=== PATIENT | female | born 1970 | race American Indian/Alaskan Native ===

== ENCOUNTER 2024-10-22 23:46 | Inpatient (IN) | payer OTHER, MEDICARE, SELFPAY ==
[2024-10-22 23:47] VITALS: BMI 21.0
[2024-10-22 23:51] VITALS: BP 124/92; PULSE 113; RESP 19; TEMP 37.2; O2SAT 99
[2024-10-23] VITALS (12 sets, daily range): BP systolic 104–120; BP diastolic 68–86; PULSE 104–120; RESP 15–31; TEMP 36–37.1; O2SAT 90–98
--- NOTE | 2024-10-23 00:30 | XR_ITS ---
Examination: CT brain head without contrast. 2-D sagittal coronal reconstructions Date and time of exam:October 23, 2024 0153 hours INDICATIONS: Loss of consciousness episode today followed by confusion CTDI: vol (mGy):42.6 DLP: (mGycm):8 Technique: Multiple CT axial sections of the brain have been obtained, 5 mm slice thickness. Contrast has not been administered. 2-D sagittal, coronal reconstructions have been obtained Low dose protocols were performed. One or more of the following dose reduction techniques were used; automated exposure control, adjustment of the mA and/or KV according to patient size, use of iterative reconstruction technique. Findings: No significant ventricular enlargement. Intra-axial or extra-axial hemorrhage density is not seen. No mass effect or midline shift Basal cisterns are not remarkable. Fourth ventricle is midline. Cranial vault intact. Large area of encephalomalacia in the left temporal lobe, left posterior temporal lobe calcification Impression: Negative for acute hemorrhage, mass effect or midline shift
--- NOTE | 2024-10-23 00:31 | PD.EDRME ---
Rapid Medical Screening Exam RME Arrival date/time: 10/22/24 23:46 This is a case of a 54-year-old female who has history of hypertension and seizure brought by the sister due to altered level of consciousness today sister states that the patient have vomiting and diarrhea since yesterday and she noticed that the patient is confused thus she brought the patient here in the emergency room Chief Complaint: Altered Mental Status Time Seen by Provider: 10/23/24 00:30 Vital signs: Vital Signs Temperature 99.0 F 10/22/24 23:51 Pulse Rate 113 H 10/22/24 23:51 Respiratory Rate 19 10/22/24 23:51 Blood Pressure 124/92 H 10/22/24 23:51 Pulse Oximetry (%) 99 10/22/24 23:51 Oxygen Delivery Method Room Air 10/22/24 23:51
[2024-10-23 01:06] LABS: Lactate (Lactic Acid) 3.6 mMol/L (0.4-2.0)
[2024-10-23 01:12] LABS: Basophils # (Auto) 0.1 Thou/mm3 (0.0-0.2); Basophils % (Auto) 0 % (0-2.5); Eosinophils # (Auto) 0.0 Thou/mm3 (0.0-0.5); Eosinophils % (Auto) 0 % (0-10); Hematocrit 37.4 % (36.0-46.0); Hemoglobin 13.3 g/dL (12.0-16.0); Immature Granulocytes Auto 0.21 Thou/mm3 (0.00-0.00); Lymphocytes # (Auto) 1.7 Thou/mm3 (1.0-4.8); Lymphocytes % (Auto) 6 % (10-50); Mean Corpuscular HGB Conc 35.6 g/dl (31.0-37.0); Mean Corpuscular Hemoglobin 30.9 pg (25.0-35.0); Mean Corpuscular Volume 87 fL (80-100); Monocytes # (Auto) 1.5 Thou/mm3 (0.0-0.8); Monocytes % (Auto) 5 % (0-12); Neutrophils # (Auto) 25.0 Thou/mm3 (1.8-7.7); Neutrophils % (Auto) 88 % (37-80); Nucleated Red Blood Cell # 0.00 Thou/mm3 (0.00-0.00); Nucleated Red Blood Cell % 0 /100 WBC (0); Platelet Count 384 Thou/mm3 (140-440); RDW Standard Deviation 37.7 fL (36.4-46.3); Red Blood Count 4.31 Miln/mm3 (4.00-5.20); White Blood Count 28.5 Thou/mm3 (3.6-11.0)
--- NOTE | 2024-10-23 01:25 | PD.EDAMS ---
Altered Mental Status RME/HPI General Chief Complaint: Altered Mental Status Stated Complaint: PT MOANING LOUDLY SEEMS CONFUSED Time Seen by Provider: 10/23/24 00:30 Arrival date/time: 10/22/24 23:46 RME / HPI RME / HPI narrative: 10/22/24 23:46 This is a case of a 54-year-old female who has history of hypertension and seizure brought by the sister due to altered level of consciousness today sister states that the patient have vomiting and diarrhea since yesterday and she noticed that the patient is confused thus she brought the patient here in the emergency room DR. LEMUS MAIN ED EVALUATION: 54 y/o female with Hx of Seizure, Anxiety, and Depression presents to ED c/o AMS s/p seizure x just [employer]. Patient lives alone. When sister went by to check on her, she found her home completely disordered. Sister states patient does not normally behave this way after a seizure. No pain reported. Related Data Home Medications ?Medication ?Instructions ?Recorded ?Confirmed levetiracetam 750 mg tablet 1,500 mg PO GISELE 07/03/21 07/03/21 (Keppra) levetiracetam 750 mg tablet 2,250 mg PO HS 07/03/21 07/03/21 (Keppra) mirtazapine 15 mg tablet (Remeron) 15 mg PO QDAY 07/03/21 07/03/21 venlafaxine 100 mg tablet 150 mg PO DAILY 07/03/21 10/23/24 Previous Rx's ?Medication ?Instructions ?Recorded lisinopril 20 mg tablet 20 mg PO QDAY #30 tabs 03/22/19 docusate sodium 100 mg capsule 100 mg PO BID #40 caps 07/07/21 (Colace) hydrocodone 5 mg-acetaminophen 325 1 tab PO Q6H PRN pain (scale score 07/07/21 mg tablet 7-10) #20 tabs ibuprofen 600 mg tablet 600 mg PO Q8H PRN pain (scale 07/07/21 score 4-6) #15 tabs prednisone 50 mg tablet 50 mg PO QDAY #7 tabs 06/18/23 zinc oxide 5 % topical cream 1 applic topical DAILY #20 mL 06/18/23 Allergies Allergy/AdvReac Type Severity Reaction Status Date / Time No Known Allergies Allergy Verified 10/22/24 23:51 Review of Systems Review of Systems ROS Unobtainable: unobtainable due to mental status Past Medical History Past Medical History NEUROLOGIC: Positive Neurological Disorders, Seizures, Epilepsy and Migraine CARDIAC: Positive Cardiac Disorders and Hypertension (TAKES MED) GASTROINTESTINAL: Positive Gastrointestinal Disorders and Gall Bladder Disease (LAP) REPRODUCTIVE: Positive Previous Pregnancies (X2) PSYCHO/SOCIAL: Positive Depression (TAKES MED) and Anxiety (TAKES MED) OTHER HISTORY: Positive Hospitalization (HOSP 2020 FOR SEIZURE), Chicken Pox, Measles and Mumps Family History FAMILY HISTORY: Positive Family Psychiatric Problems (MOTHER (DEPRESSION,ANXIETY)) and Family Cardiac Disorders (MOTHER (HTN)) Surgical History SURGICAL: Positive Neurologic Surgery (BRAIN SURG) Social History SMOKING STATUS: Current every day smoker SUBSTANCE USE: marijuana (daily ) ED Exam Narrative Physical exam: GENERAL APPEARANCE: alert and oriented x 4, well-developed, well-nourished, no acute distress VITALS: All vitals were reviewed and the pulse ox is 99% on room air, which is normal according to my interpretation. HEENT: Normocephalic, atraumatic; pupils equal, round, reactive to light; EOMI; mucous membranes pink, moist; oropharynx clear NECK: Supple LUNGS: CTABL; no wheezes, no rales, no rhonchi HEART: Regular rate, regular rhythm; normal S1, S2; no murmurs ABDOMEN: non distended; normal BS; soft, no tenderness, no guarding, no rebound; no masses, no organomegaly, no hernia BACK: no CVA tenderness EXTREMITIES: atraumatic; no edema NEUROLOGIC: awake; alert and oriented x4; cranial nerves II-XII grossly intact; no focal sensory or motor deficits PSYCHIATRIC: appropriate mood and affect SKIN: warm, dry, normal color; no rashes Course Quality Measures Current suspected stage: sepsis Possible source: unknown Blood cultures ordered: yes Antibiotic ordered: Yes Pertinent labs: 10/22/24 10/23/24 10/23/24 01:50 00:50 04:19 Lactic Acid 3.6 H mMol/L 3.9 H mMol/L (0.4-2.0) (0.4-2.0) Procalcitonin 16.25 H ng/ml (0.0-0.49) sepsis and none Orders Category Date Time Status IV [Insert IV] STAT Care 10/23/24 01:[address] chest abdomen pelvis wo Stat Exams 10/23/24 01:[address] head/brain wo con Stat Exams 10/23/24 00:30 Completed ABG [Arterial Blood Gas] Stat Lab 10/23/24 04:06 Completed Alcohol, Blood Medical Stat Lab 10/23/24 00:50 Completed Ammonia Stat Lab 10/23/24 00:50 Completed Ammonia Stat Lab 10/23/24 04:19 Completed Blood Culture (Lab) Stat Lab 10/23/24 00:55 Completed CBC Stat Lab 10/23/24 00:50 Completed CSF Culture and Gram Stain Stat Lab 10/23/24 05:10 Completed Cell Count w Diff, CSF Stat Lab 10/23/24 05:10 Completed Comprehensive Metabolic Panel Stat Lab 10/23/24 00:50 Completed Drug Screen,Urine Stat Lab 10/23/24 03:10 Completed Glucose,CSF Stat Lab 10/23/24 05:10 Completed Lactic Acid [Lactate (Lactic Acid)] Stat Lab 10/23/24 00:50 Completed Lactic Acid, 3 HR Stat Lab 10/23/24 04:19 Completed Lipase Stat Lab 10/23/24 00:50 Completed Procalcitonin Stat Lab 10/23/24 01:58 Completed Protein Total,CSF Stat Lab 10/23/24 05:10 Completed UA, C/S IF [Urinalysis, C/S if Indicated] Stat Lab 10/23/24 03:10 Completed Urinalysis Stat Lab 10/23/24 00:30 Stop Req c diff [Clostridium Difficile PCR] Stat Lab 10/23/24 Stop Req LORazepam [Ativan Inj] Med 10/23/24 01:09 Discontinued 2 mg IVP X1 ONE LORazepam [Ativan Inj] Med 10/23/24 04:07 Discontinued 2 mg IVP X1 ONE Piper/Tazo 3.375 gm Premix [Zosyn] Med 10/23/24 02:49 Discontinued 3.375 gm in 50 ml IV X1 Ringers Lactated 1000 ml [Lactated Ringers] 1,000 ml Med 10/23/24 01:58 Discontinued IV 999 mls/hr Ringers Lactated 1000 ml [Lactated Ringers] 1,000 ml Med 10/23/24 02:14 Discontinued IV 999 mls/hr levETIRAcetam INJ [Keppra Inj] Med 10/23/24 01:10 Discontinued 1,000 mg IVP X1 ONE Vital Signs Vital signs: Vital Signs Temperature 99.0 F 10/22/24 23:51 Pulse Rate 113 H 10/22/24 23:51 Respiratory Rate 19 10/22/24 23:51 Blood Pressure 124/92 H 10/22/24 23:51 Pulse Oximetry (%) 99 10/22/24 23:51 Oxygen Delivery Method Room Air 10/22/24 23:51 PROCEDURES: Lumbar Puncture Additional Comments: Lumbar puncture performed successfully by resident doctor under my supervision. Refer to resident's notes for full procedure details. Altered Mental Status MDM Narrative MDM Narrative:: Scribe Attestation: I, Kathia Puckett, am scribing for and in the presence of Dr. Lemus. Provider Notation: Although this document has been carefully reviewed, there may still be some phonetic and other typographical errors.? These errors are purely grammatical due to imperfections in the software program and should not be construed in any way to? compromise the substance of the patient's medical care during this visit. Patient data External records reviewed:: [facility] previous records (Reviewed prior ED records from 06/18/23. Patient was seen for Rash.) Clinical information provided by:: family Social determinants that could affect healthcare access:: none Patient has the following chronic illnesses:: Seizures, Epilepsy, Migraine, Hypertension, Gall Bladder Disease (LAP), Depression, Anxiety How is presenting disease/condition affected by chronic disease/condition?: exacerbated by Evaluation data The following diagnostics were reviewed and interpreted by me:: lab results and radiology exam(s) Lab and/or radiology exams considered but not ordered:: None Interpretation Summary: RADIOLOGY Head/Brain CT: Findings: There is no intracranial hemorrhage, extra-axial collection, mass, mass-effect or midline shift. Encephalomalacia is noted along the anterior, mid and medial left temporal lobe which may be related to old ischemia, old trauma or even prior postsurgical change. Subcentimeter posterior left temporal lobe calcification noted which is nonspecific but may be related to old healed neurocysticercosis. There is no CT evidence of acute large vascular territorial infarct. Ventricles are not enlarged or effaced except for mild passive compensatory enlargement of the temporal horn of the left lateral ventricle. There is atherosclerotic calcification along the carotid siphons. Visualized paranasal sinuses and tympanomastoid cavities are clear. Prior left temporal craniotomy noted. Impression: No intracranial hemorrhage, mass-effect or midline shift. Left temporal encephalomalacia which may be related to old ischemia, old trauma or even prior postsurgical change. No CT evidence of acute large vascular territorial infarct. Chest/Abdomen/Pelvis CT: Findings: Mild emphysematous changes are noted in both lung apices. Bibasilar dependent atelectasis is present. The lungs otherwise are clear. There is no pleural effusion or pneumothorax. The aorta is unremarkable on this noncontrast study. No evidence of mediastinal mass or lymphadenopathy. There is no pericardial effusion. Fatty infiltration of the liver is noted. The gallbladder is surgically absent. There is mild splenic atrophy. There is thickening and fat stranding surrounding adrenal glands. The pancreas and kidneys are unremarkable on this noncontrast study. The stomach is distended with food residue. No evidence of bowel obstruction. The appendix is within normal limits. Moderate amount of fecal material is present in the colon. The urinary bladder is not well distended with apparent wall thickening. There is no free fluid or free air. The bones are osteopenic. Mild degenerative changes are identified in the spine. There are calcifications with mild effusion in the inferior right shoulder joint. Impression: Possible cystitis. Recommend clinical and laboratory correlation. Bilateral adrenal hyperplasia with fat stranding. Recommend clinical correlation and follow-up. Calcifications with mild effusion in the inferior right shoulder joint. Consider followup with elective MRI. Other findings as described above. Medications / Prescriptions Medications or Prescriptions considered but not ordered:: None Medication administrations:: Medication Administration History Acetaminophen (Acetaminophen 325 Mg Tablet) 650 mg PO Q6H PRN PRN Reason: Pain Scale 1-5 Stop: 11/22/24 05:54 Ascorbic Acid (Ascorbic Acid 250 Mg Tablet) 500 mg PO BID KIMBERLY Stop: 11/27/24 09:44 Last Admin: 10/29/24 20:44 Dose: 500 mg Documented By: Admin: 10/29/24 09:41 Dose: 500 mg Documented By: Admin: 10/28/24 21:28 Dose: 500 mg Documented By: Admin: 10/28/24 09:51 Dose: 500 mg Documented By: MATTHIAS Dextrose (Dextrose 50%-Water Inj 50 Ml Syringe) 25 ml IV Q15MIN PRN PRN Reason: BG 50-70 responsive npo pt Stop: 11/24/24 08:36 Dextrose (Dextrose 50%-Water Inj 50 Ml Syringe) 50 ml IV Q15MIN PRN PRN Reason: BG <50 OR BG <70 & pt unresponsive Stop: 11/24/24 08:36 Enoxaparin Sodium (Enoxaparin Sod Inj 30 Mg/0.3 Ml Syringe) 30 mg SC QDAY KIMBERLY Stop: 11/12/24 08:59 Last Admin: 10/29/24 09:40 Dose: 30 mg Documented By: DREW Glucagon (Glucagon Inj 1 Mg Vial) 1 mg IM Q15MIN PRN PRN Reason: BG <70, and no IV access Ceftriaxone Sodium/Dextrose (Rocephin/D5w 1gm Iv Premix) 1 gm in 50 mls @ 100 mls/hr IV QDAY [facility] Stop: 10/30/24 10:59 Last Admin: 10/29/24 09:39 Dose: 100 mls/hr Documented By: Infusion: 10/28/24 10:16 Dose: Infused Documented By: Admin: 10/28/24 09:46 Dose: 100 mls/hr Documented By: Infusion: 10/27/24 15:22 Dose: Infused Documented By: Admin: 10/27/24 08:16 Dose: 100 mls/hr Documented By: Infusion: 10/26/24 09:28 Dose: Infused Documented By: Admin: 10/26/24 08:58 Dose: 100 mls/hr Documented By: Infusion: 10/25/24 08:59 Dose: Infused Documented By: Admin: 10/25/24 08:29 Dose: 100 mls/hr Documented By: Infusion: 10/24/24 15:00 Dose: Infused Documented By: Admin: 10/24/24 09:13 Dose: 100 mls/hr Documented By: Infusion: 10/23/24 10:30 Dose: Infused Documented By: Admin: 10/23/24 10:00 Dose: 100 mls/hr Documented By: CALDERON Lacosamide (Lacosamide 50 Mg Tablet) 100 mg PO BID KIMBERLY Stop: 11/27/24 20:59 Last Admin: 10/29/24 20:45 Dose: 100 mg Documented By: Admin: 10/29/24 09:40 Dose: 100 mg Documented By: Admin: 10/28/24 21:29 Dose: 100 mg Documented By: ALLISON Levetiracetam (Levetiracetam Liqd 500 Mg/5 Ml Udc) 750 mg PO BID KIMBERLY Stop: 11/27/24 20:59 Last Admin: 10/29/24 20:45 Dose: 750 mg Documented By: Admin: 10/29/24 09:39 Dose: 750 mg Documented By: Admin: 10/28/24 21:30 Dose: 750 mg Documented By: ALLISON Metoprolol Tartrate (Metoprolol Tartrate 25 Mg Tablet) 25 mg PO BID [facility] Stop: 11/27/24 20:59 Last Admin: 10/29/24 20:44 Dose: Not Given Documented By: COLLEEN Non-Admin Reason: Per Protocol Comments: help per BP protocol 118/80 Multivitamins (Multivitamins Tablet) 1 tab PO QDAY [facility] Stop: 11/27/24 09:29 Last Admin: 10/29/24 09:39 Dose: 1 tab Documented By: Admin: 10/28/24 09:51 Dose: 1 tab Documented By: MATTHIAS Nicotine (Nicotine Patch 21 Mg/24 Hr Patch.Td24) 21 mg TOP QDAY PRN PRN Reason: SMOKING CESSATION Stop: 11/28/24 08:59 Ondansetron HCl (Ondansetron Inj 2 Mg/Ml Inj 2 Ml) 4 mg IVP Q6H PRN; Protocol PRN Reason: NAUSEA OR VOMITING Stop: 11/22/24 05:54 Last Admin: 10/23/24 10:17 Dose: 4 mg Documented By: CALDERON Pantoprazole Sodium (Pantoprazole 40 Mg Tablet) 40 mg PO QDAY [facility] Stop: 11/28/24 08:59 Last Admin: 10/29/24 09:41 Dose: 40 mg Documented By: DREW Quetiapine Fumarate (Quetiapine Fumarate 25 Mg Tablet) 100 mg PO BID KIMBERLY Stop: 11/27/24 20:59 Last Admin: 10/29/24 20:46 Dose: 100 mg Documented By: Admin: 10/29/24 09:41 Dose: 100 mg Documented By: Admin: 10/28/24 21:28 Dose: 100 mg Documented By: ALLISON Sennosides (Senna/Docusate Sod 1 Tab Tablet) 2 tab PO QDAY [facility]IM[facility]; Protocol Stop: 11/25/24 13:59 Last Admin: 10/29/24 09:41 Dose: 2 tab Documented By: Admin: 10/28/24 09:46 Dose: 2 tab Documented By: Admin: 10/27/24 08:16 Dose: 2 tab Documented By: Admin: 10/26/24 14:14 Dose: 2 tab Documented By: ULISSES Zinc Sulfate (Zinc Sulfate 220 Mg Capsule) 220 mg PO QDAY [facility] Stop: 11/11/24 09:44 Last Admin: 10/29/24 09:39 Dose: 220 mg Documented By: Admin: 10/28/24 09:52 Dose: 220 mg Documented By: MATTHIAS Ziprasidone (Ziprasidone Inj 20 Mg/Ml Vial (Non-Formulary)) 10 mg IM Q6HR PRN; Protocol PRN Reason: SEVERE AGITATION Stop: 11/26/24 09:33 Last Admin: 10/28/24 05:58 Dose: 10 mg Documented By: JEAN MARIE Admin: 10/27/24 22:38 Dose: 10 mg Documented By: JEAN MARIE Admin: 10/27/24 16:11 Dose: 10 mg Documented By: MATTHIAS Discontinued Medications Acetaminophen (Acetaminophen 325 Mg Tablet) 650 mg PO Q6H PRN PRN Reason: PAIN SCALE 1-3 (mild Stop: 11/22/24 05:54 Last Admin: 10/28/24 11:26 Dose: 650 mg Documented By: MATTHIAS Comments: given per Dr. Viera at bedside Aspirin (Aspirin 325 Mg Tablet) 325 mg NG X1 ONE Stop: 10/24/24 13:50 Last Admin: 10/24/24 16:53 Dose: 325 mg Documented By: MATTHIAS Aspirin (Aspirin 81 Mg Chew) 81 mg NG QDAY [facility] Stop: 11/24/24 08:59 Last Admin: 10/28/24 19:17 Dose: Not Given Documented By: AWA Non-Admin Reason: Discontinued Admin: 10/27/24 08:16 Dose: 81 mg Documented By: Admin: 10/26/24 08:58 Dose: 81 mg Documented By: Admin: 10/25/24 08:28 Dose: 81 mg Documented By: ULISSES Aspirin (Aspirin 81 Mg Chew) 81 mg PO QDAY [facility] Stop: 11/28/24 08:59 Aspirin (Aspirin Ec 81 Mg Tabec) 81 mg PO X1 ONE Stop: 10/28/24 09:54 Last Admin: 10/28/24 09:59 Dose: 81 mg Documented By: MATTHIAS Clopidogrel Bisulfate (Clopidogrel Bisulfate 75 Mg Tablet) 600 mg NG X1 ONE Stop: 10/24/24 16:06 Last Admin: 10/24/24 17:41 Dose: 600 mg Documented By: MATTHIAS Comments: confirmed dose with Dr. Gardiner Clopidogrel Bisulfate (Clopidogrel Bisulfate 75 Mg Tablet) 75 mg NG QDAY [facility] Stop: 11/24/24 08:59 Last Admin: 10/28/24 19:17 Dose: Not Given Documented By: AWA Non-Admin Reason: Discontinued Admin: 10/27/24 08:16 Dose: 75 mg Documented By: Admin: 10/26/24 08:57 Dose: 75 mg Documented By: Admin: 10/25/24 08:29 Dose: 75 mg Documented By: ULISSES Clopidogrel Bisulfate (Clopidogrel Bisulfate 75 Mg Tablet) 75 mg PO QDAY [facility] Stop: 11/28/24 08:59 Clopidogrel Bisulfate (Clopidogrel Bisulfate 75 Mg Tablet) 75 mg PO X1 ONE Stop: 10/28/24 09:54 Last Admin: 10/28/24 09:59 Dose: 75 mg Documented By: MATTHIAS Olanzapine 10 mg/ Sterile (Water 2.1 ml) 0 mg IM X1 ONE Stop: 10/24/24 05:58 Last Admin: 10/24/24 06:03 Dose: 10 dose Documented By: HOANG Diphenhydramine HCl (Diphenhydramine Inj 50 Mg/Ml Vial) 12.5 mg IVP X1 ONE Stop: 10/24/24 04:11 Last Admin: 10/24/24 04:35 Dose: 12.5 mg Documented By: AM Diphenhydramine HCl (Diphenhydramine Inj 50 Mg/Ml Vial) 12.5 mg IVP X1 ONE Stop: 10/24/24 05:13 Last Admin: 10/24/24 05:39 Dose: 12.5 mg Documented By: AM Enoxaparin Sodium (Enoxaparin Sod Inj 60 Mg/0.6 Ml Syringe) 60 mg SC BID KIMBERLY Stop: 11/10/24 16:29 Last Admin: 10/27/24 17:55 Dose: Not Given Documented By: MATTHIAS Non-Admin Reason: Cancelled by Provider Etomidate (Etomidate Inj 2 Mg/Ml Vial 10 Ml) 20 mg IVP X1 ONE Stop: 10/24/24 09:59 Last Admin: 10/24/24 09:54 Dose: 20 mg Documented By: Comments: FOR INTUBATION Fentanyl Citrate (Fentanyl Cit Inj 50 Mcg/Ml Amp 2ml) Confirm Administered Dose 200 mcg .ROUTE .STK-MED ONE Stop: 10/24/24 09:53 Last Admin: 10/24/24 10:37 Dose: Not Given Documented By: Non-Admin Reason: STK MED Furosemide (Furosemide Inj 10 Mg/Ml 4ml Vial) 40 mg IVP X1 ONE Stop: 10/25/24 09:55 Last Admin: 10/25/24 10:28 Dose: 40 mg Documented By: ULISSES Furosemide (Furosemide Inj 10 Mg/Ml 4ml Vial) 40 mg IVP X1 ONE Stop: 10/26/24 10:23 Last Admin: 10/26/24 11:27 Dose: 40 mg Documented By: ULISSES Furosemide (Furosemide Inj 10 Mg/Ml 4ml Vial) 40 mg IVP X1 ONE Stop: 10/27/24 10:01 Last Admin: 10/27/24 12:19 Dose: 40 mg Documented By: MATTHIAS Haloperidol Lactate (Haloperidol Lact Inj 5 Mg/Ml Vial) 5 mg IV X1 ONE Stop: 10/24/24 05:13 Last Admin: 10/24/24 05:43 Dose: 5 mg Documented By: AM Haloperidol Lactate (Haloperidol Lact Inj 5 Mg/Ml Vial) 7.5 mg IM X1 ONE Stop: 10/24/24 08:31 Last Admin: 10/24/24 08:33 Dose: 7.5 mg Documented By: Comments: FOR CREDIT CHECKER MEDICATION WAS A OVERRIDE Haloperidol Lactate (Haloperidol Lact Inj 5 Mg/Ml Vial) 5 mg IV Q6HR PRN PRN Reason: AGITATION (SEVERE) Stop: 10/29/24 09:40 Last Admin: 10/24/24 09:41 Dose: 5 mg Documented By: Comments: PER MD WILCOX Haloperidol Lactate (Haloperidol Lact Inj 5 Mg/Ml Vial) Confirm Administered Dose 5 mg .ROUTE .STK-MED ONE Stop: 10/24/24 09:40 Last Admin: 10/24/24 10:36 Dose: Not Given Documented By: Non-Admin Reason: STK MED Haloperidol Lactate (Haloperidol Lact Inj 5 Mg/Ml Vial) 5 mg IV X1 ONE Stop: 10/26/24 13:33 Last Admin: 10/26/24 13:38 Dose: 5 mg Documented By: denise Haloperidol Lactate (Haloperidol Lact Inj 5 Mg/Ml Vial) Confirm Administered Dose 5 mg .ROUTE .STK-MED ONE Stop: 10/26/24 13:33 Last Admin: 10/26/24 13:48 Dose: Not Given Documented By: ULISSES Non-Admin Reason: Duplicate Medication on eMAR Haloperidol Lactate (Haloperidol Lact Inj 5 Mg/Ml Vial) 5 mg IV X1 PRN PRN Reason: Agitation (Severe) Last Admin: 10/27/24 07:38 Dose: 5 mg Documented By: MATTHIAS Comments: PER DR GARDINER AT BEDSIDE Haloperidol Lactate (Haloperidol Lact Inj 5 Mg/Ml Vial) 5 mg IV X1 PRN; Protocol PRN Reason: AGITATION (SEVERE) Heparin Sodium (Porcine) (Heparin Sod Inj 5000 Unit/Ml Vial) 5,000 unit SC Q12HR [facility] Stop: 11/06/24 08:59 Last Admin: 10/24/24 10:46 Dose: 5,000 unit Documented By: CALDERON Co-signed By: Admin: 10/23/24 22:15 Dose: 5,000 unit Documented By: AM Co-signed By: JARON Comments: late bc RT was doing EEG Admin: 10/23/24 08:57 Dose: 5,000 unit Documented By: JRLynette Co-signed By: Heparin Sodium (Porcine) (Heparin Sod Inj 5000 Unit/Ml Vial) 3,150 unit 60 unit/kg (3150 unit) IV X1 ONE; Protocol Stop: 10/24/24 13:51 Last Admin: 10/24/24 17:27 Dose: 3,150 unit Documented By: MATTHIAS Co-signed By: JRR Comments: ptt:24.5 Heparin Sodium (Porcine) (Heparin Sod Inj 5000 Unit/Ml Vial) 1,550 unit 30 unit/kg (1550 unit) IV PRN ONE Stop: 10/25/24 01:30 Last Admin: 10/25/24 02:04 Dose: 1,550 unit Documented By: ADAM Co-signed By: RH Heparin Sodium (Porcine) (Heparin Sod Inj 5000 Unit/Ml Vial) 1,600 unit 30 unit/kg (1600 unit) IV PRN ONE Stop: 10/25/24 12:25 Last Admin: 10/25/24 12:36 Dose: 1,600 unit Documented By: ULISSES Co-signed By: Heparin Sodium (Porcine) (Heparin Sod Inj 5000 Unit/Ml Vial) 1,600 unit IVP X1 ONE Stop: 10/25/24 19:21 Last Admin: 10/25/24 19:27 Dose: 1,600 unit Documented By: COLLEEN Co-signed By: LUCERO Heparin Sodium (Porcine) (Heparin Sod Inj 5000 Unit/Ml Vial) 1,600 unit IVP X1 ONE Stop: 10/26/24 02:04 Last Admin: 10/26/24 02:09 Dose: 1,600 unit Documented By: COLLEEN Co-signed By: LUCERO Heparin Sodium (Porcine) (Heparin Sod Inj 5000 Unit/Ml Vial) 1,550 unit 30 unit/kg (1550 unit) IV X1 ONE Stop: 10/26/24 11:16 Last Admin: 10/26/24 11:27 Dose: 1,550 unit Documented By: ULISSES Co-signed By: Comments: PTT 46.6 Heparin Sodium (Porcine) (Heparin Sod Inj 5000 Unit/Ml Vial) 1,550 unit 30 unit/kg (1550 unit) IV PRN ONE Stop: 10/26/24 18:33 Last Admin: 10/26/24 18:40 Dose: 1,550 unit Documented By: ULISSES Co-signed By: Heparin Sodium (Porcine) (Heparin Sod Inj 5000 Unit/Ml Vial) 1,550 unit 30 unit/kg (1550 unit) IV PRN ONE Stop: 10/27/24 02:04 Last Admin: 10/27/24 02:27 Dose: 1,550 unit Documented By: ADAM Co-signed By: LUCERO Lactated Ringer's (Lactated Ringers) 1,000 mls @ 999 mls/hr IV .Q1H1M ONE Stop: 10/23/24 02:58 Last Infusion: 10/23/24 04:50 Dose: Infused Documented By: Admin: 10/23/24 02:45 Dose: 999 mls/hr Documented By: RAFAEL Lactated Ringer's (Lactated Ringers) 1,000 mls @ 999 mls/hr IV .Q1H1M ONE Stop: 10/23/24 03:14 Last Infusion: 10/23/24 04:24 Dose: Infused Documented By: Admin: 10/23/24 02:45 Dose: 999 mls/hr Documented By: RAFAEL Piperacillin/Tazobactam/Dextrose (Zosyn) 3.375 gm in 50 mls @ 100 mls/hr IV X1 ONE Stop: 10/23/24 03:18 Last Infusion: 10/23/24 03:42 Dose: Infused Documented By: Admin: 10/23/24 03:12 Dose: 100 mls/hr Documented By: KARINA Lactated Ringer's (Lactated Ringers) 1,000 mls @ 75 mls/hr IV .[id number] ONE Stop: 10/23/24 19:32 Last Admin: 10/23/24 06:41 Dose: 75 mls/hr Documented By: KARINA Lactated Ringer's (Lactated Ringers) 1,000 mls @ 100 mls/hr IV .Q10H ONE Stop: 10/23/24 16:12 Last Admin: 10/24/24 20:40 Dose: Not Given Documented By: ADAM Non-Admin Reason: Discontinued Sodium Chloride (Ns) 1,000 mls @ 999 mls/hr IV .Q1H1M ONE Stop: 10/23/24 08:13 Last Admin: 10/23/24 08:56 Dose: 999 mls/hr Documented By: CALDERON Sodium Chloride (Ns) 1,000 mls @ 250 mls/hr IV .Q4H [facility] Stop: 11/22/24 08:49 Last Infusion: 10/24/24 16:00 Dose: 0 mls/hr Documented By: Admin: 10/24/24 14:27 Dose: 250 mls/hr Documented By: Admin: 10/24/24 14:27 Dose: Not Given Documented By: HR Non-Admin Reason: Discontinued Admin: 10/24/24 14:24 Dose: Not Given Documented By: HR Non-Admin Reason: Discontinued Infusion: 10/24/24 11:48 Dose: Infused Documented By: Admin: 10/24/24 11:41 Dose: 250 mls/hr Documented By: Infusion: 10/24/24 08:39 Dose: Infused Documented By: Admin: 10/24/24 04:39 Dose: 250 mls/hr Documented By: Infusion: 10/24/24 03:48 Dose: Infused Documented By: Admin: 10/23/24 23:48 Dose: 250 mls/hr Documented By: Infusion: 10/23/24 18:23 Dose: Infused Documented By: Admin: 10/23/24 14:23 Dose: 250 mls/hr Documented By: R Infusion: 10/23/24 14:06 Dose: Infused Documented By: Admin: 10/23/24 10:06 Dose: 250 mls/hr Documented By: CALDERON Dexmedetomidine/Sodium Chloride (Precedex Ivpb) 400 mcg in 100 mls @ 2.608 mls/hr IV .Q24H PRN; Protocol PRN Reason: Per PROTOCOL Stop: 11/23/24 08:47 Last Titration: 10/24/24 10:04 Dose: 0 mcg/kg/hr, 0 mls/hr Documented By: R Titration: 10/24/24 10:00 Dose: 1.4 mcg/kg/hr, 18.257 mls/hr Documented By: Titration: 10/24/24 09:40 Dose: 1.4 mcg/kg/hr, 18.257 mls/hr Documented By: Titration: 10/24/24 09:33 Dose: 0.4 mcg/kg/hr, 5.216 mls/hr Documented By: Admin: 10/24/24 09:01 Dose: 0.2 mcg/kg/hr, 2.608 mls/hr Documented By: CALDERON Co-signed By: CRISTIANE Propofol (Diprivan Ivpb) 1,000 mg in 100 mls @ 1.565 mls/hr IV .Q24H PRN; Protocol PRN Reason: PER PROTOCOL Stop: 11/23/24 10:00 Last Titration: 10/27/24 10:05 Dose: 0 mcg/kg/min, 0 mls/hr Documented By: Titration: 10/27/24 10:00 Dose: 15 mcg/kg/min, 4.695 mls/hr Documented By: Titration: 10/27/24 09:46 Dose: 15 mcg/kg/min, 4.695 mls/hr Documented By: Titration: 10/27/24 09:35 Dose: 20 mcg/kg/min, 6.26 mls/hr Documented By: Titration: 10/27/24 09:32 Dose: 45 mcg/kg/min, 14.084 mls/hr Documented By: Titration: 10/27/24 09:00 Dose: 50 mcg/kg/min, 15.649 mls/hr Documented By: Admin: 10/27/24 09:00 Dose: 50 mcg/kg/min, 15.649 mls/hr Documented By: MATTHIAS Co-signed By: denise Titration: 10/27/24 08:52 Dose: Infused Documented By: MATTHIAS Co-signed By: denise Titration: 10/27/24 08:00 Dose: 50 mcg/kg/min, 15.649 mls/hr Documented By: MATTHIAS Co-signed By: denise Titration: 10/27/24 07:00 Dose: 50 mcg/kg/min, 15.649 mls/hr Documented By: MATTHIAS Co-signed By: denise Titration: 10/27/24 06:00 Dose: 50 mcg/kg/min, 15.649 mls/hr Documented By: Titration: 10/27/24 05:00 Dose: 50 mcg/kg/min, 15.649 mls/hr Documented By: Titration: 10/27/24 04:00 Dose: 50 mcg/kg/min, 15.649 mls/hr Documented By: Titration: 10/27/24 03:00 Dose: 50 mcg/kg/min, 15.649 mls/hr Documented By: Admin: 10/27/24 02:28 Dose: 50 mcg/kg/min, 15.649 mls/hr Documented By: ADAM Co-signed By: LUCERO Titration: 10/27/24 02:28 Dose: Infused Documented By: BB Co-signed By: CMN Titration: 10/27/24 02:00 Dose: 50 mcg/kg/min, 15.649 mls/hr Documented By: Titration: 10/27/24 01:00 Dose: 50 mcg/kg/min, 15.649 mls/hr Documented By: Titration: 10/27/24 00:00 Dose: 50 mcg/kg/min, 15.649 mls/hr Documented By: Titration: 10/26/24 23:00 Dose: 50 mcg/kg/min, 15.649 mls/hr Documented By: Titration: 10/26/24 22:00 Dose: 50 mcg/kg/min, 15.649 mls/hr Documented By: Titration: 10/26/24 21:00 Dose: 50 mcg/kg/min, 15.649 mls/hr Documented By: Admin: 10/26/24 20:30 Dose: 50 mcg/kg/min, 15.649 mls/hr Documented By: BB Co-signed By: CMN Titration: 10/26/24 20:30 Dose: Infused Documented By: BB Co-signed By: CMN Titration: 10/26/24 18:00 Dose: 50 mcg/kg/min, 15.649 mls/hr Documented By: Titration: 10/26/24 17:00 Dose: 50 mcg/kg/min, 15.649 mls/hr Documented By: Titration: 10/26/24 16:00 Dose: 50 mcg/kg/min, 15.649 mls/hr Documented By: Titration: 10/26/24 15:00 Dose: 50 mcg/kg/min, 15.649 mls/hr Documented By: Titration: 10/26/24 14:30 Dose: 50 mcg/kg/min, 15.649 mls/hr Documented By: Titration: 10/26/24 14:20 Dose: 45 mcg/kg/min, 14.084 mls/hr Documented By: Titration: 10/26/24 14:00 Dose: 40 mcg/kg/min, 12.519 mls/hr Documented By: Titration: 10/26/24 13:47 Dose: 40 mcg/kg/min, 12.519 mls/hr Documented By: Titration: 10/26/24 13:14 Dose: 0 mcg/kg/min, 0 mls/hr Documented By: Titration: 10/26/24 13:00 Dose: 40 mcg/kg/min, 12.519 mls/hr Documented By: Admin: 10/26/24 12:28 Dose: 45 mcg/kg/min, 14.084 mls/hr Documented By: GE Co-signed By: AT Titration: 10/26/24 12:28 Dose: Infused Documented By: GE Co-signed By: AT Titration: 10/26/24 12:24 Dose: 45 mcg/kg/min, 14.084 mls/hr Documented By: Titration: 10/26/24 12:00 Dose: 50 mcg/kg/min, 15.649 mls/hr Documented By: Titration: 10/26/24 11:00 Dose: 50 mcg/kg/min, 15.649 mls/hr Documented By: Titration: 10/26/24 10:00 Dose: 50 mcg/kg/min, 15.649 mls/hr Documented By: Titration: 10/26/24 09:00 Dose: 50 mcg/kg/min, 15.649 mls/hr Documented By: Titration: 10/26/24 08:00 Dose: 0 mcg/kg/min, 0 mls/hr Documented By: Titration: 10/26/24 07:00 Dose: 50 mcg/kg/min, 15.649 mls/hr Documented By: Titration: 10/26/24 06:55 Dose: 45 mcg/kg/min, 14.084 mls/hr Documented By: Titration: 10/26/24 06:28 Dose: 40 mcg/kg/min, 12.519 mls/hr Documented By: Titration: 10/26/24 06:00 Dose: 35 mcg/kg/min, 10.954 mls/hr Documented By: Admin: 10/26/24 05:19 Dose: 35 mcg/kg/min, 10.954 mls/hr Documented By: WB Co-signed By: KAAvi Titration: 10/26/24 05:19 Dose: Infused Documented By: WB Co-signed By: KAA Titration: 10/26/24 05:00 Dose: 35 mcg/kg/min, 10.954 mls/hr Documented By: WB Co-signed By: KAA Titration: 10/26/24 04:00 Dose: 35 mcg/kg/min, 10.954 mls/hr Documented By: Titration: 10/26/24 03:38 Dose: 35 mcg/kg/min, 10.954 mls/hr Documented By: Titration: 10/26/24 03:00 Dose: 40 mcg/kg/min, 12.519 mls/hr Documented By: Titration: 10/26/24 02:21 Dose: 45 mcg/kg/min, 14.084 mls/hr Documented By: Titration: 10/26/24 02:00 Dose: 50 mcg/kg/min, 15.649 mls/hr Documented By: Titration: 10/26/24 01:18 Dose: 50 mcg/kg/min, 15.649 mls/hr Documented By: Titration: 10/26/24 01:00 Dose: 45 mcg/kg/min, 14.084 mls/hr Documented By: Titration: 10/26/24 00:22 Dose: 45 mcg/kg/min, 14.084 mls/hr Documented By: Titration: 10/25/24 23:59 Dose: 40 mcg/kg/min, 12.519 mls/hr Documented By: Titration: 10/25/24 23:00 Dose: 35 mcg/kg/min, 10.954 mls/hr Documented By: Admin: 10/25/24 22:00 Dose: 35 mcg/kg/min, 10.954 mls/hr Documented By: WB Co-signed By: KAA Titration: 10/25/24 22:00 Dose: Infused Documented By: WB Co-signed By: KAA Titration: 10/25/24 21:00 Dose: 35 mcg/kg/min, 10.954 mls/hr Documented By: Titration: 10/25/24 20:00 Dose: 35 mcg/kg/min, 10.954 mls/hr Documented By: Titration: 10/25/24 19:00 Dose: 35 mcg/kg/min, 10.954 mls/hr Documented By: Titration: 10/25/24 18:00 Dose: 35 mcg/kg/min, 10.954 mls/hr Documented By: Titration: 10/25/24 17:00 Dose: 35 mcg/kg/min, 10.954 mls/hr Documented By: Titration: 10/25/24 16:00 Dose: 35 mcg/kg/min, 10.954 mls/hr Documented By: Admin: 10/25/24 15:00 Dose: 35 mcg/kg/min, 10.954 mls/hr Documented By: GE Co-signed By: MR Titration: 10/25/24 15:00 Dose: Infused Documented By: Titration: 10/25/24 14:00 Dose: 35 mcg/kg/min, 10.954 mls/hr Documented By: Titration: 10/25/24 13:00 Dose: 35 mcg/kg/min, 10.954 mls/hr Documented By: Titration: 10/25/24 12:00 Dose: 35 mcg/kg/min, 10.954 mls/hr Documented By: Titration: 10/25/24 11:00 Dose: 35 mcg/kg/min, 10.954 mls/hr Documented By: Titration: 10/25/24 10:00 Dose: 35 mcg/kg/min, 10.954 mls/hr Documented By: Titration: 10/25/24 09:00 Dose: 35 mcg/kg/min, 10.954 mls/hr Documented By: Titration: 10/25/24 08:00 Dose: 35 mcg/kg/min, 10.954 mls/hr Documented By: Titration: 10/25/24 07:00 Dose: 35 mcg/kg/min, 10.954 mls/hr Documented By: Titration: 10/25/24 06:00 Dose: 35 mcg/kg/min, 10.954 mls/hr Documented By: Admin: 10/25/24 05:32 Dose: 35 mcg/kg/min, 10.954 mls/hr Documented By: ADAM Co-signed By: RH Titration: 10/25/24 05:32 Dose: Infused Documented By: BB Co-signed By: RH Titration: 10/25/24 05:00 Dose: 35 mcg/kg/min, 10.954 mls/hr Documented By: Titration: 10/25/24 04:00 Dose: 35 mcg/kg/min, 10.954 mls/hr Documented By: Titration: 10/25/24 03:00 Dose: 35 mcg/kg/min, 10.954 mls/hr Documented By: Titration: 10/25/24 02:00 Dose: 35 mcg/kg/min, 10.954 mls/hr Documented By: Titration: 10/25/24 01:00 Dose: 35 mcg/kg/min, 10.954 mls/hr Documented By: Titration: 10/25/24 00:00 Dose: 35 mcg/kg/min, 10.954 mls/hr Documented By: Titration: 10/24/24 23:00 Dose: 35 mcg/kg/min, 10.954 mls/hr Documented By: Titration: 10/24/24 22:00 Dose: 35 mcg/kg/min, 10.954 mls/hr Documented By: Titration: 10/24/24 21:00 Dose: 35 mcg/kg/min, 10.954 mls/hr Documented By: Titration: 10/24/24 20:00 Dose: 35 mcg/kg/min, 10.954 mls/hr Documented By: Admin: 10/24/24 19:55 Dose: 35 mcg/kg/min, 10.954 mls/hr Documented By: ADAM Co-signed By: RH Titration: 10/24/24 19:55 Dose: Infused Documented By: BB Co-signed By: RH Titration: 10/24/24 19:00 Dose: 35 mcg/kg/min, 10.954 mls/hr Documented By: BB Co-signed By: RH Titration: 10/24/24 18:33 Dose: 35 mcg/kg/min, 10.954 mls/hr Documented By: Titration: 10/24/24 18:00 Dose: 30 mcg/kg/min, 9.389 mls/hr Documented By: Titration: 10/24/24 17:00 Dose: 30 mcg/kg/min, 9.389 mls/hr Documented By: Titration: 10/24/24 16:00 Dose: 30 mcg/kg/min, 9.389 mls/hr Documented By: Titration: 10/24/24 15:00 Dose: 30 mcg/kg/min, 9.389 mls/hr Documented By: Titration: 10/24/24 14:30 Dose: 30 mcg/kg/min, 9.389 mls/hr Documented By: Titration: 10/24/24 14:00 Dose: 35 mcg/kg/min, 10.954 mls/hr Documented By: Titration: 10/24/24 12:35 Dose: 35 mcg/kg/min, 10.954 mls/hr Documented By: Titration: 10/24/24 12:25 Dose: 30 mcg/kg/min, 9.389 mls/hr Documented By: Titration: 10/24/24 12:20 Dose: 25 mcg/kg/min, 7.824 mls/hr Documented By: Titration: 10/24/24 12:09 Dose: 20 mcg/kg/min, 6.26 mls/hr Documented By: Titration: 10/24/24 11:47 Dose: 15 mcg/kg/min, 4.695 mls/hr Documented By: Titration: 10/24/24 10:39 Dose: 10 mcg/kg/min, 3.13 mls/hr Documented By: Admin: 10/24/24 10:39 Dose: 5 mcg/kg/min, 1.565 mls/hr Documented By: MR Co-signed By: CALDERON Comments: PT INTUBATED @0958 Fentanyl Citrate (Sublimaze Inj 2,500 Mcg/250 Ml Bag) 2,500 mcg in 250 mls @ 2.5 mls/hr IV .Q24H PRN; Protocol PRN Reason: PER PROTOCOL Stop: 10/29/24 10:00 Last Titration: 10/27/24 10:05 Dose: 0 mcg/hr, 0 mls/hr Documented By: Titration: 10/27/24 10:00 Dose: 125 mcg/hr, 12.5 mls/hr Documented By: Titration: 10/27/24 09:42 Dose: 125 mcg/hr, 12.5 mls/hr Documented By: Titration: 10/27/24 09:35 Dose: 125 mcg/hr, 12.5 mls/hr Documented By: Titration: 10/27/24 09:00 Dose: 250 mcg/hr, 25 mls/hr Documented By: Titration: 10/27/24 08:00 Dose: 250 mcg/hr, 25 mls/hr Documented By: Titration: 10/27/24 07:20 Dose: 250 mcg/hr, 25 mls/hr Documented By: Titration: 10/27/24 07:00 Dose: 225 mcg/hr, 22.5 mls/hr Documented By: Titration: 10/27/24 06:00 Dose: 225 mcg/hr, 22.5 mls/hr Documented By: Titration: 10/27/24 05:00 Dose: 225 mcg/hr, 22.5 mls/hr Documented By: Titration: 10/27/24 04:00 Dose: 225 mcg/hr, 22.5 mls/hr Documented By: Titration: 10/27/24 03:00 Dose: 225 mcg/hr, 22.5 mls/hr Documented By: Titration: 10/27/24 02:00 Dose: 225 mcg/hr, 22.5 mls/hr Documented By: Titration: 10/27/24 01:00 Dose: 225 mcg/hr, 22.5 mls/hr Documented By: Admin: 10/27/24 00:10 Dose: 225 mcg/hr, 22.5 mls/hr Documented By: ADAM Co-signed By: CMN Titration: 10/27/24 00:10 Dose: Infused Documented By: ADAM Co-signed By: CMN Titration: 10/27/24 00:00 Dose: 225 mcg/hr, 22.5 mls/hr Documented By: BB Co-signed By: CMN Titration: 10/26/24 23:00 Dose: 225 mcg/hr, 22.5 mls/hr Documented By: BB Co-signed By: CMN Titration: 10/26/24 22:00 Dose: 225 mcg/hr, 22.5 mls/hr Documented By: ADAM Co-signed By: CMN Titration: 10/26/24 21:00 Dose: 225 mcg/hr, 22.5 mls/hr Documented By: ADAM Co-signed By: CMN Titration: 10/26/24 20:00 Dose: 225 mcg/hr, 22.5 mls/hr Documented By: ADAM Co-signed By: CMN Titration: 10/26/24 19:00 Dose: 225 mcg/hr, 22.5 mls/hr Documented By: BB Co-signed By: CMN Titration: 10/26/24 18:00 Dose: 225 mcg/hr, 22.5 mls/hr Documented By: Titration: 10/26/24 17:00 Dose: 225 mcg/hr, 22.5 mls/hr Documented By: Titration: 10/26/24 16:00 Dose: 225 mcg/hr, 22.5 mls/hr Documented By: Titration: 10/26/24 15:00 Dose: 225 mcg/hr, 22.5 mls/hr Documented By: Titration: 10/26/24 14:47 Dose: 225 mcg/hr, 22.5 mls/hr Documented By: Titration: 10/26/24 14:17 Dose: 175 mcg/hr, 17.5 mls/hr Documented By: Titration: 10/26/24 14:00 Dose: 125 mcg/hr, 12.5 mls/hr Documented By: Titration: 10/26/24 13:47 Dose: 125 mcg/hr, 12.5 mls/hr Documented By: Titration: 10/26/24 13:37 Dose: 0 mcg/hr, 0 mls/hr Documented By: Titration: 10/26/24 13:14 Dose: 0 mcg/hr, 0 mls/hr Documented By: Titration: 10/26/24 13:00 Dose: 125 mcg/hr, 12.5 mls/hr Documented By: Admin: 10/26/24 12:27 Dose: 125 mcg/hr, 12.5 mls/hr Documented By: GE Co-signed By: AT Titration: 10/26/24 12:27 Dose: Infused Documented By: GE Co-signed By: AT Titration: 10/26/24 12:00 Dose: 125 mcg/hr, 12.5 mls/hr Documented By: Titration: 10/26/24 11:34 Dose: 125 mcg/hr, 12.5 mls/hr Documented By: Titration: 10/26/24 11:04 Dose: 175 mcg/hr, 17.5 mls/hr Documented By: Titration: 10/26/24 11:00 Dose: 225 mcg/hr, 22.5 mls/hr Documented By: Titration: 10/26/24 10:00 Dose: 225 mcg/hr, 22.5 mls/hr Documented By: Titration: 10/26/24 09:00 Dose: 225 mcg/hr, 22.5 mls/hr Documented By: Titration: 10/26/24 08:00 Dose: 225 mcg/hr, 22.5 mls/hr Documented By: Titration: 10/26/24 07:04 Dose: 225 mcg/hr, 22.5 mls/hr Documented By: Titration: 10/26/24 07:00 Dose: 175 mcg/hr, 17.5 mls/hr Documented By: Titration: 10/26/24 06:28 Dose: 175 mcg/hr, 17.5 mls/hr Documented By: Titration: 10/26/24 06:00 Dose: 125 mcg/hr, 12.5 mls/hr Documented By: Titration: 10/26/24 05:00 Dose: 125 mcg/hr, 12.5 mls/hr Documented By: Titration: 10/26/24 04:00 Dose: 125 mcg/hr, 12.5 mls/hr Documented By: Titration: 10/26/24 03:00 Dose: 125 mcg/hr, 12.5 mls/hr Documented By: Titration: 10/26/24 02:02 Dose: 125 mcg/hr, 12.5 mls/hr Documented By: Titration: 10/26/24 01:18 Dose: 125 mcg/hr, 12.5 mls/hr Documented By: Titration: 10/26/24 01:00 Dose: 75 mcg/hr, 7.5 mls/hr Documented By: Titration: 10/26/24 00:00 Dose: 75 mcg/hr, 7.5 mls/hr Documented By: Titration: 10/25/24 23:00 Dose: 25 mcg/hr, 2.5 mls/hr Documented By: Titration: 10/25/24 22:00 Dose: 25 mcg/hr, 2.5 mls/hr Documented By: Titration: 10/25/24 21:00 Dose: 25 mcg/hr, 2.5 mls/hr Documented By: Titration: 10/25/24 20:00 Dose: 25 mcg/hr, 2.5 mls/hr Documented By: Titration: 10/25/24 19:00 Dose: 25 mcg/hr, 2.5 mls/hr Documented By: Titration: 10/25/24 18:13 Dose: 25 mcg/hr, 2.5 mls/hr Documented By: Titration: 10/25/24 17:00 Dose: 25 mcg/hr, 2.5 mls/hr Documented By: Titration: 10/25/24 16:43 Dose: 25 mcg/hr, 2.5 mls/hr Documented By: Titration: 10/25/24 15:33 Dose: 0 mcg/hr, 0 mls/hr Documented By: Titration: 10/25/24 15:00 Dose: 50 mcg/hr, 5 mls/hr Documented By: Titration: 10/25/24 14:00 Dose: 50 mcg/hr, 5 mls/hr Documented By: Titration: 10/25/24 13:00 Dose: 50 mcg/hr, 5 mls/hr Documented By: Titration: 10/25/24 12:31 Dose: 50 mcg/hr, 5 mls/hr Documented By: Titration: 10/25/24 12:00 Dose: 100 mcg/hr, 10 mls/hr Documented By: Titration: 10/25/24 11:00 Dose: 100 mcg/hr, 10 mls/hr Documented By: Admin: 10/25/24 10:25 Dose: 100 mcg/hr, 10 mls/hr Documented By: GE Co-signed By: MG Titration: 10/25/24 10:25 Dose: Infused Documented By: GE Co-signed By: MG Titration: 10/25/24 10:00 Dose: 100 mcg/hr, 10 mls/hr Documented By: Titration: 10/25/24 09:00 Dose: 100 mcg/hr, 10 mls/hr Documented By: Titration: 10/25/24 08:00 Dose: 100 mcg/hr, 10 mls/hr Documented By: Titration: 10/25/24 07:00 Dose: 100 mcg/hr, 10 mls/hr Documented By: Titration: 10/25/24 05:00 Dose: 100 mcg/hr, 10 mls/hr Documented By: Titration: 10/25/24 04:00 Dose: 100 mcg/hr, 10 mls/hr Documented By: Titration: 10/25/24 03:00 Dose: 100 mcg/hr, 10 mls/hr Documented By: Titration: 10/25/24 02:00 Dose: 100 mcg/hr, 10 mls/hr Documented By: Titration: 10/25/24 01:00 Dose: 100 mcg/hr, 10 mls/hr Documented By: Titration: 10/25/24 00:00 Dose: 100 mcg/hr, 10 mls/hr Documented By: Titration: 10/24/24 23:00 Dose: 100 mcg/hr, 10 mls/hr Documented By: Titration: 10/24/24 22:00 Dose: 100 mcg/hr, 10 mls/hr Documented By: Titration: 10/24/24 21:00 Dose: 100 mcg/hr, 10 mls/hr Documented By: Titration: 10/24/24 20:00 Dose: 100 mcg/hr, 10 mls/hr Documented By: Titration: 10/24/24 19:00 Dose: 100 mcg/hr, 10 mls/hr Documented By: Titration: 10/24/24 18:00 Dose: 100 mcg/hr, 10 mls/hr Documented By: Titration: 10/24/24 17:00 Dose: 100 mcg/hr, 10 mls/hr Documented By: Titration: 10/24/24 16:00 Dose: 100 mcg/hr, 10 mls/hr Documented By: Titration: 10/24/24 15:00 Dose: 100 mcg/hr, 10 mls/hr Documented By: Titration: 10/24/24 14:00 Dose: 100 mcg/hr, 10 mls/hr Documented By: Titration: 10/24/24 13:00 Dose: 100 mcg/hr, 10 mls/hr Documented By: Titration: 10/24/24 11:59 Dose: 75 mcg/hr, 7.5 mls/hr Documented By: Titration: 10/24/24 11:00 Dose: 25 mcg/hr, 2.5 mls/hr Documented By: Admin: 10/24/24 10:41 Dose: 25 mcg/hr, 2.5 mls/hr Documented By: MR Co-signed By: CALDERON Lactated Ringer's (Lactated Ringers) 1,000 mls @ 999 mls/hr IV .Q1H1M ONE Stop: 10/24/24 13:14 Last Infusion: 10/24/24 17:00 Dose: Infused Documented By: Admin: 10/24/24 12:33 Dose: 999 mls/hr Documented By: CALDERON Midazolam HCl (Versed Pf Inj In Ns Premix) 100 mg in 100 mls @ 1 mls/hr IV .Q24H PRN; Protocol PRN Reason: PER PROTOCOL Stop: 10/29/24 12:38 Last Titration: 10/25/24 18:13 Dose: 0 mg/hr, 0 mls/hr Documented By: Titration: 10/25/24 18:00 Dose: 1 mg/hr, 1 mls/hr Documented By: Titration: 10/25/24 17:00 Dose: 1 mg/hr, 1 mls/hr Documented By: Titration: 10/25/24 16:43 Dose: 1 mg/hr, 1 mls/hr Documented By: Titration: 10/25/24 15:33 Dose: 0 mg/hr, 0 mls/hr Documented By: Titration: 10/25/24 15:00 Dose: 1 mg/hr, 1 mls/hr Documented By: Titration: 10/25/24 14:00 Dose: 1 mg/hr, 1 mls/hr Documented By: Titration: 10/25/24 13:00 Dose: 1 mg/hr, 1 mls/hr Documented By: Titration: 10/25/24 12:00 Dose: 1 mg/hr, 1 mls/hr Documented By: Titration: 10/25/24 11:00 Dose: 1 mg/hr, 1 mls/hr Documented By: Titration: 10/25/24 10:00 Dose: 1 mg/hr, 1 mls/hr Documented By: Titration: 10/25/24 09:00 Dose: 1 mg/hr, 1 mls/hr Documented By: Titration: 10/25/24 08:00 Dose: 1 mg/hr, 1 mls/hr Documented By: Titration: 10/25/24 07:00 Dose: 1 mg/hr, 1 mls/hr Documented By: Titration: 10/25/24 06:00 Dose: 1 mg/hr, 1 mls/hr Documented By: Titration: 10/25/24 05:00 Dose: 1 mg/hr, 1 mls/hr Documented By: Titration: 10/25/24 04:00 Dose: 1 mg/hr, 1 mls/hr Documented By: Titration: 10/25/24 03:00 Dose: 1 mg/hr, 1 mls/hr Documented By: Titration: 10/25/24 02:00 Dose: 1 mg/hr, 1 mls/hr Documented By: Titration: 10/25/24 01:00 Dose: 1 mg/hr, 1 mls/hr Documented By: Titration: 10/25/24 00:00 Dose: 1 mg/hr, 1 mls/hr Documented By: Titration: 10/24/24 23:00 Dose: 1 mg/hr, 1 mls/hr Documented By: Titration: 10/24/24 22:00 Dose: 1 mg/hr, 1 mls/hr Documented By: Titration: 10/24/24 21:00 Dose: 1 mg/hr, 1 mls/hr Documented By: Titration: 10/24/24 20:00 Dose: 1 mg/hr, 1 mls/hr Documented By: Titration: 10/24/24 19:00 Dose: 1 mg/hr, 1 mls/hr Documented By: Titration: 10/24/24 18:00 Dose: 1 mg/hr, 1 mls/hr Documented By: Titration: 10/24/24 17:00 Dose: 1 mg/hr, 1 mls/hr Documented By: Titration: 10/24/24 16:00 Dose: 1 mg/hr, 1 mls/hr Documented By: Titration: 10/24/24 15:00 Dose: 1 mg/hr, 1 mls/hr Documented By: Titration: 10/24/24 14:00 Dose: 1 mg/hr, 1 mls/hr Documented By: Admin: 10/24/24 13:45 Dose: 1 mg/hr, 1 mls/hr Documented By: HR Co-signed By: MR Norepinephrine Bitartrate (Levophed In Ns 16mg/250ml) 16 mg in 250 mls @ 2.445 mls/hr IV .Q24H PRN; Protocol PRN Reason: PER protocol Stop: 11/23/24 12:38 Last Titration: 10/25/24 18:31 Dose: 0 mcg/kg/min, 0 mls/hr Documented By: Titration: 10/25/24 17:00 Dose: 0.01 mcg/kg/min, 0.489 mls/hr Documented By: Titration: 10/25/24 16:45 Dose: 0.01 mcg/kg/min, 0.489 mls/hr Documented By: Titration: 10/25/24 16:00 Dose: 0.03 mcg/kg/min, 1.467 mls/hr Documented By: Titration: 10/25/24 15:26 Dose: 0.03 mcg/kg/min, 1.467 mls/hr Documented By: Titration: 10/25/24 14:00 Dose: 0.05 mcg/kg/min, 2.445 mls/hr Documented By: Titration: 10/25/24 13:45 Dose: 0.07 mcg/kg/min, 3.423 mls/hr Documented By: Titration: 10/25/24 13:00 Dose: 0.09 mcg/kg/min, 4.401 mls/hr Documented By: Titration: 10/25/24 12:15 Dose: 0.11 mcg/kg/min, 5.379 mls/hr Documented By: Titration: 10/25/24 12:00 Dose: 0.13 mcg/kg/min, 6.357 mls/hr Documented By: Titration: 10/25/24 11:00 Dose: 0.13 mcg/kg/min, 6.357 mls/hr Documented By: Titration: 10/25/24 10:15 Dose: 0.13 mcg/kg/min, 6.357 mls/hr Documented By: Titration: 10/25/24 10:00 Dose: 0.11 mcg/kg/min, 5.379 mls/hr Documented By: Titration: 10/25/24 08:45 Dose: 0.09 mcg/kg/min, 4.401 mls/hr Documented By: Titration: 10/25/24 07:30 Dose: 0.11 mcg/kg/min, 5.379 mls/hr Documented By: Titration: 10/25/24 07:15 Dose: 0.13 mcg/kg/min, 6.357 mls/hr Documented By: Titration: 10/25/24 07:00 Dose: 0.15 mcg/kg/min, 7.335 mls/hr Documented By: Titration: 10/25/24 06:00 Dose: 0.15 mcg/kg/min, 7.335 mls/hr Documented By: Titration: 10/25/24 05:00 Dose: 0.15 mcg/kg/min, 7.335 mls/hr Documented By: Titration: 10/25/24 04:00 Dose: 0.15 mcg/kg/min, 7.335 mls/hr Documented By: Titration: 10/25/24 03:00 Dose: 0.15 mcg/kg/min, 7.335 mls/hr Documented By: Titration: 10/25/24 02:00 Dose: 0.15 mcg/kg/min, 7.335 mls/hr Documented By: Titration: 10/25/24 01:00 Dose: 0.15 mcg/kg/min, 7.335 mls/hr Documented By: Titration: 10/25/24 00:00 Dose: 0.15 mcg/kg/min, 7.335 mls/hr Documented By: Titration: 10/24/24 23:00 Dose: 0.15 mcg/kg/min, 7.335 mls/hr Documented By: Titration: 10/24/24 22:00 Dose: 0.15 mcg/kg/min, 7.335 mls/hr Documented By: Titration: 10/24/24 21:00 Dose: 0.15 mcg/kg/min, 7.335 mls/hr Documented By: Titration: 10/24/24 20:00 Dose: 0.15 mcg/kg/min, 7.335 mls/hr Documented By: Titration: 10/24/24 19:00 Dose: 0.15 mcg/kg/min, 7.335 mls/hr Documented By: Titration: 10/24/24 18:00 Dose: 0.15 mcg/kg/min, 7.335 mls/hr Documented By: Titration: 10/24/24 17:00 Dose: 0.15 mcg/kg/min, 7.335 mls/hr Documented By: Titration: 10/24/24 16:00 Dose: 0.15 mcg/kg/min, 7.335 mls/hr Documented By: Titration: 10/24/24 15:00 Dose: 0.15 mcg/kg/min, 7.335 mls/hr Documented By: Titration: 10/24/24 14:40 Dose: 0.15 mcg/kg/min, 7.335 mls/hr Documented By: Titration: 10/24/24 14:35 Dose: 0.13 mcg/kg/min, 6.357 mls/hr Documented By: Titration: 10/24/24 14:30 Dose: 0.11 mcg/kg/min, 5.379 mls/hr Documented By: Titration: 10/24/24 14:15 Dose: 0.09 mcg/kg/min, 4.401 mls/hr Documented By: Titration: 10/24/24 12:52 Dose: 0.07 mcg/kg/min, 3.423 mls/hr Documented By: Admin: 10/24/24 12:43 Dose: 0.05 mcg/kg/min, 2.445 mls/hr Documented By: HR Norepinephrine Bitartrate (Levophed In Ns 16mg/250ml) Confirm Administered Dose 16 mg in 250 mls @ ud IV .STK-MED ONE Stop: 10/24/24 12:37 Last Admin: 10/24/24 14:24 Dose: Not Given Documented By: HR Non-Admin Reason: Override Medication Midazolam HCl (Versed Pf Inj In Ns Premix) Confirm Administered Dose 100 mg in 100 mls @ ud IV .STK-MED ONE Stop: 10/24/24 12:57 Last Admin: 10/24/24 14:24 Dose: Not Given Documented By: HR Non-Admin Reason: Override Medication Heparin Sodium/Dextrose (Heparin In D5w Ivpb) 25,000 unit in 250 mls @ 6.26 mls/hr IV .Q24H [facility]; Protocol Stop: 11/07/24 13:59 Last Admin: 10/28/24 19:17 Dose: Not Given Documented By: VR Non-Admin Reason: Discontinued Titration: 10/27/24 17:14 Dose: 0 units/kg/hr, 0 mls/hr Documented By: MATTHIAS Co-signed By: denise Titration: 10/27/24 07:23 Dose: 26 units/kg/hr, 13.562 mls/hr Documented By: MATTHIAS Co-signed By: denise Titration: 10/27/24 02:15 Dose: 26 units/kg/hr, 13.562 mls/hr Documented By: BB Co-signed By: CMN Admin: 10/27/24 00:10 Dose: 24 units/kg/hr, 12.519 mls/hr Documented By: BB Co-signed By: CMN Titration: 10/27/24 00:10 Dose: Infused Documented By: BB Co-signed By: CMN Titration: 10/26/24 18:42 Dose: 24 units/kg/hr, 12.519 mls/hr Documented By: GE Co-signed By: MG Titration: 10/26/24 11:31 Dose: 22 units/kg/hr, 11.476 mls/hr Documented By: GE Co-signed By: MG Titration: 10/26/24 07:25 Dose: 20 units/kg/hr, 10.433 mls/hr Documented By: GE Co-signed By: MG Admin: 10/26/24 02:05 Dose: 20 units/kg/hr, 10.433 mls/hr Documented By: WB Co-signed By: CMN Titration: 10/26/24 02:05 Dose: Infused Documented By: WB Co-signed By: CMN Titration: 10/25/24 19:29 Dose: 18 units/kg/hr, 9.389 mls/hr Documented By: WB Co-signed By: CMN Titration: 10/25/24 16:43 Dose: 16 units/kg/hr, 8.346 mls/hr Documented By: GE Co-signed By: MATTHIAS Titration: 10/25/24 15:33 Dose: 0 units/kg/hr, 0 mls/hr Documented By: GE Co-signed By: MATTHIAS Titration: 10/25/24 12:37 Dose: 16 units/kg/hr, 8.346 mls/hr Documented By: GE Co-signed By: MG Titration: 10/25/24 02:08 Dose: 14 units/kg/hr, 7.303 mls/hr Documented By: BB Co-signed By: RH Admin: 10/24/24 17:27 Dose: 12 units/kg/hr, 6.26 mls/hr Documented By: MATTHIAS Co-signed By: CALDERON Potassium Chloride (Kcl Ivpb) 10 meq in 100 mls @ 100 mls/hr IV Q1H [facility] Stop: 10/24/24 20:59 Last Admin: 10/24/24 21:11 Dose: 100 mls/hr Documented By: Infusion: 10/24/24 21:11 Dose: Infused Documented By: Admin: 10/24/24 20:11 Dose: 100 mls/hr Documented By: Infusion: 10/24/24 20:11 Dose: Infused Documented By: Admin: 10/24/24 19:11 Dose: 100 mls/hr Documented By: Infusion: 10/24/24 18:43 Dose: Infused Documented By: Admin: 10/24/24 17:43 Dose: 100 mls/hr Documented By: MATTHIAS Potassium Phosphate 22.5 mmol/ (Sodium Chloride) 507.5 mls @ 82.778 mls/hr IV X1 ONE Stop: 10/25/24 14:37 Last Admin: 10/25/24 09:46 Dose: 82.778 mls/hr Documented By: ULISSES Phenytoin Sodium 800 mg/ IV Miscellaneous Supplies 1 ea/Sodium Chloride 116 mls @ 232 mls/hr IV X1 ONE Stop: 10/25/24 09:29 Last Admin: 10/25/24 09:27 Dose: 232 mls/hr Documented By: GE Lactated Ringer's (Lactated Ringers) 1,000 mls @ 999 mls/hr IV .Q1H1M ONE Stop: 10/25/24 21:25 Last Infusion: 10/25/24 20:55 Dose: 0 mls/hr Documented By: Admin: 10/25/24 20:30 Dose: 999 mls/hr Documented By: WB Lactated Ringer's (Lactated Ringers) 1,000 mls @ 999 mls/hr IV .Q1H1M ONE Stop: 10/25/24 21:52 Last Infusion: 10/25/24 21:14 Dose: 0 mls/hr Documented By: Admin: 10/25/24 20:55 Dose: 999 mls/hr Documented By: WB Norepinephrine Bitartrate (Levophed In Ns 16mg/250ml) 16 mg in 250 mls @ 2.445 mls/hr IV .Q24H PRN; Protocol PRN Reason: PER protocol Stop: 11/23/24 12:38 Norepinephrine Bitartrate (Levophed In Ns 16mg/250ml) 16 mg in 250 mls @ 2.461 mls/hr IV .Q24H PRN; Protocol PRN Reason: PER PROTOCOL Stop: 11/25/24 01:49 Last Titration: 10/27/24 12:30 Dose: 0 mcg/kg/min, 0 mls/hr Documented By: Titration: 10/27/24 12:11 Dose: 0.01 mcg/kg/min, 0.492 mls/hr Documented By: Titration: 10/27/24 12:00 Dose: 0.03 mcg/kg/min, 1.477 mls/hr Documented By: Titration: 10/27/24 11:10 Dose: 0.03 mcg/kg/min, 1.477 mls/hr Documented By: Titration: 10/27/24 11:00 Dose: 0.03 mcg/kg/min, 1.477 mls/hr Documented By: Titration: 10/27/24 10:48 Dose: 0.03 mcg/kg/min, 1.477 mls/hr Documented By: Titration: 10/27/24 10:43 Dose: 0.05 mcg/kg/min, 2.461 mls/hr Documented By: Titration: 10/27/24 10:35 Dose: 0.07 mcg/kg/min, 3.445 mls/hr Documented By: Titration: 10/27/24 10:30 Dose: 0.09 mcg/kg/min, 4.43 mls/hr Documented By: Titration: 10/27/24 10:00 Dose: 0.11 mcg/kg/min, 5.414 mls/hr Documented By: Titration: 10/27/24 09:47 Dose: 0.11 mcg/kg/min, 5.414 mls/hr Documented By: Titration: 10/27/24 09:42 Dose: 0.09 mcg/kg/min, 4.43 mls/hr Documented By: Titration: 10/27/24 09:32 Dose: 0.07 mcg/kg/min, 3.445 mls/hr Documented By: Titration: 10/27/24 09:18 Dose: 0.05 mcg/kg/min, 2.461 mls/hr Documented By: Titration: 10/27/24 07:36 Dose: 0 mcg/kg/min, 0 mls/hr Documented By: Titration: 10/27/24 07:15 Dose: 0.01 mcg/kg/min, 0.492 mls/hr Documented By: Titration: 10/27/24 07:00 Dose: 0.03 mcg/kg/min, 1.477 mls/hr Documented By: Titration: 10/27/24 06:35 Dose: 0.03 mcg/kg/min, 1.477 mls/hr Documented By: Titration: 10/27/24 06:00 Dose: 0.05 mcg/kg/min, 2.461 mls/hr Documented By: Titration: 10/27/24 05:00 Dose: 0.05 mcg/kg/min, 2.461 mls/hr Documented By: Titration: 10/27/24 04:00 Dose: 0.05 mcg/kg/min, 2.461 mls/hr Documented By: Titration: 10/27/24 03:00 Dose: 0.05 mcg/kg/min, 2.461 mls/hr Documented By: Titration: 10/27/24 02:00 Dose: 0.05 mcg/kg/min, 2.461 mls/hr Documented By: Titration: 10/27/24 01:00 Dose: 0.05 mcg/kg/min, 2.461 mls/hr Documented By: Titration: 10/27/24 00:00 Dose: 0.05 mcg/kg/min, 2.461 mls/hr Documented By: Titration: 10/26/24 23:00 Dose: 0.05 mcg/kg/min, 2.461 mls/hr Documented By: Titration: 10/26/24 22:07 Dose: 0.05 mcg/kg/min, 2.461 mls/hr Documented By: Titration: 10/26/24 10:00 Dose: 0 mcg/kg/min, 0 mls/hr Documented By: Titration: 10/26/24 09:00 Dose: 0.01 mcg/kg/min, 0.492 mls/hr Documented By: Titration: 10/26/24 08:00 Dose: 0.03 mcg/kg/min, 1.477 mls/hr Documented By: Titration: 10/26/24 07:00 Dose: 0.03 mcg/kg/min, 1.477 mls/hr Documented By: Titration: 10/26/24 03:00 Dose: 0.05 mcg/kg/min, 2.461 mls/hr Documented By: Admin: 10/26/24 02:01 Dose: 0.05 mcg/kg/min, 2.461 mls/hr Documented By: COLLEEN Potassium Phosphate (Pot Phos 15 Mmol In Ns 250 Ml) 15 mmol in 250 mls @ 62.5 mls/hr IV X1 ONE Stop: 10/27/24 11:01 Last Infusion: 10/27/24 15:00 Dose: Infused Documented By: Admin: 10/27/24 07:49 Dose: 62.5 mls/hr Documented By: MATTHIAS Magnesium Sulfate (Magnesium Sulfate Ivpb) 4 gm in 50 mls @ 12.5 mls/hr IV X1 ONE Stop: 10/27/24 11:02 Last Infusion: 10/27/24 15:00 Dose: Infused Documented By: Admin: 10/27/24 07:49 Dose: 12.5 mls/hr Documented By: MATTHIAS Dexmedetomidine/Sodium Chloride (Precedex Ivpb) 400 mcg in 100 mls @ 2.62 mls/hr IV .Q24H PRN; Protocol PRN Reason: Per PROTOCOL Stop: 11/26/24 08:15 Last Titration: 10/28/24 08:50 Dose: 0 mcg/kg/hr, 0 mls/hr Documented By: Titration: 10/28/24 08:13 Dose: 1 mcg/kg/hr, 13.1 mls/hr Documented By: Titration: 10/28/24 08:00 Dose: 1.2 mcg/kg/hr, 15.72 mls/hr Documented By: Titration: 10/28/24 07:20 Dose: 1.2 mcg/kg/hr, 15.72 mls/hr Documented By: Titration: 10/28/24 07:00 Dose: 1.4 mcg/kg/hr, 18.34 mls/hr Documented By: Admin: 10/28/24 06:00 Dose: 1.4 mcg/kg/hr, 18.34 mls/hr Documented By: JEAN MARIE Co-signed By: CMN Titration: 10/28/24 06:00 Dose: Infused Documented By: JEAN MARIE Co-signed By: CMN Titration: 10/28/24 05:00 Dose: 1.4 mcg/kg/hr, 18.34 mls/hr Documented By: JEAN MARIE Co-signed By: CMN Titration: 10/28/24 04:00 Dose: 1.4 mcg/kg/hr, 18.34 mls/hr Documented By: JEAN MARIE Co-signed By: CMN Titration: 10/28/24 03:00 Dose: 1.4 mcg/kg/hr, 18.34 mls/hr Documented By: JEAN MARIE Titration: 10/28/24 02:00 Dose: 1.4 mcg/kg/hr, 18.34 mls/hr Documented By: JEAN MARIE Titration: 10/28/24 01:00 Dose: 1.4 mcg/kg/hr, 18.34 mls/hr Documented By: JEAN MARIE Admin: 10/28/24 00:34 Dose: 1.4 mcg/kg/hr, 18.34 mls/hr Documented By: JEAN MARIE Co-signed By: CMN Titration: 10/28/24 00:23 Dose: Infused Documented By: JEAN MARIE Co-signed By: CMN Titration: 10/28/24 00:00 Dose: 1.4 mcg/kg/hr, 18.34 mls/hr Documented By: JEAN MARIE Co-signed By: CMN Titration: 10/27/24 23:00 Dose: 1.4 mcg/kg/hr, 18.34 mls/hr Documented By: JEAN MARIE Co-signed By: CMN Titration: 10/27/24 22:00 Dose: 1.4 mcg/kg/hr, 18.34 mls/hr Documented By: JEAN MARIE Co-signed By: CMN Titration: 10/27/24 21:00 Dose: 1.4 mcg/kg/hr, 18.34 mls/hr Documented By: JEAN MARIE Co-signed By: CMN Titration: 10/27/24 20:00 Dose: 1.4 mcg/kg/hr, 18.34 mls/hr Documented By: JEAN MARIE Co-signed By: LUCERO Titration: 10/27/24 19:00 Dose: 1.4 mcg/kg/hr, 18.34 mls/hr Documented By: JEAN MARIE Co-signed By: LUCERO Admin: 10/27/24 18:55 Dose: 1.4 mcg/kg/hr, 18.34 mls/hr Documented By: MATTHIAS Co-signed By: JEAN MARIE Titration: 10/27/24 18:47 Dose: Infused Documented By: MATTHIAS Co-signed By: JEAN MARIE Titration: 10/27/24 18:00 Dose: 1.4 mcg/kg/hr, 18.34 mls/hr Documented By: MATTHIAS Co-signed By: JEAN MARIE Titration: 10/27/24 17:00 Dose: 1.4 mcg/kg/hr, 18.34 mls/hr Documented By: MATTHIAS Co-signed By: JEAN MARIE Titration: 10/27/24 16:00 Dose: 1.4 mcg/kg/hr, 18.34 mls/hr Documented By: MATTHIAS Co-signed By: JEAN MARIE Titration: 10/27/24 15:00 Dose: 1.4 mcg/kg/hr, 18.34 mls/hr Documented By: Titration: 10/27/24 14:00 Dose: 1.4 mcg/kg/hr, 18.34 mls/hr Documented By: Admin: 10/27/24 13:19 Dose: 1.4 mcg/kg/hr, 18.34 mls/hr Documented By: MATTHIAS Co-signed By: GENESIS Titration: 10/27/24 13:19 Dose: Infused Documented By: MATTHIAS Co-signed By: RM Titration: 10/27/24 13:00 Dose: 1.4 mcg/kg/hr, 18.34 mls/hr Documented By: MATTHIAS Co-signed By: RM Titration: 10/27/24 12:00 Dose: 1.4 mcg/kg/hr, 18.34 mls/hr Documented By: MATTHIAS Co-signed By: RM Titration: 10/27/24 11:00 Dose: 1.4 mcg/kg/hr, 18.34 mls/hr Documented By: MATTHIAS Co-signed By: RM Titration: 10/27/24 10:18 Dose: 1.4 mcg/kg/hr, 18.34 mls/hr Documented By: MATTHIAS Co-signed By: GENESIS Titration: 10/27/24 10:00 Dose: 1.2 mcg/kg/hr, 15.72 mls/hr Documented By: MATTHIAS Co-signed By: GENESIS Titration: 10/27/24 09:32 Dose: 1.2 mcg/kg/hr, 15.72 mls/hr Documented By: Titration: 10/27/24 09:00 Dose: 1.4 mcg/kg/hr, 18.34 mls/hr Documented By: Titration: 10/27/24 08:27 Dose: 1.4 mcg/kg/hr, 18.34 mls/hr Documented By: Admin: 10/27/24 08:24 Dose: 0.2 mcg/kg/hr, 2.62 mls/hr Documented By: MATTHIAS Co-signed By: denise Magnesium Sulfate (Magnesium Sulfate Ivpb) 4 gm in 50 mls @ 12.5 mls/hr IV X1 ONE Stop: 10/27/24 19:48 Last Admin: 10/27/24 17:11 Dose: 12.5 mls/hr Documented By: MATTHIAS Potassium Chloride (Kcl Ivpb) 10 meq in 100 mls @ 100 mls/hr IV Q1H [facility] Stop: 10/27/24 23:23 Last Admin: 10/27/24 23:12 Dose: 100 mls/hr Documented By: JEAN MARIE Infusion: 10/27/24 23:10 Dose: Infused Documented By: JEAN MARIE Admin: 10/27/24 22:10 Dose: 100 mls/hr Documented By: JEAN MARIE Infusion: 10/27/24 22:07 Dose: Infused Documented By: JEAN MARIE Admin: 10/27/24 21:07 Dose: 100 mls/hr Documented By: JEAN MARIE Infusion: 10/27/24 20:54 Dose: Infused Documented By: JEAN MARIE Admin: 10/27/24 19:54 Dose: 100 mls/hr Documented By: JEAN MARIE Ketamine HCl (Ketamine 50 Mg/Ml Vial 10 Ml) 100 mg IVP X1 ONE Stop: 10/24/24 09:42 Last Admin: 10/24/24 10:50 Dose: Not Given Documented By: CALDERON Non-Admin Reason: not iven per MD Gardiner Ketamine HCl (Ketamine 50 Mg/Ml Vial 10 Ml) Confirm Administered Dose 500 mg .ROUTE .[facility]-MED ONE Stop: 10/24/24 09:53 Last Admin: 10/24/24 10:37 Dose: Not Given Documented By: MR Non-Admin Reason: STK MED Lacosamide (Lacosamide Inj 200 Mg/20 Ml Vial) 200 mg IVP X1 ONE Stop: 10/24/24 08:11 Last Admin: 10/24/24 10:47 Dose: 200 mg Documented By: CALDERON Lacosamide (Lacosamide 50 Mg Tablet) 100 mg PO BID KIMBERLY Stop: 11/23/24 20:59 Lacosamide (Lacosamide 50 Mg Tablet) 100 mg NG BID KIMBERLY Stop: 11/23/24 20:59 Last Admin: 10/27/24 08:40 Dose: 100 mg Documented By: Admin: 10/26/24 20:38 Dose: 100 mg Documented By: Admin: 10/26/24 08:57 Dose: 100 mg Documented By: Admin: 10/25/24 20:42 Dose: 100 mg Documented By: Admin: 10/25/24 08:31 Dose: 100 mg Documented By: Admin: 10/24/24 21:16 Dose: 100 mg Documented By: ADAM Lacosamide (Lacosamide Inj 200 Mg/20 Ml Vial) 100 mg IVP BID KIMBERYL Stop: 11/26/24 20:59 Last Admin: 10/28/24 19:17 Dose: Not Given Documented By: AWA Non-Admin Reason: Discontinued Admin: 10/27/24 21:06 Dose: 100 mg Documented By: JEAN MARIE Lacosamide (Lacosamide 50 Mg Tablet) 100 mg PO X1 ONE Stop: 10/28/24 09:31 Last Admin: 10/28/24 09:52 Dose: 100 mg Documented By: MATTHIAS Levetiracetam (Levetiracetam Inj 100 Mg/Ml Vial 5ml) 1,000 mg IVP X1 ONE Stop: 10/23/24 01:11 Last Admin: 10/23/24 01:34 Dose: 1,000 mg Documented By: KARINA Levetiracetam (Levetiracetam 250 Mg Tablet) 750 mg PO BID KIMBERLY Stop: 11/22/24 13:44 Last Admin: 10/24/24 20:39 Dose: Not Given Documented By: ADAM Non-Admin Reason: Discontinued Levetiracetam (Levetiracetam Inj 100 Mg/Ml Vial 5ml) 500 mg IVP Q12HR KIM[facility]LY Stop: 11/22/24 13:52 Last Admin: 10/23/24 14:11 Dose: 500 mg Documented By: CALDERON Levetiracetam (Levetiracetam 250 Mg Tablet) 750 mg PO BID KIMBERLY Stop: 11/22/24 20:59 Last Admin: 10/24/24 10:38 Dose: Not Given Documented By: Non-Admin Reason: Discontinued Admin: 10/23/24 22:15 Dose: 750 mg Documented By: HOANG Comments: late bc RT was doin EEG Levetiracetam (Levetiracetam Liqd 500 Mg/5 Ml Udc) 750 mg NG BID KIMBERLY Stop: 11/22/24 20:59 Last Admin: 10/27/24 08:39 Dose: 750 mg Documented By: Admin: 10/26/24 20:38 Dose: 750 mg Documented By: Admin: 10/26/24 08:57 Dose: 750 mg Documented By: Admin: 10/25/24 20:43 Dose: 750 mg Documented By: Admin: 10/25/24 08:31 Dose: 750 mg Documented By: Admin: 10/24/24 21:20 Dose: 750 mg Documented By: Admin: 10/24/24 11:39 Dose: 750 mg Documented By: CALDERON Levetiracetam (Levetiracetam Inj 100 Mg/Ml Vial 5ml) 750 mg IVP Q12HR KIMBERLY Stop: 11/26/24 20:59 Last Admin: 10/28/24 19:17 Dose: Not Given Documented By: AWA Non-Admin Reason: Discontinued Admin: 10/27/24 21:07 Dose: 750 mg Documented By: JEAN MARIE Levetiracetam (Levetiracetam 250 Mg Tablet) 750 mg PO X1 ONE Stop: 10/28/24 09:31 Last Admin: 10/28/24 09:51 Dose: 750 mg Documented By: MATTHIAS Lorazepam (Lorazepam 2 Mg/Ml Vial) 2 mg IVP X1 ONE Stop: 10/23/24 01:10 Last Admin: 10/23/24 01:30 Dose: 2 mg Documented By: RAFAEL Lorazepam (Lorazepam 2 Mg/Ml Vial) 2 mg IVP X1 ONE Stop: 10/23/24 04:08 Last Admin: 10/23/24 04:23 Dose: 2 mg Documented By: CB Lorazepam (Lorazepam 2 Mg/Ml Vial) 2 mg IVP Q30M PRN PRN Reason: Breakthrough seizure Stop: 10/28/24 05:54 Lorazepam (Lorazepam 2 Mg/Ml Vial) 1 mg IV X1 PRN PRN Reason: AGITATION (MILD) Stop: 10/27/24 18:18 Last Admin: 10/23/24 18:41 Dose: 1 mg Documented By: JRR Lorazepam (Lorazepam 2 Mg/Ml Vial) 1 mg IVP X1 ONE Stop: 10/24/24 00:53 Last Admin: 10/24/24 00:58 Dose: 1 mg Documented By: AM Lorazepam (Lorazepam 2 Mg/Ml Vial) 1 mg IVP X1 ONE Stop: 10/24/24 04:11 Last Admin: 10/24/24 04:34 Dose: 1 mg Documented By: AM Lorazepam (Lorazepam 2 Mg/Ml Vial) 1 mg IVP X1 ONE Stop: 10/24/24 05:13 Last Admin: 10/24/24 05:43 Dose: 1 mg Documented By: AM Lorazepam (Lorazepam 2 Mg/Ml Vial) 2 mg IVP X1 ONE Stop: 10/24/24 06:02 Last Admin: 10/24/24 06:10 Dose: 2 mg Documented By: AM Lorazepam (Lorazepam 2 Mg/Ml Vial) 1 mg IM X1 ONE Stop: 10/24/24 08:04 Last Admin: 10/24/24 08:15 Dose: 1 mg Documented By: 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 Lorazepam (Lorazepam 2 Mg/Ml Vial) 2 mg IM X1 ONE Stop: 10/24/24 08:07 Last Admin: 10/24/24 10:23 Dose: Not Given Documented By: MR Non-Admin Reason: CHANGED ORDER Lorazepam (Lorazepam 2 Mg/Ml Vial) Confirm Administered Dose 2 mg .ROUTE .STK-MED ONE Stop: 10/24/24 08:11 Last Admin: 10/24/24 10:23 Dose: Not Given Documented By: MR Non-Admin Reason: STK MED Lorazepam (Lorazepam 2 Mg/Ml Vial) Confirm Administered Dose 4 mg .ROUTE .STK-MED ONE Stop: 10/24/24 09:52 Last Admin: 10/24/24 10:37 Dose: Not Given Documented By: MR Non-Admin Reason: STK MED Lorazepam (Lorazepam 2 Mg/Ml Vial) 4 mg IVP X1 ONE Stop: 10/24/24 09:53 Last Admin: 10/24/24 09:56 Dose: 4 mg Documented By: Comments: FOR INTUBATION Lorazepam (Lorazepam 2 Mg/Ml Vial) 2 mg IVP X1 PRN PRN Reason: Before MRI for anxiety Stop: 10/30/24 11:46 Lorazepam (Lorazepam 2 Mg/Ml Vial) 2 mg IVP X1 ONE Stop: 10/27/24 10:21 Last Admin: 10/27/24 10:52 Dose: 2 mg Documented By: MATTHIAS Metoprolol Tartrate (Metoprolol Tartrate 25 Mg Tablet) 12.5 mg PO BID KIMBERLY Stop: 11/27/24 13:29 Last Admin: 10/28/24 14:11 Dose: 12.5 mg Documented By: MATTHIAS Comments: confirmed administration with Dr. Viera Metoprolol Tartrate (Metoprolol Tartrate 25 Mg Tablet) 25 mg PO BID KIMBERLY Stop: 11/27/24 20:59 Last Admin: 10/29/24 09:39 Dose: 25 mg Documented By: Admin: 10/28/24 21:29 Dose: 25 mg Documented By: ALLISON Midazolam HCl (Midazolam Inj 1 Mg/Ml Vial 2 Ml) 2 mg IM X1 ONE Stop: 10/24/24 08:15 Last Admin: 10/24/24 10:34 Dose: Not Given Documented By: MR Non-Admin Reason: NOT GIVEN PT UPGRADED TO ICU Midazolam HCl (Midazolam Inj 1 Mg/Ml Vial 2 Ml) 2 mg IVP X1 ONE Stop: 10/24/24 09:34 Last Admin: 10/24/24 09:37 Dose: 2 mg Documented By: Midazolam HCl (Midazolam Inj 1 Mg/Ml Vial 2 Ml) Confirm Administered Dose 2 mg .ROUTE .STK-MED ONE Stop: 10/24/24 09:34 Last Admin: 10/24/24 10:36 Dose: Not Given Documented By: MR Non-Admin Reason: STK MED Midazolam HCl (Midazolam Inj 1 Mg/Ml Vial 2 Ml) 2 mg IVP X1 ONE Stop: 10/24/24 09:42 Last Admin: 10/24/24 09:43 Dose: 2 mg Documented By: MR Midazolam HCl (Midazolam Inj 1 Mg/Ml Vial 2 Ml) Confirm Administered Dose 2 mg .ROUTE .STK-MED ONE Stop: 10/24/24 09:40 Last Admin: 10/24/24 10:36 Dose: Not Given Documented By: MR Non-Admin Reason: STK MED Midazolam HCl (Midazolam Inj 1 Mg/Ml Vial 2 Ml) 2 mg IVP X1 ONE Stop: 10/25/24 08:41 Last Admin: 10/25/24 08:42 Dose: 2 mg Documented By: GE Midazolam HCl (Midazolam Inj 1 Mg/Ml Vial 2 Ml) Confirm Administered Dose 2 mg .ROUTE .STK-MED ONE Stop: 10/25/24 08:39 Last Admin: 10/25/24 09:05 Dose: Not Given Documented By: GE Non-Admin Reason: Duplicate Medication on eMAR Midazolam HCl (Midazolam Inj 1 Mg/Ml Vial 2 Ml) 8 mg 0.15 mg/kg (8 mg) IVP X1 ONE Stop: 10/25/24 15:25 Last Admin: 10/25/24 17:06 Dose: Not Given Documented By: GE Non-Admin Reason: Cancelled by Provider Midazolam HCl (Midazolam Inj 1 Mg/Ml Vial 2 Ml) 2 mg IVP X1 ONE Stop: 10/25/24 16:55 Last Admin: 10/25/24 17:07 Dose: Not Given Documented By: GE Non-Admin Reason: Cancelled by Provider Midazolam HCl (Midazolam Inj 1 Mg/Ml Vial 2 Ml) 2 mg IVP X1 ONE Stop: 10/25/24 16:01 Last Admin: 10/25/24 16:00 Dose: 2 mg Documented By: ULISSES Comments: GIVEN AT MRI PER MD Midazolam HCl (Midazolam Inj 1 Mg/Ml Vial 2 Ml) 2 mg IVP X1 ONE Stop: 10/27/24 05:38 Last Admin: 10/27/24 05:47 Dose: 2 mg Documented By: ADAM Nicotine (Nicotine Patch 7 Mg/24 Hr Patch.Td24) 7 mg TOP QDAY KIMBERLY Stop: 11/22/24 15:14 Last Admin: 10/24/24 10:46 Dose: 7 mg Documented By: Admin: 10/23/24 17:22 Dose: 7 mg Documented By: CALDERON Non-Formulary Medication (Nonfo) 10 mg IM Q6H PRN PRN Reason: Severe Agitation Stop: 11/26/24 09:29 Olanzapine (Olanzapine Inj 10 Mg Vial) Confirm Administered Dose 10 mg .ROUTE .STK-MED ONE Stop: 10/24/24 05:59 Last Admin: 10/24/24 06:10 Dose: Not Given Documented By: AM Non-Admin Reason: Duplicate Medication on eMAR Oxymetazoline HCl (Oxymetazoline [place] 0.05% 15 Ml Btl) 2 spray NASAL X1 ONE Stop: 10/27/24 18:01 Last Admin: 10/27/24 18:03 Dose: 1 applicatio Documented By: MATTHIAS Pantoprazole Sodium (Pantoprazole Inj 40 Mg Vial) 40 mg IVP QDAY KIMBERLY Stop: 11/23/24 19:14 Last Admin: 10/28/24 09:46 Dose: 40 mg Documented By: Admin: 10/27/24 08:16 Dose: 40 mg Documented By: Admin: 10/26/24 08:57 Dose: 40 mg Documented By: Admin: 10/25/24 08:26 Dose: 40 mg Documented By: Admin: 10/24/24 21:13 Dose: 40 mg Documented By: ADAM Potassium Chloride (Potassium Chloride 10% 20 Meq/15 Ml Udc) 40 meq NG X1 ONE Stop: 10/26/24 07:09 Last Admin: 10/26/24 08:57 Dose: 40 meq Documented By: ULISSES Potassium Chloride (Potassium Chloride 10% 20 Meq/15 Ml Udc) 40 meq NG X1 ONE Stop: 10/26/24 11:01 Last Admin: 10/26/24 11:26 Dose: 40 meq Documented By: ULISSES Potassium Chloride (Potassium Chloride 10% 20 Meq/15 Ml Udc) 40 meq NG X1 ONE Stop: 10/27/24 07:03 Last Admin: 10/27/24 07:49 Dose: 40 meq Documented By: MATTHIAS Potassium Chloride (Potassium Chloride 10% 20 Meq/15 Ml Udc) 40 meq NG X1 ONE Stop: 10/27/24 12:01 Last Admin: 10/27/24 17:56 Dose: Not Given Documented By: MATTHIAS Non-Admin Reason: unable to give or to get NGdr. gardiner aware Quetiapine Fumarate (Quetiapine Fumarate 25 Mg Tablet) 50 mg NG BID [facility] Stop: 11/25/24 13:44 Last Admin: 10/27/24 08:15 Dose: 50 mg Documented By: Admin: 10/26/24 20:38 Dose: 50 mg Documented By: Admin: 10/26/24 14:14 Dose: 50 mg Documented By: ULISSES Quetiapine Fumarate (Quetiapine Fumarate 25 Mg Tablet) 100 mg NG BID KIMBERLY Stop: 11/26/24 20:59 Last Admin: 10/28/24 19:18 Dose: Not Given Documented By: AWA Non-Admin Reason: Discontinued Admin: 10/27/24 21:31 Dose: Not Given Documented By: JEAN MARIE Non-Admin Reason: Unable to Swallow Quetiapine Fumarate (Quetiapine Fumarate 25 Mg Tablet) 50 mg NG X1 ONE Stop: 10/27/24 10:04 Last Admin: 10/27/24 14:45 Dose: Not Given Documented By: MATTHIAS Non-Admin Reason: Cancelled by Provider Quetiapine Fumarate (Quetiapine Fumarate 100 Mg Tablet) 100 mg PO X1 ONE Stop: 10/28/24 09:23 Last Admin: 10/28/24 09:57 Dose: 100 mg Documented By: MATTHIAS Rocuronium [place] (Rocuronium Inj 10 Mg/Ml Vial 10 Ml) 50 mg IVP X1 ONE Stop: 10/24/24 09:53 Last Admin: 10/24/24 09:56 Dose: 50 mg Documented By: Co-signed By: CALDERON Comments: FOR INTUBATION Rocuronium [place] (Rocuronium Inj 10 Mg/Ml Vial 10 Ml) 50 mg IVP X1 ONE Stop: 10/24/24 12:58 Last Admin: 10/24/24 13:01 Dose: 50 mg Documented By: Co-signed By: MATTHIAS Comments: STAT push per Dr. Wilcox, pt agitated while doing TLC placement after RSI Sennosides (Senna Tablet) 1 tab PO QDAY PRN; Protocol PRN Reason: constipation Stop: 11/22/24 05:54 Sennosides (Senna Tablet) 1 tab GT QDAY PRN; Protocol PRN Reason: constipation Stop: 11/23/24 10:55 Sodium Chloride (Sodium Chloride Rt 10% 15 Ml Nebu) 5 ml INH X1 ONE Stop: 10/24/24 10:46 Last Admin: 10/24/24 20:37 Dose: 5 ml Documented By: ADAM Tuberculin PPD (Tuberculin Ppd Inj 5 Unit/0.1 Ml Dose) 5 unit ID X1 ONE Stop: 10/27/24 09:45 Last Admin: 10/27/24 13:21 Dose: 5 unit Documented By: MATTHIAS Venlafaxine HCl (Venlafaxine Xr 37.5 Mg Capcr) 150 mg PO QDAY [facility] Stop: 11/22/24 13:44 Last Admin: 10/24/24 14:24 Dose: Not Given Documented By: Non-Admin Reason: Discontinued Admin: 10/23/24 14:30 Dose: 150 mg Documented By: R Venlafaxine HCl (Venlafaxine Xr 37.5 Mg Capcr) 150 mg PO QDAY [facility] Stop: 11/22/24 13:44 Ziprasidone (Ziprasidone Inj 20 Mg/Ml Vial (Non-Formulary)) 10 mg IM X1 ONE Stop: 10/27/24 08:31 Last Admin: 10/27/24 10:08 Dose: 10 mg Documented By: MATTHIAS Comments: given per Dr. Wilcox See above Consultations Consultation(s) initiated? (list below): Yes Consultation #1 (Physician, Specialty, Details): Discussed with Dr. Garcia's resident for admission. Reviewed the patient?s HPI, PMHx, lab and/or radiology results. Discussed treatment plan. Will consult an admission to the hospitalist. Time: 04:58 Diagnosis Differential diagnosis altered mental status: alcoholic intoxication, altered mental status, delirium, dementia, hypoglycemia, hyponatremia, subarachnoid hemorrhage and sepsis Most likely diagnosis given after review of the tests above:: Acute encephalopathy, Leukocytosis Admission Indicated Admission indicated?: indicated Explain why admission is indicated or not indicated:: Acute encephalopathy, Leukocytosis Admission Request Was there a request for admission?: Yes Admission Attestation Admission request attestation: Discussed case with [] from Hospitalist service regarding admission. Discussed patients ED course, exam findings, labs, and radiology results. The Hospitalist [agrees,declines] to accept the patient for admission. Disposition Plan Disposition Plan: Discharge Discharge Attestation Discharge Attestation: The patient and all family members were given an opportunity to ask questions and understood the discharge instructions. Discharge instructions specifically effects, indications for sooner follow up or return to the emergency department, and the expected course of current diagnosis. Patient condition: Stable Discharge Plan Plan Patient Disposition: Admit Acute Care w/in Hospital Problem List Clinical Impression: Acute encephalopathy, Leukocytosis
[2024-10-23] MEDS: LORazepam 2 MG/ML VIAL IVP ×2 (01:30→04:23)
[2024-10-23] MEDS: levETIRAcetam INJ 100 MG/ML VIAL 5ML 1000 MG IVP (01:34)
[2024-10-23 01:35] LABS: Alanine Aminotransferase 66 U/L (10-49); Albumin, Serum 4.5 gm/dL (3.5-5.0); Albumin/Globulin Ratio 1.7 (1.2-2.2); Alcohol, Blood Medical < 3.0 mg/dL (0-10.0); Alkaline Phosphatase 139 U/L (46-116); Ammonia < 10 uMol/L (11-32); Anion Gap 14 (7-16); Aspartate Amino Transferase 154 U/L (0-34); BUN/Creatinine Ratio 9 Ratio (12-20); Bilirubin,Total 0.3 mg/dL (0.3-1.2); Blood Urea Nitrogen 18 mg/dL (9-23); Calcium 9.3 mg/dL (8.3-10.6); Calcium (Corrected) 9.3 mg/dL (8.5-10.1); Chloride 104 mMol/L (98-107); Creatinine (Component) 2.0 mg/dL (0.6-1.3); Estimated Creatinine Clearance 25.4 mL/min (>60); Globulin 2.6 gm/dL (2.3-3.5); Glucose 151 mg/dL (74-106); Lipase 37 U/L (12-53); Osmolality,Calculated 271 (275-295); Potassium 3.4 mMol/L (3.4-5.1); Sodium 133 mMol/L (136-145); Total Protein 7.1 gm/dL (5.7-8.2); eGFR 29 See Note
--- NOTE | 2024-10-23 01:45 | PC.NURSE ---
PT BIB SISTER FOR AMS. PER SISTER LAST KNOWN WELL WAS 10/21 EVENING, STATING SHE SPOKE TO HER AND APPEARED HER NORMAL SELF. PT SISTER STATES 10/22 SHE CALLED HER ALL DAY AND HAD NO ANSWER, PT SISTER THEN WENT TO PT'S HOUSE THIS EVENING, AND NOTICED PT TO BE ALTERED, AND ACTING BIZARRE. PT SISTER ALSO STATED SHE PT'S HOME WAS EXTREMELY MESSY, AND APPEARED TO BE RANSACKED , THAT IS WHEN SHE DECIDED TO BRING PT IN TO ER. PT PRESENTS TO ER ALTERED, YELLING I NEED TO TAKE A SHIT . PT REMOVED UNDER GARMENTS AND BEGAN PLAYING WITH FECES. ATTEMPTED TO REDIRECT PT AND UNSUCCESSFUL. MULTIPLE BRUISING NOTED ON BILATERAL KNEES, AND LOWER EXTREMITIES, AND TO LEFT EAR. UNKNOWN IF PT HAD FALL. MED INFORMED AND ORDERS GIVEN. PT PLACED ON CARDIAC AND VITAL MONITORING. PT CARE ONGOING
[2024-10-23 01:48] LABS: Carbon Dioxide 15.1 mMol/L (20.0-31.0)
--- NOTE | 2024-10-23 01:59 | XR_ITS ---
Examination: CT chest, without intravenous contrast. CT abdomen, without intravenous contrast. CT pelvis, without intravenous contrast. 2-D sagittal and coronal reconstructions. 3-D reconstructions. Date and time of exam:October 23, 2024 0202 hours INDICATIONS: Sepsis alert today, loss of consciousness, chest abdominal pain CTDI vol (mgy) 7.08 DLP (MGycm)474 Technique: Multiple CT images, 3.0 mm slice thickness, obtained chest, abdomen, pelvis, with the high-resolution 64 slice scanner.. Sagittal and coronal 2-D reconstructions are obtained. 3-D reconstructions Low dose protocols were performed. One or more of the following dose reduction techniques were used; automated exposure control, adjustment of the mA and/or KV according to patient size, use of iterative reconstruction technique. Findings: Right shoulder calcific tendinitis No thoracic aortic aneurysm dilatation Pulmonary artery segments are not enlarged. Mild prominence of ventricle. No mediastinal lymphadenopathy No pneumonia or pulmonary edema No visualized liver or splenic lesion Absent gallbladder No pancreatic mass Minor nodular thickening both adrenal glands No renal or ureteral calculi, no hydronephrosis Aorta normal size Normal appendix No bowel obstruction No diverticulitis Atrophic uterus No adnexal mass Urinary bladder wall thickening up to 8 mm Moderate osteopenia IMPRESSION: No pneumonia or pulmonary edema. No biliary tract dilatation. No renal or ureteral calculi, no hydronephrosis. Normal appendix. No bowel obstruction diverticulitis or free air. Urinary bladder wall thickening, consider cystitis
--- NOTE | 2024-10-23 02:09 | PRELIM_ITS ---
CT scan of the head without intravenous contrast (axial sections with sagittal and coronal reformats). October 23, 2024 0153 hours Clinical History: aloc Comparison: None currently available for review Findings: There is no intracranial hemorrhage, extra-axial collection, mass, mass-effect or midline shift. Encephalomalacia is noted along the anterior, mid and medial left temporal lobe which may be related to old ischemia, old trauma or even prior postsurgical change. Subcentimeter posterior left temporal lobe calcification noted which is nonspecific but may be related to old healed neurocysticercosis. There is no CT evidence of acute large vascular territorial infarct. Ventricles are not enlarged or effaced except for mild passive compensatory enlargement of the temporal horn of the left lateral ventricle. There is atherosclerotic calcification along the carotid siphons. Visualized paranasal sinuses and tympanomastoid cavities are clear. Prior left temporal craniotomy noted. Impression: No intracranial hemorrhage, mass-effect or midline shift. Left temporal encephalomalacia which may be related to old ischemia, old trauma or even prior postsurgical change. No CT evidence of acute large vascular territorial infarct. Report Electronically Signed By: Armando Read 10/23/2024 2:09:32 AM [EST]
[2024-10-23] MEDS: RINGERS LACTATED 1000 ML 1,000 ML 999 ML IV ×2 (02:45)
[2024-10-23] MEDS: PIPER/TAZO 3.375 GM PREMIX 3.375 GM/50 ML BAG IV (03:12)
--- NOTE | 2024-10-23 03:15 | PRELIM_ITS ---
CT scan of the chest, abdomen and pelvis without intravenous contrast (axial sections with sagittal and coronal reformats) October 23, 2024 0202 hours Clinical History: sepsis No prior study is available for comparison. Findings: Mild emphysematous changes are noted in both lung apices. Bibasilar dependent atelectasis is present. The lungs otherwise are clear. There is no pleural effusion or pneumothorax. The aorta is unremarkable on this noncontrast study. No evidence of mediastinal mass or lymphadenopathy. There is no pericardial effusion. Fatty infiltration of the liver is noted. The gallbladder is surgically absent. There is mild splenic atrophy. There is thickening and fat stranding surrounding adrenal glands. The pancreas and kidneys are unremarkable on this noncontrast study. The stomach is distended with food residue. No evidence of bowel obstruction. The appendix is within normal limits. Moderate amount of fecal material is present in the colon. The urinary bladder is not well distended with apparent wall thickening. There is no free fluid or free air. The bones are osteopenic. Mild degenerative changes are identified in the spine. There are calcifications with mild effusion in the inferior right shoulder joint. Impression: Possible cystitis. Recommend clinical and laboratory correlation. Bilateral adrenal hyperplasia with fat stranding. Recommend clinical correlation and follow-up. Calcifications with mild effusion in the inferior right shoulder joint. Consider followup with elective MRI. Other findings as described above. Report Electronically Signed By: Mk Low 10/23/2024 3:14:18 AM [EST]
[2024-10-23 03:21] LABS: Collection Type, Urine Catheter
[2024-10-23 03:29] LABS: Procalcitonin 16.25 ng/ml (0.0-0.49)
[2024-10-23 03:37] LABS: Amorphous Crystals,Urine Present (Absent); Bacteria,Urine Rare; Bilirubin,Urine Negative (Negative); Blood,Urine 3+ (Negative); Clarity,Urine Turbid (Clear/Hazy); Color,Urine Lt-Yellow (Lt Yel-Yel); Culture Indicated,Urine Not Indicated; Glucose, Urine Negative (Negative); Granular Casts,Urine < 1 /hpf (0-1); Ketones,Urine Negative (Negative); Leukocyte Esterase,Urine Negative (Negative); Nitrite,Urine Negative (Negative); PH,Urine 5.5 (5.0-7.0); Protein,Urine 1+ (Neg - Trace); RBC,Urine 5 /hpf (0-3); Specific Gravity,Urine 1.007 (1.001-1.035); Squamous Epithelial Cell,Urine 4 /hpf (0-5); Urobilinogen,Urine Negative mg/dL (0.0-1.0); WBC,Urine 10 /hpf (0-5)
[2024-10-23 03:38] LABS: Amphetamine/Methamp Scrn,U Negative (Negative); Barbiturate Screen,Urine Negative (Negative); Benzodiazepines Screen,Urine Negative (Negative); Benzoylecgonine Screen, Ur Negative (Negative); Fentanyl Screen,Urine Negative (Negative); Opiate Screen,Urine Negative (Negative); THC Screen,Urine Positive (Negative)
[2024-10-23 04:01] LABS: Reflex Lactate? Y
[2024-10-23 04:11] LABS: Base Excess -6 (-3-3); HCO3 18 mEq/L (20-26); Inspired Oxygen, FIO2 21 %; O2 Saturation 86 % (91-98); PCO2 27 mmHg (32.0-48.0); pH, Arterial 7.42 (7.35-7.45)
[2024-10-23 04:13] LABS: Allen Test Performed/OK; PO2 49 mmHg (83-108); Puncture Site Right Radial
[2024-10-23 04:24] LABS: Lactic Acid, 3 HR 3.9 mMol/L (0.4-2.0)
[2024-10-23 04:47] LABS: Ammonia 15 uMol/L (11-32)
--- NOTE | 2024-10-23 04:53 | ESOP_ITS ---
<Statement entered by Paula Lemus MD - 10/30/24 04:08> I, Paula Lemus MD, have reviewed the history, exam, and assessment of the patient. I have evaluated the patient independently and agree with the plan of care documented by [ ]. All diagnostic studies were reviewed and discussed. I confirm the diagnosis as documented by the Resident. I was present during the Medical Decision Making for this patient. The patient's plan of care was created between myself and the Resident and consistent with our discussion of the patient's case. PROCEDURES: Procedure Date / Time 10/23/24 0450 Lumbar Puncture Indication(s): acute encephalopathy Informed consent obtained: procedure done urgently Time out done, and the following verified: correct patient, side and site, procedure, patient position and implants and/or equipment Patient position: left lateral decubitus Skin prep: 0.5% Chlorhexidine/Alcohol Local anesthetic used: Lidocaine 1% Amount of anesthesia used (mL): 5 Spinal needle gauge: 22G Interspace used: L4-L5 Fluid initially obtained: clear EBL(ml): 0 Complications: none Additional comments: Procedure performed under supervision of Dr. Lemus. Gil Hester MD, PGY 3. Disclaimer: This note was dictated by speech recognition. Minor errors in working foreman may be present due to voice recognition software.
--- NOTE | 2024-10-23 05:58 | PD.RESHP ---
Documentation for date of: 10/23/24 HPI History of Present Illness Chief complaint: Altered mental status History of present illness: 54-year-old female with past medical history of hypertension, seizure brain surgery, marijuana use disorder presented to the ED on 10/23 after she was brought in for acute altered mental status. History mostly taken from ED provider and nurse who states that the patient was brought in by her sister from home apparently, patient had not been responding to calls at which point sister went to her home and found her altered nonsensical comments. Patient apparently has been having vomiting and abdominal pain prior to admission for about 1 day. 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 Patient is on Keppra for seizure has been and lisinopril blood pressure. Medical history: As stated above Surgical history: Possible brain surgery? Allergies: NKDA Medications: Pending med rec Family history: None contributory Social history: Patient lives alone use disorder able to obtain any other social history at this time ROS: Unable to assess as the patient is sedated In the ED patient presented altered pressure 124/92, heart rate of 113 with temperature of 99.0 ?F but saturating 99 on room air initially but now requiring 3 L of supplemental oxygen 93%. Pertinent lab findings included WBC of 28.5,, ABG showed a pH of 7.42, PCO2 of 27P O2 of 49 and bicarb of 18, sodium of 133 2.0, BUN of 8 lactic acid of 3.9 AST of 150 66, alk phos 139, Pro-Osmany of 16.25. Urinalysis did not show any signs of infection but there was some pyuria. U tox was positive for marijuana head CT did not show any acute findings but there was left temporal encephalomalacia. CT chest abdomen pelvis without contrast showed possible cystitis, bilateral adrenal aplasia and mild diffusion in the inferior right shoulder joint. Patient will be admitted for acute encephalopathy likely secondary to infectious etiology and will be treated with IV antibiotics, CSF analysis and neurology consultation for possible MRI and EEG. Exam Vital Signs Temp Pulse Resp BP Pulse Ox O2 Del Method 98.1 F 115 H 31 H 104/78 93 L Room Air 10/23/24 03:00 10/23/24 04:00 10/23/24 04:00 10/23/24 04:00 10/23/24 04:00 10/23/24 04:00 Narrative Exam Physical Exam: GENERAL: Mildly sedated. Appears stated age HEENT: NC/AT. Moist mucosa. PERRLA/EOMI. CARDIO: Heart RRR, no obvious murmurs, no JVD. PULM: No coughing or visible SOB. Lungs CTA B/L. GI: Abdomen soft, NT/ND, +BS. SKIN/MSK/EXT: No wounds/discoloration/rashes/edema/amputations. +Pedal pulses present B/L. Moves extremities x4. NEURO: Oriented x0. GCS 11 (responds to verbal with eye opening, withdraws from pain, confused response - says seizure, seizure Results: Labs 10/23/24 00:50 10/23/24 00:50 Labs: Short CBC 10/23/24 Range/Units 00:50 WBC 28.5 H (3.6-11.0) Thou/mm3 Hgb 13.3 (12.0-16.0) g/dL Hct 37.4 (36.0-46.0) % Plt Count 384 (140-440) Thou/mm3 BMP 10/23/24 00:50 Sodium 133 L Potassium 3.4 Chloride 104 Carbon Dioxide 15.1 L BUN 18 Creatinine 2.0 H Glucose 151 H Calcium 9.3 Liver Function 10/23/24 Range/Units 00:50 Total Bilirubin 0.3 (0.3-1.2) mg/dL AST 154 H (0-34) U/L ALT 66 H (10-49) U/L Alkaline Phosphatase 139 H (46-116) U/L Albumin 4.5 (3.5-5.0) gm/dL Urine 10/23/24 Range/Units 03:10 Urine Color Lt-Yellow (Lt Yel-Yel) Urine Clarity Turbid A (Clear/Hazy) Urine pH 5.5 (5.0-7.0) Ur Specific [place] 1.007 (1.001-1.035) Urine Protein 1+ A (Neg - Trace) Urine Glucose (UA) Negative (Negative) ABG Interpretation ABG results: 10/23/24 04:06 ABG pH 7.42 ABG pCO2 27 L ABG pO2 49 L* ABG HCO3 18 L ABG O2 Saturation 86 L ABG Base Excess -6 L Quality Measures Quality Measures sepsis Current suspected stage: sepsis Possible source: meningitis and unknown Blood cultures ordered: yes Antibiotic ordered: Yes and none Medications Home Medications and Allergies Home Medications ?Medication ?Instructions ?Recorded ?Confirmed ?Type levetiracetam 750 mg tablet 1,500 mg PO GISELE 07/03/21 07/03/21 History (Keppra) levetiracetam 750 mg tablet 2,250 mg PO HS 07/03/21 07/03/21 History (Keppra) mirtazapine 15 mg tablet (Remeron) 15 mg PO QDAY 07/03/21 07/03/21 History venlafaxine 100 mg tablet 150 mg PO DAILY 07/03/21 07/03/21 History Allergies Allergy/AdvReac Type Severity Reaction Status Date / Time No Known Allergies Allergy Verified 10/22/24 23:51 Visit Medications Discontinued Medications Lactated Ringer's (Lactated Ringers) 1,000 mls @ 999 mls/hr IV .Q1H1M ONE Stop: 10/23/24 02:58 Last Infusion: 10/23/24 04:50 Dose: Infused Lactated Ringer's (Lactated Ringers) 1,000 mls @ 999 mls/hr IV .Q1H1M ONE Stop: 10/23/24 03:14 Last Infusion: 10/23/24 04:24 Dose: Infused Piperacillin/Tazobactam/Dextrose (Zosyn) 3.375 gm in 50 mls @ 100 mls/hr IV X1 ONE Stop: 10/23/24 03:18 Last Infusion: 10/23/24 03:42 Dose: Infused Levetiracetam (Levetiracetam Inj 100 Mg/Ml Vial 5ml) 1,000 mg IVP X1 ONE Stop: 10/23/24 01:11 Last Admin: 10/23/24 01:34 Dose: 1,000 mg Lorazepam (Lorazepam 2 Mg/Ml Vial) 2 mg IVP X1 ONE Stop: 10/23/24 01:10 Last Admin: 10/23/24 01:30 Dose: 2 mg Lorazepam (Lorazepam 2 Mg/Ml Vial) 2 mg IVP X1 ONE Stop: 10/23/24 04:08 Last Admin: 10/23/24 04:23 Dose: 2 mg Assessment & Plan Plan 54-year-old female with past medical history of hypertension, seizure brain surgery, marijuana use disorder presented to the ED on 10/23 after she was brought in for acute altered mental status will be admitted for acute encephalopathy likely secondary to infectious etiology and will be treated with IV antibiotics, CSF analysis and neurology consultation for possible MRI and EEG. #Acute encephalopathy secondary to #Seizure #Infective meningitis? #Encephalomalacia As noted above, patient is presenting with acute encephalopathy, has history of seizures and brain surgery in the past Per sister, patient's been having some vomiting episodes, not her usual postictal state after seizure On examination, patient is GCS 11 In the ED patient was given Keppra loading dose along with IV Ativan Pertinent findings include WBC of 28.5 LP done as no direct source of infection found but there is no meningeal signs on examination Urinalysis did not show any signs of infection but there was some pyuria. U tox was positive for marijuana head CT did not show any acute findings but there was left temporal encephalomalacia. Plan: Follow-up on CSF studies Consider neurology consultation Consider MRI and EEG Continue IV Ceftriaxone and consider increasing to full coverage for infective meningitis Depending on CSF studies additional studies might be necessary #Respiratory Alkalosis w/ Metabolic Acidosis w/wout gap #Hypoxia #Tachycardia On examination, patient is requiring 3 L of oxygen and saturating 92 ABG does show pH of 7.42, PCO2 of 27, PO2 of 49 and bicarb of 18 Respiratory alkalosis 2/2 to sepsis hyperventilation, anxiety, liver disease, Well score of 1.5, low risk for PE Plan: Consider obtaining a CTA of the chest if necessary #BHAVESH Patient is presenting with an increase in her baseline creatinine from 0.8-2.0 BUN/creatinine ratio of 9 Plan: Will start gentle IV fluid resuscitation Monitor renal function Avoid nephrotoxic agents Monitor with morning labs #Elevated liver enzymes Likely secondary to MASLD Patient has elevated liver function enzymes as noted with an AST 154, ALT 66 Meets hepatocellular criteria of liver injury Unsure if the patient has alcohol use disorder CT findings mention fatty liver Plan: Hepatitis panel ordered #Hypertension Patient on home antihypertensive, currently normotensive Plan: Restart home medications when appropriate #Cystitis? #Bilateral adrenal hyperplasia #Mild effusion in the inferior right shoulder joint. CT chest abdomen pelvis findings Plan: Clinically correlate #Marijuana use disorder Plan: Consider social welfare research worker consultation Health Maintenance: Lines: PIV Diet: N.p.o. Bowel: Senna as needed GI prophylaxis: Not needed at this time DVT prophylaxis: Heparin subcu Dispo: Workup for acute encephalopathy, possible neurology consultation Code: Patient seen and assessed with attending Dr. Radha Castañeda DO PGY-2 Internal Medicine - [facility] Attending Provider Attestation/Addendum After examination of the patient and review of the clinical data I feel that this patient needs admission to the hospital for further treatment/evaluation. I have discussed and was present for the essential components of the history, physical examination, diagnosis, and treatment plan with the resident. I agree with the patient's care as documented by the resident and amended herein by me. Andrew Garcia DO. Although this document has been carefully reviewed, there may still be some phonetic and other typographical errors. These errors are purely grammatical due to imperfections in the software program and should not be construed in any way to compromise the substance of the patient's medical care during this visit. Patient seen and evaluated in the ED patient is a 54-year-old female with a significant past medical history of cholecystectomy, hypertension, seizures, unspecified brain surgery who presented to the ED by her sister for acute encephalopathy x 1 day. Patient apparently also had vomiting and diarrhea for approximately 1 day. Patient is on Keppra at home. Not much history could be taken from the patient herself, most history from chart review In the ED, BP 104/78, patient was tachycardic and tachypneic, however afebrile and on room air with an SpO2 of 93%. Initial ABG demonstrated pH 7.42, PCO2 27, PO2 49 and bicarb of 18. Patient is in no respiratory distress, is resting comfortably, no sign of DVT, good waveform on pulse ox. An LP was performed, CSF fluid studies are pending as well as CSF cultures. The patient had no meningeal signs. CT head was negative for any acute intracranial pathology and acute stroke, did demonstrate left temporal encephalomalacia, CT abdomen pelvis significant for cystitis, potential bilateral adrenal hyperplasia and fatty liver. Patient admitted to acute telemetry for: Significant problem list: #Sepsis secondary to urinary tract infection, likely with gram-negative organisms #Acute encephalopathy, likely toxic metabolic from above #Acute kidney injury #Respiratory alkalosis with secondary metabolic acidosis #Transaminitis #Acute diarrhea #Left temporal encephalomalacia in setting of seizure history and brain surgery Patient started on broad-spectrum antibiotics, was given Zosyn in the ED however will continue on ceftriaxone for sepsis secondary to UTI. Will continue to follow-up with CSF fluid studies although I suspect altered mentation may be secondary to UTI. Blood and urine cultures were drawn in the ED, repeat lactic pending, patient was tachycardic in the ED however no respiratory distress, well score was low at 1.5 however PaO2 was moderately low at 49, a CTA chest was not done -renal function is impaired, will hold off on CTA unless the patient remains tachycardic or demonstrates respiratory distress. Stool studies were also ordered to include C. difficile considering multiple episodes of diarrhea in the last day or two prior to admission. Patient is presently stable, will continue to monitor closely
[2024-10-23 06:28] LABS: Glucose,CSF 100 mg/dL (40-70); Protein Total,CSF 44 mg/dL (8-32)
[2024-10-23 06:37] LABS: CSF Cell Count Tube # Tube # 4; CSF Color Colorless (Colorless); CSF Mononuclear 40.0 %
[2024-10-23 06:38] LABS: CSF Red Blood Cell 3 /cmm; CSF White Blood Cell 5 /cmm
[2024-10-23] MEDS: RINGERS LACTATED 1000 ML 1,000 ML 75 ML IV (06:41)
[2024-10-23 07:03] LABS: Lactate (Lactic Acid) 2.5 mMol/L (0.4-2.0)
[2024-10-23 07:14] LABS: Hepatitis A Antibody IgM Non Reactive (Non React); Hepatitis B Core Antibody IgM Non Reactive (Non React); Hepatitis B Surface Antigen Non Reactive (Non React); Hepatitis C Antibody Non Reactive (Non React)
[2024-10-23 07:42] LABS: CSF, Appearance Clear (Clear)
[2024-10-23 07:54] LABS: CSF Gram Stain Alert Gram Stain Completed
[2024-10-23 08:36] LABS: Creatine Kinase 7886 U/L (34-171)
[2024-10-23 08:43] LABS: CSF Polynuclear WBC 60 %
[2024-10-23] MEDS: SODIUM CHLORIDE 0.9% 1000 ML 1,000 ML 999 ML IV (08:56)
[2024-10-23] MEDS: HEPARIN SOD INJ 5000 UNIT/ML VIAL SC ×2 (08:57→22:15)
[2024-10-23 09:31] LABS: Albumin, Serum 4.0 gm/dL (3.5-5.0); Anion Gap 14 (7-16); BUN/Creatinine Ratio 10 Ratio (12-20); Blood Urea Nitrogen 17 mg/dL (9-23); Calcium 9.2 mg/dL (8.3-10.6); Calcium (Corrected) 9.2 mg/dL (8.5-10.1); Carbon Dioxide 18.0 mMol/L (20.0-31.0); Chloride 106 mMol/L (98-107); Creatinine (Component) 1.7 mg/dL (0.6-1.3); Estimated Creatinine Clearance 29.9 mL/min (>60); Glucose 115 mg/dL (74-106); Osmolality,Calculated 278 (275-295); Phosphorous 4.4 mg/dL (2.4-5.1); Potassium 4.0 mMol/L (3.4-5.1); Sodium 138 mMol/L (136-145); eGFR 35 See Note
[2024-10-23] MEDS: cefTRIAXone/D5w 1gm IV premix 1 GM/50 ML BAG IV (10:00)
[2024-10-23 10:04] LABS: Reflex Lactate? Y
[2024-10-23] MEDS: SODIUM CHLORIDE 0.9% 1000 ML 1,000 ML 250 ML IV ×3 (10:06→23:48)
[2024-10-23] MEDS: ONDANSETRON INJ 2 MG/ML INJ 2 ML 4 MG IVP (10:17)
[2024-10-23 10:51] LABS: Lactic Acid, 3 HR 2.1 mMol/L (0.4-2.0)
--- NOTE | 2024-10-23 11:36 | ESPR_ITS ---
<Statement entered by Dallin Mcmahon MD - 10/29/24 14:20> I reviewed above note and agree with findings and plans. I have also personally examined the patient with medicine team and went over assessment and plan with medical team including international trade analyst and resident physician. Documentation for date of: 10/23/24 Overnight admission. Patient examined at bedside. Patient was alert and oriented to self and date of but not to place or time. No motor deficits noted upper strength equal and lower extremities equal bilaterally. Patient needs frequent reorientation. Per patient's sister, this is not patient's baseline. At baseline patient is able to have full on conversation and is alert and oriented. Last well-known time was Tuesday and family had no communication with patient on Tuesday, 10/23/20192024 until she was found at 11 PM crawling towards the entrance door at home. Unknown how long patient was down for, likely all day. Patient continues to repeat that she had a seizure when asked what happened. Concern for seizure, as patient had experienced a seizure last week. Possible presentation of absence seizures, as patient's sister describes seizures as blank stares. Patient is on an increased dose of Keppra as home medication 1500 mg a.m. and 2250 p.m. Neurology consulted recommending dose. Used to Keppra 750 p.o. twice daily initially started at IV pushes as patient had not passed swallow screen transition to oral Keppra at 2100. BHAVESH likely ATN secondary to rhabdomyolysis, NS @ 250 cc. Pending MRI and EEG. If needed once time dose of ativan 1 mg IV X 1 for MRI if done overnight. Subjective Subjective Interval history: No acute events overnight. Patient seen and examined at bedside this AM. Patient was alert to self, but not to time and place. Patient repeatedly requested her seizure medications. Labs and vitals were reviewed. On admission, WBC, Pro-Osmany, chloride were elevated. Bicarb 18.5, with anion gap of 14, likely metabolic acidosis. Creatinine 1.4, baseline 0.6. On admission lactic acid 3.9, now down trended to 2.1. CK elevated, downtrending. UA shows pyuria. CT head shows chronic left-sided temporal encephalomalacia. CT abdomen pelvis showed no pneumonia, was unremarkable except for urinary bladder wall thickening possibly cystitis. UA was positive for pyuria. Was started on IV ceftriaxone. Neurology consulted. Pending MRI and EEG. Review of systems otherwise negative except what is mentioned above. Exam Vital Signs Temp Pulse Resp BP Pulse Ox O2 Del Method O2 Flow Rate 96.8 F 108 H 16 108/68 95 Nasal Cannula 4 10/23/24 08:00 10/23/24 08:00 10/23/24 08:00 10/23/24 08:00 10/23/24 08:00 10/23/24 08:00 10/23/24 08:00 Narrative Exam Physical Exam General: Awake and in no acute distress. Non-toxic appearing. Confused. HEENT: Normocephalic, atraumatic, mucous membranes moist. Heart: Regular rate and rhythm, normal S1 and S2, no murmurs. Lungs: Clear to auscultation with no wheezing or crackles. Abdomen: Soft, nondistended, nontender, positive bowel sounds. No guarding or rebound tenderness. Neurologic: Alert and oriented x1 (oriented to self, not to time or place), no gross neurological deficit, and patient able to move all 4 extremities. Negative Brudzinski's sign. No meningeal signs. Extremities: No edema. Skin: No rash or ecchymoses. Objective Labs 10/23/24 00:50 10/23/24 13:00 Labs: Laboratory Results - last 24 hr 10/22/24 10/23/24 10/23/24 01:50 00:50 03:10 WBC 28.5 H RBC 4.31 Hgb 13.3 Hct 37.4 MCV 87 MCH 30.9 MCHC 35.6 RDW Std Deviation 37.7 Plt Count 384 Neut % (Auto) 88 H Lymph % (Auto) 6 L [place] % (Auto) 5 Eos % (Auto) 0 Baso % (Auto) 0 Neut # (Auto) 25.0 H Lymph # (Auto) 1.7 [place] # (Auto) 1.5 H Eos # (Auto) 0.0 Baso # (Auto) 0.1 Immature Gran # (Auto) 0.21 H Absolute Nucleated RBC 0.00 Immature Gran % 1 H Nucleated RBC % 0 Puncture Site ABG pH ABG pCO2 ABG pO2 ABG HCO3 ABG O2 Saturation ABG Base Excess FiO2 Sodium 133 L Potassium 3.4 Chloride 104 Carbon Dioxide 15.1 L Anion Gap 14 BUN 18 Creatinine 2.0 H Estim Creat Clear Calc 25.4 L eGFR 29 L BUN/Creatinine Ratio 9 L Glucose 151 H Calculated Osmolality 271 L Lactic Acid 3.6 H Calcium 9.3 Corrected Calcium 9.3 Phosphorus Total Bilirubin 0.3 AST 154 H ALT 66 H Alkaline Phosphatase 139 H Ammonia < 10 L Total Creatine Kinase Total Protein 7.1 Albumin 4.5 Globulin 2.6 Albumin/Globulin Ratio 1.7 Lipase 37 Procalcitonin 16.25 H Ur Collection Type Catheter Urine Color Lt-Yellow Urine Clarity Turbid A Urine pH 5.5 Ur Specific [place] 1.007 Urine Protein 1+ A Urine Glucose (UA) Negative Urine Ketones Negative Urine Blood 3+ A Urine Nitrite Negative Urine Bilirubin Negative Urine Urobilinogen (Auto) Negative Ur Leukocyte Esterase Negative Urine RBC 5 H Urine WBC 10 H Ur Squamous Epith Cells 4 Amorphous Crystals Present A Urine Bacteria Rare Granular Casts < 1 Ur Culture Indicated? Not Indicated CSF Appearance CSF Color CSF WBC CSF RBC CSF Cell Count Tube # CSF Mononuclear WBCs CSF Polynuclear WBCs CSF Diff Comment CSF Glucose CSF Total Protein Urine Opiates Screen Negative Urine Fentanyl Screen Negative Ur Barbiturates Screen Negative U Amphetamin/Meth Scrn Negative U Benzodiazepines Scrn Negative U Cocaine Metab Screen Negative U Marijuana (THC) Screen Positive A Ethyl Alcohol < 3.0 Hepatitis A IgM Ab Hep Bs Antigen Hep B Core IgM Ab Hepatitis C Antibody 10/23/24 10/23/24 10/23/24 04:06 04:19 05:10 WBC RBC Hgb Hct MCV MCH MCHC RDW Std Deviation Plt Count Neut % (Auto) Lymph % (Auto) [place] % (Auto) Eos % (Auto) Baso % (Auto) Neut # (Auto) Lymph # (Auto) [place] # (Auto) Eos # (Auto) Baso # (Auto) Immature Gran # (Auto) Absolute Nucleated RBC Immature Gran % Nucleated RBC % Puncture Site Right Radial ABG pH 7.42 ABG pCO2 27 L ABG pO2 49 L* ABG HCO3 18 L ABG O2 Saturation 86 L ABG Base Excess -6 L FiO2 21 Sodium Potassium Chloride Carbon Dioxide Anion Gap BUN Creatinine Estim Creat Clear Calc eGFR BUN/Creatinine Ratio Glucose Calculated Osmolality Lactic Acid 3.9 H Calcium Corrected Calcium Phosphorus Total Bilirubin AST ALT Alkaline Phosphatase Ammonia 15 Total Creatine Kinase Total Protein Albumin Globulin Albumin/Globulin Ratio Lipase Procalcitonin Ur Collection Type Urine Color Urine Clarity Urine pH Ur Specific [place] Urine Protein Urine Glucose (UA) Urine Ketones Urine Blood Urine Nitrite Urine Bilirubin Urine Urobilinogen (Auto) Ur Leukocyte Esterase Urine RBC Urine WBC Ur Squamous Epith Cells Amorphous Crystals Urine Bacteria Granular Casts Ur Culture Indicated? CSF Appearance Clear CSF Color CSF WBC CSF RBC CSF Cell Count Tube # CSF Mononuclear WBCs CSF Polynuclear WBCs CSF Diff Comment CSF Glucose CSF Total Protein Urine Opiates Screen Urine Fentanyl Screen Ur Barbiturates Screen U Amphetamin/Meth Scrn U Benzodiazepines Scrn U Cocaine Metab Screen U Marijuana (THC) Screen Ethyl Alcohol Hepatitis A IgM Ab Non Reactive Hep Bs Antigen Non Reactive Hep B Core IgM Ab Non Reactive Hepatitis C Antibody Non Reactive 10/23/24 10/23/24 10/23/24 05:10 05:10 05:10 WBC RBC Hgb Hct MCV MCH MCHC RDW Std Deviation Plt Count Neut % (Auto) Lymph % (Auto) [place] % (Auto) Eos % (Auto) Baso % (Auto) Neut # (Auto) Lymph # (Auto) [place] # (Auto) Eos # (Auto) Baso # (Auto) Immature Gran # (Auto) Absolute Nucleated RBC Immature Gran % Nucleated RBC % Puncture Site ABG pH ABG pCO2 ABG pO2 ABG HCO3 ABG O2 Saturation ABG Base Excess FiO2 Sodium Potassium Chloride Carbon Dioxide Anion Gap BUN Creatinine Estim Creat Clear Calc eGFR BUN/Creatinine Ratio Glucose Calculated Osmolality Lactic Acid Calcium Corrected Calcium Phosphorus Total Bilirubin AST ALT Alkaline Phosphatase Ammonia Total Creatine Kinase Total Protein Albumin Globulin Albumin/Globulin Ratio Lipase Procalcitonin Ur Collection Type Urine Color Urine Clarity Urine pH Ur Specific [place] Urine Protein Urine Glucose (UA) Urine Ketones Urine Blood Urine Nitrite Urine Bilirubin Urine Urobilinogen (Auto) Ur Leukocyte Esterase Urine RBC Urine WBC Ur Squamous Epith Cells Amorphous Crystals Urine Bacteria Granular Casts Ur Culture Indicated? CSF Appearance Cancelled CSF Color Colorless Cancelled CSF WBC 5 Cancelled CSF RBC 3 CSF Cell Count Tube # CSF Mononuclear WBCs CSF Polynuclear WBCs CSF Diff Comment CSF Glucose CSF Total Protein Urine Opiates Screen Urine Fentanyl Screen Ur Barbiturates Screen U Amphetamin/Meth Scrn U Benzodiazepines Scrn U Cocaine Metab Screen U Marijuana (THC) Screen Ethyl Alcohol Hepatitis A IgM Ab Hep Bs Antigen Hep B Core IgM Ab Hepatitis C Antibody 10/23/24 10/23/24 10/23/24 05:10 05:10 05:10 WBC RBC Hgb Hct MCV MCH MCHC RDW Std Deviation Plt Count Neut % (Auto) Lymph % (Auto) [place] % (Auto) Eos % (Auto) Baso % (Auto) Neut # (Auto) Lymph # (Auto) [place] # (Auto) Eos # (Auto) Baso # (Auto) Immature Gran # (Auto) Absolute Nucleated RBC Immature Gran % Nucleated RBC % Puncture Site ABG pH ABG pCO2 ABG pO2 ABG HCO3 ABG O2 Saturation ABG Base Excess FiO2 Sodium Potassium Chloride Carbon Dioxide Anion Gap BUN Creatinine Estim Creat Clear Calc eGFR BUN/Creatinine Ratio Glucose Calculated Osmolality Lactic Acid Calcium Corrected Calcium Phosphorus Total Bilirubin AST ALT Alkaline Phosphatase Ammonia Total Creatine Kinase Total Protein Albumin Globulin Albumin/Globulin Ratio Lipase Procalcitonin Ur Collection Type Urine Color Urine Clarity Urine pH Ur Specific [place] Urine Protein Urine Glucose (UA) Urine Ketones Urine Blood Urine Nitrite Urine Bilirubin Urine Urobilinogen (Auto) Ur Leukocyte Esterase Urine RBC Urine WBC Ur Squamous Epith Cells Amorphous Crystals Urine Bacteria Granular Casts Ur Culture Indicated? CSF Appearance CSF Color CSF WBC CSF RBC Cancelled CSF Cell Count Tube # Tube # 4 Cancelled CSF Mononuclear WBCs 40.0 Cancelled CSF Polynuclear WBCs 60 CSF Diff Comment CSF Glucose CSF Total Protein Urine Opiates Screen Urine Fentanyl Screen Ur Barbiturates Screen U Amphetamin/Meth Scrn U Benzodiazepines Scrn U Cocaine Metab Screen U Marijuana (THC) Screen Ethyl Alcohol Hepatitis A IgM Ab Hep Bs Antigen Hep B Core IgM Ab Hepatitis C Antibody 10/23/24 10/23/24 10/23/24 05:10 07:00 10:39 WBC RBC Hgb Hct MCV MCH MCHC RDW Std Deviation Plt Count Neut % (Auto) Lymph % (Auto) [place] % (Auto) Eos % (Auto) Baso % (Auto) Neut # (Auto) Lymph # (Auto) [place] # (Auto) Eos # (Auto) Baso # (Auto) Immature Gran # (Auto) Absolute Nucleated RBC Immature Gran % Nucleated RBC % Puncture Site ABG pH ABG pCO2 ABG pO2 ABG HCO3 ABG O2 Saturation ABG Base Excess FiO2 Sodium 138 Potassium 4.0 D Chloride 106 Carbon Dioxide 18.0 L Anion Gap 14 BUN 17 Creatinine 1.7 H Estim Creat Clear Calc 29.9 L eGFR 35 L BUN/Creatinine Ratio 10 L Glucose 115 H Calculated Osmolality 278 Lactic Acid 2.5 H 2.1 H Calcium 9.2 Corrected Calcium 9.2 Phosphorus 4.4 Total Bilirubin AST ALT Alkaline Phosphatase Ammonia Total Creatine Kinase 7886 H Total Protein Albumin 4.0 D Globulin Albumin/Globulin Ratio Lipase Procalcitonin Ur Collection Type Urine Color Urine Clarity Urine pH Ur Specific [place] Urine Protein Urine Glucose (UA) Urine Ketones Urine Blood Urine Nitrite Urine Bilirubin Urine Urobilinogen (Auto) Ur Leukocyte Esterase Urine RBC Urine WBC Ur Squamous Epith Cells Amorphous Crystals Urine Bacteria Granular Casts Ur Culture Indicated? CSF Appearance CSF Color CSF WBC CSF RBC CSF Cell Count Tube # CSF Mononuclear WBCs CSF Polynuclear WBCs Cancelled CSF Diff Comment Cancelled CSF Glucose 100 H CSF Total Protein 44 H Urine Opiates Screen Urine Fentanyl Screen Ur Barbiturates Screen U Amphetamin/Meth Scrn U Benzodiazepines Scrn U Cocaine Metab Screen U Marijuana (THC) Screen Ethyl Alcohol Hepatitis A IgM Ab Hep Bs Antigen Hep B Core IgM Ab Hepatitis C Antibody ABG Interpretation ABG results: 10/23/24 04:06 ABG pH 7.42 ABG pCO2 27 L ABG pO2 49 L* ABG HCO3 18 L ABG O2 Saturation 86 L ABG Base Excess -6 L Quality Measures Quality Measures sepsis Current suspected stage: ruled out Possible source: meningitis and unknown Blood cultures ordered: yes Antibiotic ordered: Yes and none Assessment & Plan Assessment Current Active Medications: Generic Name Dose Route Start Last Admin Trade Name Freq PRN Reason Stop Dose Admin Acetaminophen 650 mg 10/23/24 05:55 Acetaminophen 325 Mg Tablet PO 11/22/24 05:54 Q6H PRN PAIN SCALE 1-3 (mild Heparin Sodium (Porcine) 5,000 unit 10/23/24 09:00 10/23/24 08:57 Heparin Sod Inj 5000 Unit/Ml Vial SC 11/06/24 08:59 5,000 unit Q12HR KIMBERLY Administration Ceftriaxone Sodium/Dextrose 1 gm in 50 mls @ 100 mls/hr 10/23/24 11:00 Rocephin/D5w 1gm Iv Premix IV 10/30/24 10:59 QDAY KIMBERLY Lactated Ringer's 1,000 mls @ 100 mls/hr 10/23/24 07:13 Lactated Ringers IV 10/23/24 16:12 .Q10H ONE Sodium Chloride 1,000 mls @ 250 mls/hr 10/23/24 08:50 10/23/24 10:06 Ns IV 11/22/24 08:49 250 mls/hr .Q4H KIMBERLY Administration Lorazepam 2 mg 10/23/24 05:55 Lorazepam 2 Mg/Ml Vial IVP 10/28/24 05:54 Q30M PRN Breakthrough seizure Ondansetron HCl 4 mg 10/23/24 05:55 10/23/24 10:17 Ondansetron Inj 2 Mg/Ml Inj 2 Ml IVP 11/22/24 05:54 4 mg Q6H PRN Administration NAUSEA OR VOMITING Protocol Sennosides 1 tab 10/23/24 05:55 Senna Tablet PO 11/22/24 05:54 QDAY PRN constipation Protocol Plan Patient is a 54-year-old female with past medical history of hypertension, seizures on Keppra, brain surgery, marijuana use disorder presented to the ED on 10/23 after she was brought in for acute altered mental status, admitted for acute encephalopathy likely secondary to postictal state status post seizure. Treating with IV antibiotics, neurology consulted, pending MRI and EEG. #Acute encephalopathy likely secondary to seizure w/ postictal state #History of seizures #Left temporal encephalomalacia Patient presented with acute encephalopathy. Spoke to sister, who reports that patient's baseline is talkative and independent. Per sister, last seizure was last week, usually stays out of window into space for a few minutes before returning back to baseline. Last known well was Saturday 10/21. Patient has history of seizures, on Keppra 3 g/day. Also had brain surgery for unknown cause, CT head shows chronic left-sided temporal encephalomalacia. Status post Keppra 1 g and IV Ativan in ED. LP showed slightly elevated protein but normal WBC. On exam patient does not have meningeal signs, afebrile, unlikely meningitis. Well score of 1.5, low risk for PE. Plan: ? Give Keppra 750 mg twice daily; transitioned from IV after patient passed swallow screen ?Pending MRI without contrast and EEG -Ativan 1 mg IV X1 to be given if patient is agitated during MRI. ?Ativan PRN for Seizure ?Neurology consulted, Dr. Gómez, appreciate recommendations #BHAVESH likely ATN?improving #Rhabdomyolysis?improving On admission, creatinine 2.0, downtrending. Baseline 0.6. Status post IV fluid resuscitation. Likely ATN secondary to seizure. Plan: -Ordered urine electrolytes ?Continue gentle IV fluid resuscitation ?Monitor renal function ?Avoid nephrotoxic agents ?Monitor with morning labs #Leukocytosis Leukocytosis, likely reactive give seizure vs infectious cause given possible cysitistis as noted on CT Abdomen but negative UA vs consider aspiration pneumonia as last well known time was Tuesday with no respond by afternoon on Tuesday afternoon on 10/22/2024. Treating empirically. Plan -Continue IV Ceftriaxone (10/23/2024---) -Consider repeat Cxr if condition does not improve #Metabolic acidosis, anion gap, with compensatory respiratory Alkalosis?resolving Metabolic Acidosis with anion gap of 14 on admission with elevated lactic levels of 3.6 which down trended to 2.1. Lactic acid levels in the setting of seizure. Delta Gap of 2, predicated PaCO2 30.2. [place] 27, bicarb 18, and pH 7.42, thus metabolic acidosis and respiratory alkalosis. Plan: ?Consider obtaining a CTA of the chest if necessary ? Monitor WBC #Transaminitis Mild elevation in AST/ALT likely secondary to hypoperfusion, given BHAVESH with concern for ATN. Given fatty infiltration as noted on Abdomen US (11/25/2024), consider MASH. Less likely secondary to alcohol use disorder. Hepatitis Panel Negative. (10/23/2024): Total Bilirubin 0.3, AST 154, ALT 66, Alkaline Phosphatase 139 Plan: ?Continue to monitor liver enzymes ? Determine alcohol consumption history #Hypertension Patient on home antihypertensive, currently normotensive. Holding home medication of Lisinopril. Plan: -Hold Lisinopril 20 mg PO qdqay ?Restart home medications when appropriate #History of anxiety versus depression #Hypoxia #Tachycardia Likely secondary to history of anxiety or depression. Patient requiring 4 L oxygen currently saturating 95%. Heart rate has been in low 100s since admission. On exam, patient is very anxious. Patient's home medications include venlafaxine and possibly mirtazapine, pending med rec. Plan: ? Restart home dose venlafaxine daily when patient passes swallow screen ? Will hold mirtazapine ? Ativan as needed #Smoking history #Marijuana use disorder U tox positive for marijuana. Per son patient still smokes, unclear how much. Plan: ?Start nicotine patch 7 mg daily ?Consider administrator social welfare consultation Health Maintenance: Lines: PIV Diet: N.p.o. Bowel: Senna as needed GI prophylaxis: Not needed at this time DVT prophylaxis: Heparin subcu Dispo: Workup for acute encephalopathy, neurology consulted, pending MRI and EEG Code: Full Patient plan of care was discussed with the senior resident, Dr. Triplett, and attending physician, Dr. Mcmahon. Jeannie Hall, PGY-1 - The patient's plan was discussed with attending Dr. Salome Triplett MD PGY2 Internal Medicine
--- NOTE | 2024-10-23 13:27 | PD.RESCONSUL ---
HPI Data of Consult Requesting Physician: Don Garcia DO Admitting Provider: Don Garcia DO Attending Provider: Don Garcai DO Primary Care Provider: Physician No Primary/Family Consult Narrative History of present illness: Ms Barger is a 54-year-old female with past medical history of hypertension, seizures, brain surgery, and marijuana use disorder who presented to the ED on 10/23 with AMS. Sister found patient at home with AMS making non-sensical comments. Patient had N/V/abdominal pain x 1 day. 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 Patient denies previous worms in her brain, denies previous brain surgery. Patient is on Keppra for seizure has been and lisinopril blood pressure. In the ED: initial presentation Oriented x0. GCS 11 (responds to verbal with eye opening, withdraws from pain, confused response - says seizure, seizure , moving all extremities spontaneously. BP 124/92, HR tachycardic 113, afebrile, spO2 99% RA. WBC of 28.5, lactic acid of 3.9. UDS + THC. CT head: left temporal encephalomalacia, left posterior temporal lobe calcification. CT chest/abdomen w/o: possible cystitis, bilateral adrenal aplasia and mild diffusion in the inferior right shoulder joint. Was given Keppra loading dose along with IV Ativan. Patient seen at bedside. She denies headache, dizziness, nausea, vomiting, abdominal pain, paresthesias, weakness. She does note that she has an urge to defecate despite having recently had a bowel movement. cc:: cc: Don Garcia DO Review of Systems Review of Systems Narrative Review of Systems: 14 point review of systems negative other than HPI Exam Vital Signs Temp Pulse Resp BP Pulse Ox O2 Del Method O2 Flow Rate 96.8 F 108 H 16 108/68 95 Nasal Cannula 4 10/23/24 08:00 10/23/24 08:00 10/23/24 08:00 10/23/24 08:00 10/23/24 08:00 10/23/24 08:00 10/23/24 08:00 Narrative Exam General: No acute distress, lying in bed HENT: Normocephalic, atraumatic, hearing intact to conversation at normal volume, moist oral mucosa Neck: Supple, non-tender, no JVD, no lymphadenopathy Lungs: Non-labored respirations, symmetric chest rise Heart: Peripheral pulses intact bilaterally Abdomen: Soft, non-tender, non-distended Musculoskeletal: Normal range of motion and strength Skin: Skin is warm, dry, no rashes or lesions. Psychiatric: Cooperative, appropriate mood and affect Neurologic: Mental status: Orientation: AOx1 Communication: Patient is cooperative and can follow simple instructions Language: Speech fluent, normal rate and volume, comprehension intact Cranial nerves: CN II: Visual aponte intact CN III: Pupils equal, round, and reactive to light CN III, IV, : No gaze deviation, no nystagmus Horizontal pursuit: intact Vertical pursuit: intact Ptosis: none CN V: Facial sensation to light touch intact bilaterally at the forehead, cheeks, and jaw line CN VII: Face symmetric, no facial droop appreciated CN VIII: Able to hear and respond to conversation at normal volume, intact to finger rub CN IX, X: Palate elevation symmetric, uvula midline CN XI: Head turn and shoulder shrug strong, symmetric bilaterally CN XII: Normal tongue protrusion without deviation, no fasciculations Motor: Normal bulk and tone No atrophy No abnormal movements or fasciculations Muscle strength: Shoulder abduction: R 5/5 L 5/5 Elbow flexion: R 5/5 L 5/5 Elbow extension: R 5/5 L 5/5 Hip flexion: R 5/5 L 5/5 Hip extension: R 5/5 L 5/5 Knee flexion: R 5/5 L 5/5 Knee extension: R 5/5 L 5/5 Sensory: RUE: Light touch intact LUE: Light touch intact RLE: Light touch intact LLE: Light touch intact Reflexes: Biceps (C5-6): R 2+ L 2+ Brachioradialis (C5-6): R 2+ L 2+ Triceps (C7-8): R 2+ L 2+ Patellae (L3-4): R 2+ L 2+ Achilles (S1-2):R 2+ L 2+ Cerebellum: RUE: No dysmetria (finger to nose) LUE: No dysmetria (finger to nose) Results Labs 10/23/24 00:50 10/24/24 05:06 Labs: Short CBC 10/23/24 Range/Units 00:50 WBC 28.5 H (3.6-11.0) Thou/mm3 Hgb 13.3 (12.0-16.0) g/dL Hct 37.4 (36.0-46.0) % Plt Count 384 (140-440) Thou/mm3 BMP 10/23/24 10/23/24 00:50 07:00 Sodium 133 L 138 Potassium 3.4 4.0 D Chloride 104 106 Carbon Dioxide 15.1 L 18.0 L BUN 18 17 Creatinine 2.0 H 1.7 H Glucose 151 H 115 H Calcium 9.3 9.2 Cardiac Enzymes 10/23/24 Range/Units 07:00 Total Creatine Kinase 7886 H (34-171) U/L Liver Function 10/23/24 10/23/24 Range/Units 00:50 07:00 Total Bilirubin 0.3 (0.3-1.2) mg/dL AST 154 H (0-34) U/L ALT 66 H (10-49) U/L Alkaline Phosphatase 139 H (46-116) U/L Albumin 4.5 4.0 D (3.5-5.0) gm/dL Urine 10/23/24 Range/Units 03:10 Urine Color Lt-Yellow (Lt Yel-Yel) Urine Clarity Turbid A (Clear/Hazy) Urine pH 5.5 (5.0-7.0) Ur Specific [place] 1.007 (1.001-1.035) Urine Protein 1+ A (Neg - Trace) Urine Glucose (UA) Negative (Negative) ABG Interpretation ABG results: 10/23/24 04:06 ABG pH 7.42 ABG pCO2 27 L ABG pO2 49 L* ABG HCO3 18 L ABG O2 Saturation 86 L ABG Base Excess -6 L Quality Measures Quality Measures sepsis Current suspected stage: ruled out Possible source: meningitis and unknown Blood cultures ordered: yes Antibiotic ordered: No and none Medications Home Medications and Allergies Home Medications ?Medication ?Instructions ?Recorded ?Confirmed ?Type levetiracetam 750 mg tablet 1,500 mg PO GISELE 07/03/21 07/03/21 History (Keppra) levetiracetam 750 mg tablet 2,250 mg PO HS 07/03/21 07/03/21 History (Keppra) mirtazapine 15 mg tablet (Remeron) 15 mg PO QDAY 07/03/21 07/03/21 History venlafaxine 100 mg tablet 150 mg PO DAILY 07/03/21 10/23/24 History Allergies Allergy/AdvReac Type Severity Reaction Status Date / Time No Known Allergies Allergy Verified 10/22/24 23:51 Visit Medications Acetaminophen (Acetaminophen 325 Mg Tablet) 650 mg PO Q6H PRN PRN Reason: PAIN SCALE 1-3 (mild Stop: 11/22/24 05:54 Heparin Sodium (Porcine) (Heparin Sod Inj 5000 Unit/Ml Vial) 5,000 unit SC Q12HR KIMBERLY Stop: 11/06/24 08:59 Last Admin: 10/23/24 08:57 Dose: 5,000 unit Ceftriaxone Sodium/Dextrose (Rocephin/D5w 1gm Iv Premix) 1 gm in 50 mls @ 100 mls/hr IV QDAY KIMBERLY Stop: 10/30/24 10:59 Sodium Chloride (Ns) 1,000 mls @ 250 mls/hr IV .Q4H KIMBERLY Stop: 11/22/24 08:49 Last Admin: 10/23/24 10:06 Dose: 250 mls/hr Lorazepam (Lorazepam 2 Mg/Ml Vial) 2 mg IVP Q30M PRN PRN Reason: Breakthrough seizure Stop: 10/28/24 05:54 Ondansetron HCl (Ondansetron Inj 2 Mg/Ml Inj 2 Ml) 4 mg IVP Q6H PRN; Protocol PRN Reason: NAUSEA OR VOMITING Stop: 11/22/24 05:54 Last Admin: 10/23/24 10:17 Dose: 4 mg Sennosides (Senna Tablet) 1 tab PO QDAY PRN; Protocol PRN Reason: constipation Stop: 11/22/24 05:54 Discontinued Medications Lactated Ringer's (Lactated Ringers) 1,000 mls @ 999 mls/hr IV .Q1H1M ONE Stop: 10/23/24 02:58 Last Infusion: 10/23/24 04:50 Dose: Infused Lactated Ringer's (Lactated Ringers) 1,000 mls @ 999 mls/hr IV .Q1H1M ONE Stop: 10/23/24 03:14 Last Infusion: 10/23/24 04:24 Dose: Infused Piperacillin/Tazobactam/Dextrose (Zosyn) 3.375 gm in 50 mls @ 100 mls/hr IV X1 ONE Stop: 10/23/24 03:18 Last Infusion: 10/23/24 03:42 Dose: Infused Lactated Ringer's (Lactated Ringers) 1,000 mls @ 75 mls/hr IV .[id number] ONE Stop: 10/23/24 19:32 Last Admin: 10/23/24 06:41 Dose: 75 mls/hr Lactated Ringer's (Lactated Ringers) 1,000 mls @ 100 mls/hr IV .Q10H ONE Stop: 10/23/24 16:12 Sodium Chloride (Ns) 1,000 mls @ 999 mls/hr IV .Q1H1M ONE Stop: 10/23/24 08:13 Last Admin: 10/23/24 08:56 Dose: 999 mls/hr Levetiracetam (Levetiracetam Inj 100 Mg/Ml Vial 5ml) 1,000 mg IVP X1 ONE Stop: 10/23/24 01:11 Last Admin: 10/23/24 01:34 Dose: 1,000 mg Lorazepam (Lorazepam 2 Mg/Ml Vial) 2 mg IVP X1 ONE Stop: 10/23/24 01:10 Last Admin: 10/23/24 01:30 Dose: 2 mg Lorazepam (Lorazepam 2 Mg/Ml Vial) 2 mg IVP X1 ONE Stop: 10/23/24 04:08 Last Admin: 10/23/24 04:23 Dose: 2 mg Assessment & Plan Plan #Acute encephalopathy secondary to #Hx seizures #Left temporal encephalomalacia PMHx: Seizures Home med: Keppra 3g daily Initial presentation: AMS, AOx0, N/V/abdominal pain, GCS 11 (responds verbal with eye opening, withdraws from pain, confused response - says seizure, seizure ), moving all extremities spontaneously In the ED: given Keppra loading dose and IV Ativan Initial glucose: 151 Ammonia <10, EtOH <3, Hep A/B/C non-reactive, UA negative for UTI Lactic acid: 3.9 --> 3.9 --> 2.5 --> 2.1 UDS + THC. Total CK high 7886, procal high 16.25 CSF: clear, WBC 5, RBC 3, monocyte 40, polynucleocyte 60%, glucose 100 high (>60% blood glucose 151), protein [address] Gram stain negative. CT head w/o: No hemorrhage, mass effect, or midline shift. + left temporal encephalomalacia, left posterior temporal lobe calcification. Plan: - Start Keppra 750 mg BID - Pending CSF culture - Pending EEG - MRI brain w/o (patient has BHAVESH, cannot do contrast) #Respiratory Alkalosis w/ Metabolic Acidosis w/o gap #Hypoxia #Tachycardia On examination, patient is requiring 3 L of oxygen and saturating 92 ABG does show pH of 7.42, PCO2 of 27 (low), PO2 of 49 (low) and HCO3 of 18 (low) Respiratory alkalosis 2/2 to sepsis hyperventilation, anxiety, liver disease, Well score of 1.5, low risk for PE Plan: - Management per primary #BHAVESH Patient is presenting with an increase in her baseline creatinine from 0.8-2.0 BUN/creatinine ratio of 9 Initial Cr: 1.7 Plan: - Management per primary # Rhabdomyolysis UA positive 3+ blood, 5 RBC hpf Total CK high 7886 Plan: - Management per primary #Transaminitis Likely secondary to MASLD Initial labs: AST 154, ALT 66 Hep A/B/C non-reactive EtOH <3 Plan: - Management per primary #Hypertension Normotensive now Plan: - Management per primary #Cystitis #Bilateral adrenal hyperplasia #Mild effusion in the inferior right shoulder joint CT c/a/p w/o: Right shoulder calcific tendinitis, absent gallbladder, minor nodular thickening of b/l adrenal glands, urinary bladder wall thickening up to 8 mm c.w cystitis, moderate osteopenia UA negative for UTI Plan: - Management per primary #Marijuana use disorder UDS + THC Plan: - Management per primary #Acute diarrhea Plan: - Pending C diff - Management per primary Plan discussed with Dr. Jose Alberto Reed, PGY1 Attending Provider Attestation/Addendum I personally have seen and examined the patient at the bedside and I agreed with the resident's findings, assessment and plan of care. Follow-up with the EEG and MRI brain without contrast. Continue with the Keppra 750 mg twice a day and follow seizure precautions.
[2024-10-23 13:36] LABS: Albumin, Serum 3.5 gm/dL (3.5-5.0); Anion Gap 10 (7-16); BUN/Creatinine Ratio 9 Ratio (12-20); Blood Urea Nitrogen 12 mg/dL (9-23); Calcium 8.2 mg/dL (8.3-10.6); Calcium (Corrected) 8.6 mg/dL (8.5-10.1); Carbon Dioxide 18.5 mMol/L (20.0-31.0); Chloride 112 mMol/L (98-107); Creatinine (Component) 1.4 mg/dL (0.6-1.3); Estimated Creatinine Clearance 36.3 mL/min (>60); Glucose 107 mg/dL (74-106); Osmolality,Calculated 279 (275-295); Phosphorous 3.7 mg/dL (2.4-5.1); Potassium 4.2 mMol/L (3.4-5.1); Sodium 140 mMol/L (136-145); eGFR 45 See Note
[2024-10-23 13:44] LABS: Creatine Kinase 7565 U/L (34-171)
[2024-10-23] MEDS: levETIRAcetam INJ 100 MG/ML VIAL 5ML 500 MG IVP (14:11)
[2024-10-23] MEDS: VENLAFAXINE XR 37.5 MG CAPCR 150 MG PO (14:30)
--- NOTE | 2024-10-23 17:12 | PC.NURSE ---
transferred pt. to [id number] .
[2024-10-23] MEDS: NICOTINE PATCH 7 MG/24 HR PATCH.TD24 TOP (17:22)
[2024-10-23] MEDS: LORazepam 2 MG/ML VIAL 1 MG IV (18:41)
--- NOTE | 2024-10-23 22:18 | RESP.EEG ---
EEG has been completed and is ready for MD interpretation
[2024-10-24] VITALS (106 sets, daily range): BP systolic 71–191; BP diastolic 44–135; PULSE 83–156; RESP 12–80; TEMP 36.2–37.2; O2SAT 31–100; BMI 21.0
--- NOTE | 2024-10-24 00:52 | PC.NURSE ---
[employer] PATTERN[employer] called at approximately 0552 for severe agitation, high HR and high RR
[2024-10-24] MEDS: LORazepam 2 MG/ML VIAL 1 MG IVP ×3 (00:58→05:43)
[2024-10-24] MEDS: SODIUM CHLORIDE 0.9% 1000 ML 1,000 ML 250 ML IV ×3 (04:39→14:27)
--- NOTE | 2024-10-24 05:10 | PC.NURSE ---
PATIENT VERY AGITATED TRYING TO TAKE HI FLOW O2 OFF, IV AND REGALADO. MD VEGAS CAME TO BEDSIDE TO ASSESS PT AND SAID KEEP RESTRAINTS ON AND HE WILL ORDER A MEDICATION
[2024-10-24] MEDS: HALOPERIDOL LACT INJ 5 MG/ML VIAL IV ×2 (05:43→09:41)
--- NOTE | 2024-10-24 05:52 | PC.NURSE ---
JTAC called at approximately 0552 for severe agitation, high HR and high RR
[2024-10-24] MEDS: OLANZapine INJ 10 MG, Sterile Water 2.1 ML IM (06:03)
[2024-10-24] MEDS: LORazepam 2 MG/ML VIAL IVP (06:10)
[2024-10-24 06:12] LABS: Basophils # (Auto) 0.1 Thou/mm3 (0.0-0.2); Basophils % (Auto) 0 % (0-2.5); Eosinophils # (Auto) 0.0 Thou/mm3 (0.0-0.5); Eosinophils % (Auto) 0 % (0-10); Hematocrit 32.0 % (36.0-46.0); Hemoglobin 11.2 g/dL (12.0-16.0); Immature Granulocytes Auto 0.23 Thou/mm3 (0.00-0.00); Lymphocytes # (Auto) 1.7 Thou/mm3 (1.0-4.8); Lymphocytes % (Auto) 8 % (10-50); Mean Corpuscular HGB Conc 35.0 g/dl (31.0-37.0); Mean Corpuscular Hemoglobin 31.5 pg (25.0-35.0); Mean Corpuscular Volume 90 fL (80-100); Monocytes # (Auto) 0.9 Thou/mm3 (0.0-0.8); Monocytes % (Auto) 4 % (0-12); Neutrophils # (Auto) 19.4 Thou/mm3 (1.8-7.7); Neutrophils % (Auto) 87 % (37-80); Nucleated Red Blood Cell # 0.00 Thou/mm3 (0.00-0.00); Nucleated Red Blood Cell % 0 /100 WBC (0); Platelet Count 290 Thou/mm3 (140-440); RDW Standard Deviation 39.8 fL (36.4-46.3); Red Blood Count 3.56 Miln/mm3 (4.00-5.20); White Blood Count 22.3 Thou/mm3 (3.6-11.0)
--- NOTE | 2024-10-24 06:20 | PD.RESEVENT ---
Documentation for date of: 10/24/24 Event Note Event Note: Rapid response called sometime around 5:55 AM on 10/24 for patient in room 271 being acutely agitated. Patient seen and assessed in hospital bed, airway/breathing/circulation intact. Patient's was on high flow nasal cannula saturating in the high 80s, tachycardic with a heart rate between 130?140 but otherwise vital stable. Patient thrashing around in hospital bed even with bilateral wrist restraints; was given 3 mg IV Ativan, 2 doses of Benadryl 12.5 mg IV and 1 dose of haloperidol 5 mg IV prior to the rapid for agitation. At that time, patient was assessed but denied having any chest pain, shortness of breath and on examination patient did not have concerning abdominal findings and Lorenzo catheter was draining clear yellow urine. During rapid, patient was given olanzapine 10 mg IM x 1 along with lorazepam 2 mg IV and she finally was calmer. Will continue monitor the patient for any acute changes and report to morning team. David Castañeda, DO PGY-2 Internal Medicine - [facility]
[2024-10-24 07:07] LABS: Alanine Aminotransferase 112 U/L (10-49); Albumin, Serum 3.3 gm/dL (3.5-5.0); Albumin/Globulin Ratio 1.5 (1.2-2.2); Alkaline Phosphatase 92 U/L (46-116); Anion Gap 13 (7-16); Aspartate Amino Transferase 191 U/L (0-34); BUN/Creatinine Ratio 12 Ratio (12-20); Bilirubin,Total 0.5 mg/dL (0.3-1.2); Blood Urea Nitrogen 13 mg/dL (9-23); Calcium 8.1 mg/dL (8.3-10.6); Calcium (Corrected) 8.7 mg/dL (8.5-10.1); Carbon Dioxide 15.0 mMol/L (20.0-31.0); Cardiac Risk Estimate 3.0 RATIO (3.7-5.6); Chloride 114 mMol/L (98-107); Cholesterol 149 mg/dL (132-200); Creatine Kinase 5091 U/L (34-171); Creatinine (Component) 1.1 mg/dL (0.6-1.3); Estimated Creatinine Clearance 46.2 mL/min (>60); Globulin 2.2 gm/dL (2.3-3.5); Glucose 108 mg/dL (74-106); HDL Cholesterol 49 mg/dL (40-60); LDL Cholesterol,Calculated 60 mg/dL (0-130); Magnesium 1.7 mg/dL (1.6-2.6); Osmolality,Calculated 284 (275-295); Phosphorous 3.4 mg/dL (2.4-5.1); Potassium 3.6 mMol/L (3.4-5.1); Sodium 142 mMol/L (136-145); Thyroid Stimulating Hormone 1.75 uIU/mL (0.55-4.78); Total Protein 5.5 gm/dL (5.7-8.2); Triglycerides 199 mg/dL (30-150); eGFR 60 See Note
[2024-10-24] MEDS: LORazepam 2 MG/ML VIAL 1 MG IM (08:15)
--- NOTE | 2024-10-24 08:29 | ESPR_ITS ---
<Statement entered by Dallin Mcmahon MD - 11/05/24 17:54> I reviewed above note and agree with findings and plans. I have also personally examined the patient with medicine team and went over assessment and plan with medical team including landscape maintenance internship and resident physician. Documentation for date of: 10/24/24 Overnight, rapid response called for patient secondary to agitation. Patient recieved Bendrly, Ativan, and Olazapine overnight night. Patient continued to be agitated as day shift started and rapid response called. Patient continued to be agitated. Concern for seizure like activity, updated Neruologoy who gave Vimpat. Repeat CBC, CMP, Lactic Acid, and ABG. Patient upgraded to ICU given agitation and hypoxia. Subjective Subjective Interval history: This morning, patient had 2 rapid responses due to agitation, at approximately 6 AM and 8 AM, see event notes. In summary, restraints were placed overnight. Was given total of Ativan 6 mg IV, olanzapine x 2, Benadryl x2, haloperidol x 2, diphenhydramine x 1, Versed 2mg x1 without any improvement. Prior to pharmacological intervention, attempted to re-orient nd calm patient verbally, unsuccessful despite multiple attempts. Later into rapid, noticed that patient's extremities appeared rigid, possibly indicating tonic-clonic seizure. Ordered stat CMP, CBC, prolactin, lactic acid, and ABG. Of note patient was hypoxic at 88% despite being on high flow oxygen. Waveforms were noted on telemetry. Consulted neurology, gave Vimpat x 1, started Vimpat twice daily. Consulted ICU, patient will be upgraded to ICU for acute hypoxic respiratory failure secondary to worsening acute encephalopathy and metabolic acidosis, likely due to seizure. Exam Vital Signs Temp Pulse Resp BP Pulse Ox O2 Del Method O2 Flow Rate 97.2 F 121 H 33 H 121/84 94 L Humidified Nasal Cannula 40 10/24/24 08:00 10/24/24 08:00 10/24/24 08:00 10/24/24 08:00 10/24/24 08:00 10/24/24 08:00 10/24/24 08:00 FiO2 100 10/24/24 08:00 Narrative Exam Physical Exam General: Awake and in no acute distress. Conversational and non-toxic appearing. HEENT: Pupils dilated. Normocephalic, atraumatic, mucous membranes dry. Heart: Tachycardic. Regular rate and rhythm, normal S1 and S2, no murmurs. Lungs: Unable to assess. Abdomen: Soft, nondistended, nontender, positive bowel sounds. No guarding or rebound tenderness. Neurologic: Alert, oriented to self, unable to completely assess, no gross neurological deficit, and patient able to move all 4 extremities. Extremities: No edema. Skin: No rash or ecchymoses. Objective Labs 10/25/24 17:05 10/25/24 04:25 Labs: Laboratory Results - last 24 hr 10/23/24 10/23/24 10/23/24 05:10 07:00 10:39 Sodium 138 Potassium 4.0 D Chloride 106 Carbon Dioxide 18.0 L Anion Gap 14 BUN 17 Creatinine 1.7 H Estim Creat Clear Calc 29.9 L eGFR 35 L BUN/Creatinine Ratio 10 L Glucose 115 H Calculated Osmolality 278 Lactic Acid 2.1 H Calcium 9.2 Corrected Calcium 9.2 Phosphorus 4.4 Magnesium Total Bilirubin AST ALT Alkaline Phosphatase Total Creatine Kinase 7886 H Total Protein Albumin 4.0 D Globulin Albumin/Globulin Ratio Triglycerides Cholesterol LDL Cholesterol, Calc HDL Cholesterol Cholesterol/HDL Ratio TSH CSF Polynuclear WBCs 60 10/23/24 10/24/24 13:00 05:06 Sodium 140 142 Potassium 4.2 3.6 D Chloride 112 H 114 H Carbon Dioxide 18.5 L 15.0 L Anion Gap 10 13 BUN 12 13 Creatinine 1.4 H 1.1 Estim Creat Clear Calc 36.3 L 46.2 L eGFR 45 L 60 BUN/Creatinine Ratio 9 L 12 Glucose 107 H 108 H Calculated Osmolality 279 284 Lactic Acid Calcium 8.2 L 8.1 L Corrected Calcium 8.6 8.7 Phosphorus 3.7 3.4 Magnesium 1.7 Total Bilirubin 0.5 AST 191 H ALT 112 H Alkaline Phosphatase 92 D Total Creatine Kinase 7565 H D 5091 H D Total Protein 5.5 L Albumin 3.5 D 3.3 L Globulin 2.2 L Albumin/Globulin Ratio 1.5 Triglycerides 199 H Cholesterol 149 LDL Cholesterol, Calc 60 HDL Cholesterol 49 Cholesterol/HDL Ratio 3.0 L TSH 1.75 CSF Polynuclear WBCs ABG Interpretation ABG results: 10/23/24 04:06 ABG pH 7.42 ABG pCO2 27 L ABG pO2 49 L* ABG HCO3 18 L ABG O2 Saturation 86 L ABG Base Excess -6 L Quality Measures Quality Measures sepsis Current suspected stage: ruled out (concern for aspiration pneumonia ) Possible source: meningitis and unknown Blood cultures ordered: yes Antibiotic ordered: Yes and none Assessment & Plan Assessment Current Active Medications: Generic Name Dose Route Start Last Admin Trade Name Freq PRN Reason Stop Dose Admin Acetaminophen 650 mg 10/23/24 05:55 Acetaminophen 325 Mg Tablet PO 11/22/24 05:54 Q6H PRN PAIN SCALE 1-3 (mild Haloperidol Lactate 7.5 mg 10/24/24 08:30 Haloperidol Lact Inj 5 Mg/Ml Vial IM 10/24/24 08:31 X1 ONE Heparin Sodium (Porcine) 5,000 unit 10/23/24 09:00 10/23/24 22:15 Heparin Sod Inj 5000 Unit/Ml Vial SC 11/06/24 08:59 5,000 unit Q12HR KIMBERLY Administration Ceftriaxone Sodium/Dextrose 1 gm in 50 mls @ 100 mls/hr 10/23/24 11:00 10/23/24 10:00 Rocephin/D5w 1gm Iv Premix IV 10/30/24 10:59 100 mls/hr QDAY KIMBERLY Administration Sodium Chloride 1,000 mls @ 250 mls/hr 10/23/24 08:50 10/24/24 04:39 Ns IV 11/22/24 08:49 250 mls/hr .Q4H KIMBERLY Administration Lacosamide 100 mg 10/24/24 21:00 Lacosamide 50 Mg Tablet PO 11/23/24 20:59 BID KIMBERLY Levetiracetam 750 mg 10/23/24 21:00 10/23/24 22:15 Levetiracetam 250 Mg Tablet PO 11/22/24 20:59 750 mg BID KIMBERLY Administration Lorazepam 2 mg 10/23/24 05:55 Lorazepam 2 Mg/Ml Vial IVP 10/28/24 05:54 Q30M PRN Breakthrough seizure Nicotine 7 mg 10/23/24 15:15 10/23/24 17:22 Nicotine Patch 7 Mg/24 Hr Patch.Td24 TOP 11/22/24 15:14 7 mg QDAY KIMBERLY Administration Ondansetron HCl 4 mg 10/23/24 05:55 10/23/24 10:17 Ondansetron Inj 2 Mg/Ml Inj 2 Ml IVP 11/22/24 05:54 4 mg Q6H PRN Administration NAUSEA OR VOMITING Protocol Sennosides 1 tab 10/23/24 05:55 Senna Tablet PO 11/22/24 05:54 QDAY PRN constipation Protocol Venlafaxine HCl 150 mg 10/23/24 13:45 10/23/24 14:30 Venlafaxine Xr 37.5 Mg Capcr PO 11/22/24 13:44 150 mg QDAY KIMBERLY Administration Plan Patient is a 54-year-old female with past medical history of hypertension, seizures on Keppra, brain surgery, marijuana use disorder presented to the ED on 10/23 after she was brought in for acute altered mental status, admitted for acute encephalopathy likely secondary to postictal state status post seizure. Upgraded to ICU due to acute hypoxic respiratory failure likely due to apsiration pnuemonia in setting of worsening encephalopathy and seizure. #Acute hypoxic respiratory failure, multifactorial likely 2/2 aspiration pneumonia #Acute encephalopathy likely secondary to seizure w/ postictal state #History of seizures #Left temporal encephalomalacia Patient presented with acute encephalopathy. Spoke to sister, who reports that patient's baseline is talkative and independent. Per sister, last seizure was last week, usually stays out of window into space for a few minutes before returning back to baseline. Last known well was Saturday 10/21. Patient has history of seizures, on Keppra 3 g/day. Also had brain surgery for unknown cause, CT head shows chronic left-sided temporal encephalomalacia. Status post Keppra 1 g and IV Ativan in ED. LP showed slightly elevated protein but normal WBC. On exam patient does not have meningeal signs, afebrile, unlikely meningitis. Well score of 1.5, low risk for PE. 10/24/24: 2 rapid responses called this morning (approx 6AM and 8AM), for persistent agitation, concerned for worsening seziures. Did not resolve despite multiple verbal attempts to calm patient, also persistent despite multiple doses of sedatives. Later into rapid, noticed that patient's extremities appeared rigid, possibly indicating tonic-clonic seizure. Ordered stat CMP, CBC, prolactin, lactic acid, and ABG. Of note, patient was hypoxic overnight on 4L NC and transitioned to high flow oxygen without much improvement. Waveforms were noted on telemetry. Lung exam was unable to be completed due to persistent agitation. Consulted neurology, gave Vimpat 200 mg x 1, started Vimpat twice daily. Consulted ICU, patient will be upgraded to ICU for acute hypoxic respiratory failure secondary to worsening acute encephalopathy and metabolic acidosis, likely due to seizure. Considered repeat CXR due to concern for aspiration pneumonia. Plan: - Patient will be upgraded to ICU for higher level of care - Consider CXR due to concern for aspiration pneumonia (worsening hypoxia) - S/p Vimpat 200 mg x1, continue Vimpat 100 mg BID per neurology recommendations ? Continue Keppra 750 mg twice daily; transitioned from IV after patient passed swallow screen ?Pending MRI without contrast and EEG ?Ativan PRN for Seizure ?Neurology consulted, Dr. Gómez, appreciate recommendations #BHAVESH likely ATN?improving #Rhabdomyolysis?improving On admission, creatinine 2.0, downtrending. Baseline 0.6. Status post IV fluid resuscitation. Likely ATN secondary to seizure. Plan: -Ordered urine electrolytes ?Continue gentle IV fluid resuscitation ?Monitor renal function ?Avoid nephrotoxic agents ?Monitor with morning labs #Leukocytosis Leukocytosis, likely reactive give seizure vs infectious cause given possible cysitistis as noted on CT Abdomen but negative UA vs consider aspiration pneumonia as last well known time was Tuesday with no respond by afternoon on Tuesday afternoon on 10/22/2024. Treating empirically. Plan -Continue IV Ceftriaxone (10/23/2024---) -Consider repeat Cxr if condition does not improve #Metabolic acidosis, anion gap, with compensatory respiratory Alkalosis?resolving Metabolic Acidosis with anion gap of 14 on admission with elevated lactic levels of 3.6 which down trended to 2.1. Lactic acid levels in the setting of seizure. Delta Gap of 2, predicated PaCO2 30.2. [place] 27, bicarb 18, and pH 7.42, thus metabolic acidosis and respiratory alkalosis. Plan: ?Consider obtaining a CTA of the chest if necessary - Continue IVF resuscitation ? Monitor WBC #Transaminitis Mild elevation in AST/ALT likely secondary to hypoperfusion, given BHAVESH with concern for ATN. Given fatty infiltration as noted on Abdomen US (11/25/2024), consider MASH. Less likely secondary to alcohol use disorder. Hepatitis Panel Negative. (10/23/2024): Total Bilirubin 0.3, AST 154, ALT 66, Alkaline Phosphatase 139 Plan: ?Continue to monitor liver enzymes ? Determine alcohol consumption history #Hypertension Patient on home antihypertensive, currently normotensive. Holding home medication of Lisinopril. Plan: -Hold Lisinopril 20 mg PO qdqay ?Restart home medications when appropriate #History of anxiety versus depression #Hypoxia #Tachycardia Likely secondary to history of anxiety or depression. Patient requiring 4 L oxygen currently saturating 95%. Heart rate has been in low 100s since admission. On exam, patient is very anxious. Patient's home medications include venlafaxine and possibly mirtazapine, pending med rec. Plan: ? Restart home dose venlafaxine daily when patient passes swallow screen ? Will hold mirtazapine ? Ativan as needed #Smoking history #Marijuana use disorder U tox positive for marijuana. Per son patient still smokes, unclear how much. Plan: ?Start nicotine patch 7 mg daily ?Consider director social service consultation Health Maintenance: Lines: PIV Diet: N.p.o. Bowel: Senna as needed GI prophylaxis: Zofran for nausea DVT prophylaxis: Heparin subcu Dispo: transferred to ICU Code: Full Patient plan of care was discussed with the resident, Dr. Triplett, and attending physician, Dr. Mcmahon. Jeannie Hall, PGY-1
--- NOTE | 2024-10-24 08:30 | EVENTNT_ITS ---
<Statement entered by Dallin Mcmahon MD - 10/29/24 14:20> I reviewed above note and agree with findings and plans. I have also personally examined the patient with medicine team and went over assessment and plan with medical team including customer operations intern and resident physician. Documentation for date of: 10/24/24 Event Note Event Note: Rapid Response Time: 08 Reason for Call: persistent agitiation despite restraints and multiple sedation attempts Rapid response called approximately 8:04 AM on 10/24 for patient room 271 for acute agitation. Patient was seen and assessed in hospital bed, airway/breathing/circulation intact. Patient was on high flow nasal cannula, O2 saturation was 88 (waveforms noted), patient was tachycardic in 120s. Otherwise vitally stable. Patient continued to thrash in bed even with bilateral restraints, placed overnight also for agitation. Status post 3 mg IV Ativan, 2 doses of Benadryl 12.5 mg IV and 1 dose of haloperidol 5 mg IV, as well as olanzapine 10 mg IM x 1 along with lorazepam 2 mg IV. Ordered Lorenzo removal and Ativan 1 mg IV prior to rapid response. Glucose was in 130s. After our response, given Ativan 3 mg IM and Versed 2 mg IM as patient did not have working peripheral line and was too agitated. Ordered stat CBC, CMP, lactic acid, prolactin, ABG. Neurology consulted, ordered Vimpat 200 mg IV push x 1 stat, started on Vimpat 100 mg twice daily. WBC slightly elevated at 25.1 from 22.3 earlier this morning. Lactic 7.3. Bicarb at 5AM decreased to 15 and chloride 114. Pending other results. Patient continued to be agitated so ICU was consulted, patient will be upgraded to ICU for persistent agitation likely secondary to acute encephalopathy from possible tonic clonic seizure versus metabolic acidosis, as well as acute hypoxic respiratory failure despite being on high flow oxygen. Patient was discussed with the attending, Dr. Mcmahon, and resident , PGY-2 Dr. Triplett. Jeannie Hall, PGY-1 - The patient's plan was discussed with attending Dr. Salome Triplett MD PGY2 Internal Medicine
[2024-10-24] MEDS: HALOPERIDOL LACT INJ 5 MG/ML VIAL 7.5 MG IM (08:33)
[2024-10-24 08:34] LABS: Lactate (Lactic Acid) 7.3 mMol/L (0.4-2.0)
[2024-10-24 08:45] LABS: Basophils # (Auto) 0.1 Thou/mm3 (0.0-0.2); Basophils % (Auto) 0 % (0-2.5); Eosinophils # (Auto) 0.0 Thou/mm3 (0.0-0.5); Eosinophils % (Auto) 0 % (0-10); Hematocrit 33.9 % (36.0-46.0); Hemoglobin 11.7 g/dL (12.0-16.0); Immature Granulocytes Auto 0.22 Thou/mm3 (0.00-0.00); Lymphocytes # (Auto) 1.5 Thou/mm3 (1.0-4.8); Lymphocytes % (Auto) 6 % (10-50); Mean Corpuscular HGB Conc 34.5 g/dl (31.0-37.0); Mean Corpuscular Hemoglobin 31.7 pg (25.0-35.0); Mean Corpuscular Volume 92 fL (80-100); Monocytes # (Auto) 1.0 Thou/mm3 (0.0-0.8); Monocytes % (Auto) 4 % (0-12); Neutrophils # (Auto) 22.3 Thou/mm3 (1.8-7.7); Neutrophils % (Auto) 89 % (37-80); Nucleated Red Blood Cell # 0.00 Thou/mm3 (0.00-0.00); Nucleated Red Blood Cell % 0 /100 WBC (0); Platelet Count 288 Thou/mm3 (140-440); RDW Standard Deviation 40.7 fL (36.4-46.3); Red Blood Count 3.69 Miln/mm3 (4.00-5.20); White Blood Count 25.1 Thou/mm3 (3.6-11.0)
--- NOTE | 2024-10-24 08:49 | XR_ITS ---
Examination: AP chest single view TECHNIQUE: AP portable supine chest single view Date and time: October 24, 2024 0900 hours INDICATIONS: Seizure today with coughing. FINDINGS: Normal heart size. Extensive bilateral lung opacity Significant osteopenia IMPRESSION: Extensive bilateral lung opacity, consider aspiration pneumonia
[2024-10-24] MEDS: DEXMEDETOMIDINE 400 MCG IVPB 400 MCG/100 ML BAG IV (09:01)
[2024-10-24 09:12] LABS: Alanine Aminotransferase 122 U/L (10-49); Albumin, Serum 3.6 gm/dL (3.5-5.0); Albumin/Globulin Ratio 1.6 (1.2-2.2); Alkaline Phosphatase 97 U/L (46-116); Anion Gap 18 (7-16); Aspartate Amino Transferase 200 U/L (0-34); BUN/Creatinine Ratio 14 Ratio (12-20); Bilirubin,Total 0.6 mg/dL (0.3-1.2); Blood Urea Nitrogen 18 mg/dL (9-23); Calcium 8.2 mg/dL (8.3-10.6); Calcium (Corrected) 8.5 mg/dL (8.5-10.1); Chloride 112 mMol/L (98-107); Creatinine (Component) 1.3 mg/dL (0.6-1.3); Estimated Creatinine Clearance 39.1 mL/min (>60); Globulin 2.3 gm/dL (2.3-3.5); Glucose 151 mg/dL (74-106); Osmolality,Calculated 288 (275-295); Potassium 3.4 mMol/L (3.4-5.1); Sodium 142 mMol/L (136-145); Total Protein 5.9 gm/dL (5.7-8.2); eGFR 49 See Note
[2024-10-24] MEDS: cefTRIAXone/D5w 1gm IV premix 1 GM/50 ML BAG IV (09:13)
[2024-10-24 09:20] LABS: Carbon Dioxide 12.0 mMol/L (20.0-31.0)
[2024-10-24] MEDS: MIDAZOLAM INJ 1 MG/ML VIAL 2 ML 2 MG IVP ×2 (09:37→09:43)
--- NOTE | 2024-10-24 09:52 | PC.SS ---
Follow up note: Pt had rapid response this morning. Pt will be transferred to ICU.
[2024-10-24] MEDS: ETOMIDATE INJ 2 MG/ML VIAL 10 ML 20 MG IVP (09:54)
[2024-10-24] MEDS: LORazepam 2 MG/ML VIAL 4 MG IVP (09:56)
[2024-10-24] MEDS: ROCURONIUM INJ 10 MG/ML VIAL 10 ML 50 MG IVP ×2 (09:56→13:01)
--- NOTE | 2024-10-24 10:00 | XR_ITS ---
Examination: AP chest single view TECHNIQUE: AP portable semiupright chest single view Date and time: October 24, 2024, 1025 hours Comparison October 24, 2024 0900 hours. INDICATIONS: Hypoxic respiratory failure postintubation FINDINGS: Extensive bilateral lung opacity. Normal heart size. Orogastric tube is in the stomach, the tip is below the level of the film. Endotracheal tube tip 3.4 cm above gemma Moderate osteopenia IMPRESSION: Extensive bilateral pneumonia Endotracheal tube tip 3.4 cm above gemma
[2024-10-24] MEDS: PROPOFOL 1,000 MG IVPB 1,000 MG/100 ML VIAL 1.565 MG IV (10:39)
[2024-10-24] MEDS: fentaNYL 2,500 MCG/250 ML BAG 2,500 MCG/250 ML BAG IV (10:41)
[2024-10-24] MEDS: HEPARIN SOD INJ 5000 UNIT/ML VIAL SC (10:46)
[2024-10-24] MEDS: NICOTINE PATCH 7 MG/24 HR PATCH.TD24 TOP (10:46)
[2024-10-24] MEDS: LACOSAMIDE INJ 200 MG/20 ML VIAL IVP (10:47)
[2024-10-24 10:59] LABS: Base Excess -9 (-3-3); HCO3 19 mEq/L (20-26); Inspired Oxygen, FIO2 100 %; O2 Saturation 94 % (91-98); PCO2 47 mmHg (32.0-48.0); PO2 83 mmHg (83-108); pH, Arterial 7.20 (7.35-7.45)
[2024-10-24 11:00] LABS: Allen Test Not Performed; Puncture Site Left Radial
[2024-10-24 11:28] LABS: Reflex Lactate? Y
[2024-10-24] MEDS: levETIRAcetam LIQD 500 MG/5 ML UDC 750 MG NG ×2 (11:39→21:20)
--- NOTE | 2024-10-24 11:58 | EKG_ITS ---
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
[2024-10-24] MEDS: RINGERS LACTATED 1000 ML 1,000 ML 999 ML IV (12:33)
[2024-10-24 12:35] LABS: Lactic Acid, 3 HR 2.5 mMol/L (0.4-2.0)
--- NOTE | 2024-10-24 12:39 | ECHO_ITS ---
Transthoracic Echo Report Ht (in): 62 Wt (lb): 115 Exam Location: Echo Lab Status: Inpatient Mobile Sales Consultant: Yina Mott Indications: Procedure Performed: BP: 86 / 60 HR: 94 Technical Quality: Technically difficult study MEASUREMENTS (Male / Female) Normal Values 2D ECHO LV Diastolic Diameter PLAX 3.9 cm 4.2 - 5.9 / 3.9 - 5.3 cm LV Systolic Diameter PLAX 2.6 cm IVS Diastolic Thickness 1.1 cm 0.6 - 1.0 / 0.6 - 0.9 cm LVPW Diastolic Thickness 1.1 cm 0.6 - 1.0 / 0.6 - 0.9 cm LV Relative Wall Thickness 0.6 LVOT Diameter 1.8 cm Aortic Root Diameter 2.5 cm LA Systolic Diameter LX 2.6 cm 3.0 - 4.0 / 2.7 - 3.8 cm LV Ejection Fraction MOD BP 39.4 % >= 55 % LV Cardiac Index MOD BP 932.5 cm?/min?m? LV Ejection Fraction MOD 4C 29.7 % LV Cardiac Index MOD 4C 634.1 cm?/min?m? LV Ejection Fraction 4C AL 28.9 % LV Cardiac Index 4C AL 635.4 cm?/min?m? LV Ejection Fraction MOD 2C 50.4 % LV Cardiac Index MOD 2C 1305.6 cm?/min?m? LV Ejection Fraction 2C AL 51.5 % LV Cardiac Index 2C AL 1342.3 cm?/min?m? LA Volume Index 11.6 cm?/m? 16 - 28 cm?/m? M-MODE Aortic Root Diameter MM 2.6 cm LA Systolic Diameter MM 2.9 cm LA Ao Ratio MM 1.1 AV Cusp Separation MM 1.7 cm DOPPLER AV Peak Velocity 104.1 cm/s AV Peak Gradient 4.3 mmHg AV Mean Gradient 3.0 mmHg AV Velocity Time Integral 20.0 cm LVOT Peak Velocity 62.4 cm/s LVOT Peak Gradient 1.6 mmHg LVOT Velocity Time Integral 10.1 cm LVOT Cardiac Index 1597.8 cm?/min?m? AV Area Cont Eq vti 1.3 cm? AV Area Cont Eq pk 1.5 cm? MV Area PHT 5.2 cm? Mitral E Point Velocity 46.6 cm/s Mitral A Point Velocity 47.5 cm/s Mitral E to A Ratio 1.0 LV E' Lateral Velocity 8.2 cm/s Mitral E to LV E' Lateral Ratio 5.7 LV E' Septal Velocity 6.3 cm/s Mitral E to LV E' Septal Ratio 7.4 PV Peak Velocity 103.0 cm/s PV Peak Gradient 4.2 mmHg FINDINGS Left Ventricle Normal left ventricular size. Mild LVH. Normal left ventricular diastolic filling pattern for age. The ejection fraction is visually estimated at 45 %. Global left ventricular systolic function is mildly decreased. Hypokinetic apical anterior wall. Right Ventricle The right ventricle is normal in size and systolic function. Left Atrium The left atrium is normal by two-dimensional, color flow and Doppler imaging with no structural abnormalities, no thrombus formation present. Right Atrium The right atrium is normal by two-dimensional imaging, color flow and Doppler imaging with no structural abnormalities, no thrombus formation present. Atrial Septum The interatrial septum appears normal with no evidence of a shunt. Aorta The aorta is normal by two-dimensional, color flow and Doppler interrogation. Mitral Valve The mitral valve is normal by two-dimensional, color flow and Doppler interrogation. There is no significant mitral valve regurgitation, stenosis or prolapse. Aortic Valve The aortic valve is trileaflet and normal by two-dimensional, color flow and Doppler interrogation. There is no significant aortic valve regurgitation. Tricuspid Valve The tricuspid valve is normal by two-dimensional, color flow and Doppler interrogation. There is trace tricuspid valve regurgitation. Pulmonic Valve The pulmonic valve is not well visualized. There is no significant pulmonic valve regurgitation. Vessels The pulmonary artery appears normal. The inferior vena cava pulmonary and hepatic veins appear normal. Pericardium There is a tiny, hemodynamically insignificant pericardial effusion. CONCLUSIONS Indication: Questionable heart failure Normal LV size. Mild LVH. Normal left ventricular diastolic function. Estimated EF at 45 %. Global left ventricular systolic function is mildly decreased. Hypokinetic apical anterior wall. The RV is normal in size and systolic function. Trace TR . There is a tiny, hemodynamically insignificant pericardial effusion. Alison Gamino (Electronically Signed) Final Date: 25 October 2024 21:26
[2024-10-24] MEDS: Norepinephrine/NS 16mg/250ml 16 MG/250 ML BAG 2.445 MG IV (12:43)
[2024-10-24 13:06] LABS: Procalcitonin 5.69 ng/ml (0.0-0.49)
--- NOTE | 2024-10-24 13:10 | XR_ITS ---
Examination: AP chest single view TECHNIQUE: AP portable supine chest single view Date and time: October 24, 2024 1321 hours Comparison October 24, 2024 10:25 AM INDICATIONS: Post central line placement. FINDINGS: Interval right internal jugular central line tip SVC satisfactory position, no pneumothorax Extensive bilateral pneumonia. Normal heart size. The orogastric tube is in the stomach satisfactory position. Endotracheal tube tip 23 mm above gemma IMPRESSION: Interval right internal jugular central line tip SVC satisfactory position No pneumothorax
--- NOTE | 2024-10-24 13:31 | ESCONSULT_ITS ---
HPI Data of Consult Patient: new to practice Consult date: 10/24/24 Requesting Physician: Don Garcia DO Admitting Provider: Don Garcia DO Attending Provider: Amelia Miles MD Primary Care Provider: Physician No Primary/Family Consult Narrative Reason for consult: Agitation History of present illness: Ms. Barger is a 54-year-old female with past medical history of hypertension, seizures, cholecystectomy, status post brain surgery in the past and chronic active smoker who presented to [facility] emergency department on October 23, 2024 with a chief complaint of altered mental status. Patient presented with acute onset most of the history on presentation was obtained from patient's sister and chart review. Per patient's sister her last seizure was last week prior to presentation, describes the seizure episodes as her staring out of the window into space for a few minutes before returning back to baseline. Last known well time was Saturday 10/21, patient is on Keppra daily, however per pharmacy patient has not picked up her prescription. Patient has history of a brain surgery for unknown cause, urine tox screen was positive for THC on presentation, no remote history of any substance use. TSH on presentation within normal limits. Patient was given Keppra loading dose, IV Ativan in ED, underwent lumbar puncture, LP showed elevated glucose and protein. Patient was to be followed by neurology undergoing seizure workup, was started on Vimpat and Keppra by neurology recommendations, was pending MRI and EEG. Of note patient has had multiple rapid responses called for agitation, patient does not have any psychiatric history, is on venlafaxine for anxiety/depression which was continued inpatient. 10/24: ICU consulted today for persistent agitation during a rapid response, patient was given Haldol 7.5 mg IM, was transferred to ICU for further management, in the unit patient was started on Precedex drip, however patient continued to remain agitated despite IV Versed pushes on top of Precedex drip, patient's heart rate was noted to be in 160s, was hypoxic with severe agitation and decision was made to intubate the patient. Patient was intubated and sedated, repeat chest x-ray shows significant worsening from the CT on 10/23, there is suspicion of negative pressure pulmonary edema versus ARDS, patient's ventilator settings were optimized to lower volumes, we will titrate down FiO2 and patient was started on deep sedation with IV Versed, propofol and fentanyl. Central line placed, patient requiring Levophed. Cardiology was consulted for elevated troponin and some ST?T EKG changes noted on V3-V5, patient was given loading dose aspirin and Plavix and started on heparin gtt. cc:: cc: Don Garcia, DO Review of Systems Review of Systems ROS Unobtainable: unobtainable due to mental status and due to endotracheal tube Past Medical History Past Medical History NEUROLOGIC: Positive Neurological Disorders, Seizures, Epilepsy and Migraine CARDIAC: Positive Cardiac Disorders and Hypertension (TAKES MED) GASTROINTESTINAL: Positive Gastrointestinal Disorders and Gall Bladder Disease (LAP) REPRODUCTIVE: Positive Previous Pregnancies (X2) PSYCHO/SOCIAL: Positive Depression (TAKES MED) and Anxiety (TAKES MED) OTHER HISTORY: Positive Hospitalization (HOSP 2020 FOR SEIZURE), Chicken Pox, Measles and Mumps Family History FAMILY HISTORY: Positive Family Psychiatric Problems (MOTHER (DEPRESSION,ANXIETY)) and Family Cardiac Disorders (MOTHER (HTN)) Surgical History SURGICAL: Positive Neurologic Surgery (BRAIN SURG) Social History SMOKING STATUS: Current every day smoker SUBSTANCE USE: marijuana (daily ) Past Medical History Comments PMH COMMENT: Medical history: As stated above Surgical history: brain surgery Allergies: NKDA Medications: Pending med rec Family history: None contributory Social history: Patient lives alone, marijuana use Exam Vital Signs Temp Pulse Resp BP Pulse Ox O2 Del Method O2 Flow Rate 97.4 F 102 H 30 H 93/61 100 Mechanical Ventilation 40 10/24/24 16:00 10/24/24 18:28 10/24/24 18:15 10/24/24 18:28 10/24/24 18:28 10/24/24 16:00 10/24/24 08:00 FiO2 50 10/24/24 18:28 Narrative Exam Physical Exam General: Intubated, sedated, GCS 3 T, pinpoint pupils, reactive. HEENT: Normocephalic, atraumatic, mucous membranes moist. ET tube noted, NG tube noted. Right IJ triple-lumen catheter. Heart: Sinus tachycardia, no murmurs. Lungs: Clear to auscultation with no wheezing or crackles. Abdomen: Soft, nondistended, nontender, positive bowel sounds. ?No guarding or rebound tenderness. Neurologic: Intubated, sedated, GCS 3T Extremities: No edema. Skin: No rash or ecchymoses. Results Labs 10/25/24 04:25 10/25/24 04:25 Labs: Short CBC 10/24/24 10/24/24 Range/Units 05:06 08:25 WBC 22.3 H D 25.1 H (3.6-11.0) Thou/mm3 Hgb 11.2 L D 11.7 L (12.0-16.0) g/dL Hct 32.0 L 33.9 L (36.0-46.0) % Plt Count 290 D 288 (140-440) Thou/mm3 BMP 10/24/24 10/24/24 05:06 08:25 Sodium 142 142 Potassium 3.6 D 3.4 Chloride 114 H 112 H Carbon Dioxide 15.0 L 12.0 L* BUN 13 18 Creatinine 1.1 1.3 Glucose 108 H 151 H Calcium 8.1 L 8.2 L Cardiac Enzymes 10/24/24 10/24/24 10/24/24 Range/Units 05:06 12:23 14:00 Total Creatine Kinase 5091 H D (34-171) U/L Troponin I 6.240 H* 6.018 H* D (0.0-0.045) ng/mL Liver Function 10/24/24 10/24/24 Range/Units 05:06 08:25 Total Bilirubin 0.5 0.6 (0.3-1.2) mg/dL AST 191 H 200 H (0-34) U/L ALT 112 H 122 H (10-49) U/L Alkaline Phosphatase 92 D 97 (46-116) U/L Albumin 3.3 L 3.6 (3.5-5.0) gm/dL ABG Interpretation ABG results: 10/23/24 10/24/24 10/24/24 04:06 10:51 14:00 ABG pH 7.42 7.20 L D ABG pCO2 27 L 47 D ABG pO2 49 L* 83 D ABG HCO3 18 L 19 L ABG O2 Saturation 86 L 94 ABG Base Excess -6 L -9 L VBG pH 7.34 VBG pCO2 35 L VBG pO2 61 H VBG Base Excess -7 L 10/24/24 14:26 ABG pH 7.38 D ABG pCO2 32 D ABG pO2 130 H D ABG HCO3 18 L ABG O2 Saturation 99 H ABG Base Excess -6 L VBG pH VBG pCO2 VBG pO2 VBG Base Excess Quality Measures Quality Measures sepsis Current suspected stage: septic shock (LA >4 and/or hypotension) Sepsis reassessment completed at (date): 10/24/24 Sepsis reassessment completed at (time): 21:04 Possible source: meningitis and unknown Blood cultures ordered: yes Antibiotic ordered: Yes and none Medications Home Medications and Allergies Home Medications ?Medication ?Instructions ?Recorded ?Confirmed ?Type levetiracetam 750 mg tablet 1,500 mg PO GISELE 07/03/21 07/03/21 History (Keppra) levetiracetam 750 mg tablet 2,250 mg PO HS 07/03/21 History (Keppra) mirtazapine 15 mg tablet (Remeron) 15 mg PO QDAY 07/0307/03/21 History venlafaxine 100 mg tablet 150 mg PO DAILY 07/03/21 History Allergies Allergy/AdvReac Type Severity Reaction Status Date / Time No Known Allergies Allergy Verified 10/22/24 23:51 Visit Medications Acetaminophen (Acetaminophen 325 Mg Tablet) 650 mg PO Q6H PRN PRN Reason: PAIN SCALE 1-3 (mild Stop: 11/22/24 05:54 Aspirin (Aspirin 81 Mg Chew) 81 mg NG QDAY [facility] Stop: 11/24/24 08:59 Clopidogrel Bisulfate (Clopidogrel Bisulfate 75 Mg Tablet) 75 mg NG QDAY [facility] Stop: 11/24/24 08:59 Ceftriaxone Sodium/Dextrose (Rocephin/D5w 1gm Iv Premix) 1 gm in 50 mls @ 100 mls/hr IV QDAY KIM[place] Stop: 10/30/24 10:59 Last Infusion: 10/24/24 15:00 Dose: Infused Propofol (Diprivan Ivpb) 1,000 mg in 100 mls @ 1.565 mls/hr IV .Q24H PRN; Protocol PRN Reason: PER PROTOCOL Stop: 11/23/24 10:00 Last Titration: 10/24/24 18:33 Dose: 35 mcg/kg/min, 10.954 mls/hr Fentanyl Citrate (Sublimaze Inj 2,500 Mcg/250 Ml Bag) 2,500 mcg in 250 mls @ 2.5 mls/hr IV .Q24H PRN; Protocol PRN Reason: PER PROTOCOL Stop: 10/29/24 10:00 Last Titration: 10/24/24 18:00 Dose: 100 mcg/hr, 10 mls/hr Midazolam HCl (Versed Pf Inj In Ns Premix) 100 mg in 100 mls @ 1 mls/hr IV .Q24H PRN; Protocol PRN Reason: PER PROTOCOL Stop: 10/29/24 12:38 Last Titration: 10/24/24 18:00 Dose: 1 mg/hr, 1 mls/hr Norepinephrine Bitartrate (Levophed In Ns 16mg/250ml) 16 mg in 250 mls @ 2.445 mls/hr IV .Q24H PRN; Protocol PRN Reason: PER protocol Stop: 11/23/24 12:38 Last Titration: 10/24/24 18:00 Dose: 0.15 mcg/kg/min, 7.335 mls/hr Heparin Sodium/Dextrose (Heparin In D5w Ivpb) 25,000 unit in 250 mls @ 6.26 mls/hr IV .Q24H KIMBERLY; Protocol Stop: 11/07/24 13:59 Last Admin: 10/24/24 17:27 Dose: 12 units/kg/hr, 6.26 mls/hr Potassium Chloride (Kcl Ivpb) 10 meq in 100 mls @ 100 mls/hr IV Q1H KIMBERLY Stop: 10/24/24 20:59 Last Admin: 10/24/24 17:43 Dose: 100 mls/hr Lacosamide (Lacosamide 50 Mg Tablet) 100 mg NG BID KIMBERLY Stop: 11/23/24 20:59 Levetiracetam (Levetiracetam Liqd 500 Mg/5 Ml Udc) 750 mg NG BID KIMBERLY Stop: 11/22/24 20:59 Last Admin: 10/24/24 11:39 Dose: 750 mg Ondansetron HCl (Ondansetron Inj 2 Mg/Ml Inj 2 Ml) 4 mg IVP Q6H PRN; Protocol PRN Reason: NAUSEA OR VOMITING Stop: 11/22/24 05:54 Last Admin: 10/23/24 10:17 Dose: 4 mg Sennosides (Senna Tablet) 1 tab GT QDAY PRN; Protocol PRN Reason: constipation Stop: 11/23/24 10:55 Venlafaxine HCl (Venlafaxine Xr 37.5 Mg Capcr) 150 mg PO QDAY KIMBERLY Stop: 11/22/24 13:44 Discontinued Medications Aspirin (Aspirin 325 Mg Tablet) 325 mg NG X1 ONE Stop: 10/24/24 13:50 Last Admin: 10/24/24 16:53 Dose: 325 mg Clopidogrel Bisulfate (Clopidogrel Bisulfate 75 Mg Tablet) 600 mg NG X1 ONE Stop: 10/24/24 16:06 Last Admin: 10/24/24 17:41 Dose: 600 mg Olanzapine 10 mg/ Sterile (Water 2.1 ml) 0 mg IM X1 ONE Stop: 10/24/24 05:58 Last Admin: 10/24/24 06:03 Dose: 10 dose Diphenhydramine HCl (Diphenhydramine Inj 50 Mg/Ml Vial) 12.5 mg IVP X1 ONE Stop: 10/24/24 04:11 Last Admin: 10/24/24 04:35 Dose: 12.5 mg Diphenhydramine HCl (Diphenhydramine Inj 50 Mg/Ml Vial) 12.5 mg IVP X1 ONE Stop: 10/24/24 05:13 Last Admin: 10/24/24 05:39 Dose: 12.5 mg Etomidate (Etomidate Inj 2 Mg/Ml Vial 10 Ml) 20 mg IVP X1 ONE Stop: 10/24/24 09:59 Last Admin: 10/24/24 09:54 Dose: 20 mg Haloperidol Lactate (Haloperidol Lact Inj 5 Mg/Ml Vial) 5 mg IV X1 ONE Stop: 10/24/24 05:13 Last Admin: 10/24/24 05:43 Dose: 5 mg Haloperidol Lactate (Haloperidol Lact Inj 5 Mg/Ml Vial) 7.5 mg IM X1 ONE Stop: 10/24/24 08:31 Last Admin: 10/24/24 08:33 Dose: 7.5 mg Haloperidol Lactate (Haloperidol Lact Inj 5 Mg/Ml Vial) 5 mg IV Q6HR PRN PRN Reason: AGITATION (SEVERE) Stop: 10/29/24 09:40 Last Admin: 10/24/24 09:41 Dose: 5 mg Heparin Sodium (Porcine) (Heparin Sod Inj 5000 Unit/Ml Vial) 5,000 unit SC Q12HR KIMBERLY Stop: 11/06/24 08:59 Last Admin: 10/24/24 10:46 Dose: 5,000 unit Heparin Sodium (Porcine) (Heparin Sod Inj 5000 Unit/Ml Vial) 3,150 unit 60 unit/kg (3150 unit) IV X1 ONE; Protocol Stop: 10/24/24 13:51 Last Admin: 10/24/24 17:27 Dose: 3,150 unit Lactated Ringer's (Lactated Ringers) 1,000 mls @ 999 mls/hr IV .Q1H1M ONE Stop: 10/23/24 02:58 Last Infusion: 10/23/24 04:50 Dose: Infused Lactated Ringer's (Lactated Ringers) 1,000 mls @ 999 mls/hr IV .Q1H1M ONE Stop: 10/23/24 03:14 Last Infusion: 10/23/24 04:24 Dose: Infused Piperacillin/Tazobactam/Dextrose (Zosyn) 3.375 gm in 50 mls @ 100 mls/hr IV X1 ONE Stop: 10/23/24 03:18 Last Infusion: 10/23/24 03:42 Dose: Infused Lactated Ringer's (Lactated Ringers) 1,000 mls @ 75 mls/hr IV .[id number] ONE Stop: 10/23/24 19:32 Last Admin: 10/23/24 06:41 Dose: 75 mls/hr Lactated Ringer's (Lactated Ringers) 1,000 mls @ 100 mls/hr IV .Q10H ONE Stop: 10/23/24 16:12 Sodium Chloride (Ns) 1,000 mls @ 999 mls/hr IV .Q1H1M ONE Stop: 10/23/24 08:13 Last Admin: 10/23/24 08:56 Dose: 999 mls/hr Sodium Chloride (Ns) 1,000 mls @ 250 mls/hr IV .Q4H KIMBERLY Stop: 11/22/24 08:49 Last Infusion: 10/24/24 16:00 Dose: 0 mls/hr Dexmedetomidine/Sodium Chloride (Precedex Ivpb) 400 mcg in 100 mls @ 2.608 mls/hr IV .Q24H PRN; Protocol PRN Reason: Per PROTOCOL Stop: 11/23/24 08:47 Last Titration: 10/24/24 10:04 Dose: 0 mcg/kg/hr, 0 mls/hr Lactated Ringer's (Lactated Ringers) 1,000 mls @ 999 mls/hr IV .Q1H1M ONE Stop: 10/24/24 13:14 Last Infusion: 10/24/24 17:00 Dose: Infused Ketamine HCl (Ketamine 50 Mg/Ml Vial 10 Ml) 100 mg IVP X1 ONE Stop: 10/24/24 09:42 Last Admin: 10/24/24 10:50 Dose: Not Given Lacosamide (Lacosamide Inj 200 Mg/20 Ml Vial) 200 mg IVP X1 ONE Stop: 10/24/24 08:11 Last Admin: 10/24/24 10:47 Dose: 200 mg Lacosamide (Lacosamide 50 Mg Tablet) 100 mg PO BID KIMBERLY Stop: 11/23/24 20:59 Levetiracetam (Levetiracetam Inj 100 Mg/Ml Vial 5ml) 1,000 mg IVP X1 ONE Stop: 10/23/24 01:11 Last Admin: 10/23/24 01:34 Dose: 1,000 mg Levetiracetam (Levetiracetam 250 Mg Tablet) 750 mg PO BID KIMBERLY Stop: 11/22/24 13:44 Levetiracetam (Levetiracetam Inj 100 Mg/Ml Vial 5ml) 500 mg IVP Q12HR KIMBERLY Stop: 11/22/24 13:52 Last Admin: 10/23/24 14:11 Dose: 500 mg Levetiracetam (Levetiracetam 250 Mg Tablet) 750 mg PO BID KIMBERLY Stop: 11/22/24 20:59 Last Admin: 10/24/24 10:38 Dose: Not Given Lorazepam (Lorazepam 2 Mg/Ml Vial) 2 mg IVP X1 ONE Stop: 10/23/24 01:10 Last Admin: 10/23/24 01:30 Dose: 2 mg Lorazepam (Lorazepam 2 Mg/Ml Vial) 2 mg IVP X1 ONE Stop: 10/23/24 04:08 Last Admin: 10/23/24 04:23 Dose: 2 mg Lorazepam (Lorazepam 2 Mg/Ml Vial) 2 mg IVP Q30M PRN PRN Reason: Breakthrough seizure Stop: 10/28/24 05:54 Lorazepam (Lorazepam 2 Mg/Ml Vial) 1 mg IV X1 PRN PRN Reason: AGITATION (MILD) Stop: 10/27/24 18:18 Last Admin: 10/23/24 18:41 Dose: 1 mg Lorazepam (Lorazepam 2 Mg/Ml Vial) 1 mg IVP X1 ONE Stop: 10/24/24 00:53 Last Admin: 10/24/24 00:58 Dose: 1 mg Lorazepam (Lorazepam 2 Mg/Ml Vial) 1 mg IVP X1 ONE Stop: 10/24/24 04:11 Last Admin: 10/24/24 04:34 Dose: 1 mg Lorazepam (Lorazepam 2 Mg/Ml Vial) 1 mg IVP X1 ONE Stop: 10/24/24 05:13 Last Admin: 10/24/24 05:43 Dose: 1 mg Lorazepam (Lorazepam 2 Mg/Ml Vial) 2 mg IVP X1 ONE Stop: 10/24/24 06:02 Last Admin: 10/24/24 06:10 Dose: 2 mg Lorazepam (Lorazepam 2 Mg/Ml Vial) 1 mg IM X1 ONE Stop: 10/24/24 08:04 Last Admin: 10/24/24 08:15 Dose: 1 mg Lorazepam (Lorazepam 2 Mg/Ml Vial) 2 mg IM X1 ONE Stop: 10/24/24 08:07 Last Admin: 10/24/24 10:23 Dose: Not Given Lorazepam (Lorazepam 2 Mg/Ml Vial) 4 mg IVP X1 ONE Stop: 10/24/24 09:53 Last Admin: 10/24/24 09:56 Dose: 4 mg Midazolam HCl (Midazolam Inj 1 Mg/Ml Vial 2 Ml) 2 mg IM X1 ONE Stop: 10/24/24 08:15 Last Admin: 10/24/24 10:34 Dose: Not Given Midazolam HCl (Midazolam Inj 1 Mg/Ml Vial 2 Ml) 2 mg IVP X1 ONE Stop: 10/24/24 09:34 Last Admin: 10/24/24 09:37 Dose: 2 mg Midazolam HCl (Midazolam Inj 1 Mg/Ml Vial 2 Ml) 2 mg IVP X1 ONE Stop: 10/24/24 09:42 Last Admin: 10/24/24 09:43 Dose: 2 mg Nicotine (Nicotine Patch 7 Mg/24 Hr Patch.Td24) 7 mg TOP QDAY KIMBERLY Stop: 11/22/24 15:14 Last Admin: 10/24/24 10:46 Dose: 7 mg Rocuronium [place] (Rocuronium Inj 10 Mg/Ml Vial 10 Ml) 50 mg IVP X1 ONE Stop: 10/24/24 09:53 Last Admin: 10/24/24 09:56 Dose: 50 mg Rocuronium [place] (Rocuronium Inj 10 Mg/Ml Vial 10 Ml) 50 mg IVP X1 ONE Stop: 10/24/24 12:58 Last Admin: 10/24/24 13:01 Dose: 50 mg Sennosides (Senna Tablet) 1 tab PO QDAY PRN; Protocol PRN Reason: constipation Stop: 11/22/24 05:54 Sodium Chloride (Sodium Chloride Rt 10% 15 Ml Nebu) 5 ml INH X1 ONE Stop: 10/24/24 10:46 Venlafaxine HCl (Venlafaxine Xr 37.5 Mg Capcr) 150 mg PO QDAY KIMBERLY Stop: 11/22/24 13:44 Last Admin: 10/24/24 14:24 Dose: Not Given Assessment & Plan Plan Assessment and plan: Summary: Ms. Barger is a 54-year-old female with past medical history of hypertension, seizures, cholecystectomy, status post brain surgery in the past and chronic active smoker who presented to [facility] emergency department on October 23, 2024 with a chief complaint of altered mental status. Patient admitted to hospital for further workup or for continued encephalopathy, ICU consulted for agitation, patient continued to remain agitated in ICU despite Precedex drip and IV Versed pushes, decision was made to intubate patient for airway protection and severe agitation. Neurological #Acute Encephalopathy #Seizure episode #History of seizures #Severe agitation #Left temporal encephalomalacia, temporal lobe calcification Differential diagnosis: Seizure episode, postictal state, underlying psychiatric disorder, possible underlying drug withdrawal, Encephalitis, Meningitis Diagnostic workup: -Per sister, patient's baseline is talkative and independent, last seizure was last week, has episodes of staring into space. LKW Saturday 10/21, has history of seizures, on Keppra, per pharmacy hasn't picked up. Suspicion of Non-compliance. -H/O brain surgery for unknown cause, CT head shows chronic left-sided temporal encephalomalacia, left posterior temporal lobe calcification. -Had hallucinations at times during hospitalization, suspicion of underlying psych. disorder. -CSF Analysis shows CSF Color Colorless, CSF WBC 5, CSF RBC 3, Mononuclear WBC 40, Polynuclear WBC 60, CSF Glucose 100, CSF Total Protein 44 -Recieved multiple doses of Haldol, Olanzapine, Ativan, Benadryl throughout hospital course. Treatment: -Continue Keppra 750 NG BID -Continue Vimpat 100 NG BID -Pending MR Brain w wo contrast -Pending EEG -Neurology Consulted, pending recommendation -Currently on sedation Follow Up: -Follow-up Pro-[facility] level -Follow up Gram Stain and CSF Culture #Anxiety/depression, by history Patient has history of anxiety/depression on Venlafaxine 150mg daily -Hold Venlafaxine currently #Nicotine dependence #Marijuana dependence Chronic active smoker, U Tox. positive for THC Cardiology #Shock, undifferentiated Differential diagnosis: -Distributive Shock, likely septic source cystitis/aspiration pneumonia, was started on IV antibiotics on presentation. -Cardiogenic shock, troponin elevated, bedside echo shows some hypokinesis of the left ventricle, EKG does show some acute ST-T changes on leads V3 V4 -Obstructive shock, low suspicion patient did have a hypoxia however chest x-ray negative for any signs of pneumo, low suspicion of PE, no right heart strain/tamponade seen on bedside echo -Hemorrhagic shock, patient has no active source of any bleeding, hemoglobin is stable Diagnostic workup: -Bedside echo shows hypokinesis of left ventricle -Patient is on IV antibiotics for cystitis, received multiple sedative dose medications, he was getting p.o. diet there is suspicion of aspiration -Chest x-ray shows significantly worsening traits compared to 10/23 CT chest, likely some component of aspiration Treatment: -Levophed, titrate MAP greater than 65 -Will obtain NICOM assessment to assess peripheral vascular resistance, SVI -Will obtain central venous O2 saturation -Will obtain CVP -Continue ceftriaxone (10/23- -Cardiology consulted, ordered TTE #ACS: NSTEMI type I versus type II #Elevated troponin #Abnormal EKG Patient had worsened agitation, no symptoms of any chest pain/cardiac distress, did have abdominal pain prior to presentation. Troponin obtained today elevated at 6.240, EKG shows some acute ST-T changes leads V3 V4 Plan: - Loading dose aspirin and Plavix - Heparin gtt. ACS protocol - Trend troponins until the downtrend - Repeat EKG as needed - Continue aspirin and Plavix - Cardiology consulted, appreciate recommendations - Ordered TTE to assess any septal wall hypokinesis/akinesis #Hypertension, by history Has history of hypertension, on lisinopril at home Pulmonary #Acute hypoxic respiratory failure, on mechanical ventilation 2/2 severe agitation #Acute respiratory distress syndrome versus negative pressure pulmonary edema #Aspiration pneumonia Differential diagnosis: ARDS, negative pressure pulmonary edema, aspiration pneumonia, fluid overload Diagnostic workup: - Patient was hypoxic and agitated, during the episodes of agitation patient noted to be hypoxic in the range of 80-88, decision was made to intubate patient - Chest x-ray done earlier this morning during rapid response showed significant reticular opacities, suspicion of fluid overload as well, patient is net positive for admission, around 5.4 L - There is suspicion of aspiration as well as patient was given multiple sedating medication and was allowed p.o. intake - CT scan from 10/23 has no evidence of any pneumonia Treatment: - Low volume strategy goal 4 to 6 cc/kg, titrate FiO2 down to goal SpO2 greater than 92 - Continue with high PEEP, goal to keep peak and plateau pressures within normal limits - Currently patient's Levophed dose 0.15, will consider diuresis in a.m. - Continue with deep sedation, RASS -4, currently on propofol, fentanyl and Versed - If no improvement noted, high clinical suspicion of ARDS will consider starting patient on paralytic - Continue IV ceftriaxone (10/23- Follow-up: - Chest x-ray in a.m. - Sputum culture - Follow-up Pro-Osmany Gastrointestinal #Transaminitis Patient had elevated AST/ALT since presentation AST 154, ALT 66 on presentation currently uptrending, alk phos was elevated on presentation however has down trended bilirubin has been within normal limits CT abdomen pelvis says no visualized liver or splenic lesion, no evidence of cirrhosis Plan: - Follow CMP in a.m. - Consider liver ultrasound in a.m. - Ordered salicylate, acetaminophen level #Gastroenteritis, diarrhea Patient did have chief complaint of abdominal pain and diarrhea on presentation. No active episodes of diarrhea noted otherwise for hospitalization. Plan: -Follow C. difficile PCR, stool culture, stool WBC Renal/Genitourinary #Acute kidney injury secondary to rhabdomyolysis Patient did have an BHAVESH on presentation, on admission creatinine 2.0 baseline 0.6 Patient did receive IV NS for the hospitalization, he is net +5 L Creatinine has improved to 1.3 Plan: -Hold IV fluids for now -Monitor renal function in a.m. -Avoid nephrotoxic agents -Renally dose medication #Cystitis CT abdomen pelvis showed thickening of bladder wall, consistent with cystitis Patient did not report any symptoms, was encephalopathic on presentation Urinalysis did show rare bacteria Plan: - Continue IV ceftriaxone (10/23- #High anion gap metabolic acidosis #Lactic acidosis High anion gap noted in setting of lactic acidosis, lactate 7.3?> 2.5 Did receive IV fluid, continue Levophed to maintain MAP greater than 65 Endocrine #Thickening of adrenal glands Incidental CT abdomen pelvis finding currently low clinical suspicion of adrenal hyperplasia - Will monitor Hematology #Leukocytosis Likely in setting of sepsis, WBC count 25,000 - Monitor CBC in a.m. #Normocytic normochromic anemia Patient has normocytic normochromic anemia, hemoglobin 11, MCV 92, MCH 31.7 Plan: - Ordered iron panel/smear review/vitamin B12/folate level/LDH - Monitor CBC Infectious Disease #Cystitis #Aspiration pneumonia #Rule out meningitis - On IV ceftriaxone (10/23? - Pending cultures Integumentary No active problems DVT prophylaxis: Heparin GTT GI prophylaxis: IV Protonix Diet: N.p.o. Lines: Peripheral IV, right IJ triple-lumen central Code status: Full code Disposition: Admitted to intensive care unit for pressor support Case discussed with Attending Dr. Miles. Mis Warren MD Internal Medicine Resident PGY-2. Disclaimer: This note was dictated by speech recognition. Minor errors in supervisor cytology may be present due to voice recognition software. Attending Provider Attestation/Addendum Patient seen and examined resident team, agreed above. In brief this 54-year-old female who was a rapid response on telemetry floor. She was rep response for agitation and question of seizure. The patient was found to be thrashing and given Haldol, Ativan as well as Versed. She remained agitated decision was made to transfer to ICU for Precedex drip. The patient was a high flow nasal cannula 100% satting in the high 80s. She was noted to be a mouth breather and therefore the cannula was tried over her mouth she did not tolerate due to ongoing agitation. Physical restraint was required. The decision was made to intubate to avoid any further injury and for her hypoxia with increased FiO2 requirements. She was intubated and chest x-ray showed bilateral new infiltrates. There was a question of ARDS versus pulmonary edema. A bedside echo was performed she was noted to have brisk activity of her RV however some question of hypokinesia of her left base. Her FiO2 requirements were elevated at 80% and decision was made to treat as ARDS. Low tidal volume ventilation was started and her sedation was increased with a goal RASS of -4. Her PEEP was also increased. During this time she also started to become hypotensive and was initially given a liter of fluid. It is noted she had been on continuous fluids for treatment of her rhabdomyolysis. A central line was placed due to pressor requirements as well as multiple drips. Later in the day troponins were checked and they were found to be elevated at 6.2. A formal echo was requested and the patient was started on aspirin and a heparin drip. Cardiology consult was obtained. The patient was also started on Plavix given that there was no need to go to [employer] today per cardiology. EKG was checked and no significant ST elevations were noted. The patient's respiratory status did improve. She was placed for hemodynamic and CVP was transduced and then SVO 2 was obtained. Her systemic vascular assistance was noted to be elevated on the levo, her CVP was 10, lactate of 7. It was felt the patient presented a mixed picture of both cardiac and distributive characteristic. Case discussed with ICU team Discussed with hospitalist team Labs, imaging records reviewed Approximately 90 critical care minutes required for evaluation, exam, review, intervention, discussion formulation of plan of care for this critically ill patient with acute hypoxic respiratory failure at high risk for further and ongoing decompensation.
--- NOTE | 2024-10-24 13:31 | PD.RESPRO ---
Documentation for date of: 10/24/24 Exam Vital Signs Temp Pulse Resp BP Pulse Ox O2 Del Method O2 Flow Rate 97.2 F 129 H 33 H 137/89 H 94 L Humidified Nasal Cannula 40 10/24/24 08:00 10/24/24 10:18 10/24/24 09:18 10/24/24 10:18 10/24/24 10:18 10/24/24 08:00 10/24/24 08:00 FiO2 100 10/24/24 10:18 Objective Labs 10/24/24 08:25 10/24/24 08:25 Labs: Laboratory Results - last 24 hr 10/23/24 10/24/24 10/24/24 13:00 05:06 08:25 WBC 22.3 H D 25.1 H RBC 3.56 L 3.69 L Hgb 11.2 L D 11.7 L Hct 32.0 L 33.9 L MCV 90 92 MCH 31.5 31.7 MCHC 35.0 34.5 RDW Std Deviation 39.8 40.7 Plt Count 290 D 288 Neut % (Auto) 87 H 89 H Lymph % (Auto) 8 L 6 L [place] % (Auto) 4 4 Eos % (Auto) 0 0 Baso % (Auto) 0 0 Neut # (Auto) 19.4 H 22.3 H Lymph # (Auto) 1.7 1.5 [place] # (Auto) 0.9 H 1.0 H Eos # (Auto) 0.0 0.0 Baso # (Auto) 0.1 0.1 Immature Gran # (Auto) 0.23 H 0.22 H Absolute Nucleated RBC 0.00 0.00 Immature Gran % 1 H 1 H Nucleated RBC % 0 0 Puncture Site ABG pH ABG pCO2 ABG pO2 ABG HCO3 ABG O2 Saturation ABG Base Excess FiO2 Sodium 140 142 142 Potassium 4.2 3.6 D 3.4 Chloride 112 H 114 H 112 H Carbon Dioxide 18.5 L 15.0 L 12.0 L* Anion Gap 10 13 18 H BUN 12 13 18 Creatinine 1.4 H 1.1 1.3 Estim Creat Clear Calc 36.3 L 46.2 L 39.1 L eGFR 45 L 60 49 L BUN/Creatinine Ratio 9 L 12 14 Glucose 107 H 108 H 151 H Calculated Osmolality 279 284 288 Lactic Acid 7.3 H* Calcium 8.2 L 8.1 L 8.2 L Corrected Calcium 8.6 8.7 8.5 Phosphorus 3.7 3.4 Magnesium 1.7 Total Bilirubin 0.5 0.6 AST 191 H 200 H ALT 112 H 122 H Alkaline Phosphatase 92 D 97 Total Creatine Kinase 7565 H D 5091 H D Total Protein 5.5 L 5.9 Albumin 3.5 D 3.3 L 3.6 Globulin 2.2 L 2.3 Albumin/Globulin Ratio 1.5 1.6 Triglycerides 199 H Cholesterol 149 LDL Cholesterol, Calc 60 HDL Cholesterol 49 Cholesterol/HDL Ratio 3.0 L Procalcitonin TSH 1.75 10/24/24 10/24/24 10:51 12:23 WBC RBC Hgb Hct MCV MCH MCHC RDW Std Deviation Plt Count Neut % (Auto) Lymph % (Auto) [place] % (Auto) Eos % (Auto) Baso % (Auto) Neut # (Auto) Lymph # (Auto) [place] # (Auto) Eos # (Auto) Baso # (Auto) Immature Gran # (Auto) Absolute Nucleated RBC Immature Gran % Nucleated RBC % Puncture Site Left Radial ABG pH 7.20 L D ABG pCO2 47 D ABG pO2 83 D ABG HCO3 19 L ABG O2 Saturation 94 ABG Base Excess -9 L FiO2 100 Sodium Potassium Chloride Carbon Dioxide Anion Gap BUN Creatinine Estim Creat Clear Calc eGFR BUN/Creatinine Ratio Glucose Calculated Osmolality Lactic Acid 2.5 H Calcium Corrected Calcium Phosphorus Magnesium Total Bilirubin AST ALT Alkaline Phosphatase Total Creatine Kinase Total Protein Albumin Globulin Albumin/Globulin Ratio Triglycerides Cholesterol LDL Cholesterol, Calc HDL Cholesterol Cholesterol/HDL Ratio Procalcitonin 5.69 H TSH ABG Interpretation ABG results: 10/23/24 10/24/24 04:06 10:51 ABG pH 7.42 7.20 L D ABG pCO2 27 L 47 D ABG pO2 49 L* 83 D ABG HCO3 18 L 19 L ABG O2 Saturation 86 L 94 ABG Base Excess -6 L -9 L Quality Measures Quality Measures sepsis Possible source: meningitis and unknown Blood cultures ordered: yes and none Assessment & Plan Assessment Current Active Medications: Generic Name Dose Route Start Last Admin Trade Name Freq PRN Reason Stop Dose Admin Acetaminophen 650 mg 10/23/24 05:55 Acetaminophen 325 Mg Tablet PO 11/22/24 05:54 Q6H PRN PAIN SCALE 1-3 (mild Haloperidol Lactate 5 mg 10/24/24 09:41 07/16/25 09:41 Haloperidol Lact Inj 5 Mg/Ml Vial IV 10/29/24 09:40 5 mg Q6HR PRN Administration AGITATION (SEVERE) Heparin Sodium (Porcine) 5,000 unit 10/23/24 09:00 10/24/24 10:46 Heparin Sod Inj 5000 Unit/Ml Vial SC 11/06/24 08:59 5,000 unit Q12HR KIMBERLY Administration Ceftriaxone Sodium/Dextrose 1 gm in 50 mls @ 100 mls/hr 10/23/24 11:00 10/24/24 09:13 Rocephin/D5w 1gm Iv Premix IV 10/30/24 10:59 100 mls/hr QDAY KIMBERLY Administration Propofol 1,000 mg in 100 mls @ 1.565 mls/hr 10/24/24 10:01 10/24/24 10:39 Diprivan Ivpb IV 11/23/24 10:00 5 mcg/kg/min .Q24H PRN 1.565 mls/hr PER PROTOCOL Administration Protocol 5 MCG/KG/MIN Fentanyl Citrate 2,500 mcg in 250 mls @ 2.5 mls/hr 10/24/24 10:01 10/24/24 10:41 Sublimaze Inj 2,500 Mcg/250 Ml Bag IV 10/29/24 10:00 25 mcg/hr .Q24H PRN 2.5 mls/hr PER PROTOCOL Administration Protocol 25 MCG/HR Midazolam HCl 100 mg in 100 mls @ 1 mls/hr 10/24/24 12:39 Versed Pf Inj In Ns Premix IV 10/29/24 12:38 .Q24H PRN PER PROTOCOL Protocol 1 MG/HR Norepinephrine Bitartrate 16 mg in 250 mls @ 2.445 mls/hr 10/24/24 12:39 Levophed In Ns 16mg/250ml IV 11/23/24 12:38 .Q24H PRN PER protocol Protocol 0.05 MCG/KG/MIN Lacosamide 100 mg 10/24/24 21:00 Lacosamide 50 Mg Tablet NG 11/23/24 20:59 BID KIMBERLY Levetiracetam 750 mg 10/24/24 10:45 10/24/24 11:39 Levetiracetam Liqd 500 Mg/5 Ml Udc NG 11/22/24 20:59 750 mg BID KIMBERLY Administration Lorazepam 2 mg 10/23/24 05:55 Lorazepam 2 Mg/Ml Vial IVP 10/28/24 05:54 Q30M PRN Breakthrough seizure Nicotine 7 mg 10/23/24 15:15 10/24/24 10:46 Nicotine Patch 7 Mg/24 Hr Patch.Td24 TOP 11/22/24 15:14 7 mg QDAY KIMBERLY Administration Ondansetron HCl 4 mg 10/23/24 05:55 10/23/24 10:17 Ondansetron Inj 2 Mg/Ml Inj 2 Ml IVP 11/22/24 05:54 4 mg Q6H PRN Administration NAUSEA OR VOMITING Protocol Sennosides 1 tab 10/24/24 10:56 Senna Tablet GT 11/23/24 10:55 QDAY PRN constipation Protocol Venlafaxine HCl 150 mg 10/24/24 10:57 Venlafaxine Xr 37.5 Mg Capcr PO 11/22/24 13:44 QDAY KIMBERLY
--- NOTE | 2024-10-24 13:32 | PD.RESPROC ---
PROCEDURES: Procedure Date / Time 10/24/24 1332 Central Line Placement Right IJ: Indication(s): shock Informed consent obtained: obtained from surrogate decision maker (Sister) Time out done, and the following verified: correct patient, side and site, procedure, patient position and implants and/or equipment Patient placed on monitor/pulse ox: Yes Hand Hygiene: scrub, soap & water and alcohol-based hand rub Max Sterile Barrier Techniques used: cap, mask, sterile gown, sterile gloves and sterile full body drape Central line prep: Chlorhexidine scrub and sterile drapes applied Local anesthesia used: lidocaine 1% Ultrasound used for placement: Yes Sterile Technique if Ultrasound used, including sterile gel: yes Central line lumen inserted: triple Post procedure: sutured in place, good blood return, all ports aspirated, flushed, capped and sterile dressing applied Post procedure x-ray: tip of catheter in good position (Interval right internal jugular central line tip SVC satisfactory position) Patient tolerated procedure: well and no complications EBL(ml): 5 Complications: none Procedure comment: Hands were washed prior to starting sterile technique. A time out was performed. My hands were washed immediately prior to the procedure. I wore a surgical cap, mask, sterile gown and sterile gloves throughout the procedure. The patient was placed in Trendelenburg position. The right chest region was prepped using chlorhexidine scrub and draped in sterile fashion using a full drape and sterile probe cover and sterile gel employed. Anesthesia was achieved with 1% lidocaine. The introducer needle was inserted. Venous blood was withdrawn. The syringe was removed and a guidewire was advanced into the introducer needle. A small incision was made at the skin surface with a scalpel and the introducer needle was exchanged for dialysis catheter over the guidewire. The wire was removed and the catheter was sutured in place. A sterile sorbaview shield was placed over the catheter at the insertion site. The patient tolerated the procedure without any hemodynamic compromise. At time of procedure completion, all ports aspirated and flushed properly. Estimated blood loss is 5ml. Procedure performed under the supervision of wild animal caretaker Dr. Miles. Mis Warren PGY2 Disclaimer: This note was dictated by speech recognition. Minor errors in felt strip finisher may be present due to voice recognition software. Attending note I was present for all reid aspects of the procedure and assisted as needed
[2024-10-24 13:34] LABS: B-Type Natriuretic Peptide 1465 pg/mL (0-100)
[2024-10-24 13:38] LABS: Troponin I 6.240 ng/mL (0.0-0.045)
--- NOTE | 2024-10-24 13:42 | EKG_ITS ---
[facility] Test Date: 2024-10-24 Pat Name: PRITI HURT [facility] Stake Driver: CHERIE : 1970 Requested By: Mis Warren Order Number: [id number] Reading MD: Mis Warren Measurements Intervals [place] Rate: 102 P: 31 NC: 140 QRS: 37 QRSD: 89 T: 0 QT: 318 QTc: 414 Interpretive Statements SINUS TACHYCARDIA LOW QRS VOLTAGE IN EXTREMITY LEADS PATTERN CONSISTENT WITH PULMONARY DISEASE ST DEVIATION AND MODERATE T-WAVE ABNORMALITY, CONSIDER LATERAL ISCHEMIA Compared to ECG 10/24/2024 12:44:45 Low QRS voltage now present T-wave abnormality still present Possible ischemia still present /store/S0/[id number]/ecg/[id number]
[2024-10-24] MEDS: MIDAZOLAM/NS 100 MG IVPB 100 MG/100 ML BAG IV (13:45)
[2024-10-24 14:06] LABS: Acetaminophen < 2.0 mcg/mL (10.0-20.0); Salicylate < 3.0 mg/dL
[2024-10-24 14:16] LABS: Base Excess, Venous -7 (-3-3); O2 Saturation, Venous 91 % (96-97); PCO2, Venous 35 mmHg (36-56); PO2, Venous 61 mmHg (15-58); pH, Venous 7.34 (7.33-7.66)
--- NOTE | 2024-10-24 14:18 | ESPR_ITS ---
Documentation for date of: 10/24/24 Subjective Subjective Interval history: Rapid response at 5:55 AM this morning: Called for agitation, HFNC with SPO2 80%s. Given Ativan 3 mg IV, Benadryl 12.5 mg IV x 2, haloperidol 5 mg IV x 1, olanzapine 10 mg IM x 1, lorazepam 2 mg IV x 1. Rapid response at 8:04 AM this morning: Called for continued agitation despite multiple sedation attempts. HFNC with SPO2 88%. Given Ativan 1 mg IV x 1 prior to rapid. Glucose 130. Given Ativan 3 mg IM x 1, Versed 2 mg IM x 1, Vimpat 200 mg IV x 1 push. Started Vimpat 100 mg twice daily. Transferred to ICU for persistent agitation. Patient evaluated at bedside, heavily sedated. Exam Vital Signs Temp Pulse Resp BP Pulse Ox O2 Del Method O2 Flow Rate 97.2 F 129 H 33 H 137/89 H 94 L Humidified Nasal Cannula 40 10/24/24 08:00 10/24/24 10:18 10/24/24 09:18 10/24/24 10:18 10/24/24 10:18 10/24/24 08:00 10/24/24 08:00 FiO2 100 10/24/24 10:18 Narrative Exam General: No acute distress, sedated (on norepinephrine, fentanyl, propofol, midazolam) Eye: PERRL HENT: Normocephalic, atraumatic Neck: Supple, non-tender, no JVD, no lymphadenopathy Lungs: Symmetric chest rise. On mechanical ventilator. Vent settings: Volume control. RR 30, PEEP 10, FiO2 60%, Heart: Peripheral pulses intact bilaterally Abdomen: Soft, non-tender, non-distended Skin: Skin is warm, dry, no rashes or lesions. Objective Labs 10/24/24 08:25 10/24/24 08:25 Labs: Laboratory Results - last 24 hr 10/24/24 10/24/24 10/24/24 05:06 08:25 10:51 WBC 22.3 H D 25.1 H RBC 3.56 L 3.69 L Hgb 11.2 L D 11.7 L Hct 32.0 L 33.9 L MCV 90 92 MCH 31.5 31.7 MCHC 35.0 34.5 RDW Std Deviation 39.8 40.7 Plt Count 290 D 288 Neut % (Auto) 87 H 89 H Lymph % (Auto) 8 L 6 L [place] % (Auto) 4 4 Eos % (Auto) 0 0 Baso % (Auto) 0 0 Neut # (Auto) 19.4 H 22.3 H Lymph # (Auto) 1.7 1.5 [place] # (Auto) 0.9 H 1.0 H Eos # (Auto) 0.0 0.0 Baso # (Auto) 0.1 0.1 Immature Gran # (Auto) 0.23 H 0.22 H Absolute Nucleated RBC 0.00 0.00 Immature Gran % 1 H 1 H Nucleated RBC % 0 0 Puncture Site Left Radial ABG pH 7.20 L D ABG pCO2 47 D ABG pO2 83 D ABG HCO3 19 L ABG O2 Saturation 94 ABG Base Excess -9 L FiO2 100 Sodium 142 142 Potassium 3.6 D 3.4 Chloride 114 H 112 H Carbon Dioxide 15.0 L 12.0 L* Anion Gap 13 18 H BUN 13 18 Creatinine 1.1 1.3 Estim Creat Clear Calc 46.2 L 39.1 L eGFR 60 49 L BUN/Creatinine Ratio 12 14 Glucose 108 H 151 H Calculated Osmolality 284 288 Lactic Acid 7.3 H* Calcium 8.1 L 8.2 L Corrected Calcium 8.7 8.5 Phosphorus 3.4 Magnesium 1.7 Total Bilirubin 0.5 0.6 AST 191 H 200 H ALT 112 H 122 H Alkaline Phosphatase 92 D 97 Total Creatine Kinase 5091 H D Troponin I B-Natriuretic Peptide 1465 H* Total Protein 5.5 L 5.9 Albumin 3.3 L 3.6 Globulin 2.2 L 2.3 Albumin/Globulin Ratio 1.5 1.6 Triglycerides 199 H Cholesterol 149 LDL Cholesterol, Calc 60 HDL Cholesterol 49 Cholesterol/HDL Ratio 3.0 L Procalcitonin TSH 1.75 Salicylates Acetaminophen 10/24/24 12:23 WBC RBC Hgb Hct MCV MCH MCHC RDW Std Deviation Plt Count Neut % (Auto) Lymph % (Auto) [place] % (Auto) Eos % (Auto) Baso % (Auto) Neut # (Auto) Lymph # (Auto) [place] # (Auto) Eos # (Auto) Baso # (Auto) Immature Gran # (Auto) Absolute Nucleated RBC Immature Gran % Nucleated RBC % Puncture Site ABG pH ABG pCO2 ABG pO2 ABG HCO3 ABG O2 Saturation ABG Base Excess FiO2 Sodium Potassium Chloride Carbon Dioxide Anion Gap BUN Creatinine Estim Creat Clear Calc eGFR BUN/Creatinine Ratio Glucose Calculated Osmolality Lactic Acid 2.5 H Calcium Corrected Calcium Phosphorus Magnesium Total Bilirubin AST ALT Alkaline Phosphatase Total Creatine Kinase Troponin I 6.240 H* B-Natriuretic Peptide Total Protein Albumin Globulin Albumin/Globulin Ratio Triglycerides Cholesterol LDL Cholesterol, Calc HDL Cholesterol Cholesterol/HDL Ratio Procalcitonin 5.69 H TSH Salicylates < 3.0 Acetaminophen < 2.0 L ABG Interpretation ABG results: 10/23/24 10/24/24 04:06 10:51 ABG pH 7.42 7.20 L D ABG pCO2 27 L 47 D ABG pO2 49 L* 83 D ABG HCO3 18 L 19 L ABG O2 Saturation 86 L 94 ABG Base Excess -6 L -9 L Quality Measures Quality Measures sepsis Current suspected stage: sepsis Possible source: meningitis and unknown Blood cultures ordered: yes Antibiotic ordered: Yes and none Assessment & Plan Assessment Current Active Medications: Generic Name Dose Route Start Last Admin Trade Name Freq PRN Reason Stop Dose Admin Acetaminophen 650 mg 10/23/24 05:55 Acetaminophen 325 Mg Tablet PO 11/22/24 05:54 Q6H PRN PAIN SCALE 1-3 (mild Aspirin 81 mg 10/25/24 09:00 Aspirin 81 Mg Chew NG 11/24/24 08:59 QDAY KIMBERLY Haloperidol Lactate 5 mg 10/24/24 09:41 10/24/24 09:41 Haloperidol Lact Inj 5 Mg/Ml Vial IV 10/29/24 09:40 5 mg Q6HR PRN Administration AGITATION (SEVERE) Heparin Sodium (Porcine) 3,150 unit 10/24/24 13:50 Heparin Sod Inj 5000 Unit/Ml Vial 60 unit/kg (3150 unit) 10/24/24 13:51 IV X1 ONE Protocol Ceftriaxone Sodium/Dextrose 1 gm in 50 mls @ 100 mls/hr 10/23/24 11:00 10/24/24 09:13 Rocephin/D5w 1gm Iv Premix IV 10/30/24 10:59 100 mls/hr QDAY KIMBERLY Administration Propofol 1,000 mg in 100 mls @ 1.565 mls/hr 10/24/24 10:01 10/24/24 10:39 Diprivan Ivpb IV 11/23/24 10:00 5 mcg/kg/min .Q24H PRN 1.565 mls/hr PER PROTOCOL Administration Protocol 5 MCG/KG/MIN Fentanyl Citrate 2,500 mcg in 250 mls @ 2.5 mls/hr 10/24/24 10:01 10/24/24 10:41 Sublimaze Inj 2,500 Mcg/250 Ml Bag IV 10/29/24 10:00 25 mcg/hr .Q24H PRN 2.5 mls/hr PER PROTOCOL Administration Protocol 25 MCG/HR Midazolam HCl 100 mg in 100 mls @ 1 mls/hr 10/24/24 12:39 Versed Pf Inj In Ns Premix IV 10/29/24 12:38 .Q24H PRN PER PROTOCOL Protocol 1 MG/HR Norepinephrine Bitartrate 16 mg in 250 mls @ 2.445 mls/hr 10/24/24 12:39 Levophed In Ns 16mg/250ml IV 11/23/24 12:38 .Q24H PRN PER protocol Protocol 0.05 MCG/KG/MIN Heparin Sodium/Dextrose 25,000 unit in 250 mls @ 6.26 mls/hr 10/24/24 14:00 Heparin In D5w Ivpb IV 11/07/24 13:59 .Q24H KIMBERLY Protocol 12 UNITS/KG/HR Lacosamide 100 mg 10/24/24 21:00 Lacosamide 50 Mg Tablet NG 11/23/24 20:59 BID KIMBERLY Levetiracetam 750 mg 10/24/24 10:45 10/24/24 11:39 Levetiracetam Liqd 500 Mg/5 Ml Udc NG 11/22/24 20:59 750 mg BID KIMBERLY Administration Ondansetron HCl 4 mg 10/23/24 05:55 10/23/24 10:17 Ondansetron Inj 2 Mg/Ml Inj 2 Ml IVP 11/22/24 05:54 4 mg Q6H PRN Administration NAUSEA OR VOMITING Protocol Sennosides 1 tab 10/24/24 10:56 Senna Tablet GT 11/23/24 10:55 QDAY PRN constipation Protocol Venlafaxine HCl 150 mg 10/24/24 10:57 Venlafaxine Xr 37.5 Mg Capcr PO 11/22/24 13:44 QDAY KIMBERLY Plan #Acute encephalopathy #Hx seizures #Left temporal encephalomalacia, # Left posterior temporal lobe calcification PMHx: Seizures Home med: Keppra 3g daily Initial presentation: AMS, AOx0, N/V/abdominal pain, GCS 11 (responds verbal with eye opening, withdraws from pain, confused response - says seizure, seizure ), moving all extremities spontaneously. Occasionally repsonding to internal stimuli Per sister, patient's baseline is talkative and independent, last seizure was last week, has episodes of staring into space In the ED: given Keppra loading dose and IV Ativan Initial glucose: 151 Ammonia <10, EtOH <3, Hep A/B/C non-reactive, UA negative for UTI Lactic acid: 3.9 --> 3.9 --> 2.5 --> 2.1 --> 7.3 (10/24 at 08:25)--> 2.5 UDS + THC. Urine opiate negative, Urine fentanyl negative, salicylate <3, Acetaminophen <2, EtOH <3, Ammonia <10, TSH WNL 1.75 Total CK high 7886, procal high 16.25 --> 5.69 CSF: clear, WBC 5, RBC 3, monocyte 40, polynucleocyte 60%, glucose 100 high (>60% blood glucose 151), protein [address] head w/o: No hemorrhage, mass effect, or midline shift. + left temporal encephalomalacia, left posterior temporal lobe calcification. 10/24 overnight: patient had multiple rapid responses for persistent agitation despite B-52, olanzapine, lorazepam, more Ativan, Versed, Vimpat 200 mg IV x 1 push. Upgraded to ICU for persistent agitations despite multiple sedation attempts. DDX: seizures, TIA, metabolic (shock, lactic acidosis, BHAVESH, hypoxia), infectious (PNA, diarhea, cystitis, meningitis, encephalitis), underlying psychiatric disorder Plan: - Keppra 750 mg BID, Vimpat 100 mg BID - Pending CSF culture, blood cx x2, sputum cx and gram stain - Pending EEG - MRI brain w/ and w/o when appropriate #Anxiety/depression, by history Patient has history of anxiety/depression on Venlafaxine 150mg daily Plan: - Management per primary - hold Venlafaxine currently #Nicotine dependence #Marijuana dependence Chronic active smoker, U Tox. positive for THC Plan: - Management per primary #Shock, undifferentiated Chest x-ray shows significantly worsening traits compared to 10/23 CT chest, likely some component of aspiration DDX: distributive/septic (aspiraton PNA, cystitis) vs cardiogenic Plan: - Management per primary - pressors, abx - Pending TTE #High anion gap metabolic acidosis #Lactic acidosis High anion gap noted in setting of lactic acidosis Lactic acid: 7.3 (on 10/14) --> 2.5 Plan: - Management per primary #Acute hypoxic respiratory failure, on mechanical ventilation 2/ severe agitation Patient was hypoxic to spO2 80-88% --> intubated Chest x-ray: significant reticular opacities, suspicion of fluid overload as well, patient is net positive for admission, around 5.4 L There is suspicion of aspiration as well as patient was given multiple sedating medication and was allowed p.o. intake CT scan from 10/23 has no evidence of any pneumonia DDX: ARDS, negative pressure pulmonary edema, aspiration PNA, fluid overload Plan: - Management per primary - sedation, antibiotics, - Pending sputum culture - Pending Pro-Osmany #ACS: NSTEMI type I versus type II #Elevated troponin #Abnormal EKG Patient had worsened agitation, no symptoms of any chest pain/cardiac distress, did have abdominal pain prior to presentation. Troponin obtained today elevated at 6.240, EKG shows some acute ST-T changes leads V3 V4 Plan: - Management per primary, cardiology - ASA, Plavix, heparin gtt, trend troponins, repeat EKG #Hypertension, by history Home med: Lisinopril 20 mg daily Plan: - Management per primary #Transaminitis Initial AST: 164, uptrending Initial ALT: 66, uptrending Initial alk phos: 139, downtrending Initial total bili: 0.3 WNL Ammonia <10 Salicylate <3 Acetaminophen <2 EtOH <3 UDS + THC CT abdomen pelvis says no visualized liver or splenic lesion, no evidence of cirrhosis Plan: - Management per primary #Gastroenteritis, diarrhea Abdominal pain and diarrhea on initial presentation No active episodes of diarrhea noted otherwise for hospitalization. Plan: - Management per primary -Pending C. difficile PCR, stool culture, stool WBC #Acute kidney injury secondary to rhabdomyolysis Baseline Cr: 0.6 BUN: 18 (stable) Cr: 2 (downtrending) BUN/CR: 9 (c/w intrarenal cause of BHAVESH) UA: 1+ protein, 3+ blood, RBC 5, WBC 10, amorphous crystals present CK: 7886 (downtrending) Patient did receive IV NS for the hospitalization, he is net +5 L 2/2 tx of rhabdomyolysis Plan: - Management per primary #Cystitis CT abdomen pelvis showed thickening of bladder wall, consistent with cystitis Plan: - Management per primary - IV ceftriaxone (10/23- ) #Thickening of adrenal glands Incidental CT abdomen pelvis finding currently low clinical suspicion of adrenal hyperplasia Plan: - Management per primary #Leukocytosis Neutrophilic predominance with left shift DDX: sepsis, seizure, cystitis, BHAVESH, diarrhea Plan: - Management per primary #Normocytic normochromic anemia Hgb: 11.2 HCT: 32 MCV: 92 MCHC: 34.5 Total bili: 0.5 TSH: 1.75 (WNL) BUN: 18 Cr: 1.3 Evidence of active bleed: none Plan: - Management per primary - Pending iron panel/smear review/vitamin B12/folate level/LDH Plan discussed with Dr. Jose Alberto Reed, PGY1 Attending Provider Attestation/Addendum I personally have seen and examined the patient at the bedside and I agreed with the resident's findings, assessment and plan of care. Continue with the Keppra and lacosamide with dose monitoring of EKG changes and bradycardia. Reviewed the events overnight.
[2024-10-24 14:31] LABS: INR 1.0 (0.9-1.3); Partial Thromboplastin Time 24.5 Seconds (22.0-36.0); Prothrombin Time 11.4 Seconds (9.0-12.2)
[2024-10-24 14:34] LABS: Base Excess -6 (-3-3); HCO3 18 mEq/L (20-26); Inspired Oxygen, FIO2 70 %; O2 Saturation 99 % (91-98); PCO2 32 mmHg (32.0-48.0); PO2 130 mmHg (83-108); pH, Arterial 7.38 (7.35-7.45)
[2024-10-24 14:35] LABS: Allen Test Performed/OK; Puncture Site Right Radial
[2024-10-24 14:39] LABS: Troponin I 6.018 ng/mL (0.0-0.045)
--- NOTE | 2024-10-24 16:57 | ESCONSULT_ITS ---
<Statement entered by Marino Aleman MD - 10/25/24 14:48> I personally evaluated examined the patient with the resident physician PGY 2 Dr. Jayson Samuel the patient presented to the hospital with altered mental status history of seizure disorder And possible sepsis with elevated WBC count and procalcitonin level highly suspicious for sepsis unknown etiology source initial chest x-ray normal subsequent delay patient received 6 L of fluid clearly developed volume overload extensive pulmonary edema there was elevation of BNP noted with elevated troponin of 6 coming down EKG showed nonspecific ST changes in precordial leads 1 mm elevation possibly echo showed preserved ejection fraction with maybe slight suggestion of apical hypokinesis possible Takotsubo cardiomyopathy due to sepsis. Clinically she is intubated mechanical ventilation sedated and hypoxic respiratory failure on 50% FiO2 chest x-ray showed evidence of bilateral alveolar interstitial infiltrates ARDS versus cardiogenic pulmonary edema patient is recommended to be given a dose of Lasix however will monitor the close the patient will benefit from [facility] catheter if she does not improve by tomorrow. Agree with atrial-ventricular as documented by PGY 2 HPI Data of Consult Requesting Physician: Don Garcia DO Admitting Provider: Don Garcia DO Attending Provider: Don Garcia DO Primary Care Provider: Physician No Primary/Family Consult Narrative Reason for consult: Suspected ACS History of present illness: Patient was on mechanical ventilator and could not get hold of sister so most of the history is taken from chart review A 54-year-old female with significant past medical history of seizures, brain surgery, marijuana use, anxiety, depression was found to be unconscious when her sister went to check on her. The patient was immediately brought to the hospital for altered mental status. Patient apparently found to have vomitings and abdominal pain prior to the admission for 1 day. On reviewing previous medical records, patient was found to have hospital ER visits for seizures in 2019, 2021. Found to have cholecystectomy, laparoscopic by Dr. Monge in 2021. In the ED, - Vitals at the time of admission are stable except for tachycardia. Patient is initially saturating around 99% on room air but later needed 3 L oxygen. - Lab findings at the time of admission are significant for WBC 28.5, sodium 133, potassium 3.4, bicarb 15.1, creatinine 2, lactate 3.6, AST 154, ALT 66, creatinine kinase 7886, procalcitonin 16.25. - Urinalysis showed turbid urine with 5 RBC, 10 WBC, rare urinary bacteria. - Urine toxicology tested positive for marijuana. - ABG showed pH 7.42, bicarb 18, oxygen saturation 86. - Head CT at the time of admission is negative for acute hemorrhage, mass effect or midline shift - CT chest/abdomen/pelvis showed did not show any significant abnormality except for urinary bladder wall thickening Patient is initially admitted to the floors on 10/23/2024, lumbar puncture is done at the time of admission, given IV fluids in view of rhabdomyolysis and antibiotics for suspected sepsis. On 10/24/2024 around 5:55 AM patient is acutely agitated. Despite being on high flow nasal cannula patient is saturating in high 80s and tachycardic for which patient was given multiple doses of lorazepam, Benadryl. Later patient's extremities appeared rigid, suspected seizure activity, upgraded to ICU for acute hypoxic respiratory failure and acute encephalopathy. Patient is intubated in the ICU and started on vasopressors in view of low blood pressures. In the ICU, repeat lab work showed lactate 7.3, anion gap metabolic acidosis, bicarb 12, troponin 6.24, BNP 1465. EKG showed sinus tachycardia with ST elevation in V3 and V4 with no reciprocal changes in other leads. Echo done at bedside by ICU team found to have regional wall motion abnormalities. Patient is given loading dose of aspirin 325, Plavix 200 mg, started on heparin drip. cardiology is consulted in view of regional wall motion abnormality, elevated troponin and BNP, EKG changes and suspected ACS cc:: cc: Don Garcia, Review of Systems Review of Systems ROS Unobtainable: unobtainable due to mental status Past Medical History Past Medical History NEUROLOGIC: Positive Neurological Disorders, Seizures, Epilepsy and Migraine CARDIAC: Positive Cardiac Disorders and Hypertension (TAKES MED) GASTROINTESTINAL: Positive Gastrointestinal Disorders and Gall Bladder Disease (LAP) REPRODUCTIVE: Positive Previous Pregnancies (X2) PSYCHO/SOCIAL: Positive Depression (TAKES MED) and Anxiety (TAKES MED) OTHER HISTORY: Positive Hospitalization (HOSP 2020 FOR SEIZURE), Chicken Pox, Measles and Mumps Family History FAMILY HISTORY: Positive Family Psychiatric Problems (MOTHER (DEPRESSION,ANXIETY)) and Family Cardiac Disorders (MOTHER (HTN)) Surgical History SURGICAL: Positive Neurologic Surgery (BRAIN SURG) Social History SMOKING STATUS: Current every day smoker SUBSTANCE USE: marijuana (daily ) Exam Vital Signs Temp Pulse Resp BP Pulse Ox O2 Del Method O2 Flow Rate 97.5 F 94 30 H 86/60 L 100 Humidified Nasal Cannula 40 10/24/24 12:45 10/24/24 14:46 10/24/24 13:45 10/24/24 14:46 10/24/24 14:46 10/24/24 08:00 10/24/24 08:00 FiO2 70 10/24/24 14:46 Narrative Exam General: On ventilator. Sedated HEENT: Normocephalic, atraumatic, mucous membranes moist. Heart: Regular rate and rhythm, no murmurs. Lungs: Clear to auscultation with no wheezing or crackles. Abdomen: Soft, nondistended, nontender, positive bowel sounds. ?No guarding or rebound tenderness. Neurologic: Sedated and mechanically ventilated Extremities: No edema. Skin: No rash or ecchymoses. Results Labs 10/25/24 04:25 10/25/24 04:25 Labs: Short CBC 10/24/24 10/24/24 Range/Units 05:06 08:25 WBC 22.3 H D 25.1 H (3.6-11.0) Thou/mm3 Hgb 11.2 L D 11.7 L (12.0-16.0) g/dL Hct 32.0 L 33.9 L (36.0-46.0) % Plt Count 290 D 288 (140-440) Thou/mm3 BMP 10/24/24 10/24/24 05:06 08:25 Sodium 142 142 Potassium 3.6 D 3.4 Chloride 114 H 112 H Carbon Dioxide 15.0 L 12.0 L* BUN 13 18 Creatinine 1.1 1.3 Glucose 108 H 151 H Calcium 8.1 L 8.2 L Cardiac Enzymes 10/24/24 10/24/24 10/24/24 Range/Units 05:06 12:23 14:00 Total Creatine Kinase 5091 H D (34-171) U/L Troponin I 6.240 H* 6.018 H* D (0.0-0.045) ng/mL Liver Function 10/24/24 10/24/24 Range/Units 05:06 08:25 Total Bilirubin 0.5 0.6 (0.3-1.2) mg/dL AST 191 H 200 H (0-34) U/L ALT 112 H 122 H (10-49) U/L Alkaline Phosphatase 92 D 97 (46-116) U/L Albumin 3.3 L 3.6 (3.5-5.0) gm/dL ABG Interpretation ABG results: 10/23/24 10/24/24 10/24/24 04:06 10:51 14:00 ABG pH 7.42 7.20 L D ABG pCO2 27 L 47 D ABG pO2 49 L* 83 D ABG HCO3 18 L 19 L ABG O2 Saturation 86 L 94 ABG Base Excess -6 L -9 L VBG pH 7.34 VBG pCO2 35 L VBG pO2 61 H VBG Base Excess -7 L 10/24/24 14:26 ABG pH 7.38 D ABG pCO2 32 D ABG pO2 130 H D ABG HCO3 18 L ABG O2 Saturation 99 H ABG Base Excess -6 L VBG pH VBG pCO2 VBG pO2 VBG Base Excess Quality Measures Quality Measures sepsis Current suspected stage: septic shock (LA >4 and/or hypotension) Sepsis reassessment completed at (date): 10/24/24 Sepsis reassessment completed at (time): 18:00 Possible source: meningitis and unknown Blood cultures ordered: yes Antibiotic ordered: Yes and none Medications Home Medications and Allergies Home Medications ?Medication ?Instructions ?Recorded ?Confirmed ?Type levetiracetam 750 mg tablet 1,500 mg PO GISELE 07/03/21 07/03/21 History (Keppra) levetiracetam 750 mg tablet 2,250 mg PO HS 07/03/21 History (Keppra) mirtazapine 15 mg tablet (Remeron) 15 mg PO QDAY 07/0307/03/21 History venlafaxine 100 mg tablet 150 mg PO DAILY 07/03/21 History Allergies Allergy/AdvReac Type Severity Reaction Status Date / Time No Known Allergies Allergy Verified 10/22/24 23:51 Visit Medications Acetaminophen (Acetaminophen 325 Mg Tablet) 650 mg PO Q6H PRN PRN Reason: PAIN SCALE 1-3 (mild Stop: 11/22/24 05:54 Aspirin (Aspirin 81 Mg Chew) 81 mg NG QDAY [facility] Stop: 11/24/24 08:59 Clopidogrel Bisulfate (Clopidogrel Bisulfate 75 Mg Tablet) 75 mg NG QDAY [facility] Stop: 11/24/24 08:59 Haloperidol Lactate (Haloperidol Lact Inj 5 Mg/Ml Vial) 5 mg IV Q6HR PRN PRN Reason: AGITATION (SEVERE) Stop: 10/29/24 09:40 Last Admin: 10/24/24 09:41 Dose: 5 mg Ceftriaxone Sodium/Dextrose (Rocephin/D5w 1gm Iv Premix) 1 gm in 50 mls @ 100 mls/hr IV QDAY [facility] Stop: 10/30/24 10:59 Last Admin: 10/24/24 09:13 Dose: 100 mls/hr Propofol (Diprivan Ivpb) 1,000 mg in 100 mls @ 1.565 mls/hr IV .Q24H PRN; Protocol PRN Reason: PER PROTOCOL Stop: 11/23/24 10:00 Last Titration: 10/24/24 14:30 Dose: 30 mcg/kg/min, 9.389 mls/hr Fentanyl Citrate (Sublimaze Inj 2,500 Mcg/250 Ml Bag) 2,500 mcg in 250 mls @ 2.5 mls/hr IV .Q24H PRN; Protocol PRN Reason: PER PROTOCOL Stop: 10/29/24 10:00 Last Admin: 10/24/24 10:41 Dose: 25 mcg/hr, 2.5 mls/hr Midazolam HCl (Versed Pf Inj In Ns Premix) 100 mg in 100 mls @ 1 mls/hr IV .Q24H PRN; Protocol PRN Reason: PER PROTOCOL Stop: 10/29/24 12:38 Last Admin: 10/24/24 13:45 Dose: 1 mg/hr, 1 mls/hr Norepinephrine Bitartrate (Levophed In Ns 16mg/250ml) 16 mg in 250 mls @ 2.445 mls/hr IV .Q24H PRN; Protocol PRN Reason: PER protocol Stop: 11/23/24 12:38 Last Titration: 10/24/24 14:40 Dose: 0.15 mcg/kg/min, 7.335 mls/hr Heparin Sodium/Dextrose (Heparin In D5w Ivpb) 25,000 unit in 250 mls @ 6.26 mls/hr IV .Q24H [facility]; Protocol Stop: 11/07/24 13:59 Potassium Chloride (Kcl Ivpb) 10 meq in 100 mls @ 100 mls/hr IV Q1H [facility] Stop: 10/24/24 20:59 Lacosamide (Lacosamide 50 Mg Tablet) 100 mg NG BID [facility] Stop: 11/23/24 20:59 Levetiracetam (Levetiracetam Liqd 500 Mg/5 Ml Udc) 750 mg NG BID [facility] Stop: 11/22/24 20:59 Last Admin: 10/24/24 11:39 Dose: 750 mg Ondansetron HCl (Ondansetron Inj 2 Mg/Ml Inj 2 Ml) 4 mg IVP Q6H PRN; Protocol PRN Reason: NAUSEA OR VOMITING Stop: 11/22/24 05:54 Last Admin: 10/23/24 10:17 Dose: 4 mg Sennosides (Senna Tablet) 1 tab GT QDAY PRN; Protocol PRN Reason: constipation Stop: 11/23/24 10:55 Venlafaxine HCl (Venlafaxine Xr 37.5 Mg Capcr) 150 mg PO QDAY [facility] Stop: 11/22/24 13:44 Discontinued Medications Aspirin (Aspirin 325 Mg Tablet) 325 mg NG X1 ONE Stop: 10/24/24 13:50 Last Admin: 10/24/24 16:53 Dose: 325 mg Clopidogrel Bisulfate (Clopidogrel Bisulfate 75 Mg Tablet) 600 mg NG X1 ONE Stop: 10/24/24 16:06 Olanzapine 10 mg/ Sterile (Water 2.1 ml) 0 mg IM X1 ONE Stop: 10/24/24 05:58 Last Admin: 10/24/24 06:03 Dose: 10 dose Diphenhydramine HCl (Diphenhydramine Inj 50 Mg/Ml Vial) 12.5 mg IVP X1 ONE Stop: 10/24/24 04:11 Last Admin: 10/24/24 04:35 Dose: 12.5 mg Diphenhydramine HCl (Diphenhydramine Inj 50 Mg/Ml Vial) 12.5 mg IVP X1 ONE Stop: 10/24/24 05:13 Last Admin: 10/24/24 05:39 Dose: 12.5 mg Etomidate (Etomidate Inj 2 Mg/Ml Vial 10 Ml) 20 mg IVP X1 ONE Stop: 10/24/24 09:59 Last Admin: 10/24/24 09:54 Dose: 20 mg Haloperidol Lactate (Haloperidol Lact Inj 5 Mg/Ml Vial) 5 mg IV X1 ONE Stop: 10/24/24 05:13 Last Admin: 10/24/24 05:43 Dose: 5 mg Haloperidol Lactate (Haloperidol Lact Inj 5 Mg/Ml Vial) 7.5 mg IM X1 ONE Stop: 10/24/24 08:31 Last Admin: 10/24/24 08:33 Dose: 7.5 mg Heparin Sodium (Porcine) (Heparin Sod Inj 5000 Unit/Ml Vial) 5,000 unit SC Q12HR [facility]IM[facility] Stop: 11/06/24 08:59 Last Admin: 10/24/24 10:46 Dose: 5,000 unit Heparin Sodium (Porcine) (Heparin Sod Inj 5000 Unit/Ml Vial) 3,150 unit 60 unit/kg (3150 unit) IV X1 ONE; Protocol Stop: 10/24/24 13:51 Lactated Ringer's (Lactated Ringers) 1,000 mls @ 999 mls/hr IV .Q1H1M ONE Stop: 10/23/24 02:58 Last Infusion: 10/23/24 04:50 Dose: Infused Lactated Ringer's (Lactated Ringers) 1,000 mls @ 999 mls/hr IV .Q1H1M ONE Stop: 10/23/24 03:14 Last Infusion: 10/23/24 04:24 Dose: Infused Piperacillin/Tazobactam/Dextrose (Zosyn) 3.375 gm in 50 mls @ 100 mls/hr IV X1 ONE Stop: 10/23/24 03:18 Last Infusion: 10/23/24 03:42 Dose: Infused Lactated Ringer's (Lactated Ringers) 1,000 mls @ 75 mls/hr IV .[id number] ONE Stop: 10/23/24 19:32 Last Admin: 10/23/24 06:41 Dose: 75 mls/hr Lactated Ringer's (Lactated Ringers) 1,000 mls @ 100 mls/hr IV .Q10H ONE Stop: 10/23/24 16:12 Sodium Chloride (Ns) 1,000 mls @ 999 mls/hr IV .Q1H1M ONE Stop: 10/23/24 08:13 Last Admin: 10/23/24 08:56 Dose: 999 mls/hr Sodium Chloride (Ns) 1,000 mls @ 250 mls/hr IV .Q4H [facility] Stop: 11/22/24 08:49 Last Admin: 10/24/24 14:27 Dose: 250 mls/hr Dexmedetomidine/Sodium Chloride (Precedex Ivpb) 400 mcg in 100 mls @ 2.608 mls/hr IV .Q24H PRN; Protocol PRN Reason: Per PROTOCOL Stop: 11/23/24 08:47 Last Admin: 10/24/24 09:01 Dose: 0.2 mcg/kg/hr, 2.608 mls/hr Lactated Ringer's (Lactated Ringers) 1,000 mls @ 999 mls/hr IV .Q1H1M ONE Stop: 10/24/24 13:14 Last Admin: 10/24/24 12:33 Dose: 999 mls/hr Ketamine HCl (Ketamine 50 Mg/Ml Vial 10 Ml) 100 mg IVP X1 ONE Stop: 10/24/24 09:42 Last Admin: 10/24/24 10:50 Dose: Not Given Lacosamide (Lacosamide Inj 200 Mg/20 Ml Vial) 200 mg IVP X1 ONE Stop: 10/24/24 08:11 Last Admin: 10/24/24 10:47 Dose: 200 mg Lacosamide (Lacosamide 50 Mg Tablet) 100 mg PO BID [facility] Stop: 11/23/24 20:59 Levetiracetam (Levetiracetam Inj 100 Mg/Ml Vial 5ml) 1,000 mg IVP X1 ONE Stop: 10/23/24 01:11 Last Admin: 10/23/24 01:34 Dose: 1,000 mg Levetiracetam (Levetiracetam 250 Mg Tablet) 750 mg PO BID [facility] Stop: 11/22/24 13:44 Levetiracetam (Levetiracetam Inj 100 Mg/Ml Vial 5ml) 500 mg IVP Q12HR [facility] Stop: 11/22/24 13:52 Last Admin: 10/23/24 14:11 Dose: 500 mg Levetiracetam (Levetiracetam 250 Mg Tablet) 750 mg PO BID [facility] Stop: 11/22/24 20:59 Last Admin: 10/24/24 10:38 Dose: Not Given Lorazepam (Lorazepam 2 Mg/Ml Vial) 2 mg IVP X1 ONE Stop: 10/23/24 01:10 Last Admin: 10/23/24 01:30 Dose: 2 mg Lorazepam (Lorazepam 2 Mg/Ml Vial) 2 mg IVP X1 ONE Stop: 10/23/24 04:08 Last Admin: 10/23/24 04:23 Dose: 2 mg Lorazepam (Lorazepam 2 Mg/Ml Vial) 2 mg IVP Q30M PRN PRN Reason: Breakthrough seizure Stop: 10/28/24 05:54 Lorazepam (Lorazepam 2 Mg/Ml Vial) 1 mg IV X1 PRN PRN Reason: AGITATION (MILD) Stop: 10/27/24 18:18 Last Admin: 10/23/24 18:41 Dose: 1 mg Lorazepam (Lorazepam 2 Mg/Ml Vial) 1 mg IVP X1 ONE Stop: 10/24/24 00:53 Last Admin: 10/24/24 00:58 Dose: 1 mg Lorazepam (Lorazepam 2 Mg/Ml Vial) 1 mg IVP X1 ONE Stop: 10/24/24 04:11 Last Admin: 10/24/24 04:34 Dose: 1 mg Lorazepam (Lorazepam 2 Mg/Ml Vial) 1 mg IVP X1 ONE Stop: 10/24/24 05:13 Last Admin: 10/24/24 05:43 Dose: 1 mg Lorazepam (Lorazepam 2 Mg/Ml Vial) 2 mg IVP X1 ONE Stop: 10/24/24 06:02 Last Admin: 10/24/24 06:10 Dose: 2 mg Lorazepam (Lorazepam 2 Mg/Ml Vial) 1 mg IM X1 ONE Stop: 10/24/24 08:04 Last Admin: 10/24/24 08:15 Dose: 1 mg Lorazepam (Lorazepam 2 Mg/Ml Vial) 2 mg IM X1 ONE Stop: 10/24/24 08:07 Last Admin: 10/24/24 10:23 Dose: Not Given Lorazepam (Lorazepam 2 Mg/Ml Vial) 4 mg IVP X1 ONE Stop: 10/24/24 09:53 Last Admin: 10/24/24 09:56 Dose: 4 mg Midazolam HCl (Midazolam Inj 1 Mg/Ml Vial 2 Ml) 2 mg IM X1 ONE Stop: 10/24/24 08:15 Last Admin: 10/24/24 10:34 Dose: Not Given Midazolam HCl (Midazolam Inj 1 Mg/Ml Vial 2 Ml) 2 mg IVP X1 ONE Stop: 10/24/24 09:34 Last Admin: 10/24/24 09:37 Dose: 2 mg Midazolam HCl (Midazolam Inj 1 Mg/Ml Vial 2 Ml) 2 mg IVP X1 ONE Stop: 10/24/24 09:42 Last Admin: 10/24/24 09:43 Dose: 2 mg Nicotine (Nicotine Patch 7 Mg/24 Hr Patch.Td24) 7 mg TOP QDAY [facility] Stop: 11/22/24 15:14 Last Admin: 10/24/24 10:46 Dose: 7 mg Rocuronium Azalea (Rocuronium Inj 10 Mg/Ml Vial 10 Ml) 50 mg IVP X1 ONE Stop: 10/24/24 09:53 Last Admin: 10/24/24 09:56 Dose: 50 mg Rocuronium Azalea (Rocuronium Inj 10 Mg/Ml Vial 10 Ml) 50 mg IVP X1 ONE Stop: 10/24/24 12:58 Last Admin: 10/24/24 13:01 Dose: 50 mg Sennosides (Senna Tablet) 1 tab PO QDAY PRN; Protocol PRN Reason: constipation Stop: 11/22/24 05:54 Sodium Chloride (Sodium Chloride Rt 10% 15 Ml Nebu) 5 ml INH X1 ONE Stop: 10/24/24 10:46 Venlafaxine HCl (Venlafaxine Xr 37.5 Mg Capcr) 150 mg PO QDAY [facility] Stop: 11/22/24 13:44 Last Admin: 10/24/24 14:24 Dose: Not Given Assessment & Plan Plan A 54-year-old female with significant past medical history of seizures, brain surgery, marijuana use, anxiety, depression was found to be unconscious when her sister went to check on her. The patient was immediately brought to the hospital for altered mental status. Patient apparently found to have vomitings and abdominal pain prior to the admission for 1 day. On reviewing previous medical records, patient was found to have hospital ER visits for seizures in 2021. Found to have cholecystectomy, laparoscopic by Dr. Monge in 2021. Cardiology is consulted in view of regional wall motion abnormality, elevated troponin and BNP, EKG changes and suspected ACS # Elevated troponins, NSTEMI --> likely type II # Pulmonary edema - Cardiogenic vs noncardiogenic, ARDS - Patient initially presented with altered mental status and vitals at the time of admission are stable, admitted for acute encephalopathy, likely secondary to suspected seizures - In the floors, patient is treated for sepsis and suspected seizure activity - On 10/24/2024, patient is upgraded to ICU for acute hypoxic respiratory failure and acute encephalopathy, patient is intubated, a bolus of 1 L IV fluid is given and started on vasopressors - Patient is given total 6.9 L since the time of admission in view of rhabdomyolysis - Troponin done on 10/24/2024 in the ICU is 6.24, later down trended to 6.0. BNP is 1465 - Chest x-ray showed bilateral increased vascular prominence, perihilar opacities, fluid in the right middle fissure, appears like cardiogenic pulmonary edema but cannot rule out ARDS - EKG done in the ICU showed sinus tachycardia with ST elevations in V3 and V4 with no reciprocal ST depressions noted in other leads - Per chart review, patient does not have any significant history of CAD and Heart failure Plan - Echocardiogram showed mild apical hypokinesis without significant regional wall motion abnormalities with EF of 60% - CVP is around 9, that suggest no right heart failure but cannot rule out LV dysfunction - Initially planned to do [facility] catheterization to measure pulmonary capillary wedge pressure, CVP but could not perform in view of insufficient equipment - Recommended to monitor oxygenation, vitals and repeat chest x-ray in the morning. If the patient oxygenation or vitals worsens, will do [facility] catheterization in the morning - Recommended to give 1 dose of Lasix 40 Mg IV as patient received almost 6.9 L of fluid since the time of admission, in suspicion of fluid overload - Acute hypoxic respiratory failure could be due to underlying sepsis causing Takotsubo cardiomyopathy like picture causing the pulmonary edema. Patient has possibility of CAD which could be exacerbated in the setting of fluid overload and sepsis, but cardiac catheterization cannot be done as patient is currently on vasopressors and suspected to have sepsis. Will do cardiac catheterization once patient clinical condition improves and if there is suspicion of CAD at the time. - Okay to continue heparin drip for now and either continue aspirin or Plavix # Shock, likely septic # To rule out cardiogenic - Patient initially presented to the hospital with altered mental status - Vitals are stable at the time of admission except for sinus tachycardia - Labs at the time of admission are significant for elevated WBC, metabolic acidosis, BHAVESH and procalcitonin. CK levels are elevated. - Patient is initially treated for sepsis and rhabdomyolysis. Patient received around 7 L of fluid - On 10/24/2024, patient developed sudden onset shortness of breath and agitation with low saturation for which patient is intubated and upgraded to ICU for further management - EKG done at that time showed ST elevations in V3 and V4, troponin of 6.2, BNP 1465 - Chest x-ray showed bilateral increased vascularity and perihilar opacities - Echocardiogram done showed no significant regional wall motion abnormalities except for mild hypokinesis at the apex, EF of 60% - Patient is started on heparin drip, received loading doses of aspirin and Plavix. Plan - Recommend to continue vasopressors for now - Okay to continue heparin, recommended to continue either aspirin or Plavix - Cardiogenic shock cannot be ruled out even if the patient had normal EF as patient can have LV diastolic dysfunction causing pulmonary edema and acute hypoxic respiratory failure. Patient can have Takotsubo like picture in the setting of ongoing acute illness, suspected sepsis. Fluid overload could also be contributing to the pulmonary edema as patient received almost 7 L since hospital admission - CVP is around 9 which rules out right heart failure. Initially intended to do [facility] catheter to measure the PCWP but could not do in view of insufficient equipment -If the patient clinical condition does not improve, will do [facility] catheterization tomorrow #Acute Encephalopathy #Seizure episode #History of seizures #Severe agitation #Left temporal encephalomalacia, temporal lobe calcification #Anxiety/depression, by history #Nicotine dependence #Marijuana dependence #Hypertension, by history #Acute hypoxic respiratory failure, on mechanical ventilation 2/2 severe agitation #Acute respiratory distress syndrome versus negative pressure pulmonary edema #Aspiration pneumonia #Transaminitis #Gastroenteritis, diarrhea #Acute kidney injury secondary to rhabdomyolysis #Cystitis #High anion gap metabolic acidosis #Lactic acidosis #Thickening of adrenal glands #Leukocytosis #Normocytic normochromic anemia #Cystitis #Aspiration pneumonia #Rule out meningitis - Rest of the medical conditions to be treated as per ICU team Thank you for allowing us to participate in the care of the patient Patient plan of care was discussed with the roll coating machine operator, Dr. Ash Oconnor, PGY2
[2024-10-24] MEDS: HEPARIN SOD INJ 5000 UNIT/ML VIAL 3150 UNIT IV (17:27)
[2024-10-24] MEDS: Heparin/D5w 25K 250 ML Ivpb 25,000 UNIT/250 ML BAG 6.26 UNIT IV (17:27)
[2024-10-24] MEDS: CLOPIDOGREL BISULFATE 75 MG TABLET 600 MG NG (17:41)
[2024-10-24] MEDS: POTASSIUM CHL 10 mEq IVPB 10 MEQ/100 ML BAG 100 MEQ IV ×4 (17:43→21:11)
[2024-10-24 19:44] LABS: Troponin I 4.427 ng/mL (0.0-0.045)
[2024-10-24] MEDS: PROPOFOL 1,000 MG IVPB 1,000 MG/100 ML VIAL 10.954 MG IV (19:55)
[2024-10-24] MEDS: SODIUM CHLORIDE RT 10% 15 ML NEBU 5 ML INH (20:37)
[2024-10-24] MEDS: LACOSAMIDE 50 MG TABLET 100 MG NG (21:16)
[2024-10-25] VITALS (98 sets, daily range): BP systolic 64–129; BP diastolic 45–89; PULSE 74–123; RESP 20–40; TEMP 36.8–37.2; O2SAT 90–100; BMI 21.2
--- NOTE | 2024-10-25 | XR_ITS ---
Examination: MRI of brain without intravenous contrast. MRI brain with intravenous contrast. Date and time of exam:October 25, 2024 1555 hours INDICATIONS: Altered mental status beginning 3 days ago with seizures Technique: Multiple axial and sagittal images of the brain to been obtained. Siemens high-resolution 1.52 Priya short bore scanner utilized. Sagittal sections, T1 weighted images, TR 500, TE 14, are performed. Axial sections proton-density and T2-weighted images have been obtained. Inversion recovery axial images, TR 9260, TE 111, TR 2500. Diffusion weighted images, axial sections, TR 4800, TE 128, B value 1000. Axial sections, ADC map, TR 4800, TE 128. Axial and coronal images were also obtained post 10 cc gadolinium administered intravenously. Findings:: Enlargement of the sella turcica is not present. The optic chiasm and infundibular stalk are not remarkable. There is no localized enlargement of the medulla or milad. Fourth ventricle and cerebellar tonsils appear normal in position. No subacute area of hemorrhage density is seen. Fourth ventricle is midline. Mass in the cerebellopontine angle region is not evident. 7th and 8th nerve complexes exhibit symmetry Globes are symmetrical Orbital musculature including medial lateral rectus muscles do not exhibit abnormality Increased white matter signal is prominent in the left temporal lobe at the site of encephalomalacia Effacement of the cortical sulcal markings is not identified. Mass effect upon the ventricular system is not identified. Diffusion-weighted images demonstrate possible ringlike area of restricted diffusion, diffusion image 10 with signal deficit on the ADC map Contrast images demonstrate no abnormal enhancement Impression: Large area encephalomalacia left temporal lobe Suspicious for ringlike restricted diffusion in the left temporal lobe with matching signal deficit on the ADC map, infarction pattern, recommend neurology consultation and correlation with neurologic findings
[2024-10-25 00:06] LABS: Partial Thromboplastin Time 49.8 Seconds (22.0-36.0)
[2024-10-25] MEDS: HEPARIN SOD INJ 5000 UNIT/ML VIAL 1550 UNIT IV (02:04)
--- NOTE | 2024-10-25 05:00 | XR_ITS ---
Examination: AP chest single view TECHNIQUE: AP portable semiupright chest single view Date and time: October 26, 2019 5051 Comparison October 24, 2024 INDICATIONS: Hypoxic respiratory failure this week FINDINGS: Normal heart size Extensive bilateral lung opacity especially left base Right internal jugular central line tip satisfactory position Orogastric tube in the stomach, the tip is below level of the film Endotracheal tube tip 3 cm above gemma IMPRESSION: Extensive bilateral lung opacity most consistent with pneumonia ARDS
[2024-10-25 05:18] LABS: Base Excess -8 (-3-3); HCO3 18 mEq/L (20-26); Inspired Oxygen, FIO2 40 %; O2 Saturation 85 % (91-98); PCO2 37 mmHg (32.0-48.0); pH, Arterial 7.30 (7.35-7.45)
[2024-10-25 05:29] LABS: Allen Test Performed/OK; PO2 53 mmHg (83-108); Puncture Site Right Radial
[2024-10-25] MEDS: PROPOFOL 1,000 MG IVPB 1,000 MG/100 ML VIAL 10.954 MG IV ×3 (05:32→22:00)
[2024-10-25 06:19] LABS: Basophils # (Auto) 0.1 Thou/mm3 (0.0-0.2); Basophils % (Auto) 1 % (0-2.5); Eosinophils # (Auto) 0.4 Thou/mm3 (0.0-0.5); Eosinophils % (Auto) 2 % (0-10); Hematocrit 28.6 % (36.0-46.0); Hemoglobin 9.4 g/dL (12.0-16.0); Immature Granulocytes Auto 0.09 Thou/mm3 (0.00-0.00); Lymphocytes # (Auto) 3.3 Thou/mm3 (1.0-4.8); Lymphocytes % (Auto) 20 % (10-50); Mean Corpuscular HGB Conc 32.9 g/dl (31.0-37.0); Mean Corpuscular Hemoglobin 30.9 pg (25.0-35.0); Mean Corpuscular Volume 94 fL (80-100); Monocytes # (Auto) 0.8 Thou/mm3 (0.0-0.8); Monocytes % (Auto) 5 % (0-12); Neutrophils # (Auto) 12.3 Thou/mm3 (1.8-7.7); Neutrophils % (Auto) 73 % (37-80); Nucleated Red Blood Cell # 0.00 Thou/mm3 (0.00-0.00); Nucleated Red Blood Cell % 0 /100 WBC (0); Platelet Count 254 Thou/mm3 (140-440); RDW Standard Deviation 43.2 fL (36.4-46.3); Red Blood Count 3.04 Miln/mm3 (4.00-5.20); White Blood Count 17.0 Thou/mm3 (3.6-11.0)
[2024-10-25 06:36] LABS: Folate 6.73 ng/mL (>5.38); Vitamin B12 412 pg/mL (211-911)
[2024-10-25 06:43] LABS: Partial Thromboplastin Time 67.6 Seconds (22.0-36.0)
[2024-10-25 06:46] LABS: Ferritin 131 ng/mL (7.3-270.7); Iron 8 mcg/dL (50-170); Percent Iron Saturation 4 % (20-55); Total Iron Binding Capacity 178 mcg/dL (250-425); Unsaturated Iron Binding 170 (225-295)
[2024-10-25 06:48] LABS: Alanine Aminotransferase 72 U/L (10-49); Albumin, Serum 2.9 gm/dL (3.5-5.0); Albumin/Globulin Ratio 1.5 (1.2-2.2); Alkaline Phosphatase 78 U/L (46-116); Anion Gap 10 (7-16); Aspartate Amino Transferase 67 U/L (0-34); BUN/Creatinine Ratio 13 Ratio (12-20); Bilirubin,Total 0.4 mg/dL (0.3-1.2); Blood Urea Nitrogen 13 mg/dL (9-23); Calcium 8.2 mg/dL (8.3-10.6); Calcium (Corrected) 9.1 mg/dL (8.5-10.1); Carbon Dioxide 18.6 mMol/L (20.0-31.0); Chloride 113 mMol/L (98-107); Creatinine (Component) 1.0 mg/dL (0.6-1.3); Estimated Creatinine Clearance 50.9 mL/min (>60); Globulin 2.0 gm/dL (2.3-3.5); Glucose 100 mg/dL (74-106); LDH (Lactate Dehydrogenase) 359 U/L (120-246); Magnesium 1.7 mg/dL (1.6-2.6); Osmolality,Calculated 283 (275-295); Phosphorous 1.4 mg/dL (2.4-5.1); Potassium 3.5 mMol/L (3.4-5.1); Sodium 142 mMol/L (136-145); Total Protein 4.9 gm/dL (5.7-8.2); eGFR > 60 See Note
[2024-10-25 06:52] LABS: Troponin I 2.498 ng/mL (0.0-0.045)
--- NOTE | 2024-10-25 08:23 | PD.INTPROC ---
PROCEDURES: Procedure Date / Time 10/24/24 1000 Intubation Indication(s): acute Resp Failure Informed consent obtained: procedure done urgently Time out done, and the following verified: correct patient, side and site and procedure Sedative: etomidate Mg given: 20 Sedative #2: versed Mg Given (sedative #2): 2 Paralytic: rocuronium Mg given: 50 Laryngoscope: fiber optic video scope ET tube size: 7.5 ET tube uncuffed: No Tube secured depth (cm): 23 Tube secured location: lips Tube placement confirmation: visualized tube passing through cords, equal breath sounds bilaterally, no breath sounds over epigastrium and confirmation by capnometry Patient tolerated procedure: well and no complications Intubation complications: none
[2024-10-25] MEDS: ASPIRIN 81 MG CHEW NG (08:28)
[2024-10-25] MEDS: CLOPIDOGREL BISULFATE 75 MG TABLET NG (08:29)
[2024-10-25] MEDS: cefTRIAXone/D5w 1gm IV premix 1 GM/50 ML BAG IV (08:29)
[2024-10-25] MEDS: LACOSAMIDE 50 MG TABLET 100 MG NG ×2 (08:31→20:42)
[2024-10-25] MEDS: levETIRAcetam LIQD 500 MG/5 ML UDC 750 MG NG ×2 (08:31→20:43)
[2024-10-25] MEDS: MIDAZOLAM INJ 1 MG/ML VIAL 2 ML 2 MG IVP ×2 (08:42→16:00)
[2024-10-25] MEDS: SODIUM CHLORIDE IV (09:27)
[2024-10-25] MEDS: FILTER MICRON CONICAL IV (09:27)
[2024-10-25] MEDS: PHENYTOIN IV (09:27)
[2024-10-25] MEDS: POTASSIUM PHOS 22.5 MMOL in SODIUM CHLORIDE 0.9% 500 ML 500 ML 82.778 MMOL IV (09:46)
[2024-10-25] MEDS: fentaNYL 2,500 MCG/250 ML BAG 2,500 MCG/250 ML BAG 10 MCG IV (10:25)
[2024-10-25] MEDS: FUROSEMIDE INJ 10 MG/ML 4ML VIAL 40 MG IVP (10:28)
--- NOTE | 2024-10-25 10:37 | PC.DIETICIAN ---
Nutrition prescription If EN is indicated, consider: Jevity 1.2 at 20 ml/hr via OG tube by pump. Advance 10 ml every 8 hrs to goal rate of 50 ml/hr x 24 hrs. If no IV fluids, water flushes of 25 ml/hr (or per MD).
[2024-10-25 10:55] LABS: Path Review Blood Smear Sent to Pathologist
[2024-10-25 11:41] LABS: Lactate (Lactic Acid) 1.4 mMol/L (0.4-2.0)
[2024-10-25 12:01] LABS: Partial Thromboplastin Time 36.1 Seconds (22.0-36.0)
[2024-10-25 12:04] LABS: Creatine Kinase 963 U/L (34-171)
[2024-10-25] MEDS: HEPARIN SOD INJ 5000 UNIT/ML VIAL 1600 UNIT IV (12:36)
--- NOTE | 2024-10-25 13:24 | PC.CC ---
Patient is a 54 year-old female who was BIB-sister, Olivia for seizure/AMS. ASWLeona made [id number] contact with patient. Patient is not alert and oriented. Patient is intubated and on pressers. Per RN David, patient is pending a MRI as she has been having seizure like activity. ASW made telephone contact with patient's sister, Olivia Granda to complete initial assessment. Per sister, the patient lives alone and has been able to ambulate independently and complete her own ADLs prior to this incident. Per sister, she lives 3 houses down from the patient and the last time she engaged with her was on Tuesday and patient presented well alert and oriented. Sister went to check up on her on Tuesday night and noticed she was altered and does not know what occurred this is when she decided to bring patient to the hospital. Per sister she is not sure what the discharge plan will be as she will have to consult the patient's sons who reside in [place]. Chip Frier to follow up with discharge plan.
--- NOTE | 2024-10-25 13:39 | ESPR_ITS ---
<Statement entered by Mis Warren MD - 10/26/24 12:29> Patient was seen and examined at bedside. I agree on the assessment and plan on this note as documented by resident Abdias Frank PGY1. Patient seen and examined at bedside, no overnight events. Earlier this morning patient appeared to have seizure-like activity despite being on high-dose sedation, was given phenytoin loading dose?discussed with neurology neurology for now recommends not changing treatment regimen, patient otherwise went down for MRI to MRI brain shows calcification of temporal lobe and possible underlying lesion from neurocysticercosis in the past. Patient on physical exam has bilateral lung crackles, will be given Lasix 40 x 1. Patient continues to be on heparin drip, ASA and Plavix for ACS, cardiology is following. Renal function has improved CK trending down. We will continue IV ceftriaxone to cover for cystitis and suspected aspiration. There is high clinical suspicion of negative pressure pulmonary edema along with cardiogenic pulmonary edema and a possible component of aspiration causing patient's worsening respiratory status. Otherwise we held a discussion with family at bedside, family was updated including sister who is the main decision-maker, niece and sons via phone. 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 Patient's mechanical ventilator was adjusted, FiO2 and PEEP were titrated to adjust for oxygenation. Patient will stay in ICU overnight, will consider weaning off of sedation in a.m., Versed will be discontinued today. Case discussed with attending Dr. Jd Warren MD PGY-2 Documentation for date of: 10/25/24 Subjective Subjective Interval history: History of present illness: Ms. Barger is a 54-year-old female with past medical history of hypertension, seizures, cholecystectomy, status post brain surgery in the past and chronic active smoker who presented to [facility] emergency department on October 23, 2024 with a chief complaint of altered mental status. Patient presented with acute onset most of the history on presentation was obtained from patient's sister and chart review. Per patient's sister her last seizure was last week prior to presentation, describes the seizure episodes as her staring out of the window into space for a few minutes before returning back to baseline. Last known well time was Saturday 10/21, patient is on Keppra daily, however per pharmacy patient has not picked up her prescription. The patient had a brain operation in 2013. Urine tox screen was positive for THC on presentation, no remote history of any substance use. TSH on presentation within normal limits. Patient was given Keppra loading dose, IV Ativan in ED, underwent lumbar puncture, LP showed elevated glucose and protein. Patient was to be followed by neurology undergoing seizure workup, was started on Vimpat and Keppra by neurology recommendations, was pending MRI and EEG. Of note patient has had multiple rapid responses called for agitation, patient does not have any psychiatric history, is on venlafaxine for anxiety/depression which was continued inpatient. 10/24: ICU consulted today for persistent agitation during a rapid response, patient was given Haldol 7.5 mg IM, was transferred to ICU for further management, in the unit patient was started on Precedex drip, however patient continued to remain agitated despite IV Versed pushes on top of Precedex drip, patient's heart rate was noted to be in 160s, was hypoxic with severe agitation and decision was made to intubate the patient. Patient was intubated and sedated, repeat chest x-ray shows significant worsening from the CT on 10/23, there is suspicion of negative pressure pulmonary edema versus ARDS, patient's ventilator settings were optimized to lower volumes, we will titrate down FiO2 and patient was started on deep sedation with IV Versed, propofol and fentanyl. Central line placed, patient requiring Levophed. Cardiology was consulted for elevated troponin and some ST?T EKG changes noted on V3-V5, patient was given loading dose aspirin and Plavix and started on heparin gtt. 10/25/2024: The patient's sister and niece were at bedside and were able to provide a clearer medical history. 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 Since then she has had mild seizures and has been on Keppra. However, the patient has not picked up her Keppra medication from the pharmacy since June of this year, which the niece and sister were unaware of. Per the niece and sister, the patient is otherwise fully functioning, and is surprisingly able to drive. The patient must be prohibited from driving, swimming, or operating any heavy machinery. Per the niece and sister, the patient is able to take appropriate preparatory actions for her seizures when she feels them coming on. The patient's niece describes the patient as having inappropriate vocabulary since the brain operation in 2013, as the patient has been calling various objects by the incorrect name. Her niece also describes a flattened affect expressed by the patient, and patient has also appeared to be hallucinating during the current hospital visit, however she has no psychiatric history or diagnoses. The patient had clonus in her bilateral upper and lower extremities morning of 10/25/2024, Dilantin was given and an EEG was ordered. She continues to be sedated on fentanyl propofol. Her troponins are trending down. The patient's pH decreased from 7.38 to 7.3 on ABG. The patient's PaO2 decreased from 130 to 53. Chest x-ray showed improving groundglass opacities morning of 10/25/2024. Exam Vital Signs Temp Pulse Resp BP Pulse Ox O2 Del Method O2 Flow Rate 98.5 F 102 H 28 H 115/75 100 Mechanical Ventilation 40 10/25/24 12:00 10/25/24 12:15 10/25/24 03:15 10/25/24 12:15 10/25/24 12:15 10/25/24 12:00 10/24/24 19:30 FiO2 40 10/25/24 12:00 Narrative Exam General: Intubated, mechanically ventilated. Neurologic: Sedated. GCS 4T. Withdraws to pain in lower extremities. HEENT: Normocephalic, atraumatic, mucous membranes moist. Pupils reactive to light. Heart: Regular rate and rhythm, normal S1 and S2, no murmurs. Lungs: Decreased breath sounds left lower lobe on auscultation. Abdomen: Soft, nondistended, nontender, positive bowel sounds. Extremities: No edema. 2+ radial and dorsalis pedis pulses bilaterally. Skin: Warm. Dry. No rash or ecchymoses. Objective Labs 10/26/24 04:58 10/26/24 04:58 Labs: Laboratory Results - last 24 hr 10/24/24 10/24/24 10/24/24 12:23 14:00 14:26 WBC RBC Hgb Hct MCV MCH MCHC RDW Std Deviation Plt Count Neut % (Auto) Lymph % (Auto) [place] % (Auto) Eos % (Auto) Baso % (Auto) Neut # (Auto) Lymph # (Auto) [place] # (Auto) Eos # (Auto) Baso # (Auto) Immature Gran # (Auto) Absolute Nucleated RBC Immature Gran % Nucleated RBC % Smear Path Review PT 11.4 INR 1.0 APTT 24.5 Puncture Site Right Radial ABG pH 7.38 D ABG pCO2 32 D ABG pO2 130 H D ABG HCO3 18 L ABG O2 Saturation 99 H ABG Base Excess -6 L VBG pH 7.34 VBG pCO2 35 L VBG pO2 61 H VBG O2 Sat (Jesica) 91 L VBG Base Excess -7 L FiO2 70 Sodium Potassium Chloride Carbon Dioxide Anion Gap BUN Creatinine Estim Creat Clear Calc eGFR BUN/Creatinine Ratio Glucose Calculated Osmolality Lactic Acid Calcium Corrected Calcium Phosphorus Magnesium Iron TIBC Iron Saturation Unsat Iron Binding Ferritin Total Bilirubin AST ALT Alkaline Phosphatase Lactate Dehydrogenase Total Creatine Kinase Troponin I 6.018 H* D Total Protein Albumin Globulin Albumin/Globulin Ratio Vitamin B12 Folate Salicylates < 3.0 Acetaminophen < 2.0 L 10/24/24 10/24/24 10/25/24 18:48 23:34 04:25 WBC 17.0 H D RBC 3.04 L Hgb 9.4 L D Hct 28.6 L MCV 94 MCH 30.9 MCHC 32.9 RDW Std Deviation 43.2 Plt Count 254 D Neut % (Auto) 73 Lymph % (Auto) 20 [place] % (Auto) 5 Eos % (Auto) 2 Baso % (Auto) 1 Neut # (Auto) 12.3 H Lymph # (Auto) 3.3 [place] # (Auto) 0.8 Eos # (Auto) 0.4 Baso # (Auto) 0.1 Immature Gran # (Auto) 0.09 H Absolute Nucleated RBC 0.00 Immature Gran % 1 H Nucleated RBC % 0 Smear Path Review Sent to Pathologist PT INR APTT 49.8 H D 67.6 H D Puncture Site ABG pH ABG pCO2 ABG pO2 ABG HCO3 ABG O2 Saturation ABG Base Excess VBG pH VBG pCO2 VBG pO2 VBG O2 Sat (Jesica) VBG Base Excess FiO2 Sodium 142 Potassium 3.5 Chloride 113 H Carbon Dioxide 18.6 L Anion Gap 10 BUN 13 Creatinine 1.0 Estim Creat Clear Calc 50.9 L eGFR > 60 BUN/Creatinine Ratio 13 Glucose 100 D Calculated Osmolality 283 Lactic Acid Calcium 8.2 L Corrected Calcium 9.1 Phosphorus 1.4 L Magnesium 1.7 Iron 8 L TIBC 178 L Iron Saturation 4 L Unsat Iron Binding 170 L Ferritin 131 Total Bilirubin 0.4 AST 67 H ALT 72 H Alkaline Phosphatase 78 Lactate Dehydrogenase 359 H Total Creatine Kinase Troponin I 4.427 H* D 2.498 H* D Total Protein 4.9 L Albumin 2.9 L D Globulin 2.0 L Albumin/Globulin Ratio 1.5 Vitamin B12 412 Folate 6.73 Salicylates Acetaminophen 10/25/24 10/25/24 05:05 11:20 WBC RBC Hgb Hct MCV MCH MCHC RDW Std Deviation Plt Count Neut % (Auto) Lymph % (Auto) [place] % (Auto) Eos % (Auto) Baso % (Auto) Neut # (Auto) Lymph # (Auto) [place] # (Auto) Eos # (Auto) Baso # (Auto) Immature Gran # (Auto) Absolute Nucleated RBC Immature Gran % Nucleated RBC % Smear Path Review PT INR APTT 36.1 H D Puncture Site Right Radial ABG pH 7.30 L ABG pCO2 37 ABG pO2 53 L* D ABG HCO3 18 L ABG O2 Saturation 85 L ABG Base Excess -8 L VBG pH VBG pCO2 VBG pO2 VBG O2 Sat (Jesica) VBG Base Excess FiO2 40 Sodium Potassium Chloride Carbon Dioxide Anion Gap BUN Creatinine Estim Creat Clear Calc eGFR BUN/Creatinine Ratio Glucose Calculated Osmolality Lactic Acid 1.4 Calcium Corrected Calcium Phosphorus Magnesium Iron TIBC Iron Saturation Unsat Iron Binding Ferritin Total Bilirubin AST ALT Alkaline Phosphatase Lactate Dehydrogenase Total Creatine Kinase 963 H D Troponin I Total Protein Albumin Globulin Albumin/Globulin Ratio Vitamin B12 Folate Salicylates Acetaminophen ABG Interpretation ABG results: 10/23/24 10/24/24 10/24/24 04:06 10:51 14:00 ABG pH 7.42 7.20 L D ABG pCO2 27 L 47 D ABG pO2 49 L* 83 D ABG HCO3 18 L 19 L ABG O2 Saturation 86 L 94 ABG Base Excess -6 L -9 L VBG pH 7.34 VBG pCO2 35 L VBG pO2 61 H VBG Base Excess -7 L 10/24/24 10/25/24 14:26 05:05 ABG pH 7.38 D 7.30 L ABG pCO2 32 D 37 ABG pO2 130 H D 53 L* D ABG HCO3 18 L 18 L ABG O2 Saturation 99 H 85 L ABG Base Excess -6 L -8 L VBG pH VBG pCO2 VBG pO2 VBG Base Excess Quality Measures Quality Measures sepsis Current suspected stage: ruled out Possible source: meningitis and unknown Blood cultures ordered: yes Antibiotic ordered: Yes and none Assessment & Plan Assessment Current Active Medications: Generic Name Dose Route Start Last Admin Trade Name Freq PRN Reason Stop Dose Admin Acetaminophen 650 mg 10/23/24 05:55 Acetaminophen 325 Mg Tablet PO 11/22/24 05:54 Q6H PRN PAIN SCALE 1-3 (mild Aspirin 81 mg 10/25/24 09:00 10/25/24 08:28 Aspirin 81 Mg Chew NG 11/24/24 08:59 81 mg QDAY KIMBERLY Administration Clopidogrel Bisulfate 75 mg 10/25/24 09:00 10/25/24 08:29 Clopidogrel Bisulfate 75 Mg Tablet NG 11/24/24 08:59 75 mg QDAY KIMBERLY Administration Dextrose 25 ml 10/25/24 08:37 Dextrose 50%-Water Inj 50 Ml Syringe IV 11/24/24 08:36 Q15MIN PRN BG 50-70 responsive npo pt Dextrose 50 ml 10/25/24 08:37 Dextrose 50%-Water Inj 50 Ml Syringe IV 11/24/24 08:36 Q15MIN PRN BG <50 OR BG <70 & pt unresponsive Glucagon 1 mg 10/25/24 08:37 Glucagon Inj 1 Mg Vial IM Q15MIN PRN BG <70, and no IV access Ceftriaxone Sodium/Dextrose 1 gm in 50 mls @ 100 mls/hr 10/23/24 11:00 10/25/24 08:29 Rocephin/D5w 1gm Iv Premix IV 10/30/24 10:59 100 mls/hr QDAY KIMBERLY Administration Propofol 1,000 mg in 100 mls @ 1.565 mls/hr 10/24/24 10:01 10/25/24 12:00 Diprivan Ivpb IV 11/23/24 10:00 35 mcg/kg/min .Q24H PRN 10.954 mls/hr PER PROTOCOL Titration Protocol 5 MCG/KG/MIN Fentanyl Citrate 2,500 mcg in 250 mls @ 2.5 mls/hr 10/24/24 10:01 10/25/24 12:31 Sublimaze Inj 2,500 Mcg/250 Ml Bag IV 10/29/24 10:00 50 mcg/hr .Q24H PRN 5 mls/hr PER PROTOCOL Titration Protocol 25 MCG/HR Midazolam HCl 100 mg in 100 mls @ 1 mls/hr 10/24/24 12:39 10/25/24 12:00 Versed Pf Inj In Ns Premix IV 10/29/24 12:38 1 mg/hr .Q24H PRN 1 mls/hr PER PROTOCOL Titration Protocol 1 MG/HR Norepinephrine Bitartrate 16 mg in 250 mls @ 2.445 mls/hr 10/24/24 12:39 10/25/24 12:15 Levophed In Ns 16mg/250ml IV 11/23/24 12:38 0.11 mcg/kg/min .Q24H PRN 5.379 mls/hr PER protocol Titration Protocol 0.05 MCG/KG/MIN Heparin Sodium/Dextrose 25,000 unit in 250 mls @ 6.26 mls/hr 10/24/24 14:00 10/25/24 12:37 Heparin In D5w Ivpb IV 11/07/24 13:59 16 units/kg/hr .Q24H KIMBERLY 8.346 mls/hr Titration Protocol 12 UNITS/KG/HR Potassium Phosphate 22.5 mmol/ 507.5 mls @ 82.778 mls/hr 10/25/24 08:30 10/25/24 09:46 Sodium Chloride IV 10/25/24 14:37 82.778 mls/hr X1 ONE Administration Lacosamide 100 mg 10/24/24 21:00 10/25/24 08:31 Lacosamide 50 Mg Tablet NG 11/23/24 20:59 100 mg BID KIMBERLY Administration Levetiracetam 750 mg 10/24/24 10:45 10/25/24 08:31 Levetiracetam Liqd 500 Mg/5 Ml Udc NG 11/22/24 20:59 750 mg BID KIMBERLY Administration Lorazepam 2 mg 10/25/24 11:47 Lorazepam 2 Mg/Ml Vial IVP 10/30/24 11:46 X1 PRN Before MRI for anxiety Ondansetron HCl 4 mg 10/23/24 05:55 10/23/24 10:17 Ondansetron Inj 2 Mg/Ml Inj 2 Ml IVP 11/22/24 05:54 4 mg Q6H PRN Administration NAUSEA OR VOMITING Protocol Pantoprazole Sodium 40 mg 10/24/24 19:15 10/25/24 08:26 Pantoprazole Inj 40 Mg Vial IVP 11/23/24 19:14 40 mg QDAY KIMBERLY Administration Sennosides 1 tab 10/24/24 10:56 Senna Tablet GT 11/23/24 10:55 QDAY PRN constipation Protocol Venlafaxine HCl 150 mg 10/24/24 10:57 Venlafaxine Xr 37.5 Mg Capcr PO 11/22/24 13:44 QDAY KIMBERLY Plan Summary: Ms. Barger is a 54-year-old female with past medical history of hypertension, seizures, cholecystectomy, status post brain surgery in the past and chronic active smoker who presented to [facility] emergency department on October 23, 2024 with a chief complaint of altered mental status. Patient admitted to hospital for further workup or for continued encephalopathy, ICU consulted for agitation, patient continued to remain agitated in ICU despite Precedex drip and IV Versed pushes, decision was made to intubate patient for airway protection and severe agitation on 10/24/2024. Neurological #Acute Encephalopathy #Seizure episode #History of seizures #Severe agitation Differential diagnosis: Seizure episode, postictal state, underlying psychiatric disorder, possible underlying drug withdrawal, Encephalitis, Meningitis Diagnostic workup: -Per sister, patient's baseline is talkative and independent, last seizure was last week, has episodes of staring into space. LKW Saturday 10/21, has history of seizures, on Keppra, per pharmacy hasn't picked up. Suspicion of Non-compliance. -Had hallucinations at times during hospitalization, suspicion of underlying psych. disorder. -CSF Analysis shows CSF Color Colorless, CSF WBC 5, CSF RBC 3, Mononuclear WBC 40, Polynuclear WBC 60, CSF Glucose 100, CSF Total Protein 44 -Recieved multiple doses of Haldol, Olanzapine, Ativan, Benadryl throughout hospital course. -Per patient's family, the patient has not been taking her home Keppra medication since June 2024. The mention that the patient is able to live and function individually and operate a motor vehicle. They mention that the patient is able to anticipate her own seizure episodes. Plan: -The patient should never operate a motor vehicle, swim, or operate any heavy machinery. -Continue Keppra 750 NG BID -Continue Vimpat 100 NG BID -Currently on sedation, fentanyl propofol -DC versed -Trial sedation holiday tomorrow (10/26/2024) -Pending MRI Brain w wo contrast -Pending EEG -Neurology Consulted, pending recommendation -CSF culture negative #Anxiety/depression, by history Patient has history of anxiety/depression on Venlafaxine 150mg daily -Hold Venlafaxine currently #Nicotine dependence #Marijuana dependence Chronic active smoker, U Tox. 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 -Cardiogenic shock, elevated troponins but downtrending on 10/25/2024, bedside echo shows some hypokinesis of the left ventricle, EKG does show some acute ST-T changes on leads V3 V4, -Obstructive shock, low suspicion patient did have a hypoxia however chest x-ray negative for any signs of pneumo, low suspicion of PE, no right heart strain/tamponade seen on bedside echo -Hemorrhagic shock, patient has no active source of any bleeding, hemoglobin is stable, anemic on 10/25/2024, see heme, likely due to volume Diagnostic workup: -Bedside echo shows hypokinesis of left ventricle -Patient is on IV antibiotics for cystitis, received multiple sedative dose medications, he was getting p.o. diet there is suspicion of aspiration -Chest x-ray shows improved bilateral groundglass opacities 10/25/2024 Treatment: -Levophed, titrate MAP greater than 65 -Will obtain NICOM assessment to assess peripheral vascular resistance, SVI -Continue ceftriaxone (10/23- -Cardiology consulted, ordered TTE #ACS: NSTEMI type I versus type II #Elevated troponin #Abnormal EKG Patient had worsened agitation, no symptoms of any chest pain/cardiac distress, did have abdominal pain prior to presentation. Troponin downtrending from 4.4 to 2.4, EKG showed some acute ST-T changes leads V3 V4 Plan: - Loading dose aspirin and Plavix - Heparin gtt. ACS protocol - Trend troponins - Repeat EKG as needed - Continue aspirin and Plavix - Cardiology consulted, appreciate recommendations - Ordered TTE to assess any septal wall hypokinesis/akinesis #Hypertension, by history Has history of hypertension, on lisinopril at home Pulmonary #Acute hypoxic respiratory failure, on mechanical ventilation 2/2 severe agitation #Acute respiratory distress syndrome versus negative pressure pulmonary edema versus flash pulmonary edema #Aspiration pneumonia Differential diagnosis: ARDS, negative pressure pulmonary edema, aspiration pneumonia, fluid overload - ARDS lower probability due to improvement of chest x-ray despite patient being 5.9 L positive since admission - Flash pulmonary edema may be considered due to patient being net +5.9 L since admission in combination with EKG changes and elevated troponins reflecting cardiac stress (see cardio) - There is suspicion of aspiration as patient was given multiple sedating medication and was allowed p.o. intake, however CT scan from 10/23 has no evidence of any pneumonia, procalcitonin 5.69 on 10/24/2024 down from 16.25 on 10/22/2024, sputum culture negative - Patient was breathing over the vent after intubation, negative pressure pulmonary edema may be considered given history of seizures and improvement on x-ray after mechanical ventilation and sedation Plan: - Low volume strategy goal 4 to 6 cc/kg, titrate FiO2 down to goal SpO2 greater than 92 - Continue with high PEEP, goal to keep peak and plateau pressures within normal limits - Continue with deep sedation in order to avoid vent stacking, RASS -4, currently on propofol, fentanyl - Continue IV ceftriaxone (10/23- - Lasix 40mg one-time dose 10/25/2024 Follow-up: - Chest x-ray in a.m., trend urine output Gastrointestinal #Transaminitis -AST 67 down from 154, ALT 72 from 66 -CT abdomen pelvis demonstrates no visualized liver or splenic lesion, no evidence of cirrhosis -Salicylate and acetaminophen level normal -Hep panel negative Plan: - Follow CMP in a.m. #Gastroenteritis, diarrhea -Patient did have chief complaint of abdominal pain and diarrhea on presentation. No active episodes of diarrhea noted otherwise for hospitalization. Plan: -Follow C. difficile PCR, stool culture, stool WBC Renal/Genitourinary #Acute kidney injury secondary to rhabdomyolysis - Patient did have an BHAVESH on presentation, on admission creatinine 2.0 baseline 0.6, BUN 13 creatinine 1 on 10/25/2024 - +5.9 L since admission - CK 963 on 10/25/2024 down from 5090 Plan: - Hold IV fluids for now - Monitor renal function in a.m. - Avoid nephrotoxic agents - Renally dose medication #Cystitis CT abdomen pelvis showed thickening of bladder wall, consistent with cystitis Patient did not report any symptoms, was encephalopathic on presentation Urinalysis did show rare bacteria Plan: - Continue IV ceftriaxone (10/23- #High anion gap metabolic acidosis (Resolved) #Lactic acidosis (Resolved) -AGAP is 10 on 10/25/2024 down from 18 -Lactic acid 1.4 on 10/25/2024 down from 2.25 Endocrine #Thickening of adrenal glands Incidental CT abdomen pelvis finding currently low clinical suspicion of adrenal hyperplasia - Will monitor Hematology #Leukocytosis White blood cell count 17,000 on 10/25/2024 down from 25,000 - Monitor CBC in a.m. #Normocytic normochromic anemia Patient has normocytic normochromic anemia, hemoglobin 9.4 hematocrit 28.6 on 10/25/2024 Likely due to positive volume of 5.9 L Folate and B12 levels normal Iron level is 9, normal is 65 Plan: - Monitor CBC, expect rise in hemoglobin and hematocrit as Lasix was given today - Hold iron resuscitation due to possible sepsis Infectious Disease #Cystitis #Aspiration pneumonia #Rule out meningitis - On IV ceftriaxone (10/23? - Pending cultures Integumentary No active problems DVT prophylaxis: Heparin GTT GI prophylaxis: IV Protonix Diet: N.p.o. Lines: Peripheral IV, right IJ triple-lumen central Code status: Full code Disposition: Patient continues to be intubated, sedated, and on pressor support. Will go for MRI today. Patient was seen and discussed with my attending Dr. Amelia Miles MD and my senior residents Dr. Mis Andre MD PGY-[address] Frde Chacon MD PGY-3. Abdias Frank DO PGY-1. Attending Provider Attestation/Addendum Patient seen and examined resident team. Agree with above. In brief this is a 54-year-old female who was admitted to the ICU yesterday for acute hypoxic respiratory failure, ACS, rhabdomyolysis, agitation, pulmonary edema. This morning she appeared to have a seizure activity despite being on propofol, Versed and fentanyl. She was given a dose of Dilantin. She does have a history of seizures and neurology was contacted. An EEG was obtained. Official read is still pending. On physical exam today her lungs still have some crackles at bases with occasional expiratory wheezes however greatly improved from yesterday, heart rate regular and rhythmic, no bruits or murmurs. Abdomen is soft, pulses palpable, no clubbing, no mottling. Her chest x-ray appears much improved from yesterday with pretty much only positive pressure. Her FiO2 requirements have improved as well. She was given a dose of Lasix today to assist in diuresis. She is continued on management for possible non-STEMI type I versus type II with cardiology following. Her rhabdomyolysis is improving. Her LFTs are felt to be elevated her AST and ALT secondary to her ongoing rhabdo. She does have some electrolyte disturbances which have been corrected. There is a degree of hyperchloremic acidosis secondary to the saline she received on the floor. Overall she appears to be improving despite her seizure activity earlier today. She is on antibiotics to cover for possible aspiration. Case discussed with ICU team Labs, imaging and records reviewed Approximately 45 critical care been required for evaluation, exam, review, intervention, discussion and formulation of plan of care for this critically ill patient with acute hypoxic respiratory failure at high risk for further ongoing decompensation
--- NOTE | 2024-10-25 15:17 | PD.RESPRO ---
Documentation for date of: 10/25/24 Subjective Subjective Interval history: Patient evaluated at bedside, heavily sedated. 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 Since then she has had mild seizures and has been on Keppra. However, the patient has not picked up her Keppra medication from the pharmacy since June of this year, which the niece and sister were unaware of. Per the niece and sister, the patient is otherwise fully functioning, and is surprisingly able to drive. Patient has been calling various objects by the incorrect name. Her niece also describes a flattened affect expressed by the patient, and patient has also appeared to be hallucinating during the current hospital visit, however she has no psychiatric history or diagnoses. The patient had clonus in her bilateral upper and lower extremities morning of 10/25/2024, Dilantin was given and an EEG was ordered. She continues to be sedated on fentanyl and propofol. Her troponins are trending down. The patient's pH decreased from 7.38 to 7.3 on ABG. The patient's PaO2 decreased from 130 to 53. Chest x-ray showed improving groundglass opacities morning of 10/25/2024. Exam Vital Signs Temp Pulse Resp BP Pulse Ox O2 Del Method O2 Flow Rate 98.5 F 89 28 H 106/80 100 Mechanical Ventilation 40 10/25/24 12:00 10/25/24 13:54 10/25/24 03:15 10/25/24 13:54 10/25/24 13:54 10/25/24 12:00 10/24/24 19:30 FiO2 40 10/25/24 13:54 Narrative Exam General: No acute distress, sedated Eye: Pupils 2mm and symmetric HENT: Normocephalic, atraumatic Neck: Supple, non-tender, no JVD, no lymphadenopathy Lungs: Symmetric chest rise. On mechanical ventilator. Vent settings: VC RR 30 PEEP 8, FiO2 40 Heart: Peripheral pulses intact bilaterally Abdomen: Soft, non-tender, non-distended MSK: Diffuse trembling Skin: Skin is warm, dry, no rashes or lesions. Objective Labs 10/27/24 04:30 10/27/24 04:30 Labs: Laboratory Results - last 24 hr 10/24/24 10/24/24 10/25/24 18:48 23:34 04:25 WBC 17.0 H D RBC 3.04 L Hgb 9.4 L D Hct 28.6 L MCV 94 MCH 30.9 MCHC 32.9 RDW Std Deviation 43.2 Plt Count 254 D Neut % (Auto) 73 Lymph % (Auto) 20 [place] % (Auto) 5 Eos % (Auto) 2 Baso % (Auto) 1 Neut # (Auto) 12.3 H Lymph # (Auto) 3.3 [place] # (Auto) 0.8 Eos # (Auto) 0.4 Baso # (Auto) 0.1 Immature Gran # (Auto) 0.09 H Absolute Nucleated RBC 0.00 Immature Gran % 1 H Nucleated RBC % 0 Smear Path Review Sent to Pathologist APTT 49.8 H D 67.6 H D Puncture Site ABG pH ABG pCO2 ABG pO2 ABG HCO3 ABG O2 Saturation ABG Base Excess FiO2 Sodium 142 Potassium 3.5 Chloride 113 H Carbon Dioxide 18.6 L Anion Gap 10 BUN 13 Creatinine 1.0 Estim Creat Clear Calc 50.9 L eGFR > 60 BUN/Creatinine Ratio 13 Glucose 100 D Calculated Osmolality 283 Lactic Acid Calcium 8.2 L Corrected Calcium 9.1 Phosphorus 1.4 L Magnesium 1.7 Iron 8 L TIBC 178 L Iron Saturation 4 L Unsat Iron Binding 170 L Ferritin 131 Total Bilirubin 0.4 AST 67 H ALT 72 H Alkaline Phosphatase 78 Lactate Dehydrogenase 359 H Total Creatine Kinase Troponin I 4.427 H* D 2.498 H* D Total Protein 4.9 L Albumin 2.9 L D Globulin 2.0 L Albumin/Globulin Ratio 1.5 Vitamin B12 412 Folate 6.73 10/25/24 10/25/24 05:05 11:20 WBC RBC Hgb Hct MCV MCH MCHC RDW Std Deviation Plt Count Neut % (Auto) Lymph % (Auto) [place] % (Auto) Eos % (Auto) Baso % (Auto) Neut # (Auto) Lymph # (Auto) [place] # (Auto) Eos # (Auto) Baso # (Auto) Immature Gran # (Auto) Absolute Nucleated RBC Immature Gran % Nucleated RBC % Smear Path Review APTT 36.1 H D Puncture Site Right Radial ABG pH 7.30 L ABG pCO2 37 ABG pO2 53 L* D ABG HCO3 18 L ABG O2 Saturation 85 L ABG Base Excess -8 L FiO2 40 Sodium Potassium Chloride Carbon Dioxide Anion Gap BUN Creatinine Estim Creat Clear Calc eGFR BUN/Creatinine Ratio Glucose Calculated Osmolality Lactic Acid 1.4 Calcium Corrected Calcium Phosphorus Magnesium Iron TIBC Iron Saturation Unsat Iron Binding Ferritin Total Bilirubin AST ALT Alkaline Phosphatase Lactate Dehydrogenase Total Creatine Kinase 963 H D Troponin I Total Protein Albumin Globulin Albumin/Globulin Ratio Vitamin B12 Folate ABG Interpretation ABG results: 10/23/24 10/24/24 10/24/24 04:06 10:51 14:00 ABG pH 7.42 7.20 L D ABG pCO2 27 L 47 D ABG pO2 49 L* 83 D ABG HCO3 18 L 19 L ABG O2 Saturation 86 L 94 ABG Base Excess -6 L -9 L VBG pH 7.34 VBG pCO2 35 L VBG pO2 61 H VBG Base Excess -7 L 10/24/24 10/25/24 14:26 05:05 ABG pH 7.38 D 7.30 L ABG pCO2 32 D 37 ABG pO2 130 H D 53 L* D ABG HCO3 18 L 18 L ABG O2 Saturation 99 H 85 L ABG Base Excess -6 L -8 L VBG pH VBG pCO2 VBG pO2 VBG Base Excess Quality Measures Quality Measures sepsis Current suspected stage: sepsis Possible source: meningitis and unknown Blood cultures ordered: yes Antibiotic ordered: Yes and none Assessment & Plan Assessment Current Active Medications: Generic Name Dose Route Start Last Admin Trade Name Freq PRN Reason Stop Dose Admin Acetaminophen 650 mg 10/23/24 05:55 Acetaminophen 325 Mg Tablet PO 11/22/24 05:54 Q6H PRN PAIN SCALE 1-3 (mild Aspirin 81 mg 10/25/24 09:00 10/25/24 08:28 Aspirin 81 Mg Chew NG 11/24/24 08:59 81 mg QDAY KIMBERLY Administration Clopidogrel Bisulfate 75 mg 10/25/24 09:00 10/25/24 08:29 Clopidogrel Bisulfate 75 Mg Tablet NG 11/24/24 08:59 75 mg QDAY KIMBERLY Administration Dextrose 25 ml 10/25/24 08:37 Dextrose 50%-Water Inj 50 Ml Syringe IV 11/24/24 08:36 Q15MIN PRN BG 50-70 responsive npo pt Dextrose 50 ml 10/25/24 08:37 Dextrose 50%-Water Inj 50 Ml Syringe IV 11/24/24 08:36 Q15MIN PRN BG <50 OR BG <70 & pt unresponsive Glucagon 1 mg 10/25/24 08:37 Glucagon Inj 1 Mg Vial IM Q15MIN PRN BG <70, and no IV access Ceftriaxone Sodium/Dextrose 1 gm in 50 mls @ 100 mls/hr 10/23/24 11:00 10/25/24 08:29 Rocephin/D5w 1gm Iv Premix IV 10/30/24 10:59 100 mls/hr QDAY KIMBERLY Administration Propofol 1,000 mg in 100 mls @ 1.565 mls/hr 10/24/24 10:01 10/25/24 12:00 Diprivan Ivpb IV 11/23/24 10:00 35 mcg/kg/min .Q24H PRN 10.954 mls/hr PER PROTOCOL Titration Protocol 5 MCG/KG/MIN Fentanyl Citrate 2,500 mcg in 250 mls @ 2.5 mls/hr 10/24/24 10:01 10/25/24 12:31 Sublimaze Inj 2,500 Mcg/250 Ml Bag IV 10/29/24 10:00 50 mcg/hr .Q24H PRN 5 mls/hr PER PROTOCOL Titration Protocol 25 MCG/HR Midazolam HCl 100 mg in 100 mls @ 1 mls/hr 10/24/24 12:39 10/25/24 12:00 Versed Pf Inj In Ns Premix IV 10/29/24 12:38 1 mg/hr .Q24H PRN 1 mls/hr PER PROTOCOL Titration Protocol 1 MG/HR Norepinephrine Bitartrate 16 mg in 250 mls @ 2.445 mls/hr 10/24/24 12:39 10/25/24 12:15 Levophed In Ns 16mg/250ml IV 11/23/24 12:38 0.11 mcg/kg/min .Q24H PRN 5.379 mls/hr PER protocol Titration Protocol 0.05 MCG/KG/MIN Heparin Sodium/Dextrose 25,000 unit in 250 mls @ 6.26 mls/hr 10/24/24 14:00 10/25/24 12:37 Heparin In D5w Ivpb IV 11/07/24 13:59 16 units/kg/hr .Q24H KIMBERLY 8.346 mls/hr Titration Protocol 12 UNITS/KG/HR Lacosamide 100 mg 10/24/24 21:00 10/25/24 08:31 Lacosamide 50 Mg Tablet NG 11/23/24 20:59 100 mg BID KIMBERLY Administration Levetiracetam 750 mg 10/24/24 10:45 10/25/24 08:31 Levetiracetam Liqd 500 Mg/5 Ml Udc NG 11/22/24 20:59 750 mg BID KIMBERLY Administration Lorazepam 2 mg 10/25/24 11:47 Lorazepam 2 Mg/Ml Vial IVP 10/30/24 11:46 X1 PRN Before MRI for anxiety Ondansetron HCl 4 mg 10/23/24 05:55 10/23/24 10:17 Ondansetron Inj 2 Mg/Ml Inj 2 Ml IVP 11/22/24 05:54 4 mg Q6H PRN Administration NAUSEA OR VOMITING Protocol Pantoprazole Sodium 40 mg 10/24/24 19:15 10/25/24 08:26 Pantoprazole Inj 40 Mg Vial IVP 11/23/24 19:14 40 mg QDAY KIMBERLY Administration Sennosides 1 tab 10/24/24 10:56 Senna Tablet GT 11/23/24 10:55 QDAY PRN constipation Protocol Venlafaxine HCl 150 mg 10/24/24 10:57 Venlafaxine Xr 37.5 Mg Capcr PO 11/22/24 13:44 QDAY KIMBERLY Plan #Acute encephalopathy #Hx seizures #Left temporal encephalomalacia, # 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 Occasionally repsonding to internal stimuli Per sister, patient's baseline is talkative and independent, last seizure was last week, has episodes of staring into space In the ED: given Keppra loading dose and IV Ativan Initial glucose: 151 Ammonia <10, EtOH <3, Hep A/B/C non-reactive, UA negative for UTI Lactic acid: 3.9 --> 3.9 --> 2.5 --> 2.1 --> 7.3 (10/24 at 08:25)--> 2.5 --> 1.4 UDS + THC. Urine opiate negative, Urine fentanyl negative, salicylate <3, Acetaminophen <2, EtOH <3, Ammonia <10, TSH WNL 1.75 Total CK high 7886, procal high 16.25 --> 5.69 CSF: clear, WBC 5, RBC 3, monocyte 40, polynucleocyte 60%, glucose 100 high (>60% blood glucose 151), protein [address] head w/o: No hemorrhage, mass effect, or midline shift. + left temporal encephalomalacia, left posterior temporal lobe calcification. MRI brain w/ and w/o: Increased white matter signal in left temporal lobe at site of encephalomalacia. Possible ringlike area of restricted diffusion on DWI with signal deficit on ADC. DDX: infarction vs post-seizure findings EEG: diffuse slowing, no epileptiform discharges 10/24 overnight: patient had multiple rapid responses for persistent agitation despite B-52, olanzapine, lorazepam, more Ativan, Versed, Vimpat 200 mg IV x 1 push. Upgraded to ICU for persistent agitations despite multiple sedation attempts. 10/25: clonus in her bilateral upper and lower extremities morning of 10/25/2024, Phenytoin 800 mg IV x1 was given and repeat EEG was ordered DDX: seizures, TIA, metabolic (shock, lactic acidosis, BHAVESH, hypoxia), infectious (PNA, diarhea, cystitis, meningitis, encephalitis), underlying psychiatric disorder Plan: - Keppra 750 mg BID, Vimpat 100 mg BID - Dose monitoring of EKG changes and bradycardia - Pending CSF culture, blood cx x2, sputum cx and gram stain - Pending repeat EEG - Wean off sedation #Anxiety/depression, by history Patient has history of anxiety/depression on Venlafaxine 150mg daily Plan: - Management per primary - hold Venlafaxine currently #Nicotine dependence #Marijuana dependence Chronic active smoker, U Tox. positive for THC Plan: - Management per primary #Shock, undifferentiated Chest x-ray shows significantly worsening traits compared to 10/23 CT chest, likely some component of aspiration DDX: distributive/septic (aspiraton PNA, cystitis) vs cardiogenic Plan: - Management per primary - pressors, abx - Pending TTE #High anion gap metabolic acidosis #Lactic acidosis High anion gap noted in setting of lactic acidosis Lactic acid: 7.3 (on 10/14) --> 2.5 Plan: - Management per primary #Acute hypoxic respiratory failure, on mechanical ventilation 2/2 severe agitation Patient was hypoxic to spO2 80-88% --> intubated Chest x-ray: significant reticular opacities, suspicion of fluid overload as well, patient is net positive for admission, around 5.4 L There is suspicion of aspiration as well as patient was given multiple sedating medication and was allowed p.o. intake CT scan from 10/23 has no evidence of any pneumonia 10/25 CXR: Extensive bilateral lung opacity most consistent with pneumonia ARDS DDX: ARDS, negative pressure pulmonary edema, aspiration PNA, fluid overload Plan: - Management per primary - sedation, antibiotics - Pending sputum culture - Pending Pro-Osmany (send-out) #ACS: NSTEMI type I versus type II #Elevated troponin #Abnormal EKG Patient had worsened agitation, no symptoms of any chest pain/cardiac distress, did have abdominal pain prior to presentation. Troponin obtained today elevated at 6.240, EKG shows some acute ST-T changes leads V3 V4 Plan: - Management per primary, cardiology - heparin gtt, ASA, Plavix #Hypertension, by history Home med: Lisinopril 20 mg daily Plan: - Management per primary #Transaminitis Initial AST: 164, uptrending Initial ALT: 66, uptrending Initial alk phos: 139, downtrending Initial total bili: 0.3 WNL Ammonia <10 Salicylate <3 Acetaminophen <2 EtOH <3 UDS + THC CT abdomen pelvis says no visualized liver or splenic lesion, no evidence of cirrhosis Plan: - Management per primary #Gastroenteritis, diarrhea Abdominal pain and diarrhea on initial presentation No active episodes of diarrhea noted otherwise for hospitalization. Plan: - Management per primary -Pending C. difficile PCR, stool culture, stool WBC #Acute kidney injury secondary to moderate rhabdomyolysis Baseline Cr: 0.6 BUN: 18 (stable) Cr: 2 (downtrending) BUN/CR: 9 (c/w intrarenal cause of BHAVESH) UA: 1+ protein, 3+ blood, RBC 5, WBC 10, amorphous crystals present CK: 7886 (downtrending) Patient did receive IV NS for the hospitalization, he is net +5 L 2/2 tx of rhabdomyolysis Plan: - Management per primary #Cystitis CT abdomen pelvis showed thickening of bladder wall, consistent with cystitis Plan: - Management per primary - IV ceftriaxone (10/23- ) #Thickening of adrenal glands Incidental CT abdomen pelvis finding currently low clinical suspicion of adrenal hyperplasia Plan: - Management per primary #Leukocytosis Neutrophilic predominance with left shift DDX: sepsis, seizure, cystitis, BHAVESH, diarrhea Plan: - Management per primary #Normocytic normochromic anemia Hgb: 11.2 HCT: 32 MCV: 92 MCHC: 34.5 Iron: 8 low TIBC: 178 low Iron sat: 4 low Unsat iron bindin low Ferritin: 131 WNL LDH: 359 high Total bili: 0.5 TSH: 1.75 (WNL) BUN: 18 Cr: 1.3 Evidence of active bleed: none Plan: - Management per primary - Pending iron panel/smear review/vitamin B12/folate level/LDH Plan discussed with Dr. Jose Alberto Reed, PGY1 Attending Provider Attestation/Addendum I personally have seen and examined the patient at the bedside and I agreed with resident findings, assessment and plan of care. Will follow-up with the EEG. Continue with Keppra and Vimpat and follow seizure precautions.
[2024-10-25 17:40] LABS: Hematocrit 33.8 % (36.0-46.0); Hemoglobin 11.5 g/dL (12.0-16.0)
--- NOTE | 2024-10-25 18:46 | ESPR_ITS ---
<Statement entered by Marino Aleman MD - 10/28/24 17:42> I personally evaluated examined the patient intensive care indolently along with resident physician PGY2 Dr. Jayson Oconnor appears to be doing little better but she did diurese well with Lasix and clinical improvement of heart failure left pleural effusion is present continues to be on mechanical ventilator slowly weaned off sedated. Patient condition remains critical prognosis guarded. Next patient did have troponin elevation possibly type II myocardial infarction with some EKGs might require coronary angiogram prior to discharge but not planning any angiogram until the patient is extubated and stable. Documentation for date of: 10/26/24 Subjective Subjective Interval history: Patient is seen and examined at bedside No acute overnight events. Still on mechanical ventilator but found to have decreased oxygen needs and vasopressor Patient received a dose of Lasix 40 Mg IV. Noted significant improvement of vascular congestion on chest x-ray but noted left pleural effusion with suspected underlying atelectasis Recommended to continue current management Exam Vital Signs Temp Pulse Resp BP Pulse Ox O2 Del Method O2 Flow Rate 98.1 F 88 30 H 89/57 L 100 Mechanical Ventilation 40 10/26/24 16:00 10/26/24 18:34 10/26/24 06:00 10/26/24 18:34 10/26/24 18:34 10/26/24 16:00 10/24/24 19:30 FiO2 30 10/26/24 18:34 Narrative Exam General: On ventilator. Sedated HEENT: Normocephalic, atraumatic, mucous membranes moist. Heart: Regular rate and rhythm, no murmurs. Lungs: Clear to auscultation with no wheezing or crackles. Noted decreased breath sounds in left basilar area Abdomen: Soft, nondistended, nontender, positive bowel sounds. ?No guarding or rebound tenderness. Neurologic: Sedated and mechanically ventilated Extremities: No edema. Skin: No rash or ecchymoses. Objective Labs 10/26/24 04:58 10/26/24 04:58 Labs: Laboratory Results - last 24 hr 10/25/24 10/26/24 10/26/24 18:28 01:10 04:41 WBC RBC Hgb Hct MCV MCH MCHC RDW Std Deviation Plt Count Neut % (Auto) Lymph % (Auto) Gregory % (Auto) Eos % (Auto) Baso % (Auto) Neut # (Auto) Lymph # (Auto) Gregory # (Auto) Eos # (Auto) Baso # (Auto) Immature Gran # (Auto) Absolute Nucleated RBC Immature Gran % Nucleated RBC % PT INR APTT 36.2 H 39.6 H Puncture Site Right Radial ABG pH 7.42 D ABG pCO2 35 ABG pO2 64 L ABG HCO3 23 ABG O2 Saturation 93 ABG Base Excess -1 FiO2 40 Sodium Potassium Chloride Carbon Dioxide Anion Gap BUN Creatinine Estim Creat Clear Calc eGFR BUN/Creatinine Ratio Glucose Calculated Osmolality Calcium Corrected Calcium Phosphorus Magnesium Total Bilirubin AST ALT Alkaline Phosphatase Total Protein Albumin Globulin Albumin/Globulin Ratio 10/26/24 10/26/24 10/26/24 04:58 09:50 17:38 WBC 10.7 D RBC 2.91 L Hgb 9.1 L D Hct 26.8 L MCV 92 MCH 31.3 MCHC 34.0 RDW Std Deviation 41.3 Plt Count 223 D Neut % (Auto) 62 Lymph % (Auto) 26 Gregory % (Auto) 7 Eos % (Auto) 4 Baso % (Auto) 1 Neut # (Auto) 6.6 Lymph # (Auto) 2.8 Gregory # (Auto) 0.8 Eos # (Auto) 0.4 Baso # (Auto) 0.1 Immature Gran # (Auto) 0.04 H Absolute Nucleated RBC 0.00 Immature Gran % 0 Nucleated RBC % 0 PT 10.9 INR 1.0 APTT 59.8 H D 46.6 H D 47.0 H Puncture Site ABG pH ABG pCO2 ABG pO2 ABG HCO3 ABG O2 Saturation ABG Base Excess FiO2 Sodium 144 Potassium 3.0 L D Chloride 110 H Carbon Dioxide 22.3 Anion Gap 12 BUN 8 L Creatinine 0.9 Estim Creat Clear Calc 53.9 L eGFR > 60 BUN/Creatinine Ratio 9 L Glucose 89 Calculated Osmolality 284 Calcium 8.2 L Corrected Calcium 9.0 Phosphorus 2.4 Magnesium 1.8 Total Bilirubin 0.3 AST 36 H ALT 51 H Alkaline Phosphatase 108 D Total Protein 5.2 L Albumin 3.0 L Globulin 2.2 L Albumin/Globulin Ratio 1.4 ABG Interpretation ABG results: 10/23/24 10/24/24 10/24/24 04:06 10:51 14:00 ABG pH 7.42 7.20 L D ABG pCO2 27 L 47 D ABG pO2 49 L* 83 D ABG HCO3 18 L 19 L ABG O2 Saturation 86 L 94 ABG Base Excess -6 L -9 L VBG pH 7.34 VBG pCO2 35 L VBG pO2 61 H VBG Base Excess -7 L 10/24/24 10/25/24 10/26/24 14:26 05:05 04:41 ABG pH 7.38 D 7.30 L 7.42 D ABG pCO2 32 D 37 35 ABG pO2 130 H D 53 L* D 64 L ABG HCO3 18 L 18 L 23 ABG O2 Saturation 99 H 85 L 93 ABG Base Excess -6 L -8 L -1 VBG pH VBG pCO2 VBG pO2 VBG Base Excess Quality Measures Quality Measures sepsis Current suspected stage: septic shock (LA >4 and/or hypotension) Sepsis reassessment completed at (date): 10/25/24 Sepsis reassessment completed at (time): 13:00 Possible source: meningitis and unknown Blood cultures ordered: yes Antibiotic ordered: Yes and none Assessment & Plan Assessment Current Active Medications: Generic Name Dose Route Start Last Admin Trade Name Freq PRN Reason Stop Dose Admin Acetaminophen 650 mg 10/23/24 05:55 Acetaminophen 325 Mg Tablet PO 11/22/24 05:54 Q6H PRN PAIN SCALE 1-3 (mild Aspirin 81 mg 10/25/24 09:00 10/26/24 08:58 Aspirin 81 Mg Chew NG 11/24/24 08:59 81 mg QDAY KIMBERLY Administration Clopidogrel Bisulfate 75 mg 10/25/24 09:00 10/26/24 08:57 Clopidogrel Bisulfate 75 Mg Tablet NG 11/24/24 08:59 75 mg QDAY KIMBERLY Administration Dextrose 25 ml 10/25/24 08:37 Dextrose 50%-Water Inj 50 Ml Syringe IV 11/24/24 08:36 Q15MIN PRN BG 50-70 responsive npo pt Dextrose 50 ml 10/25/24 08:37 Dextrose 50%-Water Inj 50 Ml Syringe IV 11/24/24 08:36 Q15MIN PRN BG <50 OR BG <70 & pt unresponsive Glucagon 1 mg 10/25/24 08:37 Glucagon Inj 1 Mg Vial IM Q15MIN PRN BG <70, and no IV access Ceftriaxone Sodium/Dextrose 1 gm in 50 mls @ 100 mls/hr 10/23/24 11:00 10/26/24 08:58 Rocephin/D5w 1gm Iv Premix IV 10/30/24 10:59 100 mls/hr QDAY KIMBERLY Administration Propofol 1,000 mg in 100 mls @ 1.565 mls/hr 10/24/24 10:01 10/26/24 18:00 Diprivan Ivpb IV 11/23/24 10:00 50 mcg/kg/min .Q24H PRN 15.649 mls/hr PER PROTOCOL Titration Protocol 5 MCG/KG/MIN Fentanyl Citrate 2,500 mcg in 250 mls @ 2.5 mls/hr 10/24/24 10:01 10/26/24 18:00 Sublimaze Inj 2,500 Mcg/250 Ml Bag IV 10/29/24 10:00 225 mcg/hr .Q24H PRN 22.5 mls/hr PER PROTOCOL Titration Protocol 25 MCG/HR Midazolam HCl 100 mg in 100 mls @ 1 mls/hr 10/24/24 12:39 10/25/24 18:13 Versed Pf Inj In Ns Premix IV 10/29/24 12:38 0 mg/hr .Q24H PRN 0 mls/hr PER PROTOCOL Titration Protocol 1 MG/HR Heparin Sodium/Dextrose 25,000 unit in 250 mls @ 6.26 mls/hr 10/24/24 14:00 10/26/24 18:42 Heparin In D5w Ivpb IV 11/07/24 13:59 24 units/kg/hr .Q24H KIMBERLY 12.519 mls/hr Titration Protocol 12 UNITS/KG/HR Norepinephrine Bitartrate 16 mg in 250 mls @ 2.461 mls/hr 10/26/24 01:50 10/26/24 10:00 Levophed In Ns 16mg/250ml IV 11/25/24 01:49 0 mcg/kg/min .Q24H PRN 0 mls/hr PER PROTOCOL Titration Protocol 0.05 MCG/KG/MIN Lacosamide 100 mg 10/24/24 21:00 10/26/24 08:57 Lacosamide 50 Mg Tablet NG 11/23/24 20:59 100 mg BID KIMBERLY Administration Levetiracetam 750 mg 10/24/24 10:45 10/26/24 08:57 Levetiracetam Liqd 500 Mg/5 Ml Udc NG 11/22/24 20:59 750 mg BID KIMBERLY Administration Lorazepam 2 mg 10/25/24 11:47 Lorazepam 2 Mg/Ml Vial IVP 10/30/24 11:46 X1 PRN Before MRI for anxiety Ondansetron HCl 4 mg 10/23/24 05:55 10/23/24 10:17 Ondansetron Inj 2 Mg/Ml Inj 2 Ml IVP 11/22/24 05:54 4 mg Q6H PRN Administration NAUSEA OR VOMITING Protocol Pantoprazole Sodium 40 mg 10/24/24 19:15 10/26/24 08:57 Pantoprazole Inj 40 Mg Vial IVP 11/23/24 19:14 40 mg QDAY KIMBERLY Administration Quetiapine Fumarate 50 mg 10/26/24 13:45 10/26/24 14:14 Quetiapine Fumarate 25 Mg Tablet NG 11/25/24 13:44 50 mg BID KIMBERLY Administration Sennosides 2 tab 10/26/24 14:00 10/26/24 14:14 Senna/Docusate Sod 1 Tab Tablet PO 11/25/24 13:59 2 tab QDAY KIMBERLY Administration Protocol Venlafaxine HCl 150 mg 10/24/24 10:57 Venlafaxine Xr 37.5 Mg Capcr PO 11/22/24 13:44 QDAY KIMBERLY Plan A 54-year-old female with significant past medical history of seizures, brain surgery, marijuana use, anxiety, depression was found to be unconscious when her sister went to check on her. The patient was immediately brought to the hospital for altered mental status. Patient apparently found to have vomitings and abdominal pain prior to the admission for 1 day. On reviewing previous medical records, patient was found to have hospital ER visits for seizures in 2021. Found to have cholecystectomy, laparoscopic by Dr. Monge in 2021. Cardiology is consulted in view of regional wall motion abnormality, elevated troponin and BNP, EKG changes and suspected ACS # Elevated troponins, NSTEMI --> likely type II # Pulmonary edema - Cardiogenic vs noncardiogenic, ARDS - Patient initially presented with altered mental status and vitals at the time of admission are stable, admitted for acute encephalopathy, likely secondary to suspected seizures - In the floors, patient is treated for sepsis and suspected seizure activity - On 10/24/2024, patient is upgraded to ICU for acute hypoxic respiratory failure and acute encephalopathy, patient is intubated, a bolus of 1 L IV fluid is given and started on vasopressors - Patient is given total 6.9 L since the time of admission in view of rhabdomyolysis - Troponin done on 10/24/2024 in the ICU is 6.24, later down trended to 6.0. BNP is 1465 - Chest x-ray showed bilateral increased vascular prominence, perihilar opacities, fluid in the right middle fissure, appears like cardiogenic pulmonary edema but cannot rule out ARDS - EKG done in the ICU showed sinus tachycardia with ST elevations in V3 and V4 with no reciprocal ST depressions noted in other leads - Per chart review, patient does not have any significant history of CAD and Heart failure Plan - Echocardiogram showed mild apical hypokinesis without significant regional wall motion abnormalities with EF of 60% - CVP is around 9, that suggest no right heart failure but cannot rule out LV dysfunction - Initially planned to do [place] catheterization to measure pulmonary capillary wedge pressure, CVP but could not perform in view of insufficient equipment - Recommended to monitor oxygenation, vitals and repeat chest x-ray in the morning. If the patient oxygenation or vitals worsens, will do [place] catheterization in the morning - Recommended to give 1 dose of Lasix 40 Mg IV as patient received almost 6.9 L of fluid since the time of admission, in suspicion of fluid overload - Acute hypoxic respiratory failure could be due to underlying sepsis causing Takotsubo cardiomyopathy like picture causing the pulmonary edema. Patient has possibility of CAD which could be exacerbated in the setting of fluid overload and sepsis, but cardiac catheterization cannot be done as patient is currently on vasopressors and suspected to have sepsis. Will do cardiac catheterization once patient clinical condition improves and if there is suspicion of CAD at the time. - Okay to continue heparin drip for now and either continue aspirin or Plavix # Shock, likely septic # To rule out cardiogenic - Patient initially presented to the hospital with altered mental status - Vitals are stable at the time of admission except for sinus tachycardia - Labs at the time of admission are significant for elevated WBC, metabolic acidosis, BHAVESH and procalcitonin. CK levels are elevated. - Patient is initially treated for sepsis and rhabdomyolysis. Patient received around 7 L of fluid - On 10/24/2024, patient developed sudden onset shortness of breath and agitation with low saturation for which patient is intubated and upgraded to ICU for further management - EKG done at that time showed ST elevations in V3 and V4, troponin of 6.2, BNP 1465 - Chest x-ray showed bilateral increased vascularity and perihilar opacities - Echocardiogram done showed no significant regional wall motion abnormalities except for mild hypokinesis at the apex, EF of 60% - Patient is started on heparin drip, received loading doses of aspirin and Plavix. Plan - Recommend to continue vasopressors for now - Okay to continue heparin, recommended to continue either aspirin or Plavix - Cardiogenic shock cannot be ruled out even if the patient had normal EF as patient can have LV diastolic dysfunction causing pulmonary edema and acute hypoxic respiratory failure. Patient can have Takotsubo like picture in the setting of ongoing acute illness, suspected sepsis. Fluid overload could also be contributing to the pulmonary edema as patient received almost 7 L since hospital admission at the time of intubation - CVP is around 9 which rules out right heart failure. Initially intended to do [place] catheter to measure the PCWP but could not do in view of insufficient equipment - No need of [place] catheter as patient appears to be improving clinically #Acute Encephalopathy #Seizure episode #History of seizures #Severe agitation #Left temporal encephalomalacia, temporal lobe calcification #Anxiety/depression, by history #Nicotine dependence #Marijuana dependence #Hypertension, by history #Acute hypoxic respiratory failure, on mechanical ventilation 2/2 severe agitation #Acute respiratory distress syndrome versus negative pressure pulmonary edema #Aspiration pneumonia #Transaminitis #Gastroenteritis, diarrhea #Acute kidney injury secondary to rhabdomyolysis #Cystitis #High anion gap metabolic acidosis #Lactic acidosis #Thickening of adrenal glands #Leukocytosis #Normocytic normochromic anemia #Cystitis #Aspiration pneumonia #Rule out meningitis - Rest of the medical conditions to be treated as per ICU team Thank you for allowing us to participate in the care of the patient Patient plan of care was discussed with the welding machine operator electro gas, Dr. Ash Oconnor, PGY2
[2024-10-25 18:54] LABS: Partial Thromboplastin Time 36.2 Seconds (22.0-36.0)
[2024-10-25] MEDS: HEPARIN SOD INJ 5000 UNIT/ML VIAL 1600 UNIT IVP (19:27)
[2024-10-25] MEDS: RINGERS LACTATED 1000 ML 1,000 ML 999 ML IV ×2 (20:30→20:55)
[2024-10-26] VITALS (108 sets, daily range): BP systolic 79–164; BP diastolic 47–128; PULSE 71–141; RESP 10–32; TEMP 36.3–37.4; O2SAT 91–100; BMI 21.1
[2024-10-26 01:53] LABS: Partial Thromboplastin Time 39.6 Seconds (22.0-36.0)
[2024-10-26] MEDS: Norepinephrine/NS 16mg/250ml 16 MG/250 ML BAG 2.461 MG IV (02:01)
[2024-10-26] MEDS: Heparin/D5w 25K 250 ML Ivpb 25,000 UNIT/250 ML BAG 10.433 UNIT IV (02:05)
[2024-10-26] MEDS: HEPARIN SOD INJ 5000 UNIT/ML VIAL 1600 UNIT IVP (02:09)
[2024-10-26 04:55] LABS: Allen Test Performed/OK; Base Excess -1 (-3-3); HCO3 23 mEq/L (20-26); Inspired Oxygen, FIO2 40 %; O2 Saturation 93 % (91-98); PCO2 35 mmHg (32.0-48.0); PO2 64 mmHg (83-108); Puncture Site Right Radial; pH, Arterial 7.42 (7.35-7.45)
--- NOTE | 2024-10-26 05:00 | XR_ITS ---
Examination: AP chest single view TECHNIQUE: AP portable semiupright chest single view Date and time: October 26, 2024, 0638 hours Comparison October 25, 2024 INDICATIONS: Seizure this morning, hypoxic respiratory failure FINDINGS: Normal heart size. Pneumonia left base with significant left pleural fluid Orogastric tube in stomach satisfactory position. Endotracheal tube tip 4.3 cm above [place]. Right internal jugular central line tip SVC satisfactory position, no pneumothorax Mild vascular congestion. IMPRESSION: Pneumonia left base with significant left pleural fluid
[2024-10-26] MEDS: PROPOFOL 1,000 MG IVPB 1,000 MG/100 ML VIAL 10.954 MG IV (05:19)
[2024-10-26 06:21] LABS: Basophils # (Auto) 0.1 Thou/mm3 (0.0-0.2); Basophils % (Auto) 1 % (0-2.5); Eosinophils # (Auto) 0.4 Thou/mm3 (0.0-0.5); Eosinophils % (Auto) 4 % (0-10); Hematocrit 26.8 % (36.0-46.0); Hemoglobin 9.1 g/dL (12.0-16.0); Immature Granulocytes Auto 0.04 Thou/mm3 (0.00-0.00); Lymphocytes # (Auto) 2.8 Thou/mm3 (1.0-4.8); Lymphocytes % (Auto) 26 % (10-50); Mean Corpuscular HGB Conc 34.0 g/dl (31.0-37.0); Mean Corpuscular Hemoglobin 31.3 pg (25.0-35.0); Mean Corpuscular Volume 92 fL (80-100); Monocytes # (Auto) 0.8 Thou/mm3 (0.0-0.8); Monocytes % (Auto) 7 % (0-12); Neutrophils # (Auto) 6.6 Thou/mm3 (1.8-7.7); Neutrophils % (Auto) 62 % (37-80); Nucleated Red Blood Cell # 0.00 Thou/mm3 (0.00-0.00); Nucleated Red Blood Cell % 0 /100 WBC (0); Platelet Count 223 Thou/mm3 (140-440); RDW Standard Deviation 41.3 fL (36.4-46.3); Red Blood Count 2.91 Miln/mm3 (4.00-5.20); White Blood Count 10.7 Thou/mm3 (3.6-11.0)
[2024-10-26 06:58] LABS: Alanine Aminotransferase 51 U/L (10-49); Albumin, Serum 3.0 gm/dL (3.5-5.0); Albumin/Globulin Ratio 1.4 (1.2-2.2); Alkaline Phosphatase 108 U/L (46-116); Anion Gap 12 (7-16); Aspartate Amino Transferase 36 U/L (0-34); BUN/Creatinine Ratio 9 Ratio (12-20); Bilirubin,Total 0.3 mg/dL (0.3-1.2); Blood Urea Nitrogen 8 mg/dL (9-23); Calcium 8.2 mg/dL (8.3-10.6); Calcium (Corrected) 9.0 mg/dL (8.5-10.1); Carbon Dioxide 22.3 mMol/L (20.0-31.0); Chloride 110 mMol/L (98-107); Creatinine (Component) 0.9 mg/dL (0.6-1.3); Estimated Creatinine Clearance 53.9 mL/min (>60); Globulin 2.2 gm/dL (2.3-3.5); Glucose 89 mg/dL (74-106); Magnesium 1.8 mg/dL (1.6-2.6); Osmolality,Calculated 284 (275-295); Phosphorous 2.4 mg/dL (2.4-5.1); Potassium 3.0 mMol/L (3.4-5.1); Sodium 144 mMol/L (136-145); Total Protein 5.2 gm/dL (5.7-8.2); eGFR > 60 See Note
[2024-10-26 07:01] LABS: INR 1.0 (0.9-1.3); Partial Thromboplastin Time 59.8 Seconds (22.0-36.0); Prothrombin Time 10.9 Seconds (9.0-12.2)
--- NOTE | 2024-10-26 07:38 | PD.RESPRO ---
Documentation for date of: 10/26/24 Subjective Subjective Interval history: Patient evaluated at bedside. Continues on max probe and Fent. Failed weaning sedation earlier secondary to agitation. Patient continues to tremble. Exam Vital Signs Temp Pulse Resp BP Pulse Ox O2 Del Method O2 Flow Rate 97.6 F 81 30 H 114/65 100 Mechanical Ventilation 40 10/26/24 04:00 10/26/24 06:20 10/26/24 06:00 10/26/24 06:20 10/26/24 06:20 10/26/24 06:00 10/24/24 19:30 FiO2 40 10/26/24 06:20 Narrative Exam General: No acute distress, sedated Eye: Pupils 2mm and symmetric HENT: Normocephalic, atraumatic Neck: Supple, non-tender, no JVD, no lymphadenopathy Lungs: Symmetric chest rise. On mechanical ventilator. Vent settings: VC PEEP 5 Heart: Peripheral pulses intact bilaterally Abdomen: Soft, non-tender, non-distended MSK: Diffuse trembling Skin: Skin is warm, dry, no rashes or lesions. Objective Labs 10/27/24 04:30 10/27/24 04:30 Labs: Laboratory Results - last 24 hr 10/25/24 10/25/24 10/25/24 04:25 11:20 17:05 WBC RBC Hgb 11.5 L D Hct 33.8 L MCV MCH MCHC RDW Std Deviation Plt Count Neut % (Auto) Lymph % (Auto) Pratt % (Auto) Eos % (Auto) Baso % (Auto) Neut # (Auto) Lymph # (Auto) Pratt # (Auto) Eos # (Auto) Baso # (Auto) Immature Gran # (Auto) Absolute Nucleated RBC Immature Gran % Nucleated RBC % Smear Path Review Sent to Pathologist PT INR APTT 36.1 H D Puncture Site ABG pH ABG pCO2 ABG pO2 ABG HCO3 ABG O2 Saturation ABG Base Excess FiO2 Sodium Potassium Chloride Carbon Dioxide Anion Gap BUN Creatinine Estim Creat Clear Calc eGFR BUN/Creatinine Ratio Glucose Calculated Osmolality Lactic Acid 1.4 Calcium Corrected Calcium Phosphorus Magnesium Total Bilirubin AST ALT Alkaline Phosphatase Total Creatine Kinase 963 H D Total Protein Albumin Globulin Albumin/Globulin Ratio 10/25/24 10/26/24 10/26/24 18:28 01:10 04:41 WBC RBC Hgb Hct MCV MCH MCHC RDW Std Deviation Plt Count Neut % (Auto) Lymph % (Auto) Pratt % (Auto) Eos % (Auto) Baso % (Auto) Neut # (Auto) Lymph # (Auto) Pratt # (Auto) Eos # (Auto) Baso # (Auto) Immature Gran # (Auto) Absolute Nucleated RBC Immature Gran % Nucleated RBC % Smear Path Review PT INR APTT 36.2 H 39.6 H Puncture Site Right Radial ABG pH 7.42 D ABG pCO2 35 ABG pO2 64 L ABG HCO3 23 ABG O2 Saturation 93 ABG Base Excess -1 FiO2 40 Sodium Potassium Chloride Carbon Dioxide Anion Gap BUN Creatinine Estim Creat Clear Calc eGFR BUN/Creatinine Ratio Glucose Calculated Osmolality Lactic Acid Calcium Corrected Calcium Phosphorus Magnesium Total Bilirubin AST ALT Alkaline Phosphatase Total Creatine Kinase Total Protein Albumin Globulin Albumin/Globulin Ratio 10/26/24 04:58 WBC 10.7 D RBC 2.91 L Hgb 9.1 L D Hct 26.8 L MCV 92 MCH 31.3 MCHC 34.0 RDW Std Deviation 41.3 Plt Count 223 D Neut % (Auto) 62 Lymph % (Auto) 26 Pratt % (Auto) 7 Eos % (Auto) 4 Baso % (Auto) 1 Neut # (Auto) 6.6 Lymph # (Auto) 2.8 Pratt # (Auto) 0.8 Eos # (Auto) 0.4 Baso # (Auto) 0.1 Immature Gran # (Auto) 0.04 H Absolute Nucleated RBC 0.00 Immature Gran % 0 Nucleated RBC % 0 Smear Path Review PT 10.9 INR 1.0 APTT 59.8 H D Puncture Site ABG pH ABG pCO2 ABG pO2 ABG HCO3 ABG O2 Saturation ABG Base Excess FiO2 Sodium 144 Potassium 3.0 L D Chloride 110 H Carbon Dioxide 22.3 Anion Gap 12 BUN 8 L Creatinine 0.9 Estim Creat Clear Calc 53.9 L eGFR > 60 BUN/Creatinine Ratio 9 L Glucose 89 Calculated Osmolality 284 Lactic Acid Calcium 8.2 L Corrected Calcium 9.0 Phosphorus 2.4 Magnesium 1.8 Total Bilirubin 0.3 AST 36 H ALT 51 H Alkaline Phosphatase 108 D Total Creatine Kinase Total Protein 5.2 L Albumin 3.0 L Globulin 2.2 L Albumin/Globulin Ratio 1.4 ABG Interpretation ABG results: 10/23/24 10/24/24 10/24/24 04:06 10:51 14:00 ABG pH 7.42 7.20 L D ABG pCO2 27 L 47 D ABG pO2 49 L* 83 D ABG HCO3 18 L 19 L ABG O2 Saturation 86 L 94 ABG Base Excess -6 L -9 L VBG pH 7.34 VBG pCO2 35 L VBG pO2 61 H VBG Base Excess -7 L 10/24/24 10/25/24 10/26/24 14:26 05:05 04:41 ABG pH 7.38 D 7.30 L 7.42 D ABG pCO2 32 D 37 35 ABG pO2 130 H D 53 L* D 64 L ABG HCO3 18 L 18 L 23 ABG O2 Saturation 99 H 85 L 93 ABG Base Excess -6 L -8 L -1 VBG pH VBG pCO2 VBG pO2 VBG Base Excess Quality Measures Quality Measures sepsis Current suspected stage: ruled out Possible source: meningitis and unknown Blood cultures ordered: yes Antibiotic ordered: Yes and none Assessment & Plan Assessment Current Active Medications: Generic Name Dose Route Start Last Admin Trade Name Freq PRN Reason Stop Dose Admin Acetaminophen 650 mg 10/23/24 05:55 Acetaminophen 325 Mg Tablet PO 11/22/24 05:54 Q6H PRN PAIN SCALE 1-3 (mild Aspirin 81 mg 10/25/24 09:00 10/25/24 08:28 Aspirin 81 Mg Chew NG 11/24/24 08:59 81 mg QDAY IKMBERLY Administration Clopidogrel Bisulfate 75 mg 10/25/24 09:00 10/25/24 08:29 Clopidogrel Bisulfate 75 Mg Tablet NG 11/24/24 08:59 75 mg QDAY KIMBERLY Administration Dextrose 25 ml 10/25/24 08:37 Dextrose 50%-Water Inj 50 Ml Syringe IV 11/24/24 08:36 Q15MIN PRN BG 50-70 responsive npo pt Dextrose 50 ml 10/25/24 08:37 Dextrose 50%-Water Inj 50 Ml Syringe IV 11/24/24 08:36 Q15MIN PRN BG <50 OR BG <70 & pt unresponsive Glucagon 1 mg 10/25/24 08:37 Glucagon Inj 1 Mg Vial IM Q15MIN PRN BG <70, and no IV access Ceftriaxone Sodium/Dextrose 1 gm in 50 mls @ 100 mls/hr 10/23/24 11:00 10/25/24 08:29 Rocephin/D5w 1gm Iv Premix IV 10/30/24 10:59 100 mls/hr QDAY KIMBERLY Administration Propofol 1,000 mg in 100 mls @ 1.565 mls/hr 10/24/24 10:01 10/26/24 07:00 Diprivan Ivpb IV 11/23/24 10:00 50 mcg/kg/min .Q24H PRN 15.649 mls/hr PER PROTOCOL Titration Protocol 5 MCG/KG/MIN Fentanyl Citrate 2,500 mcg in 250 mls @ 2.5 mls/hr 10/24/24 10:01 10/26/24 07:04 Sublimaze Inj 2,500 Mcg/250 Ml Bag IV 10/29/24 10:00 225 mcg/hr .Q24H PRN 22.5 mls/hr PER PROTOCOL Titration Protocol 25 MCG/HR Midazolam HCl 100 mg in 100 mls @ 1 mls/hr 10/24/24 12:39 10/25/24 18:13 Versed Pf Inj In Ns Premix IV 10/29/24 12:38 0 mg/hr .Q24H PRN 0 mls/hr PER PROTOCOL Titration Protocol 1 MG/HR Heparin Sodium/Dextrose 25,000 unit in 250 mls @ 6.26 mls/hr 10/24/24 14:00 10/26/24 07:25 Heparin In D5w Ivpb IV 11/07/24 13:59 20 units/kg/hr .Q24H KIMBERLY 10.433 mls/hr Titration Protocol 12 UNITS/KG/HR Norepinephrine Bitartrate 16 mg in 250 mls @ 2.461 mls/hr 10/26/24 01:50 10/26/24 07:00 Levophed In Ns 16mg/250ml IV 11/25/24 01:49 0.03 mcg/kg/min .Q24H PRN 1.477 mls/hr PER PROTOCOL Titration Protocol 0.05 MCG/KG/MIN Lacosamide 100 mg 10/24/24 21:00 10/25/24 20:42 Lacosamide 50 Mg Tablet NG 11/23/24 20:59 100 mg BID KIMBERLY Administration Levetiracetam 750 mg 10/24/24 10:45 10/25/24 20:43 Levetiracetam Liqd 500 Mg/5 Ml Udc NG 11/22/24 20:59 750 mg BID KIMBERLY Administration Lorazepam 2 mg 10/25/24 11:47 Lorazepam 2 Mg/Ml Vial IVP 10/30/24 11:46 X1 PRN Before MRI for anxiety Ondansetron HCl 4 mg 10/23/24 05:55 10/23/24 10:17 Ondansetron Inj 2 Mg/Ml Inj 2 Ml IVP 11/22/24 05:54 4 mg Q6H PRN Administration NAUSEA OR VOMITING Protocol Pantoprazole Sodium 40 mg 10/24/24 19:15 10/25/24 08:26 Pantoprazole Inj 40 Mg Vial IVP 11/23/24 19:14 40 mg QDAY KIMBERLY Administration Sennosides 1 tab 10/24/24 10:56 Senna Tablet GT 11/23/24 10:55 QDAY PRN constipation Protocol Venlafaxine HCl 150 mg 10/24/24 10:57 Venlafaxine Xr 37.5 Mg Capcr PO 11/22/24 13:44 QDAY KIMBERLY Plan #Acute encephalopathy #Hx seizures #Left temporal encephalomalacia, # 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 Occasionally repsonding to internal stimuli Per sister, patient's baseline is talkative and independent, last seizure was last week, has episodes of staring into space In the ED: given Keppra loading dose and IV Ativan Initial glucose: 151 Ammonia <10, EtOH <3, Hep A/B/C non-reactive, UA negative for UTI Lactic acid: 3.9 --> 3.9 --> 2.5 --> 2.1 --> 7.3 (10/24 at 08:25)--> 2.5 --> 1.4 UDS + THC. Urine opiate negative, Urine fentanyl negative, salicylate <3, Acetaminophen <2, EtOH <3, Ammonia <10, TSH WNL 1.75 Total CK high 7886, procal high 16.25 --> 5.69 CSF: clear, WBC 5, RBC 3, monocyte 40, polynucleocyte 60%, glucose 100 high (>60% blood glucose 151), protein [address] head w/o: No hemorrhage, mass effect, or midline shift. + left temporal encephalomalacia, left posterior temporal lobe calcification. MRI brain w/ and w/o: Increased white matter signal in left temporal lobe at site of encephalomalacia. Possible ringlike area of restricted diffusion on DWI with signal deficit on ADC. DDX: infarction vs post-seizure findings EEG: diffuse slowing, no epileptiform discharges EEG 10/25: burst suppression 2/2 sedation. 10/24 overnight: patient had multiple rapid responses for persistent agitation despite B-52, olanzapine, lorazepam, more Ativan, Versed, Vimpat 200 mg IV x 1 push. Upgraded to ICU for persistent agitations despite multiple sedation attempts. 10/25: clonus in her bilateral upper and lower extremities morning of 10/25/2024, Phenytoin 800 mg IV x1 was given and repeat EEG was ordered 10/26: generalized trembling. patient failed sedation weaning 2/2 agitation. Started seroquel 50 mg BID DDX: seizures, TIA, metabolic (shock, lactic acidosis, BHAVESH, hypoxia), infectious (PNA, diarhea, cystitis, meningitis, encephalitis), underlying psychiatric disorder Plan: - Keppra 750 mg BID, Vimpat 100 mg BID - Continue Seroquel 50 mg BID for severe agitation - Dose monitoring of EKG changes and bradycardia - Pending CSF culture, blood cx x2, sputum cx and gram stain - Pending repeat EEG after sedation disctontinued - Wean off sedation - Can start propranolol for trembling/generalized tremor #Anxiety/depression, by history Patient has history of anxiety/depression on Venlafaxine 150mg daily Plan: - Management per primary - hold Venlafaxine currently #Nicotine dependence #Marijuana dependence Chronic active smoker, U Tox. positive for THC Plan: - Management per primary #Shock, undifferentiated Chest x-ray shows significantly worsening traits compared to 10/23 CT chest, likely some component of aspiration DDX: distributive/septic (aspiraton PNA, cystitis) vs cardiogenic Plan: - Management per primary - pressors, abx - Pending TTE #High anion gap metabolic acidosis #Lactic acidosis High anion gap noted in setting of lactic acidosis Lactic acid: 7.3 (on 10/14) --> 2.5 Plan: - Management per primary #Acute hypoxic respiratory failure, on mechanical ventilation 2/2 severe agitation Patient was hypoxic to spO2 80-88% --> intubated Chest x-ray: significant reticular opacities, suspicion of fluid overload as well, patient is net positive for admission, around 5.4 L There is suspicion of aspiration as well as patient was given multiple sedating medication and was allowed p.o. intake CT scan from 10/23 has no evidence of any pneumonia 10/25 CXR: Extensive bilateral lung opacity most consistent with pneumonia ARDS DDX: ARDS, negative pressure pulmonary edema, aspiration PNA, fluid overload Plan: - Management per primary - sedation, antibiotics - Pending sputum culture - Pending Pro-Osmany (send-out) #ACS: NSTEMI type I versus type II #Elevated troponin #Abnormal EKG Patient had worsened agitation, no symptoms of any chest pain/cardiac distress, did have abdominal pain prior to presentation. Troponin obtained today elevated at 6.240, EKG shows some acute ST-T changes leads V3 V4 Plan: - Management per primary, cardiology - heparin gtt, ASA, Plavix #Hypertension, by history Home med: Lisinopril 20 mg daily Plan: - Management per primary #Transaminitis Initial AST: 164, uptrending Initial ALT: 66, uptrending Initial alk phos: 139, downtrending Initial total bili: 0.3 WNL Ammonia <10 Salicylate <3 Acetaminophen <2 EtOH <3 UDS + THC CT abdomen pelvis says no visualized liver or splenic lesion, no evidence of cirrhosis Plan: - Management per primary #Gastroenteritis, diarrhea Abdominal pain and diarrhea on initial presentation No active episodes of diarrhea noted otherwise for hospitalization. Plan: - Management per primary -Pending C. difficile PCR, stool culture, stool WBC #Acute kidney injury secondary to moderate rhabdomyolysis Baseline Cr: 0.6 BUN: 18 (stable) Cr: 2 (downtrending) BUN/CR: 9 (c/w intrarenal cause of BHAVESH) UA: 1+ protein, 3+ blood, RBC 5, WBC 10, amorphous crystals present CK: 7886 (downtrending) Patient did receive IV NS for the hospitalization, he is net +5 L 2/2 tx of rhabdomyolysis Plan: - Management per primary #Cystitis CT abdomen pelvis showed thickening of bladder wall, consistent with cystitis Plan: - Management per primary - IV ceftriaxone (10/23- ) #Thickening of adrenal glands Incidental CT abdomen pelvis finding currently low clinical suspicion of adrenal hyperplasia Plan: - Management per primary #Leukocytosis Neutrophilic predominance with left shift DDX: sepsis, seizure, cystitis, BHAVESH, diarrhea Plan: - Management per primary #Normocytic normochromic anemia Hgb: 11.2 HCT: 32 MCV: 92 MCHC: 34.5 Iron: 8 low TIBC: 178 low Iron sat: 4 low Unsat iron bindin low Ferritin: 131 WNL LDH: 359 high Total bili: 0.5 TSH: 1.75 (WNL) BUN: 18 Cr: 1.3 B12 WNL 412 Folate WNL 6.73 Evidence of active bleed: none Plan: - Management per primary - Pending iron panel/smear review/vitamin LDH Plan discussed with Dr. Jose Alberto Reed, PGY1 Attending Provider Attestation/Addendum I personally .have seen and examined the patient at the bedside and agreed with resident's findings, assessment and plan of care. Consider weaning her off of sedation slowly as possible, consider adding Propranolol 10 mg tid to help with tremors. Repeat EEG after being off of sedation.
[2024-10-26] MEDS: CLOPIDOGREL BISULFATE 75 MG TABLET NG (08:57)
[2024-10-26] MEDS: POTASSIUM CHLORIDE 10% 20 MEQ/15 ML UDC 40 MEQ NG ×2 (08:57→11:26)
[2024-10-26] MEDS: levETIRAcetam LIQD 500 MG/5 ML UDC 750 MG NG ×2 (08:57→20:38)
[2024-10-26] MEDS: LACOSAMIDE 50 MG TABLET 100 MG NG ×2 (08:57→20:38)
[2024-10-26] MEDS: ASPIRIN 81 MG CHEW NG (08:58)
[2024-10-26] MEDS: cefTRIAXone/D5w 1gm IV premix 1 GM/50 ML BAG IV (08:58)
[2024-10-26 10:44] LABS: Partial Thromboplastin Time 46.6 Seconds (22.0-36.0)
[2024-10-26] MEDS: HEPARIN SOD INJ 5000 UNIT/ML VIAL 1550 UNIT IV ×2 (11:27→18:40)
[2024-10-26] MEDS: FUROSEMIDE INJ 10 MG/ML 4ML VIAL 40 MG IVP (11:27)
[2024-10-26] MEDS: fentaNYL 2,500 MCG/250 ML BAG 2,500 MCG/250 ML BAG 12.5 MCG IV (12:27)
[2024-10-26] MEDS: PROPOFOL 1,000 MG IVPB 1,000 MG/100 ML VIAL 14.084 MG IV (12:28)
[2024-10-26] MEDS: HALOPERIDOL LACT INJ 5 MG/ML VIAL IV (13:38)
--- NOTE | 2024-10-26 14:07 | ESPR_ITS ---
<Statement entered by Mis Warren MD - 10/26/24 18:01> Patient was seen and examined at bedside. I agree on the assessment and plan on this note as documented by resident Abdias Frank PGY1. Patient seen and examined at bedside, patient was given x2 250 boluses fluid overnight for low blood pressure, earlier this morning patient having episodes of agitation, was kept on sedation. Later in the day patient was weaned off of sedation, patient severely agitated, heart rate and blood pressure significantly elevated, patient was placed on pressure support, tolerated well with no does have severe significant underlying agitation so patient will be started on Seroquel 50 mg twice daily. Patient was given Haldol 5 mg IV x 1 and 50 fentanyl x 1. During the agitation episode. Otherwise chest x-ray looks significantly improved, there is a small pleural effusion assessed on lung ultrasound at bedside, not enough fluid to tap, will continue with IV diuresis, will give Lasix 40 mg IV x 1. 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 We will keep patient sedated overnight, on ACMV, will wake patient again in a.m. and reassess for possible extubation if agitation has improved. Patient does have episodes of shaking on sedation, neurology is following, no new recommendations. Started on bowel regimen. Case discussed with attending Dr. Jd Warren MD PGY-2 Documentation for date of: 10/26/24 Subjective Subjective Interval history: Ms. Barger is a 54-year-old female with past medical history of hypertension, seizures, cholecystectomy, status post brain surgery in the past and chronic active smoker who presented to [facility] emergency department on October 23, 2024 with a chief complaint of altered mental status. Patient presented with acute onset most of the history on presentation was obtained from patient's sister and chart review. Per patient's sister her last seizure was last week prior to presentation, describes the seizure episodes as her staring out of the window into space for a few minutes before returning back to baseline. Last known well time was Saturday 10/21, patient is on Keppra daily, however per pharmacy patient has not picked up her prescription. The patient had a brain operation in 2013. Urine tox screen was positive for THC on presentation, no remote history of any substance use. TSH on presentation within normal limits. Patient was given Keppra loading dose, IV Ativan in ED, underwent lumbar puncture, LP showed elevated glucose and protein. Patient was to be followed by neurology undergoing seizure workup, was started on Vimpat and Keppra by neurology recommendations, was pending MRI and EEG. Of note patient has had multiple rapid responses called for agitation, patient does not have any psychiatric history, is on venlafaxine for anxiety/depression which was continued inpatient. 10/24: ICU consulted today for persistent agitation during a rapid response, patient was given Haldol 7.5 mg IM, was transferred to ICU for further management, in the unit patient was started on Precedex drip, however patient continued to remain agitated despite IV Versed pushes on top of Precedex drip, patient's heart rate was noted to be in 160s, was hypoxic with severe agitation and decision was made to intubate the patient. Patient was intubated and sedated, repeat chest x-ray shows significant worsening from the CT on 10/23, there is suspicion of negative pressure pulmonary edema versus ARDS, patient's ventilator settings were optimized to lower volumes, we will titrate down FiO2 and patient was started on deep sedation with IV Versed, propofol and fentanyl. Central line placed, patient requiring Levophed. Cardiology was consulted for elevated troponin and some ST?T EKG changes noted on V3-V5, patient was given loading dose aspirin and Plavix and started on heparin gtt. 10/25/2024: The patient's sister and niece were at bedside and were able to provide a clearer medical history. 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 Since then she has had mild seizures and has been on Keppra. However, the patient has not picked up her Keppra medication from the pharmacy since June of this year, which the niece and sister were unaware of. Per the niece and sister, the patient is otherwise fully functioning, and is surprisingly able to drive. The patient must be prohibited from driving, swimming, or operating any heavy machinery. Per the niece and sister, the patient is able to take appropriate preparatory actions for her seizures when she feels them coming on. The patient's niece describes the patient as having inappropriate vocabulary since the brain operation in 2013, as the patient has been calling various objects by the incorrect name. Her niece also describes a flattened affect expressed by the patient, and patient has also appeared to be hallucinating during the current hospital visit, however she has no psychiatric history or diagnoses. The patient had clonus in her bilateral upper and lower extremities morning of 10/25/2024, Dilantin was given and an EEG was ordered. She continues to be sedated on fentanyl propofol. Her troponins are trending down. The patient's pH decreased from 7.38 to 7.3 on ABG. The patient's PaO2 decreased from 130 to 53. Chest x-ray showed improving groundglass opacities morning of 10/25/2024. 10/26/2024: Patient was intermittently on Levophed starting at 1 AM and throughout the morning hours of 10/26/2024, also received LR bolus overnight. Off levo. Fentanyl for sedation. Patient is hypokalemic, 80 mEq potassium ordered. Patient is net -1.7 L since admission. Chest x-ray shows reduced groundglass opacities throughout however similar to increased sized left lower consolidation compared to yesterday, ultrasound positive for interstitial consolidation with surrounding fluid that is likely transudative, not large enough for thoracentesis, will continue Lasix. MRI showed a large left temporal lobe encephalomalacia, suspicious for ringlike restricted diffusion in the left temporal lobe, history of neurocysticercosis per family, EEG showed diffuse slowing. Echo showed HFrEF with 45% ejection fraction, global left ventricular systolic function is mildly decreased, a hypokinetic apical anterior wall, and a tiny, hemodynamically insignificant pericardial effusion. Exam Vital Signs Temp Pulse Resp BP Pulse Ox O2 Del Method O2 Flow Rate 99.4 F 111 H 30 H 143/78 H 99 Mechanical Ventilation 40 10/26/24 08:00 10/26/24 13:52 10/26/24 06:00 10/26/24 13:52 10/26/24 13:52 10/26/24 08:00 10/24/24 19:30 FiO2 30 10/26/24 13:52 Narrative Exam General: Intubated, mechanically ventilated. Neurologic: Sedated. GCS 6T. Withdraws to pain in lower extremities. HEENT: Normocephalic, atraumatic, mucous membranes moist. Pupils reactive to light. Heart: Regular rate and rhythm, normal S1 and S2, no murmurs. Lungs: Decreased breath sounds left lower lobe on auscultation. Abdomen: Soft, nondistended, nontender, positive bowel sounds. Extremities: No edema. 2+ radial and dorsalis pedis pulses bilaterally. Skin: Warm. Dry. No rash or ecchymoses. Objective Labs 10/27/24 04:30 10/27/24 04:30 Labs: Laboratory Results - last 24 hr 10/25/24 10/25/24 10/26/24 17:05 18:28 01:10 WBC RBC Hgb 11.5 L D Hct 33.8 L MCV MCH MCHC RDW Std Deviation Plt Count Neut % (Auto) Lymph % (Auto) Swisher % (Auto) Eos % (Auto) Baso % (Auto) Neut # (Auto) Lymph # (Auto) Swisher # (Auto) Eos # (Auto) Baso # (Auto) Immature Gran # (Auto) Absolute Nucleated RBC Immature Gran % Nucleated RBC % PT INR APTT 36.2 H 39.6 H Puncture Site ABG pH ABG pCO2 ABG pO2 ABG HCO3 ABG O2 Saturation ABG Base Excess FiO2 Sodium Potassium Chloride Carbon Dioxide Anion Gap BUN Creatinine Estim Creat Clear Calc eGFR BUN/Creatinine Ratio Glucose Calculated Osmolality Calcium Corrected Calcium Phosphorus Magnesium Total Bilirubin AST ALT Alkaline Phosphatase Total Protein Albumin Globulin Albumin/Globulin Ratio 10/26/24 10/26/24 10/26/24 04:41 04:58 09:50 WBC 10.7 D RBC 2.91 L Hgb 9.1 L D Hct 26.8 L MCV 92 MCH 31.3 MCHC 34.0 RDW Std Deviation 41.3 Plt Count 223 D Neut % (Auto) 62 Lymph % (Auto) 26 Swisher % (Auto) 7 Eos % (Auto) 4 Baso % (Auto) 1 Neut # (Auto) 6.6 Lymph # (Auto) 2.8 Swisher # (Auto) 0.8 Eos # (Auto) 0.4 Baso # (Auto) 0.1 Immature Gran # (Auto) 0.04 H Absolute Nucleated RBC 0.00 Immature Gran % 0 Nucleated RBC % 0 PT 10.9 INR 1.0 APTT 59.8 H D 46.6 H D Puncture Site Right Radial ABG pH 7.42 D ABG pCO2 35 ABG pO2 64 L ABG HCO3 23 ABG O2 Saturation 93 ABG Base Excess -1 FiO2 40 Sodium 144 Potassium 3.0 L D Chloride 110 H Carbon Dioxide 22.3 Anion Gap 12 BUN 8 L Creatinine 0.9 Estim Creat Clear Calc 53.9 L eGFR > 60 BUN/Creatinine Ratio 9 L Glucose 89 Calculated Osmolality 284 Calcium 8.2 L Corrected Calcium 9.0 Phosphorus 2.4 Magnesium 1.8 Total Bilirubin 0.3 AST 36 H ALT 51 H Alkaline Phosphatase 108 D Total Protein 5.2 L Albumin 3.0 L Globulin 2.2 L Albumin/Globulin Ratio 1.4 ABG Interpretation ABG results: 10/23/24 10/24/24 10/24/24 04:06 10:51 14:00 ABG pH 7.42 7.20 L D ABG pCO2 27 L 47 D ABG pO2 49 L* 83 D ABG HCO3 18 L 19 L ABG O2 Saturation 86 L 94 ABG Base Excess -6 L -9 L VBG pH 7.34 VBG pCO2 35 L VBG pO2 61 H VBG Base Excess -7 L 10/24/24 10/25/24 10/26/24 14:26 05:05 04:41 ABG pH 7.38 D 7.30 L 7.42 D ABG pCO2 32 D 37 35 ABG pO2 130 H D 53 L* D 64 L ABG HCO3 18 L 18 L 23 ABG O2 Saturation 99 H 85 L 93 ABG Base Excess -6 L -8 L -1 VBG pH VBG pCO2 VBG pO2 VBG Base Excess Quality Measures Quality Measures sepsis Current suspected stage: ruled out Possible source: meningitis and unknown Blood cultures ordered: yes Antibiotic ordered: Yes and none Assessment & Plan Assessment Current Active Medications: Generic Name Dose Route Start Last Admin Trade Name Freq PRN Reason Stop Dose Admin Acetaminophen 650 mg 10/23/24 05:55 Acetaminophen 325 Mg Tablet PO 11/22/24 05:54 Q6H PRN PAIN SCALE 1-3 (mild Aspirin 81 mg 10/25/24 09:00 10/26/24 08:58 Aspirin 81 Mg Chew NG 11/24/24 08:59 81 mg QDAY KIMBERLY Administration Clopidogrel Bisulfate 75 mg 10/25/24 09:00 10/26/24 08:57 Clopidogrel Bisulfate 75 Mg Tablet NG 11/24/24 08:59 75 mg QDAY KIMBERLY Administration Dextrose 25 ml 10/25/24 08:37 Dextrose 50%-Water Inj 50 Ml Syringe IV 11/24/24 08:36 Q15MIN PRN BG 50-70 responsive npo pt Dextrose 50 ml 10/25/24 08:37 Dextrose 50%-Water Inj 50 Ml Syringe IV 11/24/24 08:36 Q15MIN PRN BG <50 OR BG <70 & pt unresponsive Glucagon 1 mg 10/25/24 08:37 Glucagon Inj 1 Mg Vial IM Q15MIN PRN BG <70, and no IV access Ceftriaxone Sodium/Dextrose 1 gm in 50 mls @ 100 mls/hr 10/23/24 11:00 10/26/24 08:58 Rocephin/D5w 1gm Iv Premix IV 10/30/24 10:59 100 mls/hr QDAY KIMBERLY Administration Propofol 1,000 mg in 100 mls @ 1.565 mls/hr 10/24/24 10:01 10/26/24 14:00 Diprivan Ivpb IV 11/23/24 10:00 40 mcg/kg/min .Q24H PRN 12.519 mls/hr PER PROTOCOL Titration Protocol 5 MCG/KG/MIN Fentanyl Citrate 2,500 mcg in 250 mls @ 2.5 mls/hr 10/24/24 10:01 10/26/24 14:00 Sublimaze Inj 2,500 Mcg/250 Ml Bag IV 10/29/24 10:00 125 mcg/hr .Q24H PRN 12.5 mls/hr PER PROTOCOL Titration Protocol 25 MCG/HR Midazolam HCl 100 mg in 100 mls @ 1 mls/hr 10/24/24 12:39 10/25/24 18:13 Versed Pf Inj In Ns Premix IV 10/29/24 12:38 0 mg/hr .Q24H PRN 0 mls/hr PER PROTOCOL Titration Protocol 1 MG/HR Heparin Sodium/Dextrose 25,000 unit in 250 mls @ 6.26 mls/hr 10/24/24 14:00 10/26/24 11:31 Heparin In D5w Ivpb IV 11/07/24 13:59 22 units/kg/hr .Q24H KIMBERLY 11.476 mls/hr Titration Protocol 12 UNITS/KG/HR Norepinephrine Bitartrate 16 mg in 250 mls @ 2.461 mls/hr 10/26/24 01:50 10/26/24 10:00 Levophed In Ns 16mg/250ml IV 11/25/24 01:49 0 mcg/kg/min .Q24H PRN 0 mls/hr PER PROTOCOL Titration Protocol 0.05 MCG/KG/MIN Lacosamide 100 mg 10/24/24 21:00 10/26/24 08:57 Lacosamide 50 Mg Tablet NG 11/23/24 20:59 100 mg BID KIMBERLY Administration Levetiracetam 750 mg 10/24/24 10:45 10/26/24 08:57 Levetiracetam Liqd 500 Mg/5 Ml Udc NG 11/22/24 20:59 750 mg BID KIMBERLY Administration Lorazepam 2 mg 10/25/24 11:47 Lorazepam 2 Mg/Ml Vial IVP 10/30/24 11:46 X1 PRN Before MRI for anxiety Ondansetron HCl 4 mg 10/23/24 05:55 10/23/24 10:17 Ondansetron Inj 2 Mg/Ml Inj 2 Ml IVP 11/22/24 05:54 4 mg Q6H PRN Administration NAUSEA OR VOMITING Protocol Pantoprazole Sodium 40 mg 10/24/24 19:15 10/26/24 08:57 Pantoprazole Inj 40 Mg Vial IVP 11/23/24 19:14 40 mg QDAY KIMBERLY Administration Quetiapine Fumarate 50 mg 10/26/24 13:45 Quetiapine Fumarate 25 Mg Tablet NG 11/25/24 13:44 BID KIMBERLY Sennosides 2 tab 10/26/24 14:00 Senna/Docusate Sod 1 Tab Tablet PO 11/25/24 13:59 QDAY KIMBERLY Protocol Venlafaxine HCl 150 mg 10/24/24 10:57 Venlafaxine Xr 37.5 Mg Capcr PO 11/22/24 13:44 QDAY KIMBERLY Plan Summary: Ms. Barger is a 54-year-old female with past medical history of hypertension, seizures, cholecystectomy, status post brain surgery in the past and chronic active smoker who presented to [facility] emergency department on October 23, 2024 with a chief complaint of altered mental status. Patient admitted to hospital for further workup or for continued encephalopathy, ICU consulted for agitation, patient continued to remain agitated in ICU despite Precedex drip and IV Versed pushes, decision was made to intubate patient for airway protection and severe agitation on 10/24/2024. Neurological #Acute Encephalopathy #Seizure episode #History of seizures #Severe agitation Differential diagnosis: Seizure episode, postictal state, underlying psychiatric disorder, possible underlying drug withdrawal, Encephalitis, Meningitis Diagnostic workup: - Per sister, patient's baseline is talkative and independent, last seizure was last week, has episodes of staring into space. LKW Saturday 10/21, has history of seizures, on Keppra, per pharmacy hasn't picked up. Suspicion of Non-compliance. - Had hallucinations at times during hospitalization, suspicion of underlying psych. disorder. - CSF Analysis shows CSF Color Colorless, CSF WBC 5, CSF RBC 3, Mononuclear WBC 40, Polynuclear WBC 60, CSF Glucose 100, CSF Total Protein 44 - Recieved multiple doses of Haldol, Olanzapine, Ativan, Benadryl throughout hospital course. - Per patient's family, the patient has not been taking her home Keppra medication since June 2024. The mention that the patient is able to live and function individually and operate a motor vehicle. They mention that the patient is able to anticipate her own seizure episodes. - EEG demonstrated diffuse slowing Plan: - Begin Seroquel for agitation - The patient should never operate a motor vehicle, swim, or operate any heavy machinery. - Continue Keppra 750 NG BID - Continue Vimpat 100 NG BID - Currently on sedation, fentanyl, plan to wean - Neurology Consulted, pending recommendation - CSF culture negative - Follow-up EEG with neurology once patient has been off sedation for 48 hours #Anxiety/depression, by history Patient has history of anxiety/depression on Venlafaxine 150mg daily - Hold Venlafaxine currently #Nicotine dependence #Marijuana dependence Chronic active smoker, U Tox. 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 - Cardiogenic shock, reinforced by echo on 10/24/2024 demonstrating HFrEF with EF 45%, elevated troponins but downtrending on 10/25/2024, EKG showed some acute ST- T changes on leads V3 V4 - Obstructive shock, low suspicion patient did have a hypoxia however chest x- ray negative for any signs of pneumo, low suspicion of PE, no right heart strain/tamponade seen on bedside echo - Hemorrhagic shock, low suspicion, patient has no active source of any bleeding, hemoglobin is stable, anemic on 10/26/2024, see heme, likely due to volume Diagnostic workup: - Bedside echo showed EF of 45% - Patient is on IV antibiotics for cystitis, received multiple sedative dose medications, he was getting p.o. diet there is suspicion of aspiration - Chest x-ray shows improved bilateral groundglass opacities 10/25/2024, improved on 10/26/2024 (left lower lobe pleural effusion, see pulm) Treatment: - Levophed (off at time of note) titrate MAP greater than 65 - Will obtain NICOM assessment to assess peripheral vascular resistance, SVI - Continue ceftriaxone (10/23- #ACS: NSTEMI type I versus type II #Elevated troponin #Abnormal EKG Patient had worsened agitation, no symptoms of any chest pain/cardiac distress, did have abdominal pain prior to presentation. Troponin downtrending from 4.4 to 2.4, EKG showed some acute ST-T changes leads V3 V4 Plan: - Loading dose aspirin and Plavix - Heparin gtt. ACS protocol - Trend troponins - Repeat EKG as needed - Continue aspirin and Plavix - Cardiology consulted, appreciate recommendations #Hypertension, by history Has history of hypertension, on lisinopril at home Pulmonary #Acute hypoxic respiratory failure, on mechanical ventilation 2/2 severe agitation #Cardiogenic pulmonary edema versus negative pressure pulmonary edema versus flash pulmonary edema #Aspiration pneumonia Differential diagnosis: ARDS, negative pressure pulmonary edema, aspiration pneumonia, fluid overload - ARDS lower probability due to improvement of chest x-ray after diuresis - Flash cardiogenic pulmonary edema may be considered due to improvement in chest x-ray after diuresis, also supported by HFrEF on echo, EKG changes and elevated troponins also reflect cardiac stress (see cardio) - There is suspicion of aspiration as patient was given multiple sedating medication and was allowed p.o. intake, however CT scan from 10/23 has no evidence of any pneumonia, procalcitonin 5.69 on 10/24/2024 down from 16.25 on 10/22/2024, sputum culture negative - Patient was breathing over the vent after intubation, negative pressure pulmonary edema may be considered given history of seizures and improvement on x-ray after mechanical ventilation and sedation - Ultrasound was used to determine characteristics of left lower lobe opacity demonstrated on x-ray, ultrasound demonstrated interstitial consolidation with surrounding pleural effusion, not large enough for thoracentesis, 10/26/2024 Plan: - Low volume strategy goal 4 to 6 cc/kg, titrate FiO2 down to goal SpO2 greater than 92 - Continue with high PEEP, goal to keep peak and plateau pressures within normal limits - Continue with deep sedation in order to avoid vent stacking, RASS -4, currently on fentanyl - Continue IV ceftriaxone (10/23- - Lasix 40mg one-time dose 10/25/2024, 40 mg repeated 10/26/2024 Follow-up: - Chest x-ray in a.m., trend urine output Gastrointestinal #Transaminitis - AST 36 down from 67, ALT 51 from 72 - CT abdomen pelvis demonstrates no visualized liver or splenic lesion, no evidence of cirrhosis - Salicylate and acetaminophen level normal - Hep panel negative Plan: - Follow CMP in a.m. #Gastroenteritis, diarrhea - Patient did have chief complaint of abdominal pain and diarrhea on presentation. No active episodes of diarrhea noted otherwise for hospitalization. Plan: - Follow C. difficile PCR, stool culture, stool WBC Renal/Genitourinary #Acute kidney injury secondary to rhabdomyolysis - Patient did have an BHAVESH on presentation, on admission creatinine 2.0 baseline 0.6, BUN 8 creatinine 0.9 on 10/26/2024 - CK 963 on 10/25/2024 down from [id number] Plan: - Monitor renal function in a.m. - Avoid nephrotoxic agents - Renally dose medication #Cystitis CT abdomen pelvis showed thickening of bladder wall, consistent with cystitis Patient did not report any symptoms, was encephalopathic on presentation Urinalysis did show rare bacteria Plan: - Continue IV ceftriaxone (10/23- #High anion gap metabolic acidosis (Resolved) #Lactic acidosis (Resolved) Endocrine #Thickening of adrenal glands Incidental CT abdomen pelvis finding currently low clinical suspicion of adrenal hyperplasia - Will monitor Hematology #Leukocytosis (Resolved) White blood cell count 10.7 on 10/26/2024 down from 17 - Monitor CBC in a.m. #Normocytic normochromic anemia Patient was anemic yesterday morning, received diuresis and H&H corrected towards normal yesterday afternoon, H&H trended back downwards morning of 10/26/2024, consider diuresis as culprit Folate and B12 levels normal Iron level is 9, normal is 65 Plan: - Monitor CBC, expect rise in hemoglobin and hematocrit as Lasix 40 mg was given today - Hold iron resuscitation due to possible sepsis Infectious Disease #Cystitis #Aspiration pneumonia #Rule out meningitis (Resolved) - On IV ceftriaxone (10/23? - Sputum and blood cultures negative Integumentary No active problems DVT prophylaxis: Heparin GTT GI prophylaxis: IV Protonix Diet: N.p.o. Lines: Peripheral IV, right IJ triple-lumen central Code status: Full code Disposition: Will continue to wean sedation. Starting Seroquel for agitation. Continue diuresis. Patient was seen and discussed with my attending Dr. Amelia Miles MD and my senior resident Dr. Mis Andre MD PGY-2. Abdias Frank DO PGY-1. Attending Provider Attestation/Addendum Patient seen and examined resident team, agree with above. In brief is a 54-year-old lady who was intubated for severe agitation. Today sedation vacation was attempted however patient became very agitated with heart rate up into the 150s very hypertensive and therefore the decision was made to restart sedation. The rest of her physical exam was benign lungs were clear, heart rate regular rhythmic, abdomen was soft, no clubbing or mottling. Patient was started on p.o. Seroquel via her OG tube. She is given Lasix for pulmonary edema. good UOP Case discussed with ICU team Labs, imaging and records reviewed Approximately 38 critical care was required for evaluation, exam, review, intervention, discussion formation plan of care for this critically ill patient with respiratory failure and pulm edema
[2024-10-26] MEDS: SENNA/DOCUSATE SOD 1 TAB TABLET 2 TAB PO (14:14)
[2024-10-26 18:19] LABS: Partial Thromboplastin Time 47.0 Seconds (22.0-36.0)
--- NOTE | 2024-10-26 18:51 | ESPR_ITS ---
<Statement entered by Marino Aleman MD - 10/28/24 17:43> I personally examined the patient evaluated the patient appears to be doing much better, clinically stable on amiodarone via G-tube patient's awaiting transfer to LTAC unit and patient is stable from cardiovascular point of view for transfer continue current medication including amiodarone for A-fib rate control and patient to be continued on dialysis as an outpatient as well. Evaluated the patient along with resident physician PGY 2 Dr. Jayson Oconnor the patient is clinically improved however could not be extubated because of agitation because we will plan on extubating tomorrow. Documentation for date of: 10/26/24 Subjective Subjective Interval history: Patient is seen and examined at bedside Still on mechanical ventilator with PEEP of 5 and FiO2 of 30 No acute overnight events. Per ICU team, initially they tried to extubate but patient is so agitated patient is not extubated and sedated Was given an extra dose of Lasix 40 Mg IV today. Recommended to discontinue heparin drip and start on Lovenox Exam Vital Signs Temp Pulse Resp BP Pulse Ox O2 Del Method O2 Flow Rate 98.1 F 88 30 H 89/57 L 100 Mechanical Ventilation 40 10/26/24 16:00 10/26/24 18:34 10/26/24 06:00 10/26/24 18:34 10/26/24 18:34 10/26/24 16:00 10/24/24 19:30 FiO2 30 10/26/24 18:34 Narrative Exam General: On ventilator. Sedated HEENT: Normocephalic, atraumatic, mucous membranes moist. Heart: Regular rate and rhythm, no murmurs. Lungs: Clear to auscultation with no wheezing or crackles. Noted decreased breath sounds in left basilar area Abdomen: Soft, nondistended, nontender, positive bowel sounds. ?No guarding or rebound tenderness. Neurologic: Sedated and mechanically ventilated Extremities: No edema. Skin: No rash or ecchymoses. Objective Labs 10/28/24 04:18 10/28/24 04:18 Labs: Laboratory Results - last 24 hr 10/25/24 10/26/24 10/26/24 18:28 01:10 04:41 WBC RBC Hgb Hct MCV MCH MCHC RDW Std Deviation Plt Count Neut % (Auto) Lymph % (Auto) [place] % (Auto) Eos % (Auto) Baso % (Auto) Neut # (Auto) Lymph # (Auto) [place] # (Auto) Eos # (Auto) Baso # (Auto) Immature Gran # (Auto) Absolute Nucleated RBC Immature Gran % Nucleated RBC % PT INR APTT 36.2 H 39.6 H Puncture Site Right Radial ABG pH 7.42 D ABG pCO2 35 ABG pO2 64 L ABG HCO3 23 ABG O2 Saturation 93 ABG Base Excess -1 FiO2 40 Sodium Potassium Chloride Carbon Dioxide Anion Gap BUN Creatinine Estim Creat Clear Calc eGFR BUN/Creatinine Ratio Glucose Calculated Osmolality Calcium Corrected Calcium Phosphorus Magnesium Total Bilirubin AST ALT Alkaline Phosphatase Total Protein Albumin Globulin Albumin/Globulin Ratio 10/26/24 10/26/24 10/26/24 04:58 09:50 17:38 WBC 10.7 D RBC 2.91 L Hgb 9.1 L D Hct 26.8 L MCV 92 MCH 31.3 MCHC 34.0 RDW Std Deviation 41.3 Plt Count 223 D Neut % (Auto) 62 Lymph % (Auto) 26 Florence % (Auto) 7 Eos % (Auto) 4 Baso % (Auto) 1 Neut # (Auto) 6.6 Lymph # (Auto) 2.8 Florence # (Auto) 0.8 Eos # (Auto) 0.4 Baso # (Auto) 0.1 Immature Gran # (Auto) 0.04 H Absolute Nucleated RBC 0.00 Immature Gran % 0 Nucleated RBC % 0 PT 10.9 INR 1.0 APTT 59.8 H D 46.6 H D 47.0 H Puncture Site ABG pH ABG pCO2 ABG pO2 ABG HCO3 ABG O2 Saturation ABG Base Excess FiO2 Sodium 144 Potassium 3.0 L D Chloride 110 H Carbon Dioxide 22.3 Anion Gap 12 BUN 8 L Creatinine 0.9 Estim Creat Clear Calc 53.9 L eGFR > 60 BUN/Creatinine Ratio 9 L Glucose 89 Calculated Osmolality 284 Calcium 8.2 L Corrected Calcium 9.0 Phosphorus 2.4 Magnesium 1.8 Total Bilirubin 0.3 AST 36 H ALT 51 H Alkaline Phosphatase 108 D Total Protein 5.2 L Albumin 3.0 L Globulin 2.2 L Albumin/Globulin Ratio 1.4 ABG Interpretation ABG results: 10/23/24 10/24/24 10/24/24 04:06 10:51 14:00 ABG pH 7.42 7.20 L D ABG pCO2 27 L 47 D ABG pO2 49 L* 83 D ABG HCO3 18 L 19 L ABG O2 Saturation 86 L 94 ABG Base Excess -6 L -9 L VBG pH 7.34 VBG pCO2 35 L VBG pO2 61 H VBG Base Excess -7 L 10/24/24 10/25/24 10/26/24 14:26 05:05 04:41 ABG pH 7.38 D 7.30 L 7.42 D ABG pCO2 32 D 37 35 ABG pO2 130 H D 53 L* D 64 L ABG HCO3 18 L 18 L 23 ABG O2 Saturation 99 H 85 L 93 ABG Base Excess -6 L -8 L -1 VBG pH VBG pCO2 VBG pO2 VBG Base Excess Quality Measures Quality Measures sepsis Current suspected stage: ruled out Possible source: meningitis and unknown Blood cultures ordered: yes Antibiotic ordered: Yes and none Assessment & Plan Assessment Current Active Medications: Generic Name Dose Route Start Last Admin Trade Name Freq PRN Reason Stop Dose Admin Acetaminophen 650 mg 10/23/24 05:55 Acetaminophen 325 Mg Tablet PO 11/22/24 05:54 Q6H PRN PAIN SCALE 1-3 (mild Aspirin 81 mg 10/25/24 09:00 10/26/24 08:58 Aspirin 81 Mg Chew NG 11/24/24 08:59 81 mg QDAY KIMBERLY Administration Clopidogrel Bisulfate 75 mg 10/25/24 09:00 10/26/24 08:57 Clopidogrel Bisulfate 75 Mg Tablet NG 11/24/24 08:59 75 mg QDAY KIMBERLY Administration Dextrose 25 ml 10/25/24 08:37 Dextrose 50%-Water Inj 50 Ml Syringe IV 11/24/24 08:36 Q15MIN PRN BG 50-70 responsive npo pt Dextrose 50 ml 10/25/24 08:37 Dextrose 50%-Water Inj 50 Ml Syringe IV 11/24/24 08:36 Q15MIN PRN BG <50 OR BG <70 & pt unresponsive Glucagon 1 mg 10/25/24 08:37 Glucagon Inj 1 Mg Vial IM Q15MIN PRN BG <70, and no IV access Ceftriaxone Sodium/Dextrose 1 gm in 50 mls @ 100 mls/hr 10/23/24 11:00 10/26/24 08:58 Rocephin/D5w 1gm Iv Premix IV 10/30/24 10:59 100 mls/hr QDAY KIMBERLY Administration Propofol 1,000 mg in 100 mls @ 1.565 mls/hr 10/24/24 10:01 10/26/24 18:00 Diprivan Ivpb IV 11/23/24 10:00 50 mcg/kg/min .Q24H PRN 15.649 mls/hr PER PROTOCOL Titration Protocol 5 MCG/KG/MIN Fentanyl Citrate 2,500 mcg in 250 mls @ 2.5 mls/hr 10/24/24 10:01 10/26/24 18:00 Sublimaze Inj 2,500 Mcg/250 Ml Bag IV 10/29/24 10:00 225 mcg/hr .Q24H PRN 22.5 mls/hr PER PROTOCOL Titration Protocol 25 MCG/HR Midazolam HCl 100 mg in 100 mls @ 1 mls/hr 10/24/24 12:39 10/25/24 18:13 Versed Pf Inj In Ns Premix IV 10/29/24 12:38 0 mg/hr .Q24H PRN 0 mls/hr PER PROTOCOL Titration Protocol 1 MG/HR Heparin Sodium/Dextrose 25,000 unit in 250 mls @ 6.26 mls/hr 10/24/24 14:00 10/26/24 18:42 Heparin In D5w Ivpb IV 11/07/24 13:59 24 units/kg/hr .Q24H KIMBERLY 12.519 mls/hr Titration Protocol 12 UNITS/KG/HR Norepinephrine Bitartrate 16 mg in 250 mls @ 2.461 mls/hr 10/26/24 01:50 10/26/24 10:00 Levophed In Ns 16mg/250ml IV 11/25/24 01:49 0 mcg/kg/min .Q24H PRN 0 mls/hr PER PROTOCOL Titration Protocol 0.05 MCG/KG/MIN Lacosamide 100 mg 10/24/24 21:00 10/26/24 08:57 Lacosamide 50 Mg Tablet NG 11/23/24 20:59 100 mg BID KIMBERLY Administration Levetiracetam 750 mg 10/24/24 10:45 10/26/24 08:57 Levetiracetam Liqd 500 Mg/5 Ml Udc NG 11/22/24 20:59 750 mg BID KIMBERLY Administration Lorazepam 2 mg 10/25/24 11:47 Lorazepam 2 Mg/Ml Vial IVP 10/30/24 11:46 X1 PRN Before MRI for anxiety Ondansetron HCl 4 mg 10/23/24 05:55 10/23/24 10:17 Ondansetron Inj 2 Mg/Ml Inj 2 Ml IVP 11/22/24 05:54 4 mg Q6H PRN Administration NAUSEA OR VOMITING Protocol Pantoprazole Sodium 40 mg 10/24/24 19:15 10/26/24 08:57 Pantoprazole Inj 40 Mg Vial IVP 11/23/24 19:14 40 mg QDAY KIMBERLY Administration Quetiapine Fumarate 50 mg 10/26/24 13:45 10/26/24 14:14 Quetiapine Fumarate 25 Mg Tablet NG 11/25/24 13:44 50 mg BID KIMBERLY Administration Sennosides 2 tab 10/26/24 14:00 10/26/24 14:14 Senna/Docusate Sod 1 Tab Tablet PO 11/25/24 13:59 2 tab QDAY KIMBERLY Administration Protocol Venlafaxine HCl 150 mg 10/24/24 10:57 Venlafaxine Xr 37.5 Mg Capcr PO 11/22/24 13:44 QDAY KIMBERLY Plan A 54-year-old female with significant past medical history of seizures, brain surgery, marijuana use, anxiety, depression was found to be unconscious when her sister went to check on her. The patient was immediately brought to the hospital for altered mental status. Patient apparently found to have vomitings and abdominal pain prior to the admission for 1 day. On reviewing previous medical records, patient was found to have hospital ER visits for seizures in 2021. Found to have cholecystectomy, laparoscopic by Dr. Monge in 2021. Cardiology is consulted in view of regional wall motion abnormality, elevated troponin and BNP, EKG changes and suspected ACS # Elevated troponins, NSTEMI --> likely type II # Pulmonary edema - Cardiogenic vs noncardiogenic, ARDS - Patient initially presented with altered mental status and vitals at the time of admission are stable, admitted for acute encephalopathy, likely secondary to suspected seizures - In the floors, patient is treated for sepsis and suspected seizure activity - On 10/24/2024, patient is upgraded to ICU for acute hypoxic respiratory failure and acute encephalopathy, patient is intubated, a bolus of 1 L IV fluid is given and started on vasopressors - Patient is given total 6.9 L since the time of admission in view of rhabdomyolysis - Troponin done on 10/24/2024 in the ICU is 6.24, later down trended to 6.0. BNP is 1465 - Chest x-ray showed bilateral increased vascular prominence, perihilar opacities, fluid in the right middle fissure, appears like cardiogenic pulmonary edema but cannot rule out ARDS - EKG done in the ICU showed sinus tachycardia with ST elevations in V3 and V4 with no reciprocal ST depressions noted in other leads - Per chart review, patient does not have any significant history of CAD and Heart failure Plan - Echocardiogram showed mild apical hypokinesis without significant regional wall motion abnormalities with EF of 60% - CVP is around 9, that suggest no right heart failure but cannot rule out LV dysfunction - Initially planned to do Milton-Smita catheterization to measure pulmonary capillary wedge pressure, CVP but could not perform in view of insufficient equipment - Recommended to monitor oxygenation, vitals and repeat chest x-ray in the morning. If the patient oxygenation or vitals worsens, will do Milton-Smita catheterization in the morning - Recommended to give 1 dose of Lasix 40 Mg IV as patient received almost 6.9 L of fluid since the time of admission, in suspicion of fluid overload - Acute hypoxic respiratory failure could be due to underlying sepsis causing Takotsubo cardiomyopathy like picture causing the pulmonary edema. Patient has possibility of CAD which could be exacerbated in the setting of fluid overload and sepsis, but cardiac catheterization cannot be done as patient is currently on vasopressors and suspected to have sepsis. Will do cardiac catheterization once patient clinical condition improves and if there is suspicion of CAD at the time. - Okay to continue heparin drip for now and either continue aspirin or Plavix # Shock, likely septic # To rule out cardiogenic - Patient initially presented to the hospital with altered mental status - Vitals are stable at the time of admission except for sinus tachycardia - Labs at the time of admission are significant for elevated WBC, metabolic acidosis, BHAVESH and procalcitonin. CK levels are elevated. - Patient is initially treated for sepsis and rhabdomyolysis. Patient received around 7 L of fluid - On 10/24/2024, patient developed sudden onset shortness of breath and agitation with low saturation for which patient is intubated and upgraded to ICU for further management - EKG done at that time showed ST elevations in V3 and V4, troponin of 6.2, BNP 1465 - Chest x-ray showed bilateral increased vascularity and perihilar opacities - Echocardiogram done showed no significant regional wall motion abnormalities except for mild hypokinesis at the apex, EF of 60% - Patient is started on heparin drip, received loading doses of aspirin and Plavix. Plan -Recommend to discontinue heparin drip - Cardiogenic shock cannot be ruled out even if the patient had normal EF as patient can have LV diastolic dysfunction causing pulmonary edema and acute hypoxic respiratory failure. Patient can have Takotsubo like picture in the setting of ongoing acute illness, suspected sepsis. Fluid overload could also be contributing to the pulmonary edema as patient received almost 7 L since hospital admission at the time of intubation - CVP is around 9 which rules out right heart failure. Initially intended to do Milton-Smita catheter to measure the PCWP but could not do in view of insufficient equipment - No need of Milton-Smita catheter as patient appears to be improving clinically - will do cardiac catheterization if needed on coming Tuesday #Acute Encephalopathy #Seizure episode #History of seizures #Severe agitation #Left temporal encephalomalacia, temporal lobe calcification #Anxiety/depression, by history #Nicotine dependence #Marijuana dependence #Hypertension, by history #Acute hypoxic respiratory failure, on mechanical ventilation 2/2 severe agitation #Acute respiratory distress syndrome versus negative pressure pulmonary edema #Aspiration pneumonia #Transaminitis #Gastroenteritis, diarrhea #Acute kidney injury secondary to rhabdomyolysis #Cystitis #High anion gap metabolic acidosis #Lactic acidosis #Thickening of adrenal glands #Leukocytosis #Normocytic normochromic anemia #Cystitis #Aspiration pneumonia #Rule out meningitis - Rest of the medical conditions to be treated as per ICU team Thank you for allowing us to participate in the care of the patient Patient plan of care was discussed with the construction director, Dr. Ash Oconnor, PGY2
[2024-10-26] MEDS: PROPOFOL 1,000 MG IVPB 1,000 MG/100 ML VIAL 15.649 MG IV (20:30)
[2024-10-27] VITALS (104 sets, daily range): BP systolic 66–158; BP diastolic 38–116; PULSE 69–135; RESP 14–33; TEMP 36.7–37; O2SAT 88–100; BMI 21.2
[2024-10-27] MEDS: fentaNYL 2,500 MCG/250 ML BAG 2,500 MCG/250 ML BAG 22.5 MCG IV (00:10)
[2024-10-27] MEDS: Heparin/D5w 25K 250 ML Ivpb 25,000 UNIT/250 ML BAG 12.519 UNIT IV (00:10)
[2024-10-27 01:29] LABS: Partial Thromboplastin Time 46.0 Seconds (22.0-36.0)
[2024-10-27] MEDS: HEPARIN SOD INJ 5000 UNIT/ML VIAL 1550 UNIT IV (02:27)
[2024-10-27] MEDS: PROPOFOL 1,000 MG IVPB 1,000 MG/100 ML VIAL 15.649 MG IV ×2 (02:28→09:00)
--- NOTE | 2024-10-27 05:00 | XR_ITS ---
Examination: AP chest single view Technique one AP portable supine chest single view Date and time: October 27, 2024, 0849 hrs., Comparison October 26, 2024 Indications: Hypoxic respiratory failure, postintubation, prominent pneumonia left base Findings: Tracheal tube tip 4.5 cm above gemma. Significant left lung pneumonia with possible left pleural fluid. Normal heart size. Right internal jugular central line tip SVC satisfactory position. Orogastric tube is in the stomach satisfactory position Impression: Prominent left lung pneumonia.
[2024-10-27 05:39] LABS: Base Excess 3 (-3-3); HCO3 28 mEq/L (20-26); Inspired Oxygen, FIO2 30 %; O2 Saturation 88 % (91-98); PCO2 40 mmHg (32.0-48.0); pH, Arterial 7.45 (7.35-7.45)
[2024-10-27 05:44] LABS: Allen Test Performed/OK; PO2 55 mmHg (83-108); Puncture Site Right Radial
[2024-10-27] MEDS: MIDAZOLAM INJ 1 MG/ML VIAL 2 ML 2 MG IVP (05:47)
[2024-10-27 06:06] LABS: Basophils # (Auto) 0.1 Thou/mm3 (0.0-0.2); Basophils % (Auto) 1 % (0-2.5); Eosinophils # (Auto) 0.6 Thou/mm3 (0.0-0.5); Eosinophils % (Auto) 6 % (0-10); Hematocrit 29.1 % (36.0-46.0); Hemoglobin 9.8 g/dL (12.0-16.0); Immature Granulocytes Auto 0.05 Thou/mm3 (0.00-0.00); Lymphocytes # (Auto) 3.2 Thou/mm3 (1.0-4.8); Lymphocytes % (Auto) 31 % (10-50); Mean Corpuscular HGB Conc 33.7 g/dl (31.0-37.0); Mean Corpuscular Hemoglobin 31.5 pg (25.0-35.0); Mean Corpuscular Volume 94 fL (80-100); Monocytes # (Auto) 0.9 Thou/mm3 (0.0-0.8); Monocytes % (Auto) 9 % (0-12); Neutrophils # (Auto) 5.6 Thou/mm3 (1.8-7.7); Neutrophils % (Auto) 53 % (37-80); Nucleated Red Blood Cell # 0.00 Thou/mm3 (0.00-0.00); Nucleated Red Blood Cell % 0 /100 WBC (0); Platelet Count 269 Thou/mm3 (140-440); RDW Standard Deviation 41.4 fL (36.4-46.3); Red Blood Count 3.11 Miln/mm3 (4.00-5.20); White Blood Count 10.5 Thou/mm3 (3.6-11.0)
[2024-10-27 06:50] LABS: Alanine Aminotransferase 41 U/L (10-49); Albumin, Serum 3.2 gm/dL (3.5-5.0); Albumin/Globulin Ratio 1.5 (1.2-2.2); Alkaline Phosphatase 125 U/L (46-116); Anion Gap 11 (7-16); Aspartate Amino Transferase 28 U/L (0-34); BUN/Creatinine Ratio 9 Ratio (12-20); Bilirubin,Total 0.3 mg/dL (0.3-1.2); Blood Urea Nitrogen 7 mg/dL (9-23); Calcium 8.3 mg/dL (8.3-10.6); Calcium (Corrected) 8.9 mg/dL (8.5-10.1); Carbon Dioxide 26.8 mMol/L (20.0-31.0); Chloride 105 mMol/L (98-107); Creatinine (Component) 0.8 mg/dL (0.6-1.3); Estimated Creatinine Clearance 60.7 mL/min (>60); Globulin 2.2 gm/dL (2.3-3.5); Glucose 112 mg/dL (74-106); Magnesium 1.2 mg/dL (1.6-2.6); Osmolality,Calculated 283 (275-295); Phosphorous 2.2 mg/dL (2.4-5.1); Potassium 3.0 mMol/L (3.4-5.1); Sodium 143 mMol/L (136-145); Total Protein 5.4 gm/dL (5.7-8.2); eGFR > 60 See Note
--- NOTE | 2024-10-27 07:33 | EKG_ITS ---
[facility] Test Date: 2024-10-27 Pat Name: PRITI HURT [facility] Chief Operator Synthesis: SONA : 1970 Requested By: Abdias Frank Order Number: [id number] Reading MD: Abdias Frank Measurements Intervals [place] Rate: 127 P: 134 MT: 151 QRS: 195 QRSD: 89 T: 99 QT: 274 QTc: 399 Interpretive Statements SINUS TACHYCARDIA ARM LEADS REVERSED ABNORMAL RHYTHM ECG Compared to ECG 10/24/2024 17:27:43 T-wave abnormality no longer present Possible ischemia no longer present /store/[id number]
[2024-10-27] MEDS: HALOPERIDOL LACT INJ 5 MG/ML VIAL IV (07:38)
[2024-10-27] MEDS: Magnesium Sulfate 4 GM Ivpb 4 GM/50 ML BAG IV ×2 (07:49→17:11)
[2024-10-27] MEDS: POTASSIUM CHLORIDE 10% 20 MEQ/15 ML UDC 40 MEQ NG (07:49)
[2024-10-27] MEDS: POT PHOS 15 mMol in NS 250 ML 15 MMOL/250 ML BAG 62.5 MMOL IV (07:49)
[2024-10-27] MEDS: ASPIRIN 81 MG CHEW NG (08:16)
[2024-10-27] MEDS: CLOPIDOGREL BISULFATE 75 MG TABLET NG (08:16)
[2024-10-27] MEDS: SENNA/DOCUSATE SOD 1 TAB TABLET 2 TAB PO (08:16)
[2024-10-27] MEDS: cefTRIAXone/D5w 1gm IV premix 1 GM/50 ML BAG IV (08:16)
[2024-10-27] MEDS: DEXMEDETOMIDINE 400 MCG IVPB 400 MCG/100 ML BAG IV (08:24)
[2024-10-27] MEDS: levETIRAcetam LIQD 500 MG/5 ML UDC 750 MG NG (08:39)
[2024-10-27] MEDS: LACOSAMIDE 50 MG TABLET 100 MG NG (08:40)
[2024-10-27 09:10] LABS: Partial Thromboplastin Time 63.9 Seconds (22.0-36.0)
[2024-10-27 09:30] LABS: Syphilis Nonreactive (Nonreactive)
[2024-10-27] MEDS: ZIPRASIDONE INJ 20 MG/ML VIAL (NON-FORMULARY) 10 MG IM ×3 (10:08→22:38)
[2024-10-27 10:29] LABS: C-Reactive Protein 15.4 mg/dL (0.0-0.9)
[2024-10-27 10:37] LABS: Sed Rate (ESR) 38 mm/hr (0-30)
[2024-10-27] MEDS: LORazepam 2 MG/ML VIAL IVP (10:52)
[2024-10-27 11:44] LABS: HIV (1&2) Antibody Rapid Non-Reactive
[2024-10-27] MEDS: FUROSEMIDE INJ 10 MG/ML 4ML VIAL 40 MG IVP (12:19)
--- NOTE | 2024-10-27 12:56 | ESPR_ITS ---
<Statement entered by Marino Aleman MD - 10/28/24 17:44> I personally evaluated examined the patient intensive care unit with the resident physician Dr. GUANAKO Oconnor, patient appears to be doing a little better today she was successfully extubated but still somewhat lethargic mental status has not improved significantly. Will continue to monitor closely once her mental status improves we might consider coronary angiogram but no plans for next 1 to 2 days. Documentation for date of: 10/27/24 Subjective Subjective Interval history: Daughter and sister are at the bedside. Per sister, on the day of admission, she went to the patient's house as she is not responding to her phone calls and after talking to her for a long time, patient opened the door and found to be completely covered in vomitus and mildly altered at the time but is able to answer questions. Patient endorsed that she had multiple episodes of seizures at that time for which patient is brought to the hospital. Daughter found a bottle with unknown liquid inside it and brought to the hospital for testing. No history of previous CAD, significant family history of cardiac diseases. Daughter had metastatic breast carcinoma and is currently on treatment. Patient is seen and examined at bedside No acute overnight events. Patient is extubated this morning and is kept on oxygen Still sedated and appears to be mildly agitated. Vitals are stable. Noted to have wheezes and bronchial breath sounds in the right lung Recommended to discontinue heparin and start on Lovenox Will do cardiac catheterization once patient medical condition is stabilized Exam Vital Signs Temp Pulse Resp BP Pulse Ox O2 Del Method O2 Flow Rate 98.6 F 105 H 30 H 103/66 98 Mechanical Ventilation 40 10/27/24 08:00 10/27/24 12:19 10/26/24 06:00 10/27/24 12:19 10/27/24 09:57 10/27/24 08:00 10/24/24 19:30 FiO2 21 10/27/24 09:57 Narrative Exam General: Sedated, extubated-on oxygen HEENT: Normocephalic, atraumatic, mucous membranes moist. Heart: Regular rate and rhythm, no murmurs. Lungs: Noted wheeze and bronchial breath sounds in the right lung. Noted decreased breath sounds in left basilar area Abdomen: Soft, nondistended, nontender, positive bowel sounds. ?No guarding or rebound tenderness. Neurologic: Sedated. No gross neurological deficits noted Extremities: No edema. Skin: No rash or ecchymoses. Objective Labs 10/27/24 04:30 10/27/24 04:30 Labs: Laboratory Results - last 24 hr 10/26/24 10/27/24 10/27/24 17:38 00:55 04:30 WBC 10.5 RBC 3.11 L Hgb 9.8 L Hct 29.1 L MCV 94 MCH 31.5 MCHC 33.7 RDW Std Deviation 41.4 Plt Count 269 D Neut % (Auto) 53 Lymph % (Auto) 31 [place] % (Auto) 9 Eos % (Auto) 6 Baso % (Auto) 1 Neut # (Auto) 5.6 Lymph # (Auto) 3.2 [place] # (Auto) 0.9 H Eos # (Auto) 0.6 H Baso # (Auto) 0.1 Immature Gran # (Auto) 0.05 H Absolute Nucleated RBC 0.00 Immature Gran % 1 H Nucleated RBC % 0 ESR APTT 47.0 H 46.0 H Puncture Site ABG pH ABG pCO2 ABG pO2 ABG HCO3 ABG O2 Saturation ABG Base Excess FiO2 Sodium 143 Potassium 3.0 L Chloride 105 Carbon Dioxide 26.8 Anion Gap 11 BUN 7 L Creatinine 0.8 Estim Creat Clear Calc 60.7 L eGFR > 60 BUN/Creatinine Ratio 9 L Glucose 112 H Calculated Osmolality 283 Calcium 8.3 Corrected Calcium 8.9 Phosphorus 2.2 L Magnesium 1.2 L Total Bilirubin 0.3 AST 28 ALT 41 Alkaline Phosphatase 125 H C-Reactive Prot, Quant Total Protein 5.4 L Albumin 3.2 L Globulin 2.2 L Albumin/Globulin Ratio 1.5 Syphilis Serology HIV 1&2 Antibody Rapid Non-Reactive 10/27/24 10/27/24 05:15 07:23 WBC RBC Hgb Hct MCV MCH MCHC RDW Std Deviation Plt Count Neut % (Auto) Lymph % (Auto) [place] % (Auto) Eos % (Auto) Baso % (Auto) Neut # (Auto) Lymph # (Auto) [place] # (Auto) Eos # (Auto) Baso # (Auto) Immature Gran # (Auto) Absolute Nucleated RBC Immature Gran % Nucleated RBC % ESR 38 H APTT 63.9 H D Puncture Site Right Radial ABG pH 7.45 ABG pCO2 40 ABG pO2 55 L* ABG HCO3 28 H ABG O2 Saturation 88 L ABG Base Excess 3 FiO2 30 Sodium Potassium Chloride Carbon Dioxide Anion Gap BUN Creatinine Estim Creat Clear Calc eGFR BUN/Creatinine Ratio Glucose Calculated Osmolality Calcium Corrected Calcium Phosphorus Magnesium Total Bilirubin AST ALT Alkaline Phosphatase C-Reactive Prot, Quant 15.4 H Total Protein Albumin Globulin Albumin/Globulin Ratio Syphilis Serology Nonreactive HIV 1&2 Antibody Rapid ABG Interpretation ABG results: 10/23/24 10/24/24 10/24/24 04:06 10:51 14:00 ABG pH 7.42 7.20 L D ABG pCO2 27 L 47 D ABG pO2 49 L* 83 D ABG HCO3 18 L 19 L ABG O2 Saturation 86 L 94 ABG Base Excess -6 L -9 L VBG pH 7.34 VBG pCO2 35 L VBG pO2 61 H VBG Base Excess -7 L 10/24/24 10/25/24 10/26/24 14:26 05:05 04:41 ABG pH 7.38 D 7.30 L 7.42 D ABG pCO2 32 D 37 35 ABG pO2 130 H D 53 L* D 64 L ABG HCO3 18 L 18 L 23 ABG O2 Saturation 99 H 85 L 93 ABG Base Excess -6 L -8 L -1 VBG pH VBG pCO2 VBG pO2 VBG Base Excess 10/27/24 05:15 ABG pH 7.45 ABG pCO2 40 ABG pO2 55 L* ABG HCO3 28 H ABG O2 Saturation 88 L ABG Base Excess 3 VBG pH VBG pCO2 VBG pO2 VBG Base Excess Quality Measures Quality Measures sepsis Current suspected stage: ruled out Possible source: meningitis and unknown Blood cultures ordered: yes Antibiotic ordered: Yes and none Assessment & Plan Assessment Current Active Medications: Generic Name Dose Route Start Last Admin Trade Name Freq PRN Reason Stop Dose Admin Acetaminophen 650 mg 10/23/24 05:55 Acetaminophen 325 Mg Tablet PO 11/22/24 05:54 Q6H PRN PAIN SCALE 1-3 (mild Aspirin 81 mg 10/25/24 09:00 10/27/24 08:16 Aspirin 81 Mg Chew NG 11/24/24 08:59 81 mg QDAY KIMBERLY Administration Clopidogrel Bisulfate 75 mg 10/25/24 09:00 10/27/24 08:16 Clopidogrel Bisulfate 75 Mg Tablet NG 11/24/24 08:59 75 mg QDAY KIMBERLY Administration Dextrose 25 ml 10/25/24 08:37 Dextrose 50%-Water Inj 50 Ml Syringe IV 11/24/24 08:36 Q15MIN PRN BG 50-70 responsive npo pt Dextrose 50 ml 10/25/24 08:37 Dextrose 50%-Water Inj 50 Ml Syringe IV 11/24/24 08:36 Q15MIN PRN BG <50 OR BG <70 & pt unresponsive Glucagon 1 mg 10/25/24 08:37 Glucagon Inj 1 Mg Vial IM Q15MIN PRN BG <70, and no IV access Haloperidol Lactate 5 mg 10/27/24 10:20 Haloperidol Lact Inj 5 Mg/Ml Vial IV X1 PRN AGITATION (SEVERE) Protocol Ceftriaxone Sodium/Dextrose 1 gm in 50 mls @ 100 mls/hr 10/23/24 11:00 10/27/24 08:16 Rocephin/D5w 1gm Iv Premix IV 10/30/24 10:59 100 mls/hr QDAY KIMBERLY Administration Propofol 1,000 mg in 100 mls @ 1.565 mls/hr 10/24/24 10:01 10/27/24 09:46 Diprivan Ivpb IV 11/23/24 10:00 15 mcg/kg/min .Q24H PRN 4.695 mls/hr PER PROTOCOL Titration Protocol 5 MCG/KG/MIN Fentanyl Citrate 2,500 mcg in 250 mls @ 2.5 mls/hr 10/24/24 10:01 10/27/24 09:42 Sublimaze Inj 2,500 Mcg/250 Ml Bag IV 10/29/24 10:00 125 mcg/hr .Q24H PRN 12.5 mls/hr PER PROTOCOL Titration Protocol 25 MCG/HR Midazolam HCl 100 mg in 100 mls @ 1 mls/hr 10/24/24 12:39 10/25/24 18:13 Versed Pf Inj In Ns Premix IV 10/29/24 12:38 0 mg/hr .Q24H PRN 0 mls/hr PER PROTOCOL Titration Protocol 1 MG/HR Heparin Sodium/Dextrose 25,000 unit in 250 mls @ 6.26 mls/hr 10/24/24 14:00 10/27/24 02:15 Heparin In D5w Ivpb IV 11/07/24 13:59 26 units/kg/hr .Q24H KIMBERLY 13.562 mls/hr Titration Protocol 12 UNITS/KG/HR Norepinephrine Bitartrate 16 mg in 250 mls @ 2.461 mls/hr 10/26/24 01:50 10/27/24 09:47 Levophed In Ns 16mg/250ml IV 11/25/24 01:49 0.11 mcg/kg/min .Q24H PRN 5.414 mls/hr PER PROTOCOL Titration Protocol 0.05 MCG/KG/MIN Dexmedetomidine/Sodium Chloride 400 mcg in 100 mls @ 2.62 mls/hr 10/27/24 08:16 10/27/24 09:32 Precedex Ivpb IV 11/26/24 08:15 1.2 mcg/kg/hr .Q24H PRN 15.72 mls/hr Per PROTOCOL Titration Protocol 0.2 MCG/KG/HR Lacosamide 100 mg 10/24/24 21:00 10/27/24 08:40 Lacosamide 50 Mg Tablet NG 11/23/24 20:59 100 mg BID KIMBERLY Administration Levetiracetam 750 mg 10/24/24 10:45 10/27/24 08:39 Levetiracetam Liqd 500 Mg/5 Ml Udc NG 11/22/24 20:59 750 mg BID KIMBERLY Administration Ondansetron HCl 4 mg 10/23/24 05:55 10/23/24 10:17 Ondansetron Inj 2 Mg/Ml Inj 2 Ml IVP 11/22/24 05:54 4 mg Q6H PRN Administration NAUSEA OR VOMITING Protocol Pantoprazole Sodium 40 mg 10/24/24 19:15 10/27/24 08:16 Pantoprazole Inj 40 Mg Vial IVP 11/23/24 19:14 40 mg QDAY KIMBERLY Administration Quetiapine Fumarate 100 mg 10/27/24 21:00 Quetiapine Fumarate 25 Mg Tablet NG 11/26/24 20:59 BID KIMBERLY Sennosides 2 tab 10/26/24 14:00 10/27/24 08:16 Senna/Docusate Sod 1 Tab Tablet PO 11/25/24 13:59 2 tab QDAY KIMBERLY Administration Protocol Venlafaxine HCl 150 mg 10/24/24 10:57 Venlafaxine Xr 37.5 Mg Capcr PO 11/22/24 13:44 QDAY KIMBERLY Ziprasidone 10 mg 10/27/24 09:34 Ziprasidone Inj 20 Mg/Ml Vial (Non-Formulary) IM 11/26/24 09:33 Q6HR PRN SEVERE AGITATION Protocol Plan A 54-year-old female with significant past medical history of seizures, brain surgery, marijuana use, anxiety, depression was found to be unconscious when her sister went to check on her. The patient was immediately brought to the hospital for altered mental status. Patient apparently found to have vomitings and abdominal pain prior to the admission for 1 day. On reviewing previous medical records, patient was found to have hospital ER visits for seizures in 2019, 2021. Found to have cholecystectomy, laparoscopic by Dr. Monge in 2021. Cardiology is consulted in view of regional wall motion abnormality, elevated troponin and BNP, EKG changes and suspected ACS # Elevated troponins, NSTEMI --> likely type II # Pulmonary edema - Cardiogenic vs noncardiogenic, ARDS - Patient initially presented with altered mental status and vitals at the time of admission are stable, admitted for acute encephalopathy, likely secondary to suspected seizures - In the floors, patient is treated for sepsis and suspected seizure activity - On 10/24/2024, patient is upgraded to ICU for acute hypoxic respiratory failure and acute encephalopathy, patient is intubated, a bolus of 1 L IV fluid is given and started on vasopressors - Patient is given total 6.9 L since the time of admission in view of rhabdomyolysis - Troponin done on 10/24/2024 in the ICU is 6.24, later down trended to 6.0. BNP is 1465 - Chest x-ray showed bilateral increased vascular prominence, perihilar opacities, fluid in the right middle fissure, appears like cardiogenic pulmonary edema but cannot rule out ARDS - EKG done in the ICU showed sinus tachycardia with ST elevations in V3 and V4 with no reciprocal ST depressions noted in other leads - Per chart review, patient does not have any significant history of CAD and Heart failure Plan - Echocardiogram showed mild apical hypokinesis without significant regional wall motion abnormalities with EF of 60% - CVP is around 9, that suggest no right heart failure but cannot rule out LV dysfunction - Initially planned to do [place] catheterization to measure pulmonary capillary wedge pressure, CVP but could not perform in view of insufficient equipment - Recommended to monitor oxygenation, vitals and repeat chest x-ray in the morning. If the patient oxygenation or vitals worsens, will do [place] catheterization in the morning - Recommended to give 1 dose of Lasix 40 Mg IV as patient received almost 6.9 L of fluid since the time of admission, in suspicion of fluid overload - Acute hypoxic respiratory failure could be due to underlying sepsis causing Takotsubo cardiomyopathy like picture causing the pulmonary edema. Patient has possibility of CAD which could be exacerbated in the setting of fluid overload and sepsis, but cardiac catheterization cannot be done as patient is currently on vasopressors and suspected to have sepsis. Will do cardiac catheterization once patient clinical condition improves and if there is suspicion of CAD at the time. - Okay to continue heparin drip for now and either continue aspirin or Plavix # Shock, likely septic # To rule out cardiogenic - Patient initially presented to the hospital with altered mental status - Vitals are stable at the time of admission except for sinus tachycardia - Labs at the time of admission are significant for elevated WBC, metabolic acidosis, BHAVESH and procalcitonin. CK levels are elevated. - Patient is initially treated for sepsis and rhabdomyolysis. Patient received around 7 L of fluid - On 10/24/2024, patient developed sudden onset shortness of breath and agitation with low saturation for which patient is intubated and upgraded to ICU for further management - EKG done at that time showed ST elevations in V3 and V4, troponin of 6.2, BNP 1465 - Chest x-ray showed bilateral increased vascularity and perihilar opacities - Echocardiogram done showed no significant regional wall motion abnormalities except for mild hypokinesis at the apex, EF of 60% - Patient is started on heparin drip, received loading doses of aspirin and Plavix. Plan - Recommend to discontinue heparin drip - Cardiogenic shock cannot be ruled out even if the patient had normal EF as patient can have LV diastolic dysfunction causing pulmonary edema and acute hypoxic respiratory failure. Patient can have Takotsubo like picture in the setting of ongoing acute illness, suspected sepsis. Fluid overload could also be contributing to the pulmonary edema as patient received almost 7 L since hospital admission at the time of intubation - CVP is around 9 which rules out right heart failure. Initially intended to do [place] catheter to measure the PCWP but could not do in view of insufficient equipment - No need of [place] catheter as patient appears to be improving clinically - will do cardiac catheterization if needed on coming Tuesday #Acute Encephalopathy #Seizure episode #History of seizures #Severe agitation #Left temporal encephalomalacia, temporal lobe calcification #Anxiety/depression, by history #Nicotine dependence #Marijuana dependence #Hypertension, by history #Acute hypoxic respiratory failure, on mechanical ventilation 2/2 severe agitation #Acute respiratory distress syndrome versus negative pressure pulmonary edema #Aspiration pneumonia #Transaminitis #Gastroenteritis, diarrhea #Acute kidney injury secondary to rhabdomyolysis #Cystitis #High anion gap metabolic acidosis #Lactic acidosis #Thickening of adrenal glands #Leukocytosis #Normocytic normochromic anemia #Cystitis #Aspiration pneumonia #Rule out meningitis - Rest of the medical conditions to be treated as per ICU team Thank you for allowing us to participate in the care of the patient Patient plan of care was discussed with the hansard reporter, Dr. Ash Oconnor, PGY2
[2024-10-27] MEDS: DEXMEDETOMIDINE 400 MCG IVPB 400 MCG/100 ML BAG 18.34 MCG IV ×2 (13:19→18:55)
[2024-10-27] MEDS: TUBERCULIN PPD INJ 5 UNIT/0.1 ML DOSE ID (13:21)
[2024-10-27 14:21] LABS: Cocci Serology, IgM Negative (Negative)
--- NOTE | 2024-10-27 15:09 | ESPR_ITS ---
<Statement entered by Mis Warren MD - 10/27/24 18:43> Patient was seen and examined at bedside. I agree on the assessment and plan on this note as documented by resident Abdias Frank PGY1. Patient seen and examined at bedside, overnight patient received times one 2 mg of Versed for agitation this morning. Patient continues to remain agitated on max dose propofol and 225 mcg of fentanyl this morning, was given Haldol 5 mg x 1 IV, EKG repeated this morning QTc 399. Patient Seroquel dose increased to 100 twice daily, started on ziprasidone 10 mg intramuscular every 6 hours as needed for agitation control, will continue Precedex drip. Will continue daily EKGs for monitoring of QTc, repleted magnesium, phosphorus and potassium. Discussed with inspector and sorter, patient's heparin drip will be transition to Lovenox for ACS, will continue with aspirin and Plavix. Patient will be given additional dose of Lasix 40 mg IV x 1, as patient continues to remain net positive for hospitalization. Patient was extubated successfully today, extubated to supplemental oxygen, tolerated extubation well. Failed bedside swallow will continue to monitor patient overnight in ICU, patient on Precedex drip will titrate medication to p.o. to control agitation and consider downgrade in a.m. Case discussed with attending Dr. Jd Warren MD PGY-2 Documentation for date of: 10/27/24 Subjective Subjective Interval history: Ms. Barger is a 54-year-old female with past medical history of hypertension, seizures, cholecystectomy, status post brain surgery in the past and chronic active smoker who presented to [facility] (formerly [facility]) emergency department on October 23, 2024 with a chief complaint of altered mental status. Patient presented with acute onset most of the history on presentation was obtained from patient's sister and chart review. Per patient's sister her last seizure was last week prior to presentation, describes the seizure episodes as her staring out of the window into space for a few minutes before returning back to baseline. Last known well time was Saturday 10/21, patient is on Keppra daily, however per pharmacy patient has not picked up her prescription. The patient had a brain operation in 2013. Urine tox screen was positive for THC on presentation, no remote history of any substance use. TSH on presentation within normal limits. Patient was given Keppra loading dose, IV Ativan in ED, underwent lumbar puncture, LP showed elevated glucose and protein. Patient was to be followed by neurology undergoing seizure workup, was started on Vimpat and Keppra by neurology recommendations, was pending MRI and EEG. Of note patient has had multiple rapid responses called for agitation, patient does not have any psychiatric history, is on venlafaxine for anxiety/depression which was continued inpatient. 10/24: ICU consulted today for persistent agitation during a rapid response, patient was given Haldol 7.5 mg IM, was transferred to ICU for further management, in the unit patient was started on Precedex drip, however patient continued to remain agitated despite IV Versed pushes on top of Precedex drip, patient's heart rate was noted to be in 160s, was hypoxic with severe agitation and decision was made to intubate the patient. Patient was intubated and sedated, repeat chest x-ray shows significant worsening from the CT on 10/23, there is suspicion of negative pressure pulmonary edema versus ARDS, patient's ventilator settings were optimized to lower volumes, we will titrate down FiO2 and patient was started on deep sedation with IV Versed, propofol and fentanyl. Central line placed, patient requiring Levophed. Cardiology was consulted for elevated troponin and some ST?T EKG changes noted on V3-V5, patient was given loading dose aspirin and Plavix and started on heparin gtt. 10/25/2024: The patient's sister and niece were at bedside and were able to provide a clearer medical history. 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 Since then she has had mild seizures and has been on Keppra. However, the patient has not picked up her Keppra medication from the pharmacy since June of this year, which the niece and sister were unaware of. Per the niece and sister, the patient is otherwise fully functioning, and is surprisingly able to drive. The patient must be prohibited from driving, swimming, or operating any heavy machinery. Per the niece and sister, the patient is able to take appropriate preparatory actions for her seizures when she feels them coming on. The patient's niece describes the patient as having inappropriate vocabulary since the brain operation in 2013, as the patient has been calling various objects by the incorrect name. Her niece also describes a flattened affect expressed by the patient, and patient has also appeared to be hallucinating during the current hospital visit, however she has no psychiatric history or diagnoses. The patient had clonus in her bilateral upper and lower extremities morning of 10/25/2024, Dilantin was given and an EEG was ordered. She continues to be sedated on fentanyl propofol. Her troponins are trending down. The patient's pH decreased from 7.38 to 7.3 on ABG. The patient's PaO2 decreased from 130 to 53. Chest x-ray showed improving groundglass opacities morning of 10/25/2024. 10/26/2024: Patient was intermittently on Levophed starting at 1 AM and throughout the morning hours of 10/26/2024, also received LR bolus overnight. Off levo. Fentanyl for sedation. Patient is hypokalemic, 80 mEq potassium ordered. Patient is net -1.7 L since admission. Chest x-ray shows reduced groundglass opacities throughout however similar to increased sized left lower consolidation compared to yesterday, ultrasound positive for interstitial consolidation with surrounding fluid that is likely transudative, not large enough for thoracentesis, will continue Lasix. MRI showed a large left temporal lobe encephalomalacia, suspicious for ringlike restricted diffusion in the left temporal lobe, history of neurocysticercosis per family, EEG showed diffuse slowing. Echo showed HFrEF with 45% ejection fraction, global left ventricular systolic function is mildly decreased, a hypokinetic apical anterior wall, and a tiny, hemodynamically insignificant pericardial effusion. 10/27/2024: The patient became agitated overnight received Versed 2 mg x 1. This morning she received received a 5 mg one-time dose of Haldol, though she continued to be agitated after receiving Haldol and on an urgent titration of fentanyl. The patient has shown no signs of becoming less agitated over the past few days and the use of more sedation decreases her respiratory drive. Therefore in anticipation of extubation the patient was given a one-time dose of ziprasidone in addition to a Precedex drip. She met other parameters for extubation including being on pressure support and an ABG demonstrating a pH of 7.45 and a PCO2 of 40. The patient was successfully extubated to oxygen mask but continued to be agitated. She remains on a Precedex drip. The patient is hypokalemic, hypophosphatemic, and hypomagnesemic, will replace electrolytes. Chest x-ray showed improved left lower lobe opacity, will continue to diurese. Exam Vital Signs Temp Pulse Resp BP Pulse Ox O2 Del Method O2 Flow Rate 98.6 F 117 H 20 130/88 H 99 Blow-by 40 10/27/24 08:00 10/27/24 14:00 10/27/24 14:00 10/27/24 14:00 10/27/24 14:00 10/27/24 12:00 10/24/24 19:30 FiO2 21 10/27/24 09:57 Narrative Exam General: Agitated, pulling at restraints. Neurologic: GCS 13. Confused, moaning. HEENT: Normocephalic, atraumatic, mucous membranes moist. Pupils reactive to light. Heart: Regular rate and rhythm, normal S1 and S2, no murmurs. Lungs: Decreased breath sounds left lower lobe on auscultation. Abdomen: Soft, nondistended, nontender, positive bowel sounds. Extremities: No edema. 2+ radial and dorsalis pedis pulses bilaterally. Skin: Warm. Dry. No rash or ecchymoses. Objective Labs 10/28/24 04:18 10/28/24 04:18 Labs: Laboratory Results - last 24 hr 10/26/24 10/27/24 10/27/24 17:38 00:55 04:30 WBC 10.5 RBC 3.11 L Hgb 9.8 L Hct 29.1 L MCV 94 MCH 31.5 MCHC 33.7 RDW Std Deviation 41.4 Plt Count 269 D Neut % (Auto) 53 Lymph % (Auto) 31 Mayes % (Auto) 9 Eos % (Auto) 6 Baso % (Auto) 1 Neut # (Auto) 5.6 Lymph # (Auto) 3.2 Mayes # (Auto) 0.9 H Eos # (Auto) 0.6 H Baso # (Auto) 0.1 Immature Gran # (Auto) 0.05 H Absolute Nucleated RBC 0.00 Immature Gran % 1 H Nucleated RBC % 0 ESR APTT 47.0 H 46.0 H Puncture Site ABG pH ABG pCO2 ABG pO2 ABG HCO3 ABG O2 Saturation ABG Base Excess FiO2 Sodium 143 Potassium 3.0 L Chloride 105 Carbon Dioxide 26.8 Anion Gap 11 BUN 7 L Creatinine 0.8 Estim Creat Clear Calc 60.7 L eGFR > 60 BUN/Creatinine Ratio 9 L Glucose 112 H Calculated Osmolality 283 Calcium 8.3 Corrected Calcium 8.9 Phosphorus 2.2 L Magnesium 1.2 L Total Bilirubin 0.3 AST 28 ALT 41 Alkaline Phosphatase 125 H C-Reactive Prot, Quant Total Protein 5.4 L Albumin 3.2 L Globulin 2.2 L Albumin/Globulin Ratio 1.5 Syphilis Serology Coccidioides IgM Ab HIV 1&2 Antibody Rapid Non-Reactive 10/27/24 10/27/24 05:15 07:23 WBC RBC Hgb Hct MCV MCH MCHC RDW Std Deviation Plt Count Neut % (Auto) Lymph % (Auto) Mayes % (Auto) Eos % (Auto) Baso % (Auto) Neut # (Auto) Lymph # (Auto) Mayes # (Auto) Eos # (Auto) Baso # (Auto) Immature Gran # (Auto) Absolute Nucleated RBC Immature Gran % Nucleated RBC % ESR 38 H APTT 63.9 H D Puncture Site Right Radial ABG pH 7.45 ABG pCO2 40 ABG pO2 55 L* ABG HCO3 28 H ABG O2 Saturation 88 L ABG Base Excess 3 FiO2 30 Sodium Potassium Chloride Carbon Dioxide Anion Gap BUN Creatinine Estim Creat Clear Calc eGFR BUN/Creatinine Ratio Glucose Calculated Osmolality Calcium Corrected Calcium Phosphorus Magnesium Total Bilirubin AST ALT Alkaline Phosphatase C-Reactive Prot, Quant 15.4 H Total Protein Albumin Globulin Albumin/Globulin Ratio Syphilis Serology Nonreactive Coccidioides IgM Ab Negative HIV 1&2 Antibody Rapid ABG Interpretation ABG results: 10/23/24 10/24/24 10/24/24 04:06 10:51 14:00 ABG pH 7.42 7.20 L D ABG pCO2 27 L 47 D ABG pO2 49 L* 83 D ABG HCO3 18 L 19 L ABG O2 Saturation 86 L 94 ABG Base Excess -6 L -9 L VBG pH 7.34 VBG pCO2 35 L VBG pO2 61 H VBG Base Excess -7 L 10/24/24 10/25/24 10/26/24 14:26 05:05 04:41 ABG pH 7.38 D 7.30 L 7.42 D ABG pCO2 32 D 37 35 ABG pO2 130 H D 53 L* D 64 L ABG HCO3 18 L 18 L 23 ABG O2 Saturation 99 H 85 L 93 ABG Base Excess -6 L -8 L -1 VBG pH VBG pCO2 VBG pO2 VBG Base Excess 10/27/24 05:15 ABG pH 7.45 ABG pCO2 40 ABG pO2 55 L* ABG HCO3 28 H ABG O2 Saturation 88 L ABG Base Excess 3 VBG pH VBG pCO2 VBG pO2 VBG Base Excess Quality Measures Quality Measures sepsis Current suspected stage: ruled out Possible source: meningitis and unknown Blood cultures ordered: yes Antibiotic ordered: Yes and none Assessment & Plan Assessment Current Active Medications: Generic Name Dose Route Start Last Admin Trade Name Freq PRN Reason Stop Dose Admin Acetaminophen 650 mg 10/23/24 05:55 Acetaminophen 325 Mg Tablet PO 11/22/24 05:54 Q6H PRN PAIN SCALE 1-3 (mild Aspirin 81 mg 10/25/24 09:00 10/27/24 08:16 Aspirin 81 Mg Chew NG 11/24/24 08:59 81 mg QDAY KIMBERLY Administration Clopidogrel Bisulfate 75 mg 10/25/24 09:00 10/27/24 08:16 Clopidogrel Bisulfate 75 Mg Tablet NG 11/24/24 08:59 75 mg QDAY KIMBERLY Administration Dextrose 25 ml 10/25/24 08:37 Dextrose 50%-Water Inj 50 Ml Syringe IV 11/24/24 08:36 Q15MIN PRN BG 50-70 responsive npo pt Dextrose 50 ml 10/25/24 08:37 Dextrose 50%-Water Inj 50 Ml Syringe IV 11/24/24 08:36 Q15MIN PRN BG <50 OR BG <70 & pt unresponsive Glucagon 1 mg 10/25/24 08:37 Glucagon Inj 1 Mg Vial IM Q15MIN PRN BG <70, and no IV access Ceftriaxone Sodium/Dextrose 1 gm in 50 mls @ 100 mls/hr 10/23/24 11:00 10/27/24 08:16 Rocephin/D5w 1gm Iv Premix IV 10/30/24 10:59 100 mls/hr QDAY KIMBERLY Administration Propofol 1,000 mg in 100 mls @ 1.565 mls/hr 10/24/24 10:01 10/27/24 09:46 Diprivan Ivpb IV 11/23/24 10:00 15 mcg/kg/min .Q24H PRN 4.695 mls/hr PER PROTOCOL Titration Protocol 5 MCG/KG/MIN Fentanyl Citrate 2,500 mcg in 250 mls @ 2.5 mls/hr 10/24/24 10:01 10/27/24 09:42 Sublimaze Inj 2,500 Mcg/250 Ml Bag IV 10/29/24 10:00 125 mcg/hr .Q24H PRN 12.5 mls/hr PER PROTOCOL Titration Protocol 25 MCG/HR Midazolam HCl 100 mg in 100 mls @ 1 mls/hr 10/24/24 12:39 10/25/24 18:13 Versed Pf Inj In Ns Premix IV 10/29/24 12:38 0 mg/hr .Q24H PRN 0 mls/hr PER PROTOCOL Titration Protocol 1 MG/HR Heparin Sodium/Dextrose 25,000 unit in 250 mls @ 6.26 mls/hr 10/24/24 14:00 10/27/24 07:23 Heparin In D5w Ivpb IV 11/07/24 13:59 26 units/kg/hr .Q24H KIMBERLY 13.562 mls/hr Titration Protocol 12 UNITS/KG/HR Norepinephrine Bitartrate 16 mg in 250 mls @ 2.461 mls/hr 10/26/24 01:50 10/27/24 09:47 Levophed In Ns 16mg/250ml IV 11/25/24 01:49 0.11 mcg/kg/min .Q24H PRN 5.414 mls/hr PER PROTOCOL Titration Protocol 0.05 MCG/KG/MIN Dexmedetomidine/Sodium Chloride 400 mcg in 100 mls @ 2.62 mls/hr 10/27/24 08:16 10/27/24 13:19 Precedex Ivpb IV 11/26/24 08:15 1.4 mcg/kg/hr .Q24H PRN 18.34 mls/hr Per PROTOCOL Administration Protocol 0.2 MCG/KG/HR Lacosamide 100 mg 10/24/24 21:00 10/27/24 08:40 Lacosamide 50 Mg Tablet NG 11/23/24 20:59 100 mg BID KIMBERLY Administration Levetiracetam 750 mg 10/24/24 10:45 10/27/24 08:39 Levetiracetam Liqd 500 Mg/5 Ml Udc NG 11/22/24 20:59 750 mg BID KIMBERLY Administration Ondansetron HCl 4 mg 10/23/24 05:55 10/23/24 10:17 Ondansetron Inj 2 Mg/Ml Inj 2 Ml IVP 11/22/24 05:54 4 mg Q6H PRN Administration NAUSEA OR VOMITING Protocol Pantoprazole Sodium 40 mg 10/24/24 19:15 10/27/24 08:16 Pantoprazole Inj 40 Mg Vial IVP 11/23/24 19:14 40 mg QDAY KIMBERLY Administration Quetiapine Fumarate 100 mg 10/27/24 21:00 Quetiapine Fumarate 25 Mg Tablet NG 11/26/24 20:59 BID KIMBERLY Sennosides 2 tab 10/26/24 14:00 10/27/24 08:16 Senna/Docusate Sod 1 Tab Tablet PO 11/25/24 13:59 2 tab QDAY KIMBERLY Administration Protocol Venlafaxine HCl 150 mg 10/24/24 10:57 Venlafaxine Xr 37.5 Mg Capcr PO 11/22/24 13:44 QDAY KIMBERLY Ziprasidone 10 mg 10/27/24 09:34 Ziprasidone Inj 20 Mg/Ml Vial (Non-Formulary) IM 11/26/24 09:33 Q6HR PRN SEVERE AGITATION Protocol Plan Summary: Ms. Barger is a 54-year-old female with past medical history of hypertension, seizures, cholecystectomy, status post brain surgery in the past and chronic active smoker who presented to [facility] (formerly [facility]) emergency department on October 23, 2024 with a chief complaint of altered mental status. Patient admitted to hospital for further workup or for continued encephalopathy, ICU consulted for agitation, patient continued to remain agitated in ICU despite Precedex drip and IV Versed pushes, decision was made to intubate patient for airway protection and severe agitation on 10/24/2024. Neurological #Acute Encephalopathy #Seizure episode #History of seizures #Severe agitation Differential diagnosis: Seizure episode, postictal state, underlying psychiatric disorder, possible underlying drug withdrawal, Encephalitis, Meningitis Diagnostic workup: - Per sister, patient's baseline is talkative and independent, last seizure was last week, has episodes of staring into space. LKW Saturday 10/21, has history of seizures, on Keppra, per pharmacy hasn't picked up. Suspicion of Non-compliance. - Per niece, an empty bottle of toenail/fingernail color enhancer and unidentified clear liquid was found in the patient's home the day of admission, niece mentions that she will further investigate the unidentified clear liquid - Had hallucinations at times during hospitalization, suspicion of underlying psych. disorder. - CSF Analysis shows CSF Color Colorless, CSF WBC 5, CSF RBC 3, Mononuclear WBC 40, Polynuclear WBC 60, CSF Glucose 100, CSF Total Protein 44 - Recieved multiple doses of Haldol, Olanzapine, Ativan, Benadryl throughout hospital course. - Per patient's family, the patient has not been taking her home Keppra medication since June 2024. Per niece, the patient takes mirtazapine at home and has less pills in the bottle than she should have for date of refill - Family mentions that the patient is able to live and function individually and operate a motor vehicle. They mention that the patient is able to anticipate her own seizure episodes. - Given treatment resistant agitation, suspect underlying psychiatric disorder Plan: - Begin Seroquel 100 mg twice daily for agitation - Single dose haloperidol 5 mg for agitation morning of 10/27/2024 - The patient should never operate a motor vehicle, swim, or operate any heavy machinery. - Continue Keppra 750 NG BID - Continue Vimpat 100 NG BID - Precedex for sedation, will continue to wean - Neurology Consulted - CSF culture negative - Follow-up EEG with neurology once patient has been off sedation for 48 hours #Anxiety/depression, by history Patient has history of anxiety/depression on Venlafaxine 150mg daily - Hold Venlafaxine currently #Nicotine dependence #Marijuana dependence Chronic active smoker, U Tox. 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 - Cardiogenic shock, reinforced by echo on 10/24/2024 demonstrating HFrEF with EF 45%, elevated troponins but downtrending on 10/25/2024, EKG showed some acute ST- T changes on leads V3 V4 - Obstructive shock, low suspicion patient did have a hypoxia however chest x- ray negative for any signs of pneumo, low suspicion of PE, no right heart strain/tamponade seen on bedside echo - Hemorrhagic shock, low suspicion, patient has no active source of any bleeding, hemoglobin is stable, anemic on 10/26/2024, see heme, likely due to volume Diagnostic workup: - Bedside echo showed EF of 45% - Patient is on IV antibiotics for cystitis, received multiple sedative dose medications, he was getting p.o. diet there is suspicion of aspiration - Chest x-ray shows improved bilateral groundglass opacities 10/25/2024, improved on 10/26/2024 (left lower lobe pleural effusion, see pulm) Treatment: - Levophed titrate MAP greater than 65 - Will obtain NICOM assessment to assess peripheral vascular resistance, SVI - Continue ceftriaxone (10/23- #ACS: NSTEMI type I versus type II #Elevated troponin #Abnormal EKG Patient had worsened agitation, no symptoms of any chest pain/cardiac distress, did have abdominal pain prior to presentation. Troponin downtrending from 4.4 to 2.4, EKG showed some acute ST-T changes leads V3 V4 Plan: - Heparin gtt. ACS protocol transition to Lovenox - Trend troponins - Repeat EKG as needed - Continue aspirin and Plavix - Cardiology consulted, appreciate recommendations #Hypertension, by history Has history of hypertension, on lisinopril at home Pulmonary #Acute hypoxic respiratory failure (Resolved) #Cardiogenic pulmonary edema versus negative pressure pulmonary edema versus flash pulmonary edema #Aspiration pneumonia Differential diagnosis: Negative pressure pulmonary edema, aspiration pneumonia, fluid overload - ARDS lower probability due to improvement of chest x-ray after diuresis - Flash cardiogenic pulmonary edema may be considered due to improvement in chest x-ray after diuresis, also supported by HFrEF on echo, EKG changes and elevated troponins also reflect cardiac stress (see cardio) - There is suspicion of aspiration as patient was given multiple sedating medication and was allowed p.o. intake, however CT scan from 10/23 has no evidence of any pneumonia, procalcitonin 5.69 on 10/24/2024 down from 16.25 on 10/22/2024, sputum culture negative - Patient was breathing over the vent after intubation, negative pressure pulmonary edema may be considered given history of seizures and improvement on x-ray after mechanical ventilation and sedation - Ultrasound was used to determine characteristics of left lower lobe opacity demonstrated on x-ray, ultrasound demonstrated interstitial consolidation with surrounding pleural effusion, not large enough for thoracentesis, 10/26/2024 Plan: - Extubated to oxygen mask - Continue IV ceftriaxone (10/23- - Lasix 40mg 10/27/2024 Follow-up: - Chest x-ray in a.m., trend urine output Gastrointestinal #Transaminitis (Resolved) #Gastroenteritis, diarrhea - Patient did have chief complaint of abdominal pain and diarrhea on presentation. No active episodes of diarrhea noted otherwise for hospitalization. Plan: - Follow C. difficile PCR, stool culture, stool WBC #Elevated alk phos #Hypoalbuminemia - Alk phos 125 on 10/27/2024, consider medication side effect in the presence of multiple antipsychotics - Albumin 3.2 on 10/27/2024, consider nutritional deficiency, consider stress in the hepatobiliary system given multiple medications Plan: - CMP's in the a.m. Renal/Genitourinary #Hypokalemia #Hypophosphatemia #Hypomagnesemia - Potassium 3 - Phosphate 2.2 - Magnesium 1.2 Plan: - K-Phos - 40 mEq K - 4 gm Mg - Monitor closely due to diuresis #Acute kidney injury secondary to rhabdomyolysis - Patient did have an BHAVESH on presentation, on admission creatinine 2.0 baseline 0.6 - BUN 7 creatinine 0.8 10/27/2024 - CK 963 on 10/25/2024 down from [id number] Plan: - Monitor renal function in a.m. - Avoid nephrotoxic agents - Renally dose medication #Cystitis CT abdomen pelvis showed thickening of bladder wall, consistent with cystitis Patient did not report any symptoms, was encephalopathic on presentation Urinalysis did show rare bacteria Plan: - Continue IV ceftriaxone (10/23- #High anion gap metabolic acidosis (Resolved) #Lactic acidosis (Resolved) Endocrine #Thickening of adrenal glands Incidental CT abdomen pelvis finding currently low clinical suspicion of adrenal hyperplasia - Will monitor Hematology #Leukocytosis (Resolved) #Normocytic normochromic anemia - H&H trending upwards towards normal, consider diuresis as culprit for anemia - Folate and B12 levels normal - Iron level is 9, normal is 65 Plan: - Monitor CBC, expect rise in hemoglobin and hematocrit - Hold iron resuscitation due to possible sepsis, consider resuming after completion of ceftriaxone treatment Infectious Disease #Cystitis #Aspiration pneumonia #Rule out meningitis (Resolved) - On IV ceftriaxone (10/23? - Sputum and blood cultures negative Integumentary No active problems DVT prophylaxis: Heparin GTT -> Lovenox GI prophylaxis: IV Protonix Diet: N.p.o. Lines: Peripheral IV, right IJ triple-lumen central Code status: Full code Disposition: Patient extubated to oxygen mask. Continue to diurese. Increase Seroquel to 100 mg twice daily. Patient was seen and discussed with my attending Dr. Amelia Miles MD and my senior resident Dr. Mis Warren MD PGY-2. Abdias Frank DO PGY-1. Attending Provider Attestation/Addendum pt seen and examined with resident, agree with above. in brief this is a 54yo F admitted for severe agitation and flash pulmonary edema. unclear if there was a component of negative pressure pulmonary edema as well. post intubation she required mult meds for sedation and was still able to wake up and move on 50 of prop and 250mcg of fentanyl. She required additional doses of geodon and ativan. Her BP was soft during her stay and there was question of cardiogenic v distributive etiology however ultimately likely a combination of both. Hemodynamic parameters were checked with the Cheeta device along with an SvO2 and CVP off her central line. Her trops did peak out at 6. She has been on ASA, plavix and AC. currently she is off of pressors. She has received several doses of lasix with good UOP and resolution of her pulmonary edema. FiO2 requirements are minimal. she was given a dose of seroquel and geodon and sedation turned off. She was agitated but with good tidal volumes and good VE on the vent so the decision was made to extubate her. Post extubation she did well and was continued on precedex. There have been no further seizure activity. She is on her home sz meds. She appears calm for the most part though still very confused. will cont to monitor in the ICU on precedex gtt case d/w ICU team labs, imaging, records reviewed ~47ccmin required for eval, exam, review, intervention, discussion and formulation of POC for this critically ill pt at high risk for further and ongoing decompensation
[2024-10-27] MEDS: OXYMETAZOLINE NAS SPRY 0.05% 15 ML BTL 2 SPRAY NASAL (18:03)
--- NOTE | 2024-10-27 18:50 | PC.NURSE ---
at 1500, NG to the left nare attempted one time, with no obstruction but unsuccessful, pt began bleeding,Dr. Warren made aware and at bedside, pressure applied for over 30 minutes, heparin gtt off., at 1800 rhino rocket [address] Dr[address] Warren at bedside
[2024-10-27] MEDS: POTASSIUM CHL 10 mEq IVPB 10 MEQ/100 ML BAG 100 MEQ IV ×4 (19:54→23:12)
[2024-10-27] MEDS: LACOSAMIDE INJ 200 MG/20 ML VIAL 100 MG IVP (21:06)
[2024-10-27] MEDS: levETIRAcetam INJ 100 MG/ML VIAL 5ML 750 MG IVP (21:07)
--- NOTE | 2024-10-27 23:53 | PD.VPROG1 ---
Telemedicine visit statement This visit was conducted with the use of phone was obtained on 10/27/24 at 2353. Documentation for date of: 10/27/24 Subjective Subjective Interval history: Patient is in ICU. She got extubated today, intermittently confused. She is on Precedex. No seizure reported.. Virtual exam Vital Signs Temp Pulse Resp BP Pulse Ox O2 Del Method O2 Flow Rate 98.0 F 93 22 H 95/60 99 Oxy Mask 4 10/27/24 20:00 10/27/24 21:30 10/27/24 21:30 10/27/24 21:30 10/27/24 21:30 10/27/24 20:00 10/27/24 20:00 FiO2 21 10/27/24 09:57 Objective Labs 10/27/24 04:30 10/27/24 04:30 Labs: Laboratory Results - last 24 hr 10/27/24 10/27/24 10/27/24 00:55 04:30 05:15 WBC 10.5 RBC 3.11 L Hgb 9.8 L Hct 29.1 L MCV 94 MCH 31.5 MCHC 33.7 RDW Std Deviation 41.4 Plt Count 269 D Neut % (Auto) 53 Lymph % (Auto) 31 [place] % (Auto) 9 Eos % (Auto) 6 Baso % (Auto) 1 Neut # (Auto) 5.6 Lymph # (Auto) 3.2 [place] # (Auto) 0.9 H Eos # (Auto) 0.6 H Baso # (Auto) 0.1 Immature Gran # (Auto) 0.05 H Absolute Nucleated RBC 0.00 Immature Gran % 1 H Nucleated RBC % 0 ESR APTT 46.0 H Puncture Site Right Radial ABG pH 7.45 ABG pCO2 40 ABG pO2 55 L* ABG HCO3 28 H ABG O2 Saturation 88 L ABG Base Excess 3 FiO2 30 Sodium 143 Potassium 3.0 L Chloride 105 Carbon Dioxide 26.8 Anion Gap 11 BUN 7 L Creatinine 0.8 Estim Creat Clear Calc 60.7 L eGFR > 60 BUN/Creatinine Ratio 9 L Glucose 112 H Calculated Osmolality 283 Calcium 8.3 Corrected Calcium 8.9 Phosphorus 2.2 L Magnesium 1.2 L Total Bilirubin 0.3 AST 28 ALT 41 Alkaline Phosphatase 125 H C-Reactive Prot, Quant Total Protein 5.4 L Albumin 3.2 L Globulin 2.2 L Albumin/Globulin Ratio 1.5 Syphilis Serology Coccidioides IgM Ab HIV 1&2 Antibody Rapid Non-Reactive 10/27/24 07:23 WBC RBC Hgb Hct MCV MCH MCHC RDW Std Deviation Plt Count Neut % (Auto) Lymph % (Auto) [place] % (Auto) Eos % (Auto) Baso % (Auto) Neut # (Auto) Lymph # (Auto) [place] # (Auto) Eos # (Auto) Baso # (Auto) Immature Gran # (Auto) Absolute Nucleated RBC Immature Gran % Nucleated RBC % ESR 38 H APTT 63.9 H D Puncture Site ABG pH ABG pCO2 ABG pO2 ABG HCO3 ABG O2 Saturation ABG Base Excess FiO2 Sodium Potassium Chloride Carbon Dioxide Anion Gap BUN Creatinine Estim Creat Clear Calc eGFR BUN/Creatinine Ratio Glucose Calculated Osmolality Calcium Corrected Calcium Phosphorus Magnesium Total Bilirubin AST ALT Alkaline Phosphatase C-Reactive Prot, Quant 15.4 H Total Protein Albumin Globulin Albumin/Globulin Ratio Syphilis Serology Nonreactive Coccidioides IgM Ab Negative HIV 1&2 Antibody Rapid ABG Interpretation ABG results: 10/23/24 10/24/24 10/24/24 04:06 10:51 14:00 ABG pH 7.42 7.20 L D ABG pCO2 27 L 47 D ABG pO2 49 L* 83 D ABG HCO3 18 L 19 L ABG O2 Saturation 86 L 94 ABG Base Excess -6 L -9 L VBG pH 7.34 VBG pCO2 35 L VBG pO2 61 H VBG Base Excess -7 L 10/24/24 10/25/24 10/26/24 14:26 05:05 04:41 ABG pH 7.38 D 7.30 L 7.42 D ABG pCO2 32 D 37 35 ABG pO2 130 H D 53 L* D 64 L ABG HCO3 18 L 18 L 23 ABG O2 Saturation 99 H 85 L 93 ABG Base Excess -6 L -8 L -1 VBG pH VBG pCO2 VBG pO2 VBG Base Excess 10/27/24 05:15 ABG pH 7.45 ABG pCO2 40 ABG pO2 55 L* ABG HCO3 28 H ABG O2 Saturation 88 L ABG Base Excess 3 VBG pH VBG pCO2 VBG pO2 VBG Base Excess Assessment & Plan Problem List (1) Acute encephalopathy: Status: Acute Assessment and plan: Improving to some extent Follow-up with repeat EEG after 48 hours of being off of sedation. (2) Seizure disorder: Status: Chronic Assessment and plan: Continue with the Keppra and Vimpat, follow seizure precautions
[2024-10-28] VITALS (35 sets, daily range): BP systolic 97–161; BP diastolic 56–89; PULSE 84–131; RESP 12–98; TEMP 35.9–37.7; O2SAT 88–100
[2024-10-28] MEDS: DEXMEDETOMIDINE 400 MCG IVPB 400 MCG/100 ML BAG 18.34 MCG IV ×2 (00:34→06:00)
[2024-10-28 00:52] LABS: Potassium 4.0 mMol/L (3.4-5.1)
[2024-10-28 05:16] LABS: Basophils # (Auto) 0.1 Thou/mm3 (0.0-0.2); Basophils % (Auto) 0 % (0-2.5); Eosinophils # (Auto) 0.2 Thou/mm3 (0.0-0.5); Eosinophils % (Auto) 1 % (0-10); Hematocrit 28.5 % (36.0-46.0); Hemoglobin 9.5 g/dL (12.0-16.0); Immature Granulocytes Auto 0.10 Thou/mm3 (0.00-0.00); Lymphocytes # (Auto) 1.3 Thou/mm3 (1.0-4.8); Lymphocytes % (Auto) 9 % (10-50); Mean Corpuscular HGB Conc 33.3 g/dl (31.0-37.0); Mean Corpuscular Hemoglobin 30.9 pg (25.0-35.0); Mean Corpuscular Volume 93 fL (80-100); Monocytes # (Auto) 0.6 Thou/mm3 (0.0-0.8); Monocytes % (Auto) 4 % (0-12); Neutrophils # (Auto) 12.0 Thou/mm3 (1.8-7.7); Neutrophils % (Auto) 85 % (37-80); Nucleated Red Blood Cell # 0.00 Thou/mm3 (0.00-0.00); Nucleated Red Blood Cell % 0 /100 WBC (0); Platelet Count 274 Thou/mm3 (140-440); RDW Standard Deviation 40.9 fL (36.4-46.3); Red Blood Count 3.07 Miln/mm3 (4.00-5.20); White Blood Count 14.2 Thou/mm3 (3.6-11.0)
[2024-10-28 05:26] LABS: Partial Thromboplastin Time 33.0 Seconds (22.0-36.0)
[2024-10-28] MEDS: ZIPRASIDONE INJ 20 MG/ML VIAL (NON-FORMULARY) 10 MG IM (05:58)
[2024-10-28 06:11] LABS: Alanine Aminotransferase 43 U/L (10-49); Albumin, Serum 3.5 gm/dL (3.5-5.0); Albumin/Globulin Ratio 1.5 (1.2-2.2); Alkaline Phosphatase 132 U/L (46-116); Anion Gap 13 (7-16); Aspartate Amino Transferase 41 U/L (0-34); BUN/Creatinine Ratio 11 Ratio (12-20); Bilirubin,Total 0.7 mg/dL (0.3-1.2); Blood Urea Nitrogen 8 mg/dL (9-23); Calcium 8.6 mg/dL (8.3-10.6); Calcium (Corrected) 9.0 mg/dL (8.5-10.1); Carbon Dioxide 25.2 mMol/L (20.0-31.0); Chloride 103 mMol/L (98-107); Creatinine (Component) 0.7 mg/dL (0.6-1.3); Estimated Creatinine Clearance 69.3 mL/min (>60); Globulin 2.4 gm/dL (2.3-3.5); Glucose 107 mg/dL (74-106); Magnesium 2.4 mg/dL (1.6-2.6); Osmolality,Calculated 279 (275-295); Phosphorous 3.4 mg/dL (2.4-5.1); Potassium 3.7 mMol/L (3.4-5.1); Sodium 141 mMol/L (136-145); Total Protein 5.9 gm/dL (5.7-8.2); eGFR > 60 See Note
--- NOTE | 2024-10-28 09:32 | ESPR_ITS ---
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 iron deficiency anemia - H&H trending upwards towards normal, consider diuresis as culprit for anemia - Folate and B12 levels normal - Iron 8, TIBC 178, iron sat 4, iron sat iron binding 170 Plan: - Monitor CBC, expect rise in hemoglobin and hematocrit - IV iron contraindicated in setting of distributive shock secondary to sepsis, consider IV iron once patient has no underlying infectious etiology - Consider discharging patient on oral iron Infectious Disease #Cystitis #Aspiration pneumonia #Ruled out meningitis - On IV ceftriaxone (10/23?, complete treatment for 7 days. - Sputum and blood cultures negative Integumentary #Epistaxis, left naris Secondary to trauma from NG tube insertion on 10/27. Pressure was held for 20 minutes, no improvement noted, patient received oxymetazoline nasally x 1. Rhino Rocket was inserted, which patient pulled out today, no active bleeding currently. Hold DVT prophylaxis for today - Monitor for bleed DVT prophylaxis: Lovenox 30 mg subcutaneous daily due to nasal bleed, transition to appropriate dose if bleeding is stable. GI prophylaxis: IV Protonix Diet: Cardiac diet, fluid restriction 1500 cc Lines: Peripheral IV, right IJ triple-lumen central Code status: Full code Disposition: Will monitor in ICU today, will consider downgrade to telemetry if stable later today. Patient was seen and discussed with my attending Dr. Amelia Warren MD Internal medicine PGY 2 Attending Provider Attestation/Addendum Patient seen and examined with residents. Agree with above. In brief this is a 54-year-old female admitted to the ICU with agitation and respiratory failure. Patient was successfully extubated yesterday. She was still somewhat confused. Today she appears much better. She is awake and alert and conversant. She is still somewhat confused and not quite oriented to time however she is able to make sense and enunciate well. On physical exam her lungs are clear heart rate is regular and rhythmic no bruits or murmurs, abdomen is soft nontender, pulses are palpable, no clubbing, no mottling, moves all 4 extremities well. She did have an episode of epistaxis last night requiring Rhino Rocket in her left nare. There is no active bleeding today. She was switched from full anticoagulation with Lovenox to DVT prophylaxis with Lovenox. She has been seen by the cardiology team and they will decide whether or not she requires additional workup for evaluation of her type I versus type II troponinemia. Unclear exactly why patient was confused on arrival. It is noted that during the timeframe where the family had not had interaction with her it was registered as hot as 107 degrees in [place] and question if the patient may have had some heat exhaustion or heatstroke which may have precipitated a seizure. She was noted to have rhabdo on arrival along with acute kidney injury. This is all resolved and today she appears to be back to near baseline mentation. She is stable for downgrade Case discussed with ICU team Labs, imaging and records reviewed Approximately 38 minutes required for evaluation, exam, review, intervention, discussion formulation of plan of care for this patient
[2024-10-28] MEDS: cefTRIAXone/D5w 1gm IV premix 1 GM/50 ML BAG IV (09:46)
[2024-10-28] MEDS: SENNA/DOCUSATE SOD 1 TAB TABLET 2 TAB PO (09:46)
[2024-10-28] MEDS: MULTIVITAMINS TABLET 1 TAB PO (09:51)
[2024-10-28] MEDS: ASCORBIC ACID 250 MG TABLET 500 MG PO ×2 (09:51→21:28)
[2024-10-28] MEDS: LACOSAMIDE 50 MG TABLET 100 MG PO ×2 (09:52→21:29)
[2024-10-28] MEDS: ZINC SULFATE 220 MG CAPSULE PO (09:52)
[2024-10-28] MEDS: CLOPIDOGREL BISULFATE 75 MG TABLET PO (09:59)
[2024-10-28] MEDS: ASPIRIN EC 81 MG TABEC PO (09:59)
[2024-10-28] MEDS: ACETAMINOPHEN 325 MG TABLET 650 MG PO (11:26)
--- NOTE | 2024-10-28 13:01 | PC.NURSE ---
Dr. Warren and Maximiliano notified of pt temperature of 99.9 and tachycardia in 120s, bolton catheter removed per orders
--- NOTE | 2024-10-28 13:02 | PC.NURSE ---
at 1000, pt coughing, mouth care done and oral mouth suctioning completed with about 3 inch blood clot removed from pts mouth, Dr. Warren and Maximiliano notified, rapid rhino inserted by Dr. Warren at bedside
--- NOTE | 2024-10-28 13:21 | ESPR_ITS ---
<Statement entered by Dallin Mcmahon MD - 11/06/24 07:46> I reviewed above note and agree with findings and plans. I have also personally examined the patient with medicine team and went over assessment and plan with medical team including sports internship and resident physician. Documentation for date of: 10/28/24 Senior resident attestation: Patient evaluated and examined at the bedside, plan of care discussed with rest of the team including my attending physician, except as noted. The patient was admitted for acute encephalopathy, initially managed on telemetry, but following a rapid response for agitation, seizure, hypoxia the patient was upgraded to ICU, continued to be agitated on Precedex drip max dose, requiring additional sedative medications, patient was intubated for airway protection. Later patient was extubated and downgraded to telemetry floor. Initial imaging concerning for ARDS versus fluid overload/flash pulmonary edema. Hypoxia improved after IV diuresis. Neurology was consulted for altered mental status and seizures, recommended Keppra 750 mg twice daily, Vimpat 100 mg twice daily. In ICU patient was started on antipsychotic medications, Seroquel 100 mg twice daily and ziprasidone/Geodon IM as needed for agitation. Also noted to have troponin elevation, per cardiology less likely type I/coronary artery disease, more likely type II NSTEMI in the setting of sepsis. Echocardiogram showed reduced EF with hypokinetic anterior wall. Plan for cardiac cath on Tuesday or Tuesday. Recommended holding off on aspirin and Plavix for 2 days prior to cardiac cath. Quresh PGY3 Subjective Subjective Interval history: Downgraded from ICU to tele today, weaned off Precedex. Patient seen and examined at bedside this AM. Sitter present. Slightly drowsy from sedation, responsive to verbal stimulation. Oriented only to self, not to time and place. Denies chest pain, shortness of breath, or anxiety at this time. Tachycardic on exam, regular rate and rhythm. Rhino rocket in left naris due to trauma s/p NG tube insertion attempt. Labs and vitals were reviewed. WBC elevated again at 14.2, currently on CFX. Potassium 3.7 later today, will replete appropriately. AST mildly elevated at 41, possibly side effect of multiple antipsychotics. Continuing CFX for cystitis and concern for aspiration pneumonia. Started on metoprolol tartrate 12.5 mg BID for hypertension, s/p Lasix, consider restarting if patient appears fluid overloaded. Consider starting on rest of GDMT due to HFrEF. Continuing Vimpat, Keppra, Seroquel, and prn ziprazadone. Per neurology, will order EEG 48 hours after sedation (anticipate 10/30). Will defer cardiac cath (NSTEMI I vs II) after Plavix wears off (anticipate 10/30). Will remove rhino rocket on 10/30. Review of systems otherwise negative except what is mentioned above. Exam Vital Signs Temp Pulse Resp BP Pulse Ox O2 Del Method O2 Flow Rate 99.9 F 124 H 24 H 131/74 H 97 Room Air 4 10/28/24 12:00 10/28/24 13:00 10/28/24 13:00 10/28/24 13:00 10/28/24 13:00 10/28/24 12:00 10/27/24 20:00 FiO2 21 10/27/24 09:57 Narrative Exam Physical Exam General: Slightly drowsy, responsive to verbal stimuli. Cachectic. HEENT: Normocephalic, atraumatic, mucous membranes moist. Rhino rocket in left nostril, intact. Heart: Tachycardic. Regular rate and rhythm, normal S1 and S2, no murmurs appreciated. Lungs: Clear to auscultation with no wheezing or crackles. Abdomen: Soft, nondistended, nontender, positive bowel sounds. No guarding or rebound tenderness. Neurologic: Alert and oriented x1, oriented to self but not to time and place, no gross neurological deficit, and patient able to move all 4 extremities. Extremities: No edema. Skin: No rash or ecchymoses. Objective Labs 10/29/24 04:12 10/29/24 04:12 Labs: Laboratory Results - last 24 hr 10/27/24 10/28/24 10/28/24 07:23 00:25 04:18 WBC 14.2 H RBC 3.07 L Hgb 9.5 L Hct 28.5 L MCV 93 MCH 30.9 MCHC 33.3 RDW Std Deviation 40.9 Plt Count 274 Neut % (Auto) 85 H Lymph % (Auto) 9 L [place] % (Auto) 4 Eos % (Auto) 1 Baso % (Auto) 0 Neut # (Auto) 12.0 H Lymph # (Auto) 1.3 [place] # (Auto) 0.6 Eos # (Auto) 0.2 Baso # (Auto) 0.1 Immature Gran # (Auto) 0.10 H Absolute Nucleated RBC 0.00 Immature Gran % 1 H Nucleated RBC % 0 APTT 33.0 D Sodium 141 Potassium 4.0 D 3.7 Chloride 103 Carbon Dioxide 25.2 Anion Gap 13 BUN 8 L Creatinine 0.7 Estim Creat Clear Calc 69.3 eGFR > 60 BUN/Creatinine Ratio 11 L Glucose 107 H Calculated Osmolality 279 Calcium 8.6 Corrected Calcium 9.0 Phosphorus 3.4 Magnesium 2.4 Total Bilirubin 0.7 AST 41 H ALT 43 Alkaline Phosphatase 132 H Total Protein 5.9 Albumin 3.5 Globulin 2.4 Albumin/Globulin Ratio 1.5 Coccidioides IgM Ab Negative ABG Interpretation ABG results: 10/23/24 10/24/24 10/24/24 04:06 10:51 14:00 ABG pH 7.42 7.20 L D ABG pCO2 27 L 47 D ABG pO2 49 L* 83 D ABG HCO3 18 L 19 L ABG O2 Saturation 86 L 94 ABG Base Excess -6 L -9 L VBG pH 7.34 VBG pCO2 35 L VBG pO2 61 H VBG Base Excess -7 L 10/24/24 10/25/24 10/26/24 14:26 05:05 04:41 ABG pH 7.38 D 7.30 L 7.42 D ABG pCO2 32 D 37 35 ABG pO2 130 H D 53 L* D 64 L ABG HCO3 18 L 18 L 23 ABG O2 Saturation 99 H 85 L 93 ABG Base Excess -6 L -8 L -1 VBG pH VBG pCO2 VBG pO2 VBG Base Excess 10/27/24 05:15 ABG pH 7.45 ABG pCO2 40 ABG pO2 55 L* ABG HCO3 28 H ABG O2 Saturation 88 L ABG Base Excess 3 VBG pH VBG pCO2 VBG pO2 VBG Base Excess Quality Measures Quality Measures sepsis Current suspected stage: ruled out (blood culture negative) Possible source: meningitis and unknown Blood cultures ordered: yes Antibiotic ordered: Yes and none Assessment & Plan Assessment Current Active Medications: Generic Name Dose Route Start Last Admin Trade Name Freq PRN Reason Stop Dose Admin Acetaminophen 650 mg 10/28/24 11:40 Acetaminophen 325 Mg Tablet PO 11/22/24 05:54 Q6H PRN Pain Scale 1-5 Ascorbic Acid 500 mg 10/28/24 09:45 10/28/24 09:51 Ascorbic Acid 250 Mg Tablet PO 11/27/24 09:44 500 mg BID KIMBERLY Administration Aspirin 81 mg 10/29/24 09:00 Aspirin 81 Mg Chew PO 11/28/24 08:59 QDAY KIMBERLY Clopidogrel Bisulfate 75 mg 10/29/24 09:00 Clopidogrel Bisulfate 75 Mg Tablet PO 11/28/24 08:59 QDAY KIMBERLY Dextrose 25 ml 10/25/24 08:37 Dextrose 50%-Water Inj 50 Ml Syringe IV 11/24/24 08:36 Q15MIN PRN BG 50-70 responsive npo pt Dextrose 50 ml 10/25/24 08:37 Dextrose 50%-Water Inj 50 Ml Syringe IV 11/24/24 08:36 Q15MIN PRN BG <50 OR BG <70 & pt unresponsive Enoxaparin Sodium 30 mg 10/29/24 09:00 Enoxaparin Sod Inj 30 Mg/0.3 Ml Syringe SC 11/12/24 08:59 QDAY KIMBERLY Glucagon 1 mg 10/25/24 08:37 Glucagon Inj 1 Mg Vial IM Q15MIN PRN BG <70, and no IV access Ceftriaxone Sodium/Dextrose 1 gm in 50 mls @ 100 mls/hr 10/23/24 11:00 10/28/24 09:46 Rocephin/D5w 1gm Iv Premix IV 10/30/24 10:59 100 mls/hr QDAY KIMBERLY Administration Lacosamide 100 mg 10/28/24 21:00 Lacosamide 50 Mg Tablet PO 11/27/24 20:59 BID KIMBERLY Levetiracetam 750 mg 10/28/24 21:00 Levetiracetam Liqd 500 Mg/5 Ml Udc PO 11/27/24 20:59 BID KIMBERLY Multivitamins 1 tab 10/28/24 09:30 10/28/24 09:51 Multivitamins Tablet PO 11/27/24 09:29 1 tab QDAY KIMBERLY Administration Nicotine 21 mg 10/28/24 10:09 Nicotine Patch 21 Mg/24 Hr Patch.Td24 TOP 11/28/24 08:59 QDAY PRN SMOKING CESSATION Ondansetron HCl 4 mg 10/23/24 05:55 10/23/24 10:17 Ondansetron Inj 2 Mg/Ml Inj 2 Ml IVP 11/22/24 05:54 4 mg Q6H PRN Administration NAUSEA OR VOMITING Protocol Pantoprazole Sodium 40 mg 10/24/24 19:15 10/28/24 09:46 Pantoprazole Inj 40 Mg Vial IVP 11/23/24 19:14 40 mg QDAY KIMBERLY Administration Quetiapine Fumarate 100 mg 10/28/24 21:00 Quetiapine Fumarate 25 Mg Tablet PO 11/27/24 20:59 BID KIMBERLY Sennosides 2 tab 10/26/24 14:00 10/28/24 09:46 Senna/Docusate Sod 1 Tab Tablet PO 11/25/24 13:59 2 tab QDAY KIMBERLY Administration Protocol Zinc Sulfate 220 mg 10/28/24 09:45 10/28/24 09:52 Zinc Sulfate 220 Mg Capsule PO 11/11/24 09:44 220 mg QDAY KIMBERLY Administration Ziprasidone 10 mg 10/27/24 09:34 10/28/24 05:58 Ziprasidone Inj 20 Mg/Ml Vial (Non-Formulary) IM 11/26/24 09:33 10 mg Q6HR PRN Administration SEVERE AGITATION Protocol Plan Patient is a 54-year-old female with past medical history of hypertension, seizures, cholecystectomy, status post brain surgery for suspected neurocysticercosis, and tobacco use who presented on 10/25/24 with a chief complaint of altered mental status. Patient admitted to hospital for further workup or for continued encephalopathy, ICU consulted for agitation, intubated and placed on Precedex drip and IV Versed pushes. Now extubated and discontinued from Precedex, downgraded to tele. #Acute Encephalopathy, possibly multifactorial #Seizures by history #s/p brain surgery due to suspicion of neurocysticosis #Left temporal encephalomalacia, chronic Likely multifactorial 2/2 to seizure episode (postictal state), possible underlying psych disorder, possible toxin ingestion LKW Saturday 10/21, has history of seizures, on Keppra, per pharmacy hasn't picked up. Also reports has not been as compliant with medication. Patient's baseline is talkative and independent, last seizure was last week. Per family, she has episodes of staring into space and is usually able to anticipate her episodes. Of note, Niece found an empty bottle of toenail/fingernail color enhancer and unidentified clear liquid was found and noted less mirtazapine pills in bottle, possible that patient ingested it. Of note, patient has had hallucinations at times during hospitalization and agitation appears, received multiple doses of Haldol, Olanzapine, Ativan, Benadryl throughout hospital course. Suspect underlying psychologic disorder. MRI 10/25/2024 showed a large left temporal lobe encephalomalacia with suspicious ringlike restricted diffusion in the left temporal lobe. CSF culture negative, unlikely meningitis. HIV negative, syphilis serology negative. Blood culture negative. Plan: - Continue Seroquel 100 mg BID - Ziprasidone 10 mg PRN - Continue Keppra 750 p.o. BID - Continue Vimpat 100 mg p.o. BID - Precedex discontinued - Rheumatoid factor, SASKIA, West Nile serology pending - Neurology Dr. Abrams consulted, appreciate recommendations - Follow-up EEG per neurology likely 10/30 - Crisis evaluation prior to discharge #HFrEF, EF 45% (10/24/24) ECHO 10/24: Normal LV size. Mild LVH. Normal left ventricular diastolic function. Estimated EF at 45 %. Global left ventricular systolic function is mildly decreased. Hypokinetic apical anterior wall. The RV is normal in size and systolic function. Trace TR. There is a tiny, hemodynamically insignificant pericardial effusion. Plan: - Hold Lasix - Start metoprolol tartrate 12.5 mg BID - Strict intake and output, daily weight, fluid restriction 1500 cc - Cardiology is following, appreciate recommendations - Consider starting on rest of GDMT - Will defer cardiac cath at this time #Acute hypoxic respiratory failure, likely 2/2 to cardiogenic pulmonary edema - resolved #Aspiration pneumonia #Status post extubation 10/27/2024 #Left pleural effusion, improving Likely secondary to flash cardiogenic pulmonary edema (improvement in chest x- ray after diuresis and HFrEF on echo). CT scan from 10/23 has no evidence of any community-acquired pneumonia, procalcitonin downtrended (16.25 --> 5.69). Sputum culture negative. ICU Bedside ultrasound 10/26 demonstrated interstitial consolidation (component of pneumonia/atelectasis) with surrounding pleural effusion, not large enough for thoracentesis. CXR 10/24 showed extensive bilateral lung opacity, fluid overload versus aspiration pneumonia. Patient received IV diuresis and serial chest x-rays showed remarkable improvement. Likely had flash pulmonary edema in setting of fluid overload with underlying heart failure with reduced ejection fraction. S/p positive pressure ventilation on mechanical ventilator, s/p extubation on 10/27, continued to improve with diuresis. Plan: - Saturating well on room air - Continue IV ceftriaxone for concern of aspiration PNA (10/23- - Hold diuresis as above #ACS, likely NSTEMI type II #Elevated troponin - resolved Patient had worsened agitation, no symptoms of any chest pain/cardiac distress, did have abdominal pain prior to presentation. Troponin downtrended from 4.4 to 2.4, EKG showed some acute ST-T changes leads V3 V4. Echo 10/24 showed hypokinetic apical wall and global hypokinesis of left ventricle compared to right. Possible NSTEMI I. Heparin GTT (10/24-10/27) per [facility] protocol. Currently holding due to epistaxis. Plan: - Repeat EKG as needed, monitor for chest pain - Discontinue aspirin and Plavix - Cardiology consulted, appreciate recommendations - Defer cardiac cath after Plavix wears off, anticipate 2-3 days #Shock, multifactorial, distributive and cardiogenic, resolved Multifactorial diagnosis: Distributive Shock, likely septic source cystitis versus aspiration pneumonia, was started on IV antibiotics on presentation and a component of cardiogenic shock, reinforced by echo on 10/24/2024 demonstrating HFrEF with EF 45%, elevated troponins but downtrending on 10/25/2024, EKG showed some acute ST-T changes on leads V3 V4. Was weaned off of Levophed on 10/27/2024, blood pressure has been stable. #Cystitis CT abdomen pelvis showed thickening of bladder wall, consistent with cystitis. Urinalysis did show rare bacteria. Patient does not complain of any abdominal pain or dysuria. Lorenzo catheter in place, no hematuria noted. Plan: - Continue IV ceftriaxone (10/23- #Gastroenteritis, diarrhea Patient did have chief complaint of abdominal pain and diarrhea on presentation. No active episodes of diarrhea noted otherwise for hospitalization. Plan: - Pending stool culture #Protein calorie malnutrition, BMI 19.6 #Hypoalbuminemia BMI on presentation 19.6, patient has some temporal wasting, overall has protein calorie malnutrition. Plan: - Ensure daily - Referral to nutritional services outpatient - Continue zinc, multivitamin and vitamin C; holding iron due to infection #Stage II acute kidney injury, resolved Patient did have an BHAVESH on presentation, on admission creatinine 2.0 baseline 0.6. Patient's BUN/creatinine have improved significantly. Hospitalization course, has good urine output responded well to IV diuretics as well and state of fluid overload, initially on presentation patient received significant amount of IV fluids. Plan: - Monitor renal function - Avoid nephrotoxic agents - Renally dose medication #Thickening of adrenal glands Incidental CT abdomen pelvis finding currently low clinical suspicion of adrenal hyperplasia. - Consider outpatient workup #Transaminitis #Elevated alkaline phosphatase Likely secondary to rhabdomyolysis (chronic malnutrition). Initially improved but now mild AST elevation. Bilirubin within normal limits. Unlikely gallbladder related. Unremarkable abdominal exam. - Continue to monitor CMP daily #Severe iron deficiency anemia Iron 8, TIBC 178, iron sat 4, iron sat iron binding 170. Folate and B12 levels normal. Plan: - Monitor CBC - Consider starting iron supplementation outpatient #Epistaxis, left naris Secondary to trauma from NG tube insertion on 10/27. Pressure was held for 20 minutes, no improvement noted, patient received oxymetazoline nasally x 1. Rhino Rocket was inserted in ICU, no active bleeding currently. - Hold ASA and Plavix - Continue Lovenox for DVT prophylaxis - Monitor for bleed - Remove tomorrow or day after #Tachycardia #Hx of hypertension Has history of hypertension, on lisinopril at home - Start metoprolol tartrate 12.5 mg BID - Hold lisinopril due to BHAVESH - Hold Lasix for now #Hx of Anxiety/depression Patient has history of anxiety/depression on Venlafaxine 150mg daily, pending official med rec. - Hold Venlafaxine and home mirtazapine - Will continue with Seroquel for now patient to follow outpatient with PCP for titration as needed. #Nicotine dependence #Marijuana dependence Chronic active smoker, more than 40 pack years Urine tox screen is positive for THC - Nicotine patch as needed - Tobacco cessation counseling provided at bedside - nutritional services cook referral #High anion gap metabolic acidosis, resolved #Normal anion gap metabolic acidosis, resolved #Lactic acidosis, resolved #Hypokalemia, resolved #Hypomagnesemia, resolved #Hypophosphatemia, resolved Health Maintenance Disposition: Downgraded to tele, continue abx treatment, pending EEG and possible cardiac cath DVT prophylaxis: Lovenox GI prophylaxis: Protonix IV Diet: Cardiac CODE STATUS: FULL Patient plan of care was discussed with the senior resident, Dr. Elliott, and attending physician, Dr. Mcmahon. Jeannie Hall, PGY-1
[2024-10-28] MEDS: METOPROLOL TARTRATE 25 MG TABLET 12.5 MG PO (14:11)
--- NOTE | 2024-10-28 17:57 | PC.NURSE ---
at 1548, Dr. Hall notified of pt having bolton catheter discontinued since 1240, bladder scan at 1600 at 0 ml, but pt has not had any urine output, order received to insert bolton catheter
--- NOTE | 2024-10-28 19:20 | ESPR_ITS ---
<Statement entered by Marino Aleman MD - 10/29/24 13:21> I personally examined the patient evaluate the patient with resident physician PGY 2 Dr. Jayson Oconnor patient is clinically doing failure still has a lot of ascites but mostly distention of the abdomen due to gas renal function improved significantly on diuretics. Tolerating well evaluated patient with PGY 2 and agree with the treatment plan recommendation as documented Documentation for date of: 10/28/24 Subjective Subjective Interval history: Patient is seen and examined at bedside Found to have nosebleed yesterday in the evening, from left nostril for which nasal packing was done and the bleeding was stopped No acute overnight events. Denies any other complaints Patient appears to be much awake and able to maintain a conversation but still appears to be mildly confused Vitals are stable but noted to have tachycardia with heart rate around 110-120 Noted to have a febrile episode of 99.9 Denied any previous history of chest pain, shortness of breath, CAD Recommended to workup for any other causes of sepsis/infection that could be causing tachycardia Okay to give metoprolol tartrate for now Will do cardiac catheterization before patient gets discharged from the hospital, likely on coming Tuesday Recommended to stop anticoagulation and antiplatelets for now Exam Vital Signs Temp Pulse Resp BP Pulse Ox O2 Del Method O2 Flow Rate 97.0 F 108 H 21 H 125/80 98 Room Air 4 10/28/24 18:38 10/28/24 19:19 10/28/24 19:19 10/28/24 18:38 10/28/24 18:38 10/28/24 18:38 10/27/24 20:00 FiO2 21 10/27/24 09:57 Narrative Exam General: Awake, mildly confused HEENT: Normocephalic, atraumatic, mucous membranes moist. Heart: Regular rate and rhythm, no murmurs. Lungs: Noted wheeze and bronchial breath sounds in the right lung. Noted decreased breath sounds in left basilar area Abdomen: Soft, nondistended, nontender, positive bowel sounds. ?No guarding or rebound tenderness. Neurologic: No gross neurological deficits noted Extremities: No edema. Skin: No rash or ecchymoses. Objective Labs 10/28/24 04:18 10/28/24 04:18 Labs: Laboratory Results - last 24 hr 10/28/24 10/28/24 00:25 04:18 WBC 14.2 H RBC 3.07 L Hgb 9.5 L Hct 28.5 L MCV 93 MCH 30.9 MCHC 33.3 RDW Std Deviation 40.9 Plt Count 274 Neut % (Auto) 85 H Lymph % (Auto) 9 L [place] % (Auto) 4 Eos % (Auto) 1 Baso % (Auto) 0 Neut # (Auto) 12.0 H Lymph # (Auto) 1.3 [place] # (Auto) 0.6 Eos # (Auto) 0.2 Baso # (Auto) 0.1 Immature Gran # (Auto) 0.10 H Absolute Nucleated RBC 0.00 Immature Gran % 1 H Nucleated RBC % 0 APTT 33.0 D Sodium 141 Potassium 4.0 D 3.7 Chloride 103 Carbon Dioxide 25.2 Anion Gap 13 BUN 8 L Creatinine 0.7 Estim Creat Clear Calc 69.3 eGFR > 60 BUN/Creatinine Ratio 11 L Glucose 107 H Calculated Osmolality 279 Calcium 8.6 Corrected Calcium 9.0 Phosphorus 3.4 Magnesium 2.4 Total Bilirubin 0.7 AST 41 H ALT 43 Alkaline Phosphatase 132 H Total Protein 5.9 Albumin 3.5 Globulin 2.4 Albumin/Globulin Ratio 1.5 ABG Interpretation ABG results: 10/23/24 10/24/24 10/24/24 04:06 10:51 14:00 ABG pH 7.42 7.20 L D ABG pCO2 27 L 47 D ABG pO2 49 L* 83 D ABG HCO3 18 L 19 L ABG O2 Saturation 86 L 94 ABG Base Excess -6 L -9 L VBG pH 7.34 VBG pCO2 35 L VBG pO2 61 H VBG Base Excess -7 L 10/24/24 10/25/24 10/26/24 14:26 05:05 04:41 ABG pH 7.38 D 7.30 L 7.42 D ABG pCO2 32 D 37 35 ABG pO2 130 H D 53 L* D 64 L ABG HCO3 18 L 18 L 23 ABG O2 Saturation 99 H 85 L 93 ABG Base Excess -6 L -8 L -1 VBG pH VBG pCO2 VBG pO2 VBG Base Excess 10/27/24 05:15 ABG pH 7.45 ABG pCO2 40 ABG pO2 55 L* ABG HCO3 28 H ABG O2 Saturation 88 L ABG Base Excess 3 VBG pH VBG pCO2 VBG pO2 VBG Base Excess Quality Measures Quality Measures sepsis Current suspected stage: ruled out Possible source: meningitis and unknown Blood cultures ordered: yes Antibiotic ordered: Yes and none Assessment & Plan Assessment Current Active Medications: Generic Name Dose Route Start Last Admin Trade Name Freq PRN Reason Stop Dose Admin Acetaminophen 650 mg 10/28/24 11:40 Acetaminophen 325 Mg Tablet PO 11/22/24 05:54 Q6H PRN Pain Scale 1-5 Ascorbic Acid 500 mg 10/28/24 09:45 10/28/24 09:51 Ascorbic Acid 250 Mg Tablet PO 11/27/24 09:44 500 mg BID KIMBERLY Administration Dextrose 25 ml 10/25/24 08:37 Dextrose 50%-Water Inj 50 Ml Syringe IV 11/24/24 08:36 Q15MIN PRN BG 50-70 responsive npo pt Dextrose 50 ml 10/25/24 08:37 Dextrose 50%-Water Inj 50 Ml Syringe IV 11/24/24 08:36 Q15MIN PRN BG <50 OR BG <70 & pt unresponsive Enoxaparin Sodium 30 mg 10/29/24 09:00 Enoxaparin Sod Inj 30 Mg/0.3 Ml Syringe SC 11/12/24 08:59 QDAY KIMBERLY Glucagon 1 mg 10/25/24 08:37 Glucagon Inj 1 Mg Vial IM Q15MIN PRN BG <70, and no IV access Ceftriaxone Sodium/Dextrose 1 gm in 50 mls @ 100 mls/hr 10/23/24 11:00 10/28/24 09:46 Rocephin/D5w 1gm Iv Premix IV 10/30/24 10:59 100 mls/hr QDAY KIMBERLY Administration Lacosamide 100 mg 10/28/24 21:00 Lacosamide 50 Mg Tablet PO 11/27/24 20:59 BID KIMBERLY Levetiracetam 750 mg 10/28/24 21:00 Levetiracetam Liqd 500 Mg/5 Ml Udc PO 11/27/24 20:59 BID KIMBERLY Metoprolol Tartrate 25 mg 10/28/24 21:00 Metoprolol Tartrate 25 Mg Tablet PO 11/27/24 20:59 BID KIMBERLY Multivitamins 1 tab 10/28/24 09:30 10/28/24 09:51 Multivitamins Tablet PO 11/27/24 09:29 1 tab QDAY KIMBERLY Administration Nicotine 21 mg 10/28/24 10:09 Nicotine Patch 21 Mg/24 Hr Patch.Td24 TOP 11/28/24 08:59 QDAY PRN SMOKING CESSATION Ondansetron HCl 4 mg 10/23/24 05:55 10/23/24 10:17 Ondansetron Inj 2 Mg/Ml Inj 2 Ml IVP 11/22/24 05:54 4 mg Q6H PRN Administration NAUSEA OR VOMITING Protocol Pantoprazole Sodium 40 mg 10/24/24 19:15 10/28/24 09:46 Pantoprazole Inj 40 Mg Vial IVP 11/23/24 19:14 40 mg QDAY KIMBERLY Administration Quetiapine Fumarate 100 mg 10/28/24 21:00 Quetiapine Fumarate 25 Mg Tablet PO 11/27/24 20:59 BID KIMBERLY Sennosides 2 tab 10/26/24 14:00 10/28/24 09:46 Senna/Docusate Sod 1 Tab Tablet PO 11/25/24 13:59 2 tab QDAY KIMBERLY Administration Protocol Zinc Sulfate 220 mg 10/28/24 09:45 10/28/24 09:52 Zinc Sulfate 220 Mg Capsule PO 11/11/24 09:44 220 mg QDAY KIMBERLY Administration Ziprasidone 10 mg 10/27/24 09:34 10/28/24 05:58 Ziprasidone Inj 20 Mg/Ml Vial (Non-Formulary) IM 11/26/24 09:33 10 mg Q6HR PRN Administration SEVERE AGITATION Protocol Plan A 54-year-old female with significant past medical history of seizures, brain surgery, marijuana use, anxiety, depression was found to be unconscious when her sister went to check on her. The patient was immediately brought to the hospital for altered mental status. Patient apparently found to have vomitings and abdominal pain prior to the admission for 1 day. On reviewing previous medical records, patient was found to have hospital ER visits for seizures in 2019, 2021. Found to have cholecystectomy, laparoscopic by Dr. Monge in 2021. Cardiology is consulted in view of regional wall motion abnormality, elevated troponin and BNP, EKG changes and suspected ACS # Elevated troponins, NSTEMI --> likely type II # Pulmonary edema - Cardiogenic vs noncardiogenic, ARDS , Resolved # HFmEF, EF 45% - Patient initially presented with altered mental status and vitals at the time of admission are stable, admitted for acute encephalopathy, likely secondary to suspected seizures - In the floors, patient is treated for sepsis and suspected seizure activity - On 10/24/2024, patient is upgraded to ICU for acute hypoxic respiratory failure and acute encephalopathy, patient is intubated, a bolus of 1 L IV fluid is given and started on vasopressors - Patient is given total 6.9 L since the time of admission in view of rhabdomyolysis - Troponin done on 10/24/2024 in the ICU is 6.24, later down trended to 6.0. BNP is 1465 - Chest x-ray showed bilateral increased vascular prominence, perihilar opacities, fluid in the right middle fissure, appears like cardiogenic pulmonary edema but cannot rule out ARDS - EKG done in the ICU showed sinus tachycardia with ST elevations in V3 and V4 with no reciprocal ST depressions noted in other leads - Per chart review, patient does not have any significant history of CAD and Heart failure Plan - Echocardiogram showed mild apical hypokinesis without significant regional wall motion abnormalities with EF of 45% - CVP is around 9, that suggest no right heart failure but cannot rule out LV dysfunction - Initially planned to do Delphi-Smita catheterization to measure pulmonary capillary wedge pressure, CVP but could not perform in view of insufficient equipment - Recommended to monitor oxygenation, vitals and repeat chest x-ray in the morning. If the patient oxygenation or vitals worsens, will do Delphi-Smita catheterization in the morning - Recommended to give 1 dose of Lasix 40 Mg IV as patient received almost 6.9 L of fluid since the time of admission, in suspicion of fluid overload - Acute hypoxic respiratory failure could be due to underlying sepsis causing Takotsubo cardiomyopathy like picture causing the pulmonary edema. Patient has possibility of CAD which could be exacerbated in the setting of fluid overload and sepsis - Will do cardiac catheterization once patient clinical condition improves and if there is suspicion of CAD at the time. - Continue metoprolol titrate 25 Mg twice daily for now # Shock, likely septic, resolved # To rule out cardiogenic - Patient initially presented to the hospital with altered mental status - Vitals are stable at the time of admission except for sinus tachycardia - Labs at the time of admission are significant for elevated WBC, metabolic acidosis, BHAVESH and procalcitonin. CK levels are elevated. - Patient is initially treated for sepsis and rhabdomyolysis. Patient received around 7 L of fluid - On 10/24/2024, patient developed sudden onset shortness of breath and agitation with low saturation for which patient is intubated and upgraded to ICU for further management - EKG done at that time showed ST elevations in V3 and V4, troponin of 6.2, BNP 1465 - Chest x-ray showed bilateral increased vascularity and perihilar opacities - Echocardiogram done showed no significant regional wall motion abnormalities except for mild hypokinesis at the apex, EF of 45% - Patient is started on heparin drip, received loading doses of aspirin and Plavix. Plan - Recommend to discontinue heparin drip - Cardiogenic shock cannot be ruled out even if the patient had normal EF as patient can have LV diastolic dysfunction causing pulmonary edema and acute hypoxic respiratory failure. Patient can have Takotsubo like picture in the setting of ongoing acute illness, suspected sepsis. Fluid overload could also be contributing to the pulmonary edema as patient received almost 7 L since hospital admission at the time of intubation - CVP is around 9 which rules out right heart failure. Initially intended to do Delphi-Smita catheter to measure the PCWP but could not do in view of insufficient equipment - No need of Delphi-Smita catheter as patient appears to be improving clinically - will do cardiac catheterization before patient gets discharged, #Acute Encephalopathy #Seizure episode #History of seizures #Severe agitation #Left temporal encephalomalacia, temporal lobe calcification #Anxiety/depression, by history #Nicotine dependence #Marijuana dependence #Hypertension, by history #Acute hypoxic respiratory failure, on mechanical ventilation 2/2 severe agitation #Acute respiratory distress syndrome versus negative pressure pulmonary edema #Aspiration pneumonia #Transaminitis #Gastroenteritis, diarrhea #Acute kidney injury secondary to rhabdomyolysis #Cystitis #High anion gap metabolic acidosis #Lactic acidosis #Thickening of adrenal glands #Leukocytosis #Normocytic normochromic anemia #Cystitis #Aspiration pneumonia #Rule out meningitis - Rest of the medical conditions to be treated as per ICU team Thank you for allowing us to participate in the care of the patient Patient plan of care was discussed with the assistant food service manager, Dr. Ash Oconnor, PGY2
[2024-10-28] MEDS: METOPROLOL TARTRATE 25 MG TABLET PO (21:29)
[2024-10-28] MEDS: levETIRAcetam LIQD 500 MG/5 ML UDC 750 MG PO (21:30)
--- NOTE | 2024-10-28 22:44 | ESPR_ITS ---
Documentation for date of: 10/28/24 Subjective Subjective Interval history: Patient was seen in telemetry. At the bedside.. No issues reported after extubated. Exam - Neurology Vital Signs Temp Pulse Resp BP Pulse Ox O2 Del Method O2 Flow Rate 98.4 F 84 22 H 132/76 H 97 Room Air 4 10/28/24 21:24 10/28/24 21:29 10/28/24 21:24 10/28/24 21:29 10/28/24 21:24 10/28/24 21:24 10/27/24 20:00 FiO2 21 10/27/24 09:57 Narrative Exam GENERAL APPEARANCE: Well hydrated, well-nourished in no acute distress. HEENT: Normocephalic, atraumatic, extraocular movements intact. Pupils: Equal reacting to light and accommodation, NECK: Supple, no JVD or bruits. CARDIOVASULAR: Heart: S1, S2 heard, regular without S3-S4 or murmur no rubs or gallops. LUNGS/CHEST: Clear to auscultation bilaterally. No rails, rhonchi, or wheezing. Normal inspection. ABDOMEN: Soft, nontender, with normal bowel sounds. No pulsatile masses. No rebound, rigidity, or guarding. Normal inspection and palpation. EXTREMITIES: Normal inspection and palpation. No edema, clubbing or cyanosis. SKIN: Warm and dry without rashes. Normal inspection. MUSCULOSKELETAL: No cervical, thoracic, lumbar or midline bony tenderness. Normal inspection. NEURO: Alert, awake and oriented x3. Cranial nerves: II through XII grossly intact. Speech and language: Normal with no dysarthria or dysphasia. Motor system: Tone and bulk: Normal: Strength: 5 out of 5 in all 4 extremities; No pronator drift noted. Deep tendon reflexes: 2+ bilaterally symmetrical. Plantar reflex: Downgoing bilaterally. Sensory system: Intact to all modalities of sensation bilaterally. Coordination: Intact to [id number] and eozp-[id number] test bilaterally. No ataxia, no dysmetria, or dysdiadochokinesia noted. No intention tremors noted. Gait: Not tested.. No signs of meningeal irritation noted. PSYCHIATRIC: Normal mood and affect. Objective Labs 10/28/24 04:18 10/28/24 04:18 Labs: Laboratory Results - last 24 hr 10/28/24 10/28/24 00:25 04:18 WBC 14.2 H RBC 3.07 L Hgb 9.5 L Hct 28.5 L MCV 93 MCH 30.9 MCHC 33.3 RDW Std Deviation 40.9 Plt Count 274 Neut % (Auto) 85 H Lymph % (Auto) [address] [place] % (Auto) 4 Eos % (Auto) 1 Baso % (Auto) 0 Neut # (Auto) 12.0 H Lymph # (Auto) 1.3 [place] # (Auto) 0.6 Eos # (Auto) 0.2 Baso # (Auto) 0.1 Immature Gran # (Auto) 0.10 H Absolute Nucleated RBC 0.00 Immature Gran % 1 H Nucleated RBC % 0 APTT 33.0 D Sodium 141 Potassium 4.0 D 3.7 Chloride 103 Carbon Dioxide 25.2 Anion Gap 13 BUN 8 L Creatinine 0.7 Estim Creat Clear Calc 69.3 eGFR > 60 BUN/Creatinine Ratio 11 L Glucose 107 H Calculated Osmolality 279 Calcium 8.6 Corrected Calcium 9.0 Phosphorus 3.4 Magnesium 2.4 Total Bilirubin 0.7 AST 41 H ALT 43 Alkaline Phosphatase 132 H Total Protein 5.9 Albumin 3.5 Globulin 2.4 Albumin/Globulin Ratio 1.5 ABG Interpretation ABG results: 10/23/24 10/24/24 10/24/24 04:06 10:51 14:00 ABG pH 7.42 7.20 L D ABG pCO2 27 L 47 D ABG pO2 49 L* 83 D ABG HCO3 18 L 19 L ABG O2 Saturation 86 L 94 ABG Base Excess -6 L -9 L VBG pH 7.34 VBG pCO2 35 L VBG pO2 61 H VBG Base Excess -7 L 10/24/24 10/25/24 10/26/24 14:26 05:05 04:41 ABG pH 7.38 D 7.30 L 7.42 D ABG pCO2 32 D 37 35 ABG pO2 130 H D 53 L* D 64 L ABG HCO3 18 L 18 L 23 ABG O2 Saturation 99 H 85 L 93 ABG Base Excess -6 L -8 L -1 VBG pH VBG pCO2 VBG pO2 VBG Base Excess 10/27/24 05:15 ABG pH 7.45 ABG pCO2 40 ABG pO2 55 L* ABG HCO3 28 H ABG O2 Saturation 88 L ABG Base Excess 3 VBG pH VBG pCO2 VBG pO2 VBG Base Excess Assessment & Plan Assessment and plan (1) Acute encephalopathy: Status: Acute Assessment and plan: Improved and is back to baseline. Will continue to monitor her closely (2) Seizure disorder: Status: Chronic Assessment and plan: Under control on Keppra and Vimpat. Continue with current management, follow seizure precautions.
[2024-10-29] VITALS (10 sets, daily range): BP systolic 95–118; BP diastolic 59–80; PULSE 87–105; RESP 16–97; TEMP 36.1–37.2; O2SAT 97–100; BMI 19.5; BMI 15.0
[2024-10-29 00:25] LABS: Hematocrit 29.2 % (36.0-46.0); Hemoglobin 9.8 g/dL (12.0-16.0)
[2024-10-29 05:31] LABS: Basophils # (Auto) 0.1 Thou/mm3 (0.0-0.2); Basophils % (Auto) 1 % (0-2.5); Eosinophils # (Auto) 0.2 Thou/mm3 (0.0-0.5); Eosinophils % (Auto) 2 % (0-10); Hematocrit 29.2 % (36.0-46.0); Hemoglobin 9.6 g/dL (12.0-16.0); Immature Granulocytes Auto 0.10 Thou/mm3 (0.00-0.00); Lymphocytes # (Auto) 1.5 Thou/mm3 (1.0-4.8); Lymphocytes % (Auto) 12 % (10-50); Mean Corpuscular HGB Conc 32.9 g/dl (31.0-37.0); Mean Corpuscular Hemoglobin 31.5 pg (25.0-35.0); Mean Corpuscular Volume 96 fL (80-100); Monocytes # (Auto) 0.7 Thou/mm3 (0.0-0.8); Monocytes % (Auto) 6 % (0-12); Neutrophils # (Auto) 9.4 Thou/mm3 (1.8-7.7); Neutrophils % (Auto) 78 % (37-80); Nucleated Red Blood Cell # 0.00 Thou/mm3 (0.00-0.00); Nucleated Red Blood Cell % 0 /100 WBC (0); Platelet Count 310 Thou/mm3 (140-440); RDW Standard Deviation 43.2 fL (36.4-46.3); Red Blood Count 3.05 Miln/mm3 (4.00-5.20); White Blood Count 12.0 Thou/mm3 (3.6-11.0)
[2024-10-29 05:39] LABS: Alanine Aminotransferase 31 U/L (10-49); Albumin, Serum 3.4 gm/dL (3.5-5.0); Albumin/Globulin Ratio 1.4 (1.2-2.2); Alkaline Phosphatase 130 U/L (46-116); Anion Gap 10 (7-16); Aspartate Amino Transferase 19 U/L (0-34); BUN/Creatinine Ratio 15 Ratio (12-20); Bilirubin,Total 0.4 mg/dL (0.3-1.2); Blood Urea Nitrogen 12 mg/dL (9-23); Calcium 8.8 mg/dL (8.3-10.6); Calcium (Corrected) 9.3 mg/dL (8.5-10.1); Carbon Dioxide 26.0 mMol/L (20.0-31.0); Chloride 108 mMol/L (98-107); Creatinine (Component) 0.8 mg/dL (0.6-1.3); Estimated Creatinine Clearance 60.7 mL/min (>60); Globulin 2.4 gm/dL (2.3-3.5); Glucose 110 mg/dL (74-106); Magnesium 1.9 mg/dL (1.6-2.6); Osmolality,Calculated 287 (275-295); Phosphorous 3.6 mg/dL (2.4-5.1); Potassium 3.8 mMol/L (3.4-5.1); Sodium 144 mMol/L (136-145); Total Protein 5.8 gm/dL (5.7-8.2); eGFR > 60 See Note
[2024-10-29 05:46] LABS: Glucose Estimated Average 123 mg/dL (80-131); Hemoglobin A1C 5.9 % Hgb (4.8-6.0)
[2024-10-29 07:45] LABS: Prolactin* 60.4 ng/mL
[2024-10-29] MEDS: levETIRAcetam LIQD 500 MG/5 ML UDC 750 MG PO ×2 (09:39→20:45)
[2024-10-29] MEDS: cefTRIAXone/D5w 1gm IV premix 1 GM/50 ML BAG IV (09:39)
[2024-10-29] MEDS: ZINC SULFATE 220 MG CAPSULE PO (09:39)
[2024-10-29] MEDS: METOPROLOL TARTRATE 25 MG TABLET PO (09:39)
[2024-10-29] MEDS: MULTIVITAMINS TABLET 1 TAB PO (09:39)
[2024-10-29] MEDS: ENOXAPARIN SOD INJ 30 MG/0.3 ML SYRINGE SC (09:40)
[2024-10-29] MEDS: LACOSAMIDE 50 MG TABLET 100 MG PO ×2 (09:40→20:45)
[2024-10-29] MEDS: SENNA/DOCUSATE SOD 1 TAB TABLET 2 TAB PO (09:41)
[2024-10-29] MEDS: ASCORBIC ACID 250 MG TABLET 500 MG PO ×2 (09:41→20:44)
[2024-10-29] MEDS: PANTOPRAZOLE 40 MG TABLET PO (09:41)
--- NOTE | 2024-10-29 13:28 | ESPR_ITS ---
<Statement entered by Dallin Mcmahon MD - 11/06/24 08:02> I reviewed above note and agree with findings and plans. I have also personally examined the patient with medicine team and went over assessment and plan with medical team including international relations teacher and resident physician. Documentation for date of: 10/29/24 No ovenight events. Acute encephaloapthy, improving, likely secondary to break through seizure as family concern for seizures one week prior to admission and seizure like activity during rapid. Prolactin levels elevated 60.4. EEG noted for diffuse encephlopathy of metabolic, degenerative or vascular origin. LIkely secondary to history of s/p brain surgery per family history. Continue Keppra and Vimpat. Given new onset of CHF w/ pulmonary edema which has resolved and led to ARDS, currently fluid restricted. Patient started on Metorplol tartrate BID, consider starting Lasix 20 mg PO orally, pending Cardio recommendations. Currenlty NPO given new on set of CHF w/ acute EF now of 45%. Repeat BNP. Patinet still net positive. Normocytic anemia noted. Pending occult blood, haptoglobin, and reticulocyte count. Continue antibiotics for pneumonia, now day 6. BNP 1465 (10/24/2024)-->Repeat BNP Ins and Outs (10/29/2024) 816/1170/-353 Cumulative: 1920 Subjective Subjective Interval history: No acute events overnight. Alert oriented x1, only to self, not to time or place. Denies chest pain or pain elsewhere. Labs and vitals were reviewed. WBC elevated but downtrending. Hgb stable. CMP unremarkable. Per neurology, plan for EEG tomorrow, as well as per cardiology, possibly cardiac cath either Tuesday or Tuesday. Patient was agreeable to plan. Per PT, patient will require discharge to SNF for rehab, patient was hesitant but will think about it. No additional complaints at this time. Review of systems otherwise negative except what is mentioned above. Exam Vital Signs Temp Pulse Resp BP Pulse Ox O2 Del Method O2 Flow Rate 97.0 F 90 20 95/72 100 Room Air 4 10/29/24 12:00 10/29/24 12:10/29/24 12:10/29/24 12:10/29/24 12:00 10/29/24 12:00 10/27/24 20:00 FiO2 21 10/27/24 09:57 Narrative Exam Physical Exam General: Awake and in no acute distress. Conversational and non-toxic appearing. Cachectic. HEENT: Normocephalic, atraumatic, mucous membranes moist. No Rhino rocket. Heart: Tachycardic. Regular rate and rhythm, normal S1 and S2, no murmurs appreciated. Lungs: Clear to auscultation with no wheezing or crackles. Abdomen: Soft, nondistended, nontender, positive bowel sounds. No guarding or rebound tenderness. Neurologic: Alert and oriented x1, oriented to self but not to time and place, no gross neurological deficit, and patient able to move all 4 extremities. Extremities: No edema. Skin: No rash or ecchymoses. Objective Labs 10/29/24 04:12 10/29/24 04:12 Labs: Laboratory Results - last 24 hr 10/24/24 10/29/24 10/29/24 09:18 00:15 04:12 WBC 12.0 H RBC 3.05 L Hgb 9.8 L 9.6 L Hct 29.2 L 29.2 L MCV 96 MCH 31.5 MCHC 32.9 RDW Std Deviation 43.2 Plt Count 310 D Neut % (Auto) 78 Lymph % (Auto) 12 Haskell % (Auto) 6 Eos % (Auto) 2 Baso % (Auto) 1 Neut # (Auto) 9.4 H Lymph # (Auto) 1.5 Haskell # (Auto) 0.7 Eos # (Auto) 0.2 Baso # (Auto) 0.1 Immature Gran # (Auto) 0.10 H Absolute Nucleated RBC 0.00 Immature Gran % 1 H Nucleated RBC % 0 Sodium 144 Potassium 3.8 Chloride 108 H Carbon Dioxide 26.0 Anion Gap 10 BUN 12 Creatinine 0.8 Estim Creat Clear Calc 60.7 L eGFR > 60 BUN/Creatinine Ratio [address] Glu mg/dL 123 Hemoglobin A1c 5.9 Calculated Osmolality 287 Calcium 8.8 Corrected Calcium 9.3 Phosphorus 3.6 Magnesium 1.9 Total Bilirubin 0.4 AST 19 ALT 31 Alkaline Phosphatase 130 H Total Protein 5.8 Albumin 3.4 L Globulin 2.4 Albumin/Globulin Ratio 1.4 Prolactin (Send Out) 60.4 ABG Interpretation ABG results: 10/23/24 10/24/24 10/24/24 04:06 10:51 14:00 ABG pH 7.42 7.20 L D ABG pCO2 27 L 47 D ABG pO2 49 L* 83 D ABG HCO3 18 L 19 L ABG O2 Saturation 86 L 94 ABG Base Excess -6 L -9 L VBG pH 7.34 VBG pCO2 35 L VBG pO2 61 H VBG Base Excess -7 L 10/24/24 10/25/24 10/26/24 14:26 05:05 04:41 ABG pH 7.38 D 7.30 L 7.42 D ABG pCO2 32 D 37 35 ABG pO2 130 H D 53 L* D 64 L ABG HCO3 18 L 18 L 23 ABG O2 Saturation 99 H 85 L 93 ABG Base Excess -6 L -8 L -1 VBG pH VBG pCO2 VBG pO2 VBG Base Excess 10/27/24 05:15 ABG pH 7.45 ABG pCO2 40 ABG pO2 55 L* ABG HCO3 28 H ABG O2 Saturation 88 L ABG Base Excess 3 VBG pH VBG pCO2 VBG pO2 VBG Base Excess Quality Measures Quality Measures sepsis Current suspected stage: ruled out Possible source: meningitis and unknown Blood cultures ordered: yes Antibiotic ordered: Yes and none Assessment & Plan Assessment Current Active Medications: Generic Name Dose Route Start Last Admin Trade Name Freq PRN Reason Stop Dose Admin Acetaminophen 650 mg 10/28/24 11:40 Acetaminophen 325 Mg Tablet PO 11/22/24 05:54 Q6H PRN Pain Scale 1-5 Ascorbic Acid 500 mg 10/28/24 09:45 10/29/24 09:41 Ascorbic Acid 250 Mg Tablet PO 11/27/24 09:44 500 mg BID KIMBERLY Administration Dextrose 25 ml 10/25/24 08:37 Dextrose 50%-Water Inj 50 Ml Syringe IV 11/24/24 08:36 Q15MIN PRN BG 50-70 responsive npo pt Dextrose 50 ml 10/25/24 08:37 Dextrose 50%-Water Inj 50 Ml Syringe IV 11/24/24 08:36 Q15MIN PRN BG <50 OR BG <70 & pt unresponsive Enoxaparin Sodium 30 mg 10/29/24 09:00 10/29/24 09:40 Enoxaparin Sod Inj 30 Mg/0.3 Ml Syringe SC 11/12/24 08:59 30 mg QDAY KIMBERLY Administration Glucagon 1 mg 10/25/24 08:37 Glucagon Inj 1 Mg Vial IM Q15MIN PRN BG <70, and no IV access Ceftriaxone Sodium/Dextrose 1 gm in 50 mls @ 100 mls/hr 10/23/24 11:00 10/29/24 09:39 Rocephin/D5w 1gm Iv Premix IV 10/30/24 10:59 100 mls/hr QDAY KIMBERLY Administration Lacosamide 100 mg 10/28/24 21:00 10/29/24 09:40 Lacosamide 50 Mg Tablet PO 11/27/24 20:59 100 mg BID KIMBERLY Administration Levetiracetam 750 mg 10/28/24 21:00 10/29/24 09:39 Levetiracetam Liqd 500 Mg/5 Ml Udc PO 11/27/24 20:59 750 mg BID KIMBERLY Administration Metoprolol Tartrate 25 mg 10/28/24 21:00 10/29/24 09:39 Metoprolol Tartrate 25 Mg Tablet PO 11/27/24 20:59 25 mg BID KIMBERLY Administration Multivitamins 1 tab 10/28/24 09:30 10/29/24 09:39 Multivitamins Tablet PO 11/27/24 09:29 1 tab QDAY KIMBERLY Administration Nicotine 21 mg 10/28/24 10:09 Nicotine Patch 21 Mg/24 Hr Patch.Td24 TOP 11/28/24 08:59 QDAY PRN SMOKING CESSATION Ondansetron HCl 4 mg 10/23/24 05:55 10/23/24 10:17 Ondansetron Inj 2 Mg/Ml Inj 2 Ml IVP 11/22/24 05:54 4 mg Q6H PRN Administration NAUSEA OR VOMITING Protocol Pantoprazole Sodium 40 mg 10/29/24 09:00 10/29/24 09:41 Pantoprazole 40 Mg Tablet PO 11/28/24 08:59 40 mg QDAY KIMBERLY Administration Quetiapine Fumarate 100 mg 10/28/24 21:00 10/29/24 09:41 Quetiapine Fumarate 25 Mg Tablet PO 11/27/24 20:59 100 mg BID KIMBERLY Administration Sennosides 2 tab 10/26/24 14:00 10/29/24 09:41 Senna/Docusate Sod 1 Tab Tablet PO 11/25/24 13:59 2 tab QDAY KIMBERLY Administration Protocol Zinc Sulfate 220 mg 10/28/24 09:45 10/29/24 09:39 Zinc Sulfate 220 Mg Capsule PO 11/11/24 09:44 220 mg QDAY KIMBERLY Administration Ziprasidone 10 mg 10/27/24 09:34 10/28/24 05:58 Ziprasidone Inj 20 Mg/Ml Vial (Non-Formulary) IM 11/26/24 09:33 10 mg Q6HR PRN Administration SEVERE AGITATION Protocol Plan Patient is a 54-year-old female with past medical history of hypertension, seizures, cholecystectomy, status post brain surgery for suspected neurocysticercosis, and tobacco use who presented on 10/25/24 with a chief complaint of altered mental status. Patient admitted to hospital for further workup or for continued encephalopathy, ICU consulted for agitation, intubated and placed on Precedex drip and IV Versed pushes. Now extubated and discontinued from Precedex, downgraded to tele. #Acute Encephalopathy, possibly multifactorial, improving #Break Through Seizure #Seizures by history #s/p brain surgery due to suspicion of neurocysticosis #Left temporal encephalomalacia, chronic Likely multifactorial 2/2 to seizure episode (postictal state), possible underlying psych disorder, possible toxin ingestion LKW Saturday 10/21, has known history of seizures for which she was prescribed Keppra, per pharmacy hasn't picked up. Patient also reports she has not been as compliant with medication. Patient's baseline is talkative and independent, last seizure was last week. Per family, she has episodes of staring into space and is usually able to anticipate her episodes. Of note, Niece found an empty bottle of toenail/fingernail color enhancer and unidentified clear liquid was found and noted less mirtazapine pills in bottle, possible that patient ingested it. Also patient has had hallucinations intermittently during hospitalization and continued to be agitated. She received multiple doses of Haldol, Olanzapine, Ativan, Benadryl throughout hospital course, with persistence. Had to eventually be upgraded to ICU for Precedex infusion and intubation due to agitation. She denies other psychological history but suspect underlying psychologic disorder. Prolactin 60.4 MRI 10/25/2024 showed a large left temporal lobe encephalomalacia with suspicious ringlike restricted diffusion in the left temporal lobe. CSF culture negative, unlikely meningitis. HIV negative, syphilis serology negative. Plan: - Continue Keppra 750 p.o. BID - Continue Vimpat 100 mg p.o. BID - Continue Seroquel 100 mg BID - Ziprasidone 10 mg PRN - Rheumatoid factor, SASKIA, West Nile serology pending - Will require crisis evaluation prior to discharge - Neurology Dr. Abrams consulted, appreciate recommendations #New Acute Congestive Heart Failure #HFrEF, EF 45% (10/24/24) #Hypokinetic apical anterior wall #Acute hypoxic respiratory failure, secondary to pulmonary edema/ARDS, resolved. Echo 10/24: EF 45%. Normal LV size. Mild LVH. Normal left ventricular diastolic function. Global left ventricular systolic function is mildly decreased. Hypokinetic apical anterior wall. RV is normal in size and systolic function. Trace TR. There is a tiny, hemodynamically insignificant pericardial effusion which will be managed pharmacologically, too small for surgical intervention. S/p Lasix diuresis during ICU stay. BNP 1465 (10/24/2024)-->Repeat BNP Ins and Outs (10/29/2024) 816/1170/-353 Cumulative: 1919 Plan: -NPO after midnight, plan for Cardiac Catherization w/ Dr. Aleman -Continue metoprolol tartrate 12.5 mg BID -Patinet may benefit from lasix, pending cardio reccs. -Strict intake and output, daily weight, fluid restriction 1500 cc -Consider starting on rest of GDMT -Cardiology is following, appreciate recommendations #Aspiration pneumonia #Leukocytosis #Status post extubation 10/27/2024 #Left pleural effusion, improving Likely secondary to flash cardiogenic pulmonary edema (improvement in chest x- ray after diuresis and HFrEF on echo). CT scan from 10/23 has no evidence of any community-acquired pneumonia, procalcitonin downtrended (16.25 --> 5.69). Sputum culture negative. ICU Bedside ultrasound 10/26 demonstrated interstitial consolidation (component of pneumonia/atelectasis) with surrounding pleural effusion, not large enough for thoracentesis. CXR 10/24 showed extensive bilateral lung opacity, fluid overload versus aspiration pneumonia. Patient received IV diuresis and serial chest x-rays showed remarkable improvement. Likely had flash pulmonary edema in setting of fluid overload with underlying heart failure with reduced ejection fraction. S/p positive pressure ventilation on mechanical ventilator, s/p extubation on 10/27, continued to improve with diuresis. Plan: - Saturating well on room air - DAY 09/15 of ceftriaxone (10/23-10/30/2024) #ACS, likely NSTEMI type II #Elevated troponin - resolved Patient had worsened agitation, no symptoms of any chest pain/cardiac distress, did have abdominal pain prior to presentation. Troponin downtrended from 4.4 to 2.4, EKG showed some acute ST-T changes leads V3 V4. Echo 10/24 showed hypokinetic apical wall and global hypokinesis of left ventricle compared to right. Possible NSTEMI I. Heparin GTT (10/24-10/27) per ACS protocol. Plan: - Repeat EKG as needed, monitor for chest pain - Discontinue aspirin and Plavix - Cardiology consulted, appreciate recommendations - Plan for cardiac cath as above #Transaminitis #Elevated alkaline phosphatase Likely secondary to rhabdomyolysis (chronic malnutrition). Initially improved but now mild AST elevation. Bilirubin within normal limits. Unlikely gallbladder related. Unremarkable abdominal exam. - Continue to monitor CMP daily #Normocytic Anemia, likely iron deficiency #Severe iron deficiency anemia Patient continues to have slow declined in hgb and hct, normocytic anemia noted, with ferritin levels within normal limits, thus anemia of chronic inflammation as Ferritin levels may be normal to increased vs iron deficiency secondary to loss vs less likely secondary to decrease of epo. Iron 8, TIBC 178, iron sat 4, iron sat iron binding 170. Folate and B12 levels normal. Plan: -Occult stool ordered, haptoglobin, Reticulocyte Count -Conitnue to monitor hgb and hct - Consider starting iron supplementation outpatient #Protein calorie malnutrition, BMI 19.6 #Hypoalbuminemia BMI on presentation 19.6, patient has some temporal wasting, overall has protein calorie malnutrition. Plan: - Ensure daily - Referral to nutritional services outpatient - Continue zinc, multivitamin and vitamin C; holding iron due to infection #Hypertension Has history of hypertension, on lisinopril at home - Continue metoprolol tartrate 12.5 mg BID - HOLD Lisinopril, consider restarting, but holding as patient may benefit from Entresto/Spirnolactone based on cardiology discretion #Hx of Anxiety/depression Patient has history of anxiety/depression on Venlafaxine 150mg daily, pending official med rec. - Hold Venlafaxine and home mirtazapine - Continue Seroquel as above #Nicotine dependence #Marijuana dependence Chronic active smoker, more than 40 pack years Urine tox screen is positive for THC - Nicotine patch as needed - Tobacco cessation counseling provided at bedside - reference services head referral #Cystitis, resolving CT abdomen pelvis showed thickening of bladder wall, consistent with cystitis. Urinalysis did show rare bacteria but negative leukocyte esterase and nitrites. Patient does not complain of any abdominal pain or dysuria. Lorenzo catheter in place, no hematuria noted. Plan: - Continue IV ceftriaxone (10/23-10/30/2024) #Thickening of adrenal glands Incidental CT abdomen pelvis finding currently low clinical suspicion of adrenal hyperplasia. - Consider outpatient workup #Shock, multifactorial, distributive and cardiogenic, resolved #Gastroenteritis, diarrhea, resolved prior upon admission #Tachycardia, resolved. #Epistaxis, left naris - resolved (ICU related) Health Maintenance Disposition: Downgraded to [facility], continue abx treatment, pending EEG and possible cardiac cath DVT prophylaxis: Lovenox GI prophylaxis: Protonix IV Diet: Cardiac -->NPO After midnight, cardiac cath on Tuesday CODE STATUS: FULL Patient plan of care was discussed with the resident, Dr. Triplett, and attending physician, Dr. Mcmahon. Jeannie Hall, PGY-1 - The patient's plan was discussed with attending Dr. Salome Triplett MD PGY2 Internal Medicine
--- NOTE | 2024-10-29 13:45 | PC.SS ---
Addendum entered by Mary Brewster 10/29/24 14:58: Rounding note: EEG results pending. Cardiac Cath pending for Tuesday or Tuesday. Patient to discharge to SNF, preference is [facility]. TATIANARR Lvl. 2 clearance is pending. Original Note: SS met with patient at bedside to confirm discharge plan. Patient is requesting SNF, preference is [facility]. SS to submit referral for SNF. [facility] is reccommending SNF. SS contacted patient's next of kin, Olivia Granda [phone] to discuss discharge plan, she explained patient's son Jonny Granda to arrive 10/30/24.
[2024-10-29 13:59] LABS: Cocci Serology, IgG Negative (Negative)
--- NOTE | 2024-10-29 18:05 | ESPR_ITS ---
<Statement entered by Marino Aleman MD - 11/04/24 12:14> I personally examined the patient with Dr. Blancas the PGY 2 patient is now clinically more stable did come with multiple problems hypoxic respiratory failure initial hypotension shock extubated successfully much more alert oriented today she did have NSTEMI type II myocardial infarction versus CAD Takotsubo cardiomyopathy coronary angiogram recommended risks benefits alternatives explained patient agreed to have the procedure performed. Patient is compos mentis making her own decisions. 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 Documentation for date of: 10/29/24 Subjective Subjective Interval history: Pt is seen at bedside in telemetry. Currently saturating on room air, in sinus rhythm. Pt denies any shortness of breath, chest pain of palpitations. Pt states she feels great and currently no cardiac complaints. Pt is alert and oriented. vitals and labs are stable. pt has remained afebrile and without seizures. Pt did not have another episode of nose bleed. Pt will undergo left cardiac cath tomorrow (10/30) Recommended to stop anticoagulation and antiplatelets , and continue metoprolol tartrate 25mg BID. NPO after midnight. Exam Vital Signs Temp Pulse Resp BP Pulse Ox O2 Del Method O2 Flow Rate 97.6 F 89 16 95/59 L 100 Room Air 4 10/29/24 16:00 10/29/24 16:00 10/29/24 16:00 10/29/24 16:00 10/29/24 16:00 10/29/24 16:00 10/27/24 20:00 FiO2 21 10/27/24 09:57 Narrative Exam General: Awake, alert and oriented x3. Pt is cooperative and conversational HEENT: Normocephalic, atraumatic, mucous membranes moist. Heart: Regular rate and rhythm, no murmurs. Lungs: no wheezing or crackles heard Abdomen: Soft, nondistended, nontender, positive bowel sounds. ?No guarding or rebound tenderness. Neurologic: No gross neurological deficits noted Extremities: No edema, tenderness, able to move all 4 extremities Skin: No rash or ecchymoses. Objective Labs 10/29/24 04:12 10/29/24 04:12 Labs: Laboratory Results - last 24 hr 10/24/24 10/27/24 10/29/24 09:18 07:23 00:15 WBC RBC Hgb 9.8 L Hct 29.2 L MCV MCH MCHC RDW Std Deviation Plt Count Neut % (Auto) Lymph % (Auto) [place] % (Auto) Eos % (Auto) Baso % (Auto) Neut # (Auto) Lymph # (Auto) [place] # (Auto) Eos # (Auto) Baso # (Auto) Immature Gran # (Auto) Absolute Nucleated RBC Immature Gran % Nucleated RBC % Sodium Potassium Chloride Carbon Dioxide Anion Gap BUN Creatinine Estim Creat Clear Calc eGFR BUN/Creatinine Ratio Glucose Estimated Ave Glu mg/dL Hemoglobin A1c Calculated Osmolality Calcium Corrected Calcium Phosphorus Magnesium Total Bilirubin AST ALT Alkaline Phosphatase Total Protein Albumin Globulin Albumin/Globulin Ratio Prolactin (Send Out) 60.4 Coccidioides IgG Ab Negative 10/29/24 04:12 WBC 12.0 H RBC 3.05 L Hgb 9.6 L Hct 29.2 L MCV 96 MCH 31.5 MCHC 32.9 RDW Std Deviation 43.2 Plt Count 310 D Neut % (Auto) 78 Lymph % (Auto) 12 [place] % (Auto) 6 Eos % (Auto) 2 Baso % (Auto) 1 Neut # (Auto) 9.4 H Lymph # (Auto) 1.5 [place] # (Auto) 0.7 Eos # (Auto) 0.2 Baso # (Auto) 0.1 Immature Gran # (Auto) 0.10 H Absolute Nucleated RBC 0.00 Immature Gran % 1 H Nucleated RBC % 0 Sodium 144 Potassium 3.8 Chloride 108 H Carbon Dioxide 26.0 Anion Gap 10 BUN 12 Creatinine 0.8 Estim Creat Clear Calc 60.7 L eGFR > 60 BUN/Creatinine Ratio [address] Glu mg/dL 123 Hemoglobin A1c 5.9 Calculated Osmolality 287 Calcium 8.8 Corrected Calcium 9.3 Phosphorus 3.6 Magnesium 1.9 Total Bilirubin 0.4 AST 19 ALT 31 Alkaline Phosphatase 130 H Total Protein 5.8 Albumin 3.4 L Globulin 2.4 Albumin/Globulin Ratio 1.4 Prolactin (Send Out) Coccidioides IgG Ab ABG Interpretation ABG results: 10/23/24 10/24/24 10/24/24 04:06 10:51 14:00 ABG pH 7.42 7.20 L D ABG pCO2 27 L 47 D ABG pO2 49 L* 83 D ABG HCO3 18 L 19 L ABG O2 Saturation 86 L 94 ABG Base Excess -6 L -9 L VBG pH 7.34 VBG pCO2 35 L VBG pO2 61 H VBG Base Excess -7 L 10/24/24 10/25/24 10/26/24 14:26 05:05 04:41 ABG pH 7.38 D 7.30 L 7.42 D ABG pCO2 32 D 37 35 ABG pO2 130 H D 53 L* D 64 L ABG HCO3 18 L 18 L 23 ABG O2 Saturation 99 H 85 L 93 ABG Base Excess -6 L -8 L -1 VBG pH VBG pCO2 VBG pO2 VBG Base Excess 10/27/24 05:15 ABG pH 7.45 ABG pCO2 40 ABG pO2 55 L* ABG HCO3 28 H ABG O2 Saturation 88 L ABG Base Excess 3 VBG pH VBG pCO2 VBG pO2 VBG Base Excess Quality Measures Quality Measures sepsis Current suspected stage: ruled out Possible source: meningitis and unknown Blood cultures ordered: yes Antibiotic ordered: Yes and none Assessment & Plan Assessment Current Active Medications: Generic Name Dose Route Start Last Admin Trade Name Freq PRN Reason Stop Dose Admin Acetaminophen 650 mg 10/28/24 11:40 Acetaminophen 325 Mg Tablet PO 11/22/24 05:54 Q6H PRN Pain Scale 1-5 Ascorbic Acid 500 mg 10/28/24 09:45 10/29/24 09:41 Ascorbic Acid 250 Mg Tablet PO 11/27/24 09:44 500 mg BID KIMBERLY Administration Dextrose 25 ml 10/25/24 08:37 Dextrose 50%-Water Inj 50 Ml Syringe IV 11/24/24 08:36 Q15MIN PRN BG 50-70 responsive npo pt Dextrose 50 ml 10/25/24 08:37 Dextrose 50%-Water Inj 50 Ml Syringe IV 11/24/24 08:36 Q15MIN PRN BG <50 OR BG <70 & pt unresponsive Enoxaparin Sodium 30 mg 10/29/24 09:00 10/29/24 09:40 Enoxaparin Sod Inj 30 Mg/0.3 Ml Syringe SC 11/12/24 08:59 30 mg QDAY KIMBERLY Administration Glucagon 1 mg 10/25/24 08:37 Glucagon Inj 1 Mg Vial IM Q15MIN PRN BG <70, and no IV access Ceftriaxone Sodium/Dextrose 1 gm in 50 mls @ 100 mls/hr 10/23/24 11:00 10/29/24 09:39 Rocephin/D5w 1gm Iv Premix IV 10/30/24 10:59 100 mls/hr QDAY KIMBERLY Administration Lacosamide 100 mg 10/28/24 21:00 10/29/24 09:40 Lacosamide 50 Mg Tablet PO 11/27/24 20:59 100 mg BID KIMBERLY Administration Levetiracetam 750 mg 10/28/24 21:00 10/29/24 09:39 Levetiracetam Liqd 500 Mg/5 Ml Udc PO 11/27/24 20:59 750 mg BID KIMBERLY Administration Metoprolol Tartrate 25 mg 10/29/24 15:40 Metoprolol Tartrate 25 Mg Tablet PO 11/27/24 20:59 BID KIMBERLY Multivitamins 1 tab 10/28/24 09:30 10/29/24 09:39 Multivitamins Tablet PO 11/27/24 09:29 1 tab QDAY KIMBERLY Administration Nicotine 21 mg 10/28/24 10:09 Nicotine Patch 21 Mg/24 Hr Patch.Td24 TOP 11/28/24 08:59 QDAY PRN SMOKING CESSATION Ondansetron HCl 4 mg 10/23/24 05:55 10/23/24 10:17 Ondansetron Inj 2 Mg/Ml Inj 2 Ml IVP 11/22/24 05:54 4 mg Q6H PRN Administration NAUSEA OR VOMITING Protocol Pantoprazole Sodium 40 mg 10/29/24 09:00 10/29/24 09:41 Pantoprazole 40 Mg Tablet PO 11/28/24 08:59 40 mg QDAY KIMBERLY Administration Quetiapine Fumarate 100 mg 10/28/24 21:00 10/29/24 09:41 Quetiapine Fumarate 25 Mg Tablet PO 11/27/24 20:59 100 mg BID KIMBERLY Administration Sennosides 2 tab 10/26/24 14:00 10/29/24 09:41 Senna/Docusate Sod 1 Tab Tablet PO 11/25/24 13:59 2 tab QDAY KIMBERLY Administration Protocol Zinc Sulfate 220 mg 10/28/24 09:45 10/29/24 09:39 Zinc Sulfate 220 Mg Capsule PO 11/11/24 09:44 220 mg QDAY KIMBERLY Administration Ziprasidone 10 mg 10/27/24 09:34 10/28/24 05:58 Ziprasidone Inj 20 Mg/Ml Vial (Non-Formulary) IM 11/26/24 09:33 10 mg Q6HR PRN Administration SEVERE AGITATION Protocol Plan A 54-year-old female with significant past medical history of seizures, brain surgery, marijuana use, anxiety, depression was found to be unconscious when her sister went to check on her. The patient was immediately brought to the hospital for altered mental status. Patient apparently found to have vomitings and abdominal pain prior to the admission for 1 day. On reviewing previous medical records, patient was found to have hospital ER visits for seizures in 2019, 2021. Found to have cholecystectomy, laparoscopic by Dr. Monge in 2021. Cardiology is consulted in view of regional wall motion abnormality, elevated troponin and BNP, EKG changes and suspected ACS # Elevated troponins, NSTEMI --> likely type II # Pulmonary edema - Cardiogenic vs noncardiogenic, ARDS , Resolved # HFmEF, EF 45% - Patient initially presented with altered mental status and vitals at the time of admission are stable, admitted for acute encephalopathy, likely secondary to suspected seizures - In the floors, patient is treated for sepsis and suspected seizure activity - On 10/24/2024, patient is upgraded to ICU for acute hypoxic respiratory failure and acute encephalopathy, patient is intubated, a bolus of 1 L IV fluid is given and started on vasopressors - Patient is given total 6.9 L since the time of admission in view of rhabdomyolysis - Troponin done on 10/24/2024 in the ICU is 6.24, later down trended to 6.0. BNP is 1465 - Chest x-ray showed bilateral increased vascular prominence, perihilar opacities, fluid in the right middle fissure, appears like cardiogenic pulmonary edema but cannot rule out ARDS - EKG done in the ICU showed sinus tachycardia with ST elevations in V3 and V4 with no reciprocal ST depressions noted in other leads - Per chart review, patient does not have any significant history of CAD and Heart failure Plan - Echocardiogram showed mild apical hypokinesis without significant regional wall motion abnormalities with EF of 45% - CVP is around 9, that suggest no right heart failure but cannot rule out LV dysfunction - Initially planned to do [place] catheterization to measure pulmonary capillary wedge pressure, CVP but could not perform in view of insufficient equipment - Recommended to monitor oxygenation, vitals and repeat chest x-ray in the morning. If the patient oxygenation or vitals worsens, will do [place] catheterization in the morning - Recommended to give 1 dose of Lasix 40 Mg IV as patient received almost 6.9 L of fluid since the time of admission, in suspicion of fluid overload - Acute hypoxic respiratory failure could be due to underlying sepsis causing Takotsubo cardiomyopathy like picture causing the pulmonary edema. Patient has possibility of CAD which could be exacerbated in the setting of fluid overload and sepsis - Cardiac catheterization scheduled for 10/30 - Hold anticoagulation and antiplatelets for now - Continue metoprolol titrate 25 Mg twice daily for now # Shock, likely septic, resolved # To rule out cardiogenic - Patient initially presented to the hospital with altered mental status - Vitals are stable at the time of admission except for sinus tachycardia - Labs at the time of admission are significant for elevated WBC, metabolic acidosis, BHAVESH and procalcitonin. CK levels are elevated. - Patient is initially treated for sepsis and rhabdomyolysis. Patient received around 7 L of fluid - On 10/24/2024, patient developed sudden onset shortness of breath and agitation with low saturation for which patient is intubated and upgraded to ICU for further management - EKG done at that time showed ST elevations in V3 and V4, troponin of 6.2, BNP 1465 - Chest x-ray showed bilateral increased vascularity and perihilar opacities - Echocardiogram done showed no significant regional wall motion abnormalities except for mild hypokinesis at the apex, EF of 45% - Patient is started on heparin drip, received loading doses of aspirin and Plavix. Plan - Recommend to discontinue heparin drip - Cardiogenic shock cannot be ruled out even if the patient had normal EF as patient can have LV diastolic dysfunction causing pulmonary edema and acute hypoxic respiratory failure. Patient can have Takotsubo like picture in the setting of ongoing acute illness, suspected sepsis. Fluid overload could also be contributing to the pulmonary edema as patient received almost 7 L since hospital admission at the time of intubation - CVP is around 9 which rules out right heart failure. Initially intended to do [place] catheter to measure the PCWP but could not do in view of insufficient equipment - No need of [place] catheter as patient appears to be improving clinically - Cardiac catheterization scheduled for 10/30 #Acute Encephalopathy - resolved #Seizure episode #History of seizures #Severe agitation #Left temporal encephalomalacia, temporal lobe calcification #Anxiety/depression, by history #Nicotine dependence #Marijuana dependence #Hypertension, by history #Acute hypoxic respiratory failure, on mechanical ventilation 2/2 severe agitation #Acute respiratory distress syndrome versus negative pressure pulmonary edema #Aspiration pneumonia #Transaminitis #Gastroenteritis, diarrhea #Acute kidney injury secondary to rhabdomyolysis #Cystitis #High anion gap metabolic acidosis #Lactic acidosis #Thickening of adrenal glands #Leukocytosis #Normocytic normochromic anemia #Cystitis #Aspiration pneumonia #Rule out meningitis - Rest of the medical conditions to be treated as per primary team Thank you for allowing us to participate in the care of the patient Patient plan of care was discussed with the computer graphics illustrator, Dr. Ash Blancas, PGY2
--- NOTE | 2024-10-29 20:51 | PD.NEUROPROG ---
Documentation for date of: 10/29/24 Subjective Subjective Interval history: Patient was seen in telemetry at the bedside. No seizures reported overnight. She is back to her baseline. She complains of not so good appetite. Exam - Neurology Vital Signs Temp Pulse Resp BP Pulse Ox O2 Del Method O2 Flow Rate 97.6 F 98 20 95/59 L 100 Room Air 4 10/29/24 16:00 10/29/24 18:43 10/29/24 18:43 10/29/24 16:00 10/29/24 16:00 10/29/24 16:00 10/27/24 20:00 FiO2 21 10/27/24 09:57 Narrative Exam GENERAL APPEARANCE: Well hydrated, well-nourished in no acute distress. HEENT: Normocephalic, atraumatic, extraocular movements intact. Pupils: Equal reacting to light and accommodation, NECK: Supple, no JVD or bruits. CARDIOVASULAR: Heart: S1, S2 heard, regular without S3-S4 or murmur no rubs or gallops. LUNGS/CHEST: Clear to auscultation bilaterally. No rails, rhonchi, or wheezing. Normal inspection. ABDOMEN: Soft, nontender, with normal bowel sounds. No pulsatile masses. No rebound, rigidity, or guarding. Normal inspection and palpation. EXTREMITIES: Normal inspection and palpation. No edema, clubbing or cyanosis. SKIN: Warm and dry without rashes. Normal inspection. MUSCULOSKELETAL: No cervical, thoracic, lumbar or midline bony tenderness. Normal inspection. NEURO: Alert, awake and oriented x3. Cranial nerves: II through XII grossly intact. Speech and language: Normal with no dysarthria or dysphasia. Motor system: Tone and bulk: Normal: Strength: 5 out of 5 in all 4 extremities; No pronator drift noted. Deep tendon reflexes: 2+ bilaterally symmetrical. Plantar reflex: Downgoing bilaterally. Sensory system: Intact to all modalities of sensation bilaterally. Coordination: Intact to [id number] and [id number] test bilaterally. No ataxia, no dysmetria, or dysdiadochokinesia noted. No intention tremors noted. Gait: Not tested.. No signs of meningeal irritation noted. PSYCHIATRIC: Normal mood and affect. Objective Labs 10/29/24 04:12 10/29/24 04:12 Labs: Laboratory Results - last 24 hr 10/24/24 10/27/24 10/29/24 09:18 07:23 00:15 WBC RBC Hgb 9.8 L Hct 29.2 L MCV MCH MCHC RDW Std Deviation Plt Count Neut % (Auto) Lymph % (Auto) [place] % (Auto) Eos % (Auto) Baso % (Auto) Neut # (Auto) Lymph # (Auto) [place] # (Auto) Eos # (Auto) Baso # (Auto) Immature Gran # (Auto) Absolute Nucleated RBC Immature Gran % Nucleated RBC % Sodium Potassium Chloride Carbon Dioxide Anion Gap BUN Creatinine Estim Creat Clear Calc eGFR BUN/Creatinine Ratio Glucose Estimated Ave Glu mg/dL Hemoglobin A1c Calculated Osmolality Calcium Corrected Calcium Phosphorus Magnesium Total Bilirubin AST ALT Alkaline Phosphatase Total Protein Albumin Globulin Albumin/Globulin Ratio Prolactin (Send Out) 60.4 Coccidioides IgG Ab Negative 10/29/24 04:12 WBC 12.0 H RBC 3.05 L Hgb 9.6 L Hct 29.2 L MCV 96 MCH 31.5 MCHC 32.9 RDW Std Deviation 43.2 Plt Count 310 D Neut % (Auto) 78 Lymph % (Auto) 12 [place] % (Auto) 6 Eos % (Auto) 2 Baso % (Auto) 1 Neut # (Auto) 9.4 H Lymph # (Auto) 1.5 [place] # (Auto) 0.7 Eos # (Auto) 0.2 Baso # (Auto) 0.1 Immature Gran # (Auto) 0.10 H Absolute Nucleated RBC 0.00 Immature Gran % 1 H Nucleated RBC % 0 Sodium 144 Potassium 3.8 Chloride 108 H Carbon Dioxide 26.0 Anion Gap 10 BUN 12 Creatinine 0.8 Estim Creat Clear Calc 60.7 L eGFR > 60 BUN/Creatinine Ratio [address] Glu mg/dL 123 Hemoglobin A1c 5.9 Calculated Osmolality 287 Calcium 8.8 Corrected Calcium 9.3 Phosphorus 3.6 Magnesium 1.9 Total Bilirubin 0.4 AST 19 ALT 31 Alkaline Phosphatase 130 H Total Protein 5.8 Albumin 3.4 L Globulin 2.4 Albumin/Globulin Ratio 1.4 Prolactin (Send Out) Coccidioides IgG Ab ABG Interpretation ABG results: 10/23/24 10/24/24 10/24/24 04:06 10:51 14:00 ABG pH 7.42 7.20 L D ABG pCO2 27 L 47 D ABG pO2 49 L* 83 D ABG HCO3 18 L 19 L ABG O2 Saturation 86 L 94 ABG Base Excess -6 L -9 L VBG pH 7.34 VBG pCO2 35 L VBG pO2 61 H VBG Base Excess -7 L 10/24/24 10/25/24 10/26/24 14:26 05:05 04:41 ABG pH 7.38 D 7.30 L 7.42 D ABG pCO2 32 D 37 35 ABG pO2 130 H D 53 L* D 64 L ABG HCO3 18 L 18 L 23 ABG O2 Saturation 99 H 85 L 93 ABG Base Excess -6 L -8 L -1 VBG pH VBG pCO2 VBG pO2 VBG Base Excess 10/27/24 05:15 ABG pH 7.45 ABG pCO2 40 ABG pO2 55 L* ABG HCO3 28 H ABG O2 Saturation 88 L ABG Base Excess 3 VBG pH VBG pCO2 VBG pO2 VBG Base Excess Assessment & Plan Assessment and plan (1) Acute encephalopathy: Status: Resolved Assessment and plan: Improved and is back to baseline. Will continue to monitor her closely (2) Seizure disorder: Status: Chronic Assessment and plan: Under control on Keppra and Vimpat. Continue with current management, follow seizure precautions. Follow-up with repeat EEG.
[2024-10-30] VITALS (17 sets, daily range): BP systolic 103–140; BP diastolic 60–91; PULSE 78–114; RESP 12–99; TEMP 36.1–37.2; O2SAT 96–100; BMI 19.5
[2024-10-30 06:09] LABS: Basophils # (Auto) 0.1 Thou/mm3 (0.0-0.2); Basophils % (Auto) 1 % (0-2.5); Eosinophils # (Auto) 0.5 Thou/mm3 (0.0-0.5); Eosinophils % (Auto) 4 % (0-10); Hematocrit 27.3 % (36.0-46.0); Hemoglobin 9.3 g/dL (12.0-16.0); Immature Granulocytes Auto 0.07 Thou/mm3 (0.00-0.00); Immature Reticulocyte Fraction 35.4 % (3.0-15.9); Lymphocytes # (Auto) 2.3 Thou/mm3 (1.0-4.8); Lymphocytes % (Auto) 20 % (10-50); Mean Corpuscular HGB Conc 34.1 g/dl (31.0-37.0); Mean Corpuscular Hemoglobin 31.5 pg (25.0-35.0); Mean Corpuscular Volume 93 fL (80-100); Monocytes # (Auto) 0.8 Thou/mm3 (0.0-0.8); Monocytes % (Auto) 7 % (0-12); Neutrophils # (Auto) 8.0 Thou/mm3 (1.8-7.7); Neutrophils % (Auto) 68 % (37-80); Nucleated Red Blood Cell # 0.00 Thou/mm3 (0.00-0.00); Nucleated Red Blood Cell % 0 /100 WBC (0); Platelet Count 357 Thou/mm3 (140-440); RDW Standard Deviation 41.9 fL (36.4-46.3); Red Blood Count 2.95 Miln/mm3 (4.00-5.20); Reticulocyte % (Auto) 3.4 % (0.5-1.5); Reticulocyte Absolute Auto 101.5 Biln/L (25.0-75.0); Reticulocyte Hgb Content 32.8 pg (28.0-35.0); White Blood Count 11.7 Thou/mm3 (3.6-11.0)
[2024-10-30 06:23] LABS: INR 1.0 (0.9-1.3); Partial Thromboplastin Time 29.1 Seconds (22.0-36.0); Prothrombin Time 10.7 Seconds (9.0-12.2)
[2024-10-30 06:43] LABS: B-Type Natriuretic Peptide 257 pg/mL (0-100)
[2024-10-30 06:51] LABS: Alanine Aminotransferase 27 U/L (10-49); Albumin, Serum 3.5 gm/dL (3.5-5.0); Albumin/Globulin Ratio 1.3 (1.2-2.2); Alkaline Phosphatase 136 U/L (46-116); Anion Gap 12 (7-16); Aspartate Amino Transferase 22 U/L (0-34); BUN/Creatinine Ratio 19 Ratio (12-20); Bilirubin,Total 0.4 mg/dL (0.3-1.2); Blood Urea Nitrogen 13 mg/dL (9-23); Calcium 8.7 mg/dL (8.3-10.6); Calcium (Corrected) 9.1 mg/dL (8.5-10.1); Carbon Dioxide 26.4 mMol/L (20.0-31.0); Chloride 106 mMol/L (98-107); Creatinine (Component) 0.7 mg/dL (0.6-1.3); Estimated Creatinine Clearance 69.3 mL/min (>60); Globulin 2.6 gm/dL (2.3-3.5); Glucose 104 mg/dL (74-106); Magnesium 1.6 mg/dL (1.6-2.6); Osmolality,Calculated 286 (275-295); Phosphorous 3.7 mg/dL (2.4-5.1); Potassium 3.3 mMol/L (3.4-5.1); Sodium 144 mMol/L (136-145); Total Protein 6.1 gm/dL (5.7-8.2); eGFR > 60 See Note
[2024-10-30] MEDS: levETIRAcetam LIQD 500 MG/5 ML UDC 750 MG PO ×2 (09:57→21:00)
[2024-10-30] MEDS: LACOSAMIDE 50 MG TABLET 100 MG PO ×2 (09:59→20:58)
--- NOTE | 2024-10-30 11:02 | PC.NURSE ---
Report given to FRANCISCO JAVIER Bee. VSS. A&O. Pt transferred to tele via [facility]. Dressing to right wrist clean, dry, and intact.
--- NOTE | 2024-10-30 11:23 | PC.SS ---
SS spoke to Al[place] with [facility], LVL2 closed due to no SMI.
[2024-10-30] MEDS: cefTRIAXone/D5w 1gm IV premix 1 GM/50 ML BAG IV (11:59)
[2024-10-30] MEDS: METOPROLOL TARTRATE 25 MG TABLET PO (11:59)
[2024-10-30] MEDS: PANTOPRAZOLE 40 MG TABLET PO (11:59)
[2024-10-30] MEDS: ASCORBIC ACID 250 MG TABLET 500 MG PO ×2 (12:01→20:59)
[2024-10-30] MEDS: SENNA/DOCUSATE SOD 1 TAB TABLET 2 TAB PO (12:02)
[2024-10-30] MEDS: MULTIVITAMINS TABLET 1 TAB PO (12:02)
[2024-10-30] MEDS: ZINC SULFATE 220 MG CAPSULE PO (12:02)
[2024-10-30] MEDS: POTASSIUM CHL 10 mEq IVPB 10 MEQ/100 ML BAG 100 MEQ IV ×4 (12:39→16:47)
[2024-10-30] MEDS: Magnesium Sulfate 4 GM Ivpb 4 GM/50 ML BAG IV (12:40)
--- NOTE | 2024-10-30 12:56 | PC.SS ---
Rounding: Pending heart cath, Dr. Aleman following
--- NOTE | 2024-10-30 12:57 | PC.SS ---
SS Spoke to Eliel at who stated t hey can accept pt. Pt will require auth. SS to reach out to [employer] to inform of DC plan to SNF
--- NOTE | 2024-10-30 14:50 | PC.SS ---
SS reached out to Melissa with [facility] and informed her of pt to be DC 24-48hrs, per Melissa she will review tomorrow and follow up with auth.
--- NOTE | 2024-10-30 18:35 | PD.RESPRO ---
Documentation for date of: 10/30/24 Subjective Subjective Interval history: No overnight events. [facility] Patient is alert & Orientated X 3, with full capacity. NPO this morning given cardiac cath with Dr. Aleman. Pending final report given elevated troponin on admission and new onset of CHF EF pending Cardiac Catherization. Patirahat denied chest pain or discomfort after cardiac catherization.Tyelenol on board, may given [place] X 1 if need be for pain as kidney function has improved since admsision. Pending cardiac recommendtions on GDMT, patient may require lasix, spirnolactone, and Entresto, may also follow up outpatient with cardiology. Continue Vimpat and Keppra per Neurology recommendations. Follow up with renal function s/p cardiac cath tomorrow morning. Pending SNF placement. BNP 1465 (10/24/2024)-->Dry BNP 257 Ins and Outs (10/30/2024) 650/1025/-375 Cumulative: 1650 Exam Vital Signs Temp Pulse Resp BP Pulse Ox O2 Del Method O2 Flow Rate 97.1 F 84 16 103/70 100 Room Air 4 10/30/24 16:00 10/30/24 16:00 10/30/24 16:00 10/30/24 16:00 10/30/24 16:00 10/30/24 16:00 10/27/24 20:00 FiO2 21 10/27/24 09:57 Narrative Exam General Appearance: Alert & Oriented X3, well-nourished female who is lying in bed in no acute distress HEENT: Skull symmetrical and atraumatic. Conjunctivae pin and moist. Pupils equal, round, reactive to light and accommodation (PERRL). External ear without lesion or discharge. Straight, nares patient, mucosa pink, no discharge. No thyroid nodule appreciated. No cervical lymphadenopathy. Cardio: Normal Rate and Rhythm with S1 and S2 heart sounds. No murmurs or extra heart sounds auscultated. No bruits on carotid auscultation. No peripheral edema or cyanosis. Lungs: Symmetric with good expansion. Chest and back non-tender. Breath sounds vesicular without crackles, wheezing or rhonchi Abdomen: Non-tender, Non-distended, Normal Reactive Bowel Sounds Neuro: Alert, cooperative, oriented to person, place, and time. Speech clear. CN grossly intact. Upper motor strength 5/5 and Lower motor strength 5/5. Sensation intact. Objective Labs 10/31/24 04:34 10/31/24 04:34 Labs: Laboratory Results - last 24 hr 10/30/24 05:45 WBC 11.7 H RBC 2.95 L Hgb 9.3 L Hct 27.3 L MCV 93 MCH 31.5 MCHC 34.1 RDW Std Deviation 41.9 Plt Count 357 D Neut % (Auto) 68 Lymph % (Auto) 20 [place] % (Auto) 7 Eos % (Auto) 4 Baso % (Auto) 1 Neut # (Auto) 8.0 H Lymph # (Auto) 2.3 [place] # (Auto) 0.8 Eos # (Auto) 0.5 Baso # (Auto) 0.1 Immature Gran # (Auto) 0.07 H Absolute Nucleated RBC 0.00 Immature Gran % 1 H Nucleated RBC % 0 Retic Count (auto) 3.4 H Absolute Retic 101.5 H Immature Retic Fraction 35.4 H Retic Hgb Content CHr 32.8 PT 10.7 INR 1.0 APTT 29.1 Sodium 144 Potassium 3.3 L D Chloride 106 Carbon Dioxide 26.4 Anion Gap 12 BUN 13 Creatinine 0.7 Estim Creat Clear Calc 69.3 eGFR > 60 BUN/Creatinine Ratio 19 Glucose 104 Calculated Osmolality 286 Calcium 8.7 Corrected Calcium 9.1 Phosphorus 3.7 Magnesium 1.6 Total Bilirubin 0.4 AST 22 ALT 27 Alkaline Phosphatase 136 H B-Natriuretic Peptide 257 H Total Protein 6.1 Albumin 3.5 Globulin 2.6 Albumin/Globulin Ratio 1.3 ABG Interpretation ABG results: 10/23/24 10/24/24 10/24/24 04:06 10:51 14:00 ABG pH 7.42 7.20 L D ABG pCO2 27 L 47 D ABG pO2 49 L* 83 D ABG HCO3 18 L 19 L ABG O2 Saturation 86 L 94 ABG Base Excess -6 L -9 L VBG pH 7.34 VBG pCO2 35 L VBG pO2 61 H VBG Base Excess -7 L 10/24/24 10/25/24 10/26/24 14:26 05:05 04:41 ABG pH 7.38 D 7.30 L 7.42 D ABG pCO2 32 D 37 35 ABG pO2 130 H D 53 L* D 64 L ABG HCO3 18 L 18 L 23 ABG O2 Saturation 99 H 85 L 93 ABG Base Excess -6 L -8 L -1 VBG pH VBG pCO2 VBG pO2 VBG Base Excess 10/27/24 05:15 ABG pH 7.45 ABG pCO2 40 ABG pO2 55 L* ABG HCO3 28 H ABG O2 Saturation 88 L ABG Base Excess 3 VBG pH VBG pCO2 VBG pO2 VBG Base Excess Quality Measures Quality Measures sepsis Current suspected stage: ruled out Possible source: unknown Blood cultures ordered: yes Antibiotic ordered: Yes and none Assessment & Plan Assessment Current Active Medications: Generic Name Dose Route Start Last Admin Trade Name Freq PRN Reason Stop Dose Admin Acetaminophen 650 mg 10/28/24 11:40 Acetaminophen 325 Mg Tablet PO 11/22/24 05:54 Q6H PRN Pain Scale 1-5 Ascorbic Acid 500 mg 10/28/24 09:45 10/30/24 12:01 Ascorbic Acid 250 Mg Tablet PO 11/27/24 09:44 500 mg BID KIMBERLY Administration Dextrose 25 ml 10/25/24 08:37 Dextrose 50%-Water Inj 50 Ml Syringe IV 11/24/24 08:36 Q15MIN PRN BG 50-70 responsive npo pt Dextrose 50 ml 10/25/24 08:37 Dextrose 50%-Water Inj 50 Ml Syringe IV 11/24/24 08:36 Q15MIN PRN BG <50 OR BG <70 & pt unresponsive Enoxaparin Sodium 30 mg 10/29/24 09:00 10/29/24 09:40 Enoxaparin Sod Inj 30 Mg/0.3 Ml Syringe SC 11/12/24 08:59 30 mg QDAY KIMBERLY Administration Glucagon 1 mg 10/25/24 08:37 Glucagon Inj 1 Mg Vial IM Q15MIN PRN BG <70, and no IV access Lacosamide 100 mg 10/28/24 21:00 10/30/24 09:59 Lacosamide 50 Mg Tablet PO 11/27/24 20:59 100 mg BID KIMBERLY Administration Levetiracetam 750 mg 10/28/24 21:00 10/30/24 09:57 Levetiracetam Liqd 500 Mg/5 Ml Udc PO 11/27/24 20:59 750 mg BID KIMBERLY Administration Metoprolol Tartrate 25 mg 10/29/24 15:40 10/30/24 11:59 Metoprolol Tartrate 25 Mg Tablet PO 11/27/24 20:59 25 mg BID KIMBERLY Administration Multivitamins 1 tab 10/28/24 09:30 10/30/24 12:02 Multivitamins Tablet PO 11/27/24 09:29 1 tab QDAY KIMBERLY Administration Nicotine 21 mg 10/28/24 10:09 Nicotine Patch 21 Mg/24 Hr Patch.Td24 TOP 11/28/24 08:59 QDAY PRN SMOKING CESSATION Ondansetron HCl 4 mg 10/23/24 05:55 10/23/24 10:17 Ondansetron Inj 2 Mg/Ml Inj 2 Ml IVP 11/22/24 05:54 4 mg Q6H PRN Administration NAUSEA OR VOMITING Protocol Pantoprazole Sodium 40 mg 10/29/24 09:00 10/30/24 11:59 Pantoprazole 40 Mg Tablet PO 11/28/24 08:59 40 mg QDAY KIMBERLY Administration Quetiapine Fumarate 100 mg 10/28/24 21:00 10/30/24 12:01 Quetiapine Fumarate 25 Mg Tablet PO 11/27/24 20:59 100 mg BID KIMBERLY Administration Sennosides 2 tab 10/26/24 14:00 10/30/24 12:02 Senna/Docusate Sod 1 Tab Tablet PO 11/25/24 13:59 2 tab QDAY KIMBERLY Administration Protocol Zinc Sulfate 220 mg 10/28/24 09:45 10/30/24 12:02 Zinc Sulfate 220 Mg Capsule PO 11/11/24 09:44 220 mg QDAY KIMBERLY Administration Ziprasidone 10 mg 10/27/24 09:34 10/28/24 05:58 Ziprasidone Inj 20 Mg/Ml Vial (Non-Formulary) IM 11/26/24 09:33 10 mg Q6HR PRN Administration SEVERE AGITATION Protocol Plan Patient is a 54-year-old female with past medical history of hypertension, seizures, cholecystectomy, status post brain surgery for suspected neurocysticercosis, and tobacco use who presented on 10/25/24 with a chief complaint of altered mental status. Patient admitted to hospital for further workup or for continued encephalopathy, ICU consulted for agitation, intubated and placed on Precedex drip and IV Versed pushes. Now extubated and discontinued from Precedex, downgraded to tele. #Acute Encephalopathy, possibly multifactorial, improving #Break Through Seizure #Seizures by history #s/p brain surgery due to suspicion of neurocysticosis #Left temporal encephalomalacia, chronic Likely multifactorial 2/2 to seizure episode (postictal state), possible underlying psych disorder, possible toxin ingestion LKW Saturday 10/21, has known history of seizures for which she was prescribed Keppra, per pharmacy hasn't picked up. Patient also reports she has not been as compliant with medication. Patient's baseline is talkative and independent, last seizure was last week. Per family, she has episodes of staring into space and is usually able to anticipate her episodes. Of note, Niece found an empty bottle of toenail/fingernail color enhancer and unidentified clear liquid was found and noted less mirtazapine pills in bottle, possible that patient ingested it. Also patient has had hallucinations intermittently during hospitalization and continued to be agitated. She received multiple doses of Haldol, Olanzapine, Ativan, Benadryl throughout hospital course, with persistence. Had to eventually be upgraded to ICU for Precedex infusion and intubation due to agitation. She denies other psychological history but suspect underlying psychologic disorder. Prolactin 60.4 MRI 10/25/2024 showed a large left temporal lobe encephalomalacia with suspicious ringlike restricted diffusion in the left temporal lobe. CSF culture negative, unlikely meningitis. HIV negative, syphilis serology negative. Plan: - Continue Keppra 750 p.o. BID - Continue Vimpat 100 mg p.o. BID - Continue Seroquel 100 mg BID - Ziprasidone 10 mg PRN - Rheumatoid factor, SASKIA, West Nile serology pending - Will require crisis evaluation prior to discharge - Neurology Dr. Abrams consulted, appreciate recommendations #New Acute Congestive Heart Failure #HFrEF, EF 45% (10/24/24) #Hypokinetic apical anterior wall #Acute hypoxic respiratory failure, secondary to pulmonary edema/ARDS, resolved. Echo 10/24: EF 45%. Normal LV size. Mild LVH. Normal left ventricular diastolic function. Global left ventricular systolic function is mildly decreased. Hypokinetic apical anterior wall. RV is normal in size and systolic function. Trace TR. There is a tiny, hemodynamically insignificant pericardial effusion which will be managed pharmacologically, too small for surgical intervention. S/p Lasix diuresis during ICU stay. BNP 1465 (10/24/2024)-->Repeat BNP Ins and Outs (10/29/2024) 816/1170/-353 Cumulative: 0 Plan: -NPO after midnight, plan for Cardiac Catherization w/ Dr. Aleman -Continue metoprolol tartrate 12.5 mg BID -Patinet may benefit from lasix, pending cardio reccs. -Strict intake and output, daily weight, fluid restriction 1500 cc -Consider starting on rest of GDMT -Cardiology is following, appreciate recommendations #ACS, likely NSTEMI type II #Elevated troponin - resolved Patient had worsened agitation, no symptoms of any chest pain/cardiac distress, did have abdominal pain prior to presentation. Troponin downtrended from 4.4 to 2.4, EKG showed some acute ST-T changes leads V3 V4. Echo 10/24 showed hypokinetic apical wall and global hypokinesis of left ventricle compared to right. Possible NSTEMI I. Heparin GTT (10/24-10/27) per [facility] protocol. Plan: - Repeat EKG as needed, monitor for chest pain - Discontinue aspirin and Plavix -Appreciate recommendations, Dr. Aleman, following. #Aspiration pneumonia, resolved. #Leukocytosis, improving #Status post extubation 10/27/2024 #Left pleural effusion, improving Likely secondary to flash cardiogenic pulmonary edema (improvement in chest x-ray after diuresis and HFrEF on echo). CT scan from 10/23 has no evidence of any community-acquired pneumonia, procalcitonin downtrended (16.25 --> 5.69). Sputum culture negative. ICU Bedside ultrasound 10/26 demonstrated interstitial consolidation (component of pneumonia/atelectasis) with surrounding pleural effusion, not large enough for thoracentesis. CXR 10/24 showed extensive bilateral lung opacity, fluid overload versus aspiration pneumonia. Patient received IV diuresis and serial chest x-rays showed remarkable improvement. Likely had flash pulmonary edema in setting of fluid overload with underlying heart failure with reduced ejection fraction. S/p positive pressure ventilation on mechanical ventilator, s/p extubation on 10/27, continued to improve with diuresis. Plan: - Saturating well on room air - DAY 10/15 of ceftriaxone (10/23-10/30/2024), completed. #Transaminitis, improved. #Elevated alkaline phosphatase Likely secondary to rhabdomyolysis (chronic malnutrition). Initially improved but now mild AST elevation. Bilirubin within normal limits. Unlikely gallbladder related. Unremarkable abdominal exam. - Continue to monitor CMP daily #Normocytic Anemia, likely iron deficiency #Severe iron deficiency anemia Patient continues to have slow declined in hgb and hct, normocytic anemia noted, with ferritin levels within normal limits, thus anemia of chronic inflammation as Ferritin levels may be normal to increased vs iron deficiency secondary to loss vs less likely secondary to decrease of epo. Iron 8, TIBC 178, iron sat 4, iron sat iron binding 170. Folate and B12 levels normal. Reticulocyte Count within normal limits. Plan: -haptoglobin Penidng, Occult pending -Conitnue to monitor hgb and hct - Consider starting iron supplementation outpatient #Protein calorie malnutrition, BMI 19.6 #Hypoalbuminemia BMI on presentation 19.6, patient has some temporal wasting, overall has protein calorie malnutrition. Plan: - Ensure daily - Referral to nutritional services outpatient - Continue zinc, multivitamin and vitamin C; holding iron due to infection #Hypertension Has history of hypertension, on lisinopril at home - Continue metoprolol tartrate 12.5 mg BID - HOLD Lisinopril, consider restarting, but holding as patient may benefit from Entresto/Spirnolactone based on cardiology discretion #Hx of Anxiety/depression Patient has history of anxiety/depression on Venlafaxine 150mg daily, pending official med rec. - Hold Venlafaxine and home mirtazapine - Continue Seroquel as above #Nicotine dependence #Marijuana dependence Chronic active smoker, more than 40 pack years Urine tox screen is positive for THC - Nicotine patch as needed - Tobacco cessation counseling provided at bedside - dining services manager referral #Thickening of adrenal glands Incidental CT abdomen pelvis finding currently low clinical suspicion of adrenal hyperplasia. - Consider outpatient workup #Shock, multifactorial, distributive and cardiogenic, resolved #Gastroenteritis, diarrhea, resolved prior upon admission #Tachycardia, resolved. #Epistaxis, left naris - resolved (ICU related) #Cystitis, resolved Health Maintenance Disposition: Downgraded to tele, continue abx treatment, s/p antibiotics DVT prophylaxis: Lovenox GI prophylaxis: Protonix IV Diet: Cardiac CODE STATUS: FULL - The patient's plan was discussed with attending Dr. Kiki Triplett MD PGY2 Internal Medicine Attending Provider Attestation/Addendum I have examined the patient, reviewed labs and imaging findings, discussed the case with the resident(s), and reviewed entered orders. I agree with the plan of care as outlined in this note, with these additional summaries/recommendations: Patient seen at bedside. No acute overnight events. Patient went for cardiac catheterization today and we will follow-up operative report and cardiology recommendations in regards to if anticoagulation is required. For now continue metoprolol. Patient also diagnosed with new onset HFrEF with ejection fraction of 45%. Now that cardiac catheterization is completed we will attempt to institute goal-directed medical therapy as tolerated. Continue IV antibiotics for bacterial pneumonia most likely secondary to gram-negative rods. Appetite slowly improving. Patient's acute encephalopathy appears to be improving and close to baseline. Continue Keppra and Vimpat for seizure disorder and we will follow-up with in-house neurology and repeat EEG. Patient updated on plan and in agreement. All questions answered satisfaction. Please see residents note for additional details of management. Dr. Kiki MD
--- NOTE | 2024-10-30 23:04 | ESOP_ITS ---
RE: PRITI HURT : 1970 DATE OF OPERATION: 10/30/2024 PROCEDURES PERFORMED: 1. Diagnostic left heart cardiac catheterization, selective coronary angiogram, left ventricular angiogram, CPT 71089. 2. Conscious sedation, 30 minutes duration. 3. Ultrasound-guided access of the right radial artery. 4. TR band application. DIAGNOSES: Acute [id number] elevation myocardial infarction, angina pectoris and elevated troponin. HISTORY AND INDICATIONS: The patient is a 54-year-old female with a past medical history of seizure disorder, who came to the hospital with acute hypoxic respiratory failure, shortness of breath and congestive heart failure, was found to have acute bai-OW-joyyogayy myocardial infarction, troponin elevation, some ST changes in V1-V4 suggestive of anterior apical myocardial infarction, possible Takotsubo cardiomyopathy. After the patient stabilized medically after several days, she was extubated and continued to have EKG changes. Because of persistent elevated troponin levels, NSTEMI, coronary angiogram was recommended to rule out significant CAD as the cause of her myocardial infarction and possible Takotsubo cardiomyopathy. PROCEDURE IN DETAIL: The patient was brought to the cardiac catheterization laboratory where she was given 2 mg Versed and 50 mcg of fentanyl for conscious sedation. Right radial approach was taken. Right radial artery cannulated by micropuncture technique. Ultrasound guidance was used and a 6-[place] Glidesheath was introduced. A radial cocktail was given. Selective right and left coronary angiograms were performed with a 5-[place] TIG 4 diagnostic catheter. Left heart catheterization and LV angiogram were performed by a 5-[place] TIG 4 diagnostic catheter. The patient tolerated the procedure well with no complications. A TR band was applied. Hemostasis secured. Coronary angiogram showed the following findings: The right coronary artery large and dominant and appears normal. PDA and PL branches are normal. Left coronary system, left main coronary artery is normal. Left anterior descending is normal. Circumflex artery is normal. No evidence of significant obstructive coronary artery disease. The left ventricular pressure 110/12. Aortic pressure 112/78. No gradient across the aortic valve. Left ventricular angiogram showed normal left ventricular wall motion, ejection fraction 65%-70%. SUMMARY OF FINDINGS: 1. Nonobstructive, normal epicardial coronary arteries. 2. Normal left ventricular function, ejection fraction 65%. RECOMMENDATIONS: The patient was reassured of her absence of significant obstructive coronary artery disease. The patient's troponin level is type 2 myocardial infarction, possibly due to sepsis and stress, possible Takotsubo cardiomyopathy and EKG changes and enzyme are explained by possible stress cardiomyopathy, but she made a complete recovery. Prognosis is excellent. No need for aspirin, Plavix or antiplatelet drug therapy. DT: 22:34:07 TT: 23:03:00 Ref: [id number] - TID: [id number]
--- NOTE | 2024-10-30 23:43 | ESPR_ITS ---
Documentation for date of: 10/30/24 Subjective Subjective Interval history: Patient was seen in telemetry at the bedside. No seizures reported overnight. She is back to her baseline. Exam - Neurology Vital Signs Temp Pulse Resp BP Pulse Ox O2 Del Method O2 Flow Rate 96.9 F 89 14 109/76 96 Room Air 4 10/30/24 20:00 10/30/24 20:59 10/30/24 20:00 10/30/24 20:59 10/30/24 20:00 10/30/24 20:00 10/27/24 20:00 FiO2 21 10/27/24 09:57 Narrative Exam GENERAL APPEARANCE: Well hydrated, well-nourished in no acute distress. HEENT: Normocephalic, atraumatic, extraocular movements intact. Pupils: Equal reacting to light and accommodation, NECK: Supple, no JVD or bruits. CARDIOVASULAR: Heart: S1, S2 heard, regular without S3-S4 or murmur no rubs or gallops. LUNGS/CHEST: Clear to auscultation bilaterally. No rails, rhonchi, or wheezing. Normal inspection. ABDOMEN: Soft, nontender, with normal bowel sounds. No pulsatile masses. No rebound, rigidity, or guarding. Normal inspection and palpation. EXTREMITIES: Normal inspection and palpation. No edema, clubbing or cyanosis. SKIN: Warm and dry without rashes. Normal inspection. MUSCULOSKELETAL: No cervical, thoracic, lumbar or midline bony tenderness. Normal inspection. NEURO: Alert, awake and oriented x3. Cranial nerves: II through XII grossly intact. Speech and language: Normal with no dysarthria or dysphasia. Motor system: Tone and bulk: Normal: Strength: 5 out of 5 in all 4 extremities; No pronator drift noted. Deep tendon reflexes: 2+ bilaterally symmetrical. Plantar reflex: Downgoing bilaterally. Sensory system: Intact to all modalities of sensation bilaterally. Coordination: Intact to [id number]-[id number]-jicvt and esuh-dmvl-lbro test bilaterally. No ataxia, no dysmetria, or dysdiadochokinesia noted. No intention tremors noted. Gait: Not tested.. No signs of meningeal irritation noted. PSYCHIATRIC: Normal mood and affect. Objective Labs 10/30/24 05:45 10/30/24 05:45 Labs: Laboratory Results - last 24 hr 10/30/24 05:45 WBC 11.7 H RBC 2.95 L Hgb 9.3 L Hct 27.3 L MCV 93 MCH 31.5 MCHC 34.1 RDW Std Deviation 41.9 Plt Count 357 D Neut % (Auto) 68 Lymph % (Auto) 20 [place] % (Auto) 7 Eos % (Auto) 4 Baso % (Auto) 1 Neut # (Auto) 8.0 H Lymph # (Auto) 2.3 [place] # (Auto) 0.8 Eos # (Auto) 0.5 Baso # (Auto) 0.1 Immature Gran # (Auto) 0.07 H Absolute Nucleated RBC 0.00 Immature Gran % 1 H Nucleated RBC % 0 Retic Count (auto) 3.4 H Absolute Retic 101.5 H Immature Retic Fraction 35.4 H Retic Hgb Content CHr 32.8 PT 10.7 INR 1.0 APTT 29.1 Sodium 144 Potassium 3.3 L D Chloride 106 Carbon Dioxide 26.4 Anion Gap 12 BUN 13 Creatinine 0.7 Estim Creat Clear Calc 69.3 eGFR > 60 BUN/Creatinine Ratio 19 Glucose 104 Calculated Osmolality 286 Calcium 8.7 Corrected Calcium 9.1 Phosphorus 3.7 Magnesium 1.6 Total Bilirubin 0.4 AST 22 ALT 27 Alkaline Phosphatase 136 H B-Natriuretic Peptide 257 H Total Protein 6.1 Albumin 3.5 Globulin 2.6 Albumin/Globulin Ratio 1.3 ABG Interpretation ABG results: 10/23/24 10/24/24 10/24/24 04:06 10:51 14:00 ABG pH 7.42 7.20 L D ABG pCO2 27 L 47 D ABG pO2 49 L* 83 D ABG HCO3 18 L 19 L ABG O2 Saturation 86 L 94 ABG Base Excess -6 L -9 L VBG pH 7.34 VBG pCO2 35 L VBG pO2 61 H VBG Base Excess -7 L 10/24/24 10/25/24 10/26/24 14:26 05:05 04:41 ABG pH 7.38 D 7.30 L 7.42 D ABG pCO2 32 D 37 35 ABG pO2 130 H D 53 L* D 64 L ABG HCO3 18 L 18 L 23 ABG O2 Saturation 99 H 85 L 93 ABG Base Excess -6 L -8 L -1 VBG pH VBG pCO2 VBG pO2 VBG Base Excess 10/27/24 05:15 ABG pH 7.45 ABG pCO2 40 ABG pO2 55 L* ABG HCO3 28 H ABG O2 Saturation 88 L ABG Base Excess 3 VBG pH VBG pCO2 VBG pO2 VBG Base Excess Assessment & Plan Assessment and plan (1) Acute encephalopathy: Status: Resolved (2) Seizure disorder: Status: Chronic Assessment and plan: continue with Keppra and Vimpat Follow sz precaution FU with repeat EEG.
[2024-10-31] VITALS: BP 107/76; PULSE 93; PULSE 95; RESP 18; TEMP 36.1; O2SAT 97
--- NOTE | 2024-10-31 03:36 | RESP.EEG ---
EEG completed and ready for review
[2024-10-31 04:00] VITALS: BP 98/60; PULSE 101; PULSE 93; RESP 13; TEMP 36.1; O2SAT 97
[2024-10-31 05:49] LABS: Basophils # (Auto) 0.1 Thou/mm3 (0.0-0.2); Basophils % (Auto) 1 % (0-2.5); Eosinophils # (Auto) 0.5 Thou/mm3 (0.0-0.5); Eosinophils % (Auto) 5 % (0-10); Hematocrit 27.7 % (36.0-46.0); Hemoglobin 9.3 g/dL (12.0-16.0); Immature Granulocytes Auto 0.04 Thou/mm3 (0.00-0.00); Lymphocytes # (Auto) 2.3 Thou/mm3 (1.0-4.8); Lymphocytes % (Auto) 23 % (10-50); Mean Corpuscular HGB Conc 33.6 g/dl (31.0-37.0); Mean Corpuscular Hemoglobin 31.3 pg (25.0-35.0); Mean Corpuscular Volume 93 fL (80-100); Monocytes # (Auto) 0.8 Thou/mm3 (0.0-0.8); Monocytes % (Auto) 8 % (0-12); Neutrophils # (Auto) 6.4 Thou/mm3 (1.8-7.7); Neutrophils % (Auto) 63 % (37-80); Nucleated Red Blood Cell # 0.00 Thou/mm3 (0.00-0.00); Nucleated Red Blood Cell % 0 /100 WBC (0); Platelet Count 438 Thou/mm3 (140-440); RDW Standard Deviation 43.0 fL (36.4-46.3); Red Blood Count 2.97 Miln/mm3 (4.00-5.20); White Blood Count 10.1 Thou/mm3 (3.6-11.0)
[2024-10-31 05:58] LABS: Alanine Aminotransferase 33 U/L (10-49); Albumin, Serum 3.6 gm/dL (3.5-5.0); Albumin/Globulin Ratio 1.4 (1.2-2.2); Alkaline Phosphatase 135 U/L (46-116); Anion Gap 10 (7-16); Aspartate Amino Transferase 27 U/L (0-34); BUN/Creatinine Ratio 20 Ratio (12-20); Bilirubin,Total 0.3 mg/dL (0.3-1.2); Blood Urea Nitrogen 12 mg/dL (9-23); Calcium 8.7 mg/dL (8.3-10.6); Calcium (Corrected) 9.0 mg/dL (8.5-10.1); Carbon Dioxide 28.5 mMol/L (20.0-31.0); Chloride 105 mMol/L (98-107); Creatinine (Component) 0.6 mg/dL (0.6-1.3); Estimated Creatinine Clearance 80.9 mL/min (>60); Globulin 2.6 gm/dL (2.3-3.5); Glucose 101 mg/dL (74-106); Magnesium 2.0 mg/dL (1.6-2.6); Osmolality,Calculated 284 (275-295); Phosphorous 3.7 mg/dL (2.4-5.1); Potassium 4.0 mMol/L (3.4-5.1); Sodium 143 mMol/L (136-145); Total Protein 6.2 gm/dL (5.7-8.2); eGFR > 60 See Note
[2024-10-31 08:00] VITALS: BP 101/62; PULSE 95; RESP 18; TEMP 36.1; O2SAT 100
[2024-10-31] MEDS: LACOSAMIDE 50 MG TABLET 100 MG PO (08:32)
[2024-10-31] MEDS: SENNA/DOCUSATE SOD 1 TAB TABLET 2 TAB PO (08:32)
[2024-10-31 08:33] VITALS: BP 101/62
[2024-10-31] MEDS: PANTOPRAZOLE 40 MG TABLET PO (08:33)
[2024-10-31] MEDS: MULTIVITAMINS TABLET 1 TAB PO (08:33)
[2024-10-31] MEDS: ZINC SULFATE 220 MG CAPSULE PO (08:34)
[2024-10-31] MEDS: ASCORBIC ACID 250 MG TABLET 500 MG PO (08:34)
[2024-10-31] MEDS: levETIRAcetam LIQD 500 MG/5 ML UDC 750 MG PO (08:34)
--- NOTE | 2024-10-31 09:08 | ESDS_ITS ---
Planned Discharge Date 10/31/24 DS: Providers Provider Date of admission: 10/23/24 05:55 Primary care physician: Physician No Primary/Family Admitting Provider: Don Garcia DO Attending Provider on Admission: Dallin Mcmahon MD Consults: 10/23/24 07:26 Consult to Neurology / Tele-Neurology Urgent Comment: Consulting Provider: Wicho Abrams 10/24/24 08:12 Consult to Rug Cleaning Supervisor Stat Comment: Consulting Provider: Amelia Miles 10/24/24 13:50 Consult to Cardiology Stat Comment: ACS Consulting Provider: Marino Aleman 10/28/24 09:25 Referral Physical Therapy Routine Comment: Physician Instructions: 10/28/24 09:28 Referral Nutritional Services Urgent Comment: Attending Provider on DC: Hira Swanson MD Discharging Provider: Jeannie Hall, DS: Diagnosis Problem List Completed Was Problem List Reviewed/Reconciled?: Yes Hospital Course Hospital Course Hospital course: Summary: Patient is a 54-year-old female with past medical history of hypertension, seizures, status post brain surgery secondary to seizures, history cholecystectomy, and tobacco use disorder who was admitted on 10/25/2024 for acute encephalopathy likely multifactorial in the setting of break through seizures, BHAVESH secondary to rhabdomyolysis, and aspiration pneumonia. Patient was upgraded to ICU for shock, concern for ARDS, and agitation secondary to break through seizure. Patient eventually downgraded and medication for seizure adjusted. Cardiology and Neurology consulted and followed patient during hospital course. ED Course: Vitals: 124/92,HR 113, temp 99.0 ?F but saturating 99 on room air initially but now requiring 3 L of supplemental oxygen 93% Labs: WBC of 28.5,, ABG showed a pH of 7.42, PCO2 of 27P O2 of 49 and bicarb of 18, sodium of 133 2.0, BUN of 8 lactic acid of 3.9 AST of 150 66, alk phos 139, Pro-Osmany of 16.25. Urinalysis nefative for infection but some pyuria. U tox was positive for marijuana Imaging: head CT did not show any acute findings but there was left temporal encephalomalacia. CT chest abdomen pelvis without contrast showed possible cystitis, bilateral adrenal aplasia and mild diffusion in the inferior right shoulder joint. Reason for hospitalization: Patient is a 54-year-old female with past medical history of hypertension, seizures, cholecystectomy, status post brain surgery for seizures, and tobacco use who presented on 10/25/24 with a chief complaint of altered mental status. Patient was admitted to hospital for further workup of acute encephalopathy, likely multifactorial due to breakthrough seizure, underlying psychiatric disorder, and possible toxin ingestion. Neurology Dr. Abrams was consulted for seizure management. In addition, CK elevated at 7,886 with BHAVESH, concern for ATN, and patient was started on aggressive fluid resuscitation. On day 2 of admission, ICU consulted for increased agitation and acute hypoxic respiratory failure due to suspected aspiration pneumonia overnight and ARDS. She was started on IV CFX and completed 7 day course inpatient. Per neurology, patient was also started on Vimpat. Patient was intubated and placed on Precedex drip along with IV Versed pushes. During ICU stay, cardiology Dr. Aleman was consulted due to concern for heart failure. Echo noted an EF of 45% on 10/24 with concern with CHF. Troponin obtain noted to be elevated. Patient was extubated and discontinued from Precedex on 10/28, and subsequently downgraded to telemetry. Patient became more alert and oriented. Per cardiology, official cardiac cath was completed on 10/30, EF is now 65% (HFpEF) and no longer needs ASA and Plavix. No CAD noted either. Repeat EEG on 10/31 was completed, showing signs of chronic left temporal encephalomalacia and seizure. Elevated Prolactin level, 60.4, thus breakthrough seizure likely given patient history, EEG findings, and Prolactin levels. On discharge, patient was A&Ox3 (on admissionw was only A&Ox1). Patient will be discharged with Vimpat and Keppra, recommended by neurology to stop Seroquel and restart home med venlafaxine. Will need to follow up with neurologist Dr. Abrams and PCP in 1 week. Patient has very low BMI, likely due to protein calorie malnutrition, recommend starting on iron supplements and multivitamins outpatient. Discharge Recommendations: -NEW medication for seizures: Keppra 750 mg oral twice a day AND Lacosamide 100 mg twice daily -Nicotine patch for smoking cessation -STOP MIRTAZAPINE AND PREDNISONE UNTIL YOU follow up with neurology -Follow up with Dr. Abarms, Neurology, within one week of discharge -Please follow up with your primary care provider within one week of discharge -If your symptoms worsen,please seek immediate medical attention and return to your nearest emergency room -If you do not have a primary care provider, you [facility] up at [facility] [address], [place] [address], Hospital Diagnoses: #Acute Encephalopathy, possibly multifactorial, improving #Break Through Seizure #Seizures by history #s/p brain surgery due seizures #Left temporal encephalomalacia, chronic #New Acute Congestive Heart Failure #HFrEF, EF 45% (10/24/24) #HFpEF, EF 65% (10/30/24) #Hypokinetic apical anterior wall #Acute hypoxic respiratory failure, secondary to pulmonary edema/ARDS, resolved. #ACS, likely NSTEMI type II #Elevated troponin - resolved #Aspiration pneumonia, resolved. #Leukocytosis, improving #Status post extubation 10/27/2024 #Left pleural effusion, improving #Transaminitis, improved. #Elevated alkaline phosphatase #Normocytic Anemia, likely iron deficiency #Severe iron deficiency anemia #Protein calorie malnutrition, BMI 19.6 #Hypoalbuminemia #Hypertension #Hx of Anxiety/depression #Nicotine dependence #Marijuana dependence #Thickening of adrenal glands #Shock, multifactorial, distributive and cardiogenic, resolved #Gastroenteritis, diarrhea, resolved prior upon admission #Tachycardia, resolved. #Epistaxis, left naris - resolved (ICU related) #Cystitis, resolved Disposition: Safe disposition to SNF. Patient plan of care was discussed with the resident, Dr. Triplett, and attending physician, Dr. Swanson. Jeannie Hall, PGY-1 - The patient's plan was discussed with attending Dr. Kiki Triplett MD PGY2 Internal Medicine Time Spent with Patient Time attestation: Total time spent providing and/or coordinating discharge services: at least 30 minutes of care coordination Time spent: Greater than 30 minutes Exam Vital Signs Temp Pulse Resp BP Pulse Ox O2 Del Method O2 Flow Rate 96.9 F 95 18 101/62 100 Room Air 4 10/31/24 08:00 10/31/24 08:00 10/31/24 08:00 10/31/24 08:33 10/31/24 08:00 10/31/24 08:00 10/27/24 20:00 FiO2 21 10/27/24 09:57 Narrative Exam Physical Exam General: Awake and in no acute distress. Conversational and non-toxic appearing. Cachetic. HEENT: Normocephalic, atraumatic, mucous membranes moist. Heart: Regular rate and rhythm, normal S1 and S2, no murmurs appreciated. Lungs: Clear to auscultation with no wheezing or crackles. Abdomen: Soft, nondistended, nontender, positive bowel sounds. No guarding or rebound tenderness. Neurologic: Alert and oriented x3, no gross neurological deficit, and patient able to move all 4 extremities. Extremities: No edema. Skin: No rash or ecchymoses. Discharge Plan Plan Patient Disposition: Xfer Skilled Nsg Fac (SNF) Patient condition on transfer: Stable Care Plan Goals: Instructions: -NEW medication for seizures: Keppra 750 mg oral twice a day AND Lacosamide 100 mg twice daily -Nicotine patch for smoking cessation -STOP MIRTAZAPINE AND PREDNISONE UNTIL YOU follow up with neurology -Follow up with Dr. Abrams, Neurology, within one week of discharge -Please follow up with your primary care provider within one week of discharge -If your symptoms worsen,please seek immediate medical attention and return to your nearest emergency room -If you do not have a primary care provider, you may follow up at the [facility] [address], [place] [address], Prescriptions/Referrals Prescriptions/Med Rec: New nicotine 21 mg/24 hr Patch 24 Hour 21 mg top QDAY PRN (Reason: Smoking Cessation) 30 Days Qty: 28 0RF zinc sulfate 50 mg zinc (220 mg) Capsule 220 mg PO QDAY 30 Days Qty: 132 0RF lacosamide 50 mg Tablet 100 mg PO BID 30 Days Qty: 120 0RF multivitamin with folic acid [Tab-A-Radha] 400 mcg Tablet 1 tab PO QDAY 30 Days Qty: 30 0RF levetiracetam [Keppra] 750 mg tablet 750 mg PO BID 30 Days Qty: 60 0RF Continued lisinopril 20 mg tablet 20 mg PO QDAY Qty: 30 0RF venlafaxine 100 mg Tablet 150 mg PO DAILY docusate sodium [Colace] 100 mg capsule 100 mg PO BID Qty: 40 0RF Held mirtazapine [Remeron] 15 mg Tablet 15 mg PO QDAY Hold Instructions: Resume on 11/08/24. prednisone 50 mg tablet 50 mg PO QDAY Qty: 7 0RF Hold Instructions: Resume on 11/08/24. Discontinued levetiracetam [Keppra] 750 mg Tablet 1,500 mg PO GISELE levetiracetam [Keppra] 750 mg Tablet 2,250 mg PO HS hydrocodone-acetaminophen 5-325 mg tablet 1 tab PO Q6H MDD 4 PRN (Reason: pain (scale score 7-10)) Qty: 20 0RF ibuprofen 600 mg tablet 600 mg PO Q8H PRN (Reason: pain (scale score 4-6)) Qty: 15 0RF zinc oxide 5 % cream 1 applic topical DAILY Qty: 20 0RF Referrals: No Primary/Family,Physician [Primary Care Provider] - Wicho Abrams MD [Physician] - Patient/Caregiver Discharge Instructions Education Materials: Diagnosing Epilepsy Print Language: Serbian Stand Alone Forms: Tania Award Info., Patient Portal Info Letter Discharge Order Discharge Orders: Discharge (Routine); Ordered 10/31/24 Ordered By: Yris Triplett Quality Discharge Quality Measures VTE prophylaxis MD Attestestation MD Attestation I have examined the patient, reviewed labs and imaging findings, discussed the case with the resident(s), and reviewed entered orders. I agree with the plan of care as outlined in this note. Time Spent: [address] Kiki MD
[2024-10-31 10:20] LABS: Atypical Lymphs Rare; Basophils (Manual) 1 % (0-2); Eosinophils (Manual) 5 % (0-4); Lymphocytes (Manual) 14 % (20-44); Monocytes (Manual) 8 % (2-9); Neutrophils (Manual) 72 % (50-70)
[2024-10-31 12:00] VITALS: BP 110/73; PULSE 103; RESP 17; TEMP 36; O2SAT 100
--- NOTE | 2024-10-31 13:22 | PC.SS ---
SS spoke to Jessika at who stated she received a call from [employer] who wanted to provide them auth, SS informed Jessika pt was identified as a possible DC today pending EEG. SS to follow up after rounding at 1400
--- NOTE | 2024-10-31 13:59 | ESPR_ITS ---
<Statement entered by Marino Aleman MD - 11/07/24 13:17> I evaluated examined the patient patient is clinically stable not have any cardiac symptoms chest pain or shortness of breath agree with the treatment plan recommendation as documented by Dr. Jayson Nguyen Documentation for date of: 10/31/24 Subjective Subjective Interval history: Patient is seen and examined at the bedside. No acute overnight events. Denies any other complaints Cardiac catheterization done on 10/30 - SUMMARY OF FINDINGS: 1. Nonobstructive, normal epicardial coronary arteries. 2. Normal left ventricular function, ejection fraction 65%. RECOMMENDATIONS: The patient was reassured of her absence of significant obstructive coronary artery disease. The patient's troponin level is type 2 myocardial infarction, possibly due to sepsis and stress, possible Takotsubo cardiomyopathy and EKG changes and enzyme are explained by possible stress cardiomyopathy, but she made a complete recovery. Prognosis is excellent. No need for aspirin, Plavix or antiplatelet drug therapy. Exam Vital Signs Temp Pulse Resp BP Pulse Ox O2 Del Method O2 Flow Rate 96.9 F 95 18 101/62 100 Room Air 4 10/31/24 08:00 10/31/24 08:00 10/31/24 08:00 10/31/24 08:33 10/31/24 08:00 10/31/24 08:00 10/27/24 20:00 FiO2 21 10/27/24 09:57 Narrative Exam General: Awake. HEENT: Normocephalic, atraumatic, mucous membranes moist. Heart: Regular rate and rhythm, no murmurs. Lungs: Clear to auscultation with no wheezing or crackles. Abdomen: Soft, nondistended, nontender, positive bowel sounds. ?No guarding or rebound tenderness. Neurologic: Alert and oriented x3, no gross neurological deficit, and patient able to move all 4 extremities. Extremities: No edema. Skin: No rash or ecchymoses. Objective Labs 10/31/24 04:34 10/31/24 04:34 Labs: Laboratory Results - last 24 hr 10/31/24 04:34 WBC 10.1 RBC 2.97 L Hgb 9.3 L Hct 27.7 L MCV 93 MCH 31.3 MCHC 33.6 RDW Std Deviation 43.0 Plt Count 438 D Neut % (Auto) 63 Lymph % (Auto) 23 Winkler % (Auto) 8 Eos % (Auto) 5 Baso % (Auto) 1 Neut # (Auto) 6.4 Lymph # (Auto) 2.3 Winkler # (Auto) 0.8 Eos # (Auto) 0.5 Baso # (Auto) 0.1 Immature Gran # (Auto) 0.04 H Absolute Nucleated RBC 0.00 Immature Gran % 0 Neutrophils % (Manual) 72 H Monocytes % (Manual) 8 Eosinophils % (Manual) 5 H Basophils % (Manual) 1 Nucleated RBC % 0 Lymphocytes (Manual) 14 L Atypical Lymphocytes Rare Sodium 143 Potassium 4.0 D Chloride 105 Carbon Dioxide 28.5 Anion Gap 10 BUN 12 Creatinine 0.6 Estim Creat Clear Calc 80.9 eGFR > 60 BUN/Creatinine Ratio 20 Glucose 101 Calculated Osmolality 284 Calcium 8.7 Corrected Calcium 9.0 Phosphorus 3.7 Magnesium 2.0 Total Bilirubin 0.3 AST 27 ALT 33 Alkaline Phosphatase 135 H Total Protein 6.2 Albumin 3.6 Globulin 2.6 Albumin/Globulin Ratio 1.4 ABG Interpretation ABG results: 10/23/24 10/24/24 10/24/24 04:06 10:51 14:00 ABG pH 7.42 7.20 L D ABG pCO2 27 L 47 D ABG pO2 49 L* 83 D ABG HCO3 18 L 19 L ABG O2 Saturation 86 L 94 ABG Base Excess -6 L -9 L VBG pH 7.34 VBG pCO2 35 L VBG pO2 61 H VBG Base Excess -7 L 10/24/24 10/25/24 10/26/24 14:26 05:05 04:41 ABG pH 7.38 D 7.30 L 7.42 D ABG pCO2 32 D 37 35 ABG pO2 130 H D 53 L* D 64 L ABG HCO3 18 L 18 L 23 ABG O2 Saturation 99 H 85 L 93 ABG Base Excess -6 L -8 L -1 VBG pH VBG pCO2 VBG pO2 VBG Base Excess 10/27/24 05:15 ABG pH 7.45 ABG pCO2 40 ABG pO2 55 L* ABG HCO3 28 H ABG O2 Saturation 88 L ABG Base Excess 3 VBG pH VBG pCO2 VBG pO2 VBG Base Excess Quality Measures Quality Measures sepsis Current suspected stage: ruled out Possible source: unknown Blood cultures ordered: yes Antibiotic ordered: No and none Assessment & Plan Assessment Current Active Medications: Generic Name Dose Route Start Last Admin Trade Name Devangq PRN Reason Stop Dose Admin Acetaminophen 650 mg 10/28/24 11:40 Acetaminophen 325 Mg Tablet PO 11/22/24 05:54 Q6H PRN Pain Scale 1-5 Ascorbic Acid 500 mg 10/28/24 09:45 10/31/24 08:34 Ascorbic Acid 250 Mg Tablet PO 11/27/24 09:44 500 mg BID KIMBERLY Administration Dextrose 25 ml 10/25/24 08:37 Dextrose 50%-Water Inj 50 Ml Syringe IV 11/24/24 08:36 Q15MIN PRN BG 50-70 responsive npo pt Dextrose 50 ml 10/25/24 08:37 Dextrose 50%-Water Inj 50 Ml Syringe IV 11/24/24 08:36 Q15MIN PRN BG <50 OR BG <70 & pt unresponsive Enoxaparin Sodium 30 mg 10/29/24 09:00 10/29/24 09:40 Enoxaparin Sod Inj 30 Mg/0.3 Ml Syringe SC 11/12/24 08:59 30 mg QDAY KIMBERLY Administration Glucagon 1 mg 10/25/24 08:37 Glucagon Inj 1 Mg Vial IM Q15MIN PRN BG <70, and no IV access Lacosamide 100 mg 10/28/24 21:00 10/31/24 08:32 Lacosamide 50 Mg Tablet PO 11/27/24 20:59 100 mg BID KIMBERLY Administration Levetiracetam 750 mg 10/28/24 21:00 10/31/24 08:34 Levetiracetam Liqd 500 Mg/5 Ml Udc PO 11/27/24 20:59 750 mg BID KIMBERLY Administration Metoprolol Tartrate 25 mg 10/29/24 15:40 10/31/24 08:33 Metoprolol Tartrate 25 Mg Tablet PO 11/27/24 20:59 Not Given BID KIMBERLY Multivitamins 1 tab 10/28/24 09:30 10/31/24 08:33 Multivitamins Tablet PO 11/27/24 09:29 1 tab QDAY KIMBERLY Administration Nicotine 21 mg 10/28/24 10:09 Nicotine Patch 21 Mg/24 Hr Patch.Td24 TOP 11/28/24 08:59 QDAY PRN SMOKING CESSATION Ondansetron HCl 4 mg 10/23/24 05:55 10/23/24 10:17 Ondansetron Inj 2 Mg/Ml Inj 2 Ml IVP 11/22/24 05:54 4 mg Q6H PRN Administration NAUSEA OR VOMITING Protocol Pantoprazole Sodium 40 mg 10/29/24 09:00 10/31/24 08:33 Pantoprazole 40 Mg Tablet PO 11/28/24 08:59 40 mg QDAY KIMBERLY Administration Quetiapine Fumarate 100 mg 10/28/24 21:00 10/31/24 08:33 Quetiapine Fumarate 25 Mg Tablet PO 11/27/24 20:59 100 mg BID KIMBERLY Administration Sennosides 2 tab 10/26/24 14:00 10/31/24 08:32 Senna/Docusate Sod 1 Tab Tablet PO 11/25/24 13:59 2 tab QDAY KIMBERLY Administration Protocol Ziprasidone 10 mg 10/27/24 09:34 10/28/24 05:58 Ziprasidone Inj 20 Mg/Ml Vial (Non-Formulary) IM 11/26/24 09:33 10 mg Q6HR PRN Administration SEVERE AGITATION Protocol Plan A 54-year-old female with significant past medical history of seizures, brain surgery, marijuana use, anxiety, depression was found to be unconscious when her sister went to check on her. The patient was immediately brought to the hospital for altered mental status. Patient apparently found to have vomitings and abdominal pain prior to the admission for 1 day. On reviewing previous medical records, patient was found to have hospital ER visits for seizures in 2021. Found to have cholecystectomy, laparoscopic by Dr. Monge in 2021. Cardiology is consulted in view of regional wall motion abnormality, elevated troponin and BNP, EKG changes and suspected ACS # Elevated troponins, NSTEMI --> likely type II # Pulmonary edema - Cardiogenic vs noncardiogenic, ARDS , Resolved # HFmEF, EF 45% - Patient initially presented with altered mental status and vitals at the time of admission are stable, admitted for acute encephalopathy, likely secondary to suspected seizures - In the floors, patient is treated for sepsis and suspected seizure activity - On 10/24/2024, patient is upgraded to ICU for acute hypoxic respiratory failure and acute encephalopathy, patient is intubated, a bolus of 1 L IV fluid is given and started on vasopressors - Patient is given total 6.9 L since the time of admission in view of rhabdomyolysis - Troponin done on 10/24/2024 in the ICU is 6.24, later down trended to 6.0. BNP is 1465 - Chest x-ray showed bilateral increased vascular prominence, perihilar opacities, fluid in the right middle fissure, appears like cardiogenic pulmonary edema but cannot rule out ARDS - EKG done in the ICU showed sinus tachycardia with ST elevations in V3 and V4 with no reciprocal ST depressions noted in other leads - Per chart review, patient does not have any significant history of CAD and Heart failure Plan - Echocardiogram showed mild apical hypokinesis without significant regional wall motion abnormalities with EF of 45% - Cardiac catheterization done on 10/30 - SUMMARY OF FINDINGS: 1. Nonobstructive, normal epicardial coronary arteries. 2. Normal left ventricular function, ejection fraction 65%. RECOMMENDATIONS: The patient was reassured of her absence of significant obstructive coronary artery disease. The patient's troponin level is type 2 myocardial infarction, possibly due to sepsis and stress, possible Takotsubo cardiomyopathy and EKG changes and enzyme are explained by possible stress cardiomyopathy, but she made a complete recovery. Prognosis is excellent. No need for aspirin, Plavix or antiplatelet drug therapy. # Shock, likely septic, resolved # To rule out cardiogenic - Patient initially presented to the hospital with altered mental status - Vitals are stable at the time of admission except for sinus tachycardia - Labs at the time of admission are significant for elevated WBC, metabolic acidosis, BHAVESH and procalcitonin. CK levels are elevated. - Patient is initially treated for sepsis and rhabdomyolysis. Patient received around 7 L of fluid - On 10/24/2024, patient developed sudden onset shortness of breath and agitation with low saturation for which patient is intubated and upgraded to ICU for further management - EKG done at that time showed ST elevations in V3 and V4, troponin of 6.2, BNP 1465 - Chest x-ray showed bilateral increased vascularity and perihilar opacities - Echocardiogram done showed no significant regional wall motion abnormalities except for mild hypokinesis at the apex, EF of 45% - Patient is started on heparin drip, received loading doses of aspirin and Plavix. Plan - Recommend to discontinue heparin drip - Cardiogenic shock cannot be ruled out even if the patient had normal EF as patient can have LV diastolic dysfunction causing pulmonary edema and acute hypoxic respiratory failure. Patient can have Takotsubo like picture in the setting of ongoing acute illness, suspected sepsis. Fluid overload could also be contributing to the pulmonary edema as patient received almost 7 L since hospital admission at the time of intubation - CVP is around 9 which rules out right heart failure. Initially intended to do [place] catheter to measure the PCWP but could not do in view of insufficient equipment - No need of [place] catheter as patient appears to be improving clinically #Acute Encephalopathy - resolved #Seizure episode #History of seizures #Severe agitation #Left temporal encephalomalacia, temporal lobe calcification #Anxiety/depression, by history #Nicotine dependence #Marijuana dependence #Hypertension, by history #Acute hypoxic respiratory failure, on mechanical ventilation 2/2 severe agitation #Acute respiratory distress syndrome versus negative pressure pulmonary edema #Aspiration pneumonia #Transaminitis #Gastroenteritis, diarrhea #Acute kidney injury secondary to rhabdomyolysis #Cystitis #High anion gap metabolic acidosis #Lactic acidosis #Thickening of adrenal glands #Leukocytosis #Normocytic normochromic anemia #Cystitis #Aspiration pneumonia #Rule out meningitis - Rest of the medical conditions to be treated as per primary team Thank you for allowing us to participate in the care of the patient Patient plan of care was discussed with the screener and blender operator, Dr. Ash Oconnor, PGY2
--- NOTE | 2024-10-31 14:44 | PC.SS ---
SS was informed pt is ready for DC, SS reached out to [facility] who stated to hold off and she will return my call when they have a update.
[2024-10-31 16:00] VITALS: BP 108/65; PULSE 102; PULSE 106; RESP 16; TEMP 36.7; O2SAT 100
--- NOTE | 2024-10-31 16:01 | PC.SS ---
Addendum entered by Marcela Vega 10/31/24 16:30: SS spoke to Darline at [facility], PASSR sent via [employer]. SS contacted Harry who stated to call [facility] by 5pm to check if auth was received Original Note: SS spoke to Jessika at who stated they are unable to take pt at this time, SS explained to Jessika pt being ready and SS will need to provide other options to pt. Jessika stated she understands. SS met with pt at her son Jonny Kaur [phone] at bedside to discuss DC planning, SS provided them with SNF options [facility], [facility], and [facility]. They decided on [facility]. SS attempted to contact Harry with [facility], SS was unsuccessful and VM was left.
--- NOTE | 2024-10-31 16:47 | PC.SS ---
SS follow up: Darline from [facility] informs that insurance authorization was obtained for the patient to go to their facility. Patient's son Jonny is aware and informs he is able to transport the patient and can arrive at 6pm. Notified patient's nurse Cristian and Darline with [facility].
[2024-11-01 06:28] LABS: Rheumatoid Factor* <10 IU/mL (<14)
[2024-11-01 17:49] LABS: West Nile Virus Ab. IgG, Serum <1.30
[2024-11-02 06:26] LABS: ANA Screen, IFA POSITIVE (NEGATIVE); West Nile Virus Ab. IgM, Serum <0.90
[2024-11-02 06:27] LABS: ANA Titer 1:80 titer
[2024-11-06 06:45] LABS: Haptoglobin* 319 mg/dL (43-212)
== END 2024-10-31 19:32 | disposition skilled nursing facility (03) | DRG 100 ==
LOC: SERX 10-23 06:08 → SERHOLD 10-23 06:27 → S2NX 10-23 07:47 → S2SX 10-24 08:36 → S2NX 10-28 18:27
PROVIDERS: Internal Medicine; Internal Medicine Cardiovascular Disease; Nurse Practitioner Family; Student in an Organized Health Care Education/Training Program; Admitting Provider Student in an Organized Health Care Education/Training Program; Emergency Provider Emergency Medicine; Visit Provider Internal Medicine
PROC: 4A023N7 Measurement of Cardiac Sampling and Pressure, Left Heart, Percutaneous Approach (ICD-10-PCS; principal; 2024-10-30 08:30)
DX: G40.909 Epilepsy, unspecified, not intractable, without status epilepticus (principal); E43 Unspecified severe protein-calorie malnutrition; J15.9 Unspecified bacterial pneumonia; J69.0 Pneumonitis due to inhalation of food and vomit; R57.0 Cardiogenic shock; G93.49 Other encephalopathy; E87.4 Mixed disorder of acid-base balance; N17.9 Acute kidney failure, unspecified; E87.1 Hypo-osmolality and hyponatremia; F03.92 Unspecified dementia, unspecified severity, with psychotic disturbance; I50.42 Chronic combined systolic (congestive) and diastolic (congestive) heart failure; F03.94 Unspecified dementia, unspecified severity, with anxiety; M62.82 Rhabdomyolysis; Z68.1 Body mass index [BMI] 19.9 or less, adult; E22.1 Hyperprolactinemia; F41.9 Anxiety disorder, unspecified; F32.A Depression, unspecified; F17.200 Nicotine dependence, unspecified, uncomplicated; G93.89 Other specified disorders of brain; R09.02 Hypoxemia; K76.0 Fatty (change of) liver, not elsewhere classified; E27.8 Other specified disorders of adrenal gland; D50.9 Iron deficiency anemia, unspecified; E83.39 Other disorders of phosphorus metabolism; E83.42 Hypomagnesemia; E87.6 Hypokalemia; I11.0 Hypertensive heart disease with heart failure; E87.8 Other disorders of electrolyte and fluid balance, not elsewhere classified; F12.20 Cannabis dependence, uncomplicated; F17.210 Nicotine dependence, cigarettes, uncomplicated; E88.09 Other disorders of plasma-protein metabolism, not elsewhere classified; K52.9 Noninfective gastroenteritis and colitis, unspecified; N30.90 Cystitis, unspecified without hematuria; R04.0 Epistaxis; Z78.1 Physical restraint status; Z79.02 Long term (current) use of antithrombotics/antiplatelets; Z79.82 Long term (current) use of aspirin; Z79.899 Other long term (current) drug therapy; Z90.49 Acquired absence of other specified parts of digestive tract; Z99.2 Dependence on renal dialysis
CPT/HCPCS: 36415; 36600; 70450; 70553; 71045; 71250; 74176; 80053; 80061; 80069; 80074; 80307; 80320; 80329; 81001; 82140; 82436; 82550; 82570; 82607; 82728; 82746; 82803; 82945; 83010; 83036; 83540; 83550; 83605; 83615; 83690; 83735; 83880; 84100; 84132; 84133; 84145; 84146; 84157; 84300; 84443; 84484; 85014; 85018; 85025; 85046; 85610; 85652; 85730; 86038; 86039; 86140; 86331; 86431; 86580; 86635; 86703; 86780; 86788; 86789; 87015; 87040; 87045; 87046; 87070; 87081; 87205; 87493; 87899; 89051; 92610; 93005; 93306; 94002; 94003; 94660; 94762; 95816; 96361; 96365; 96375; 96376; 97162; 99152; A4216; A4649; A9579; C1769; C1887; C1894; C9254; J0168; J0461; J0696; J1165; J1200; J1630; J1643; J1644; J1650; J1938; J1953; J2060; J2250; J2251; J2310; J2358; J2371; J2405; J2470; J2543; J2704; J3010; J3475; J3480; J3486; J3490; J7030; J7050; J7120; J7999; Q9967; A9270; G0480; J2305; J2359

== ENCOUNTER → 2024-12-14 | Outpatient (CLI) | payer MEDICARE, MEDICAID, SELFPAY ==
--- NOTE | 2024-12-14 | XR_ITS ---
Examination: Shoulder,right, 3 views Technique: Shoulder AP internal rotation, AP external rotation, Y view shoulder, 3 views Exam date and time :December 14, 2024 at 1124 hours INDICATIONS: Shoulder pain post dislocation one month ago. FINDINGS: Prominent osteopenia No current shoulder dislocation No shoulder fracture Advanced narrowing glenohumeral joint No AC joint separation IMPRESSION: Advanced narrowing glenohumeral joint
== END | disposition home or self-care (01) ==
PROVIDERS: PCP Nurse Practitioner; Referring Provider Nurse Practitioner; Visit Provider Nurse Practitioner
DX: M25.811 Other specified joint disorders, right shoulder (principal)
CPT/HCPCS: 73030

== ENCOUNTER → 2025-02-11 | Outpatient (CLI) | payer MEDICARE, MEDICAID, SELFPAY ==
--- NOTE | 2025-02-11 14:30 | XR_ITS ---
Examination: Screening digital mammography, bilateral Computer aided detection 3-D breast Tomosynthesis, bilateral Date and time of exam: 02/11/2025, 3:01 p.m. Comparisons: Baseline exam Indications: Screening Technique: Nonmagnified MLO, CC views of the breasts to been obtained, reconstructed from 3-D Tomosynthesis images. R2 computer aided detection program utilized for evaluation of suspicious masses and/or abnormal calcifications. 3-D Tomosynthesis images obtained. Technologist: Findings: The breasts are heterogeneously dense, which may obscure small masses. No evidence of abnormal masses or suspicious calcifications. Impression: BI-RADS category 1: Negative findings (within normal) Recommend 1 year follow-up mammogram
== END | disposition home or self-care (01) ==
LOC: CDIM 14:09
PROVIDERS: Referring Provider Nurse Practitioner; Visit Provider Nurse Practitioner
DX: Z12.31 Encounter for screening mammogram for malignant neoplasm of breast (principal); R92.313 Mammographic fatty tissue density, bilateral breasts
CPT/HCPCS: 77063; 77067